=== PATIENT | male | born 1980 | race Caucasian/White ===

== ENCOUNTER 2016-11-04 17:21 | Inpatient (IN) | payer MEDICARE, MEDICAID ==
[~2016-11-04] VITALS: Ht 182.9 cm; Wt 129.4 kg
[~2016-11-04 17:21] MED LIST: /ACETCOD2T PO; /BACL20TA PO; /CLON1TA PO; /DIVA50TA PO; /MOM400 PO; /NITR4TASL SL; /ONDA4TA PO; /PANT40TA PO; ACET500T PO; ADV250INH INH; ALUMINUM HYDROXIDE PO; AMIT50TA PO; ANTI25TA PO; CYCL5TAB PO; FLUC100T PO; FURO40TA2 PO; KLON0.5T PO; KLOR1TAB69 PO; LAMICTAL PO; LEVO500T PO; LUNE1TAB9 PO; LYRI150C PO; LYRI75CA PO; MAGNESIUM HYDROXIDE PO; MORP30SU PO; MORP30TASA PO; MORPHINE SULFATE IR PO; MS CONTIN PO; NEUR300C PO; NICO21DI26 EXT; NICOTINE PATCH TD; NITR0.2D5 TD; NITR4TASL SL; OLAN5TAB PO; PAXI20TA3 PO; PRED-454 PO; PRED10TA PO; PROM25TA3 PO; PROM50TA2 PO; SIMETHICONE PO; SOMA350T PO; SONA10CA6 PO; TRAZ100T2 PO; ULTR50TA PO; VALI5TAB PO; VENTAER IN; ZALE10CA PO; ZOFR20TA PO; ZOFR4TAB3 PO
[2016-11-04 18:12] LABS: MEAN CORPUSCULAR HEMOGLOBIN 26.5 pg (27.0-33.0); RED CELL DISTRIBUTION WIDTH 15.7 % (11.5-14.5); WHITE BLOOD COUNT 15.3 K/mm3 (4.0-10.0)
[2016-11-04 18:28] LABS: AMPHETAMINES LEVEL URINE NEGATIVE (NEGATIVE); BENZODIAZEPINES URINE NEGATIVE (NEGATIVE); COCAINE METABOLITE URINE NEGATIVE (NEGATIVE); CONTROL LINE INT CTR LINE PRESENT; METHADONE URINE NEGATIVE (NEGATIVE); OPIATES URINE NEGATIVE (NEGATIVE); TRICYCLIC ANTIDEPRESS URINE NEGATIVE (NEGATIVE)
[2016-11-04 18:47] LABS: ALBUMIN 3.8 GM/DL (3.2-5.2); ALBUMIN/GLOBULIN RATIO 0.95 (1.00-1.93); ALKALINE PHOSPHATASE 117 U/L (45-117); ALT/SGPT 27 U/L (12-78); ANION GAP 11 MEQ/L (8-16); AST/SGOT 24 U/L (15-37); BILIRUBIN,DIRECT 0.2 MG/DL (0.0-0.2); BILIRUBIN,TOTAL 0.5 MG/DL (0.2-1.0); BLOOD UREA NITROGEN 11 MG/DL (7-18); CARBON DIOXIDE LEVEL 26 MEQ/L (21-32); CHLORIDE LEVEL 101 MEQ/L (98-107); CREATININE FOR GFR 1.06 MG/DL (0.70-1.30); GLOMERULAR FILTRATION RATE > 60.0 (>60); GLUCOSE, FASTING 81 MG/DL (70-105); POTASSIUM SERUM 3.8 MEQ/L (3.5-5.1); SODIUM LEVEL 138 MEQ/L (136-145); TOTAL PROTEIN 7.8 GM/DL (6.4-8.2)
[2016-11-04] MEDS ORDERED: ATRO0.063 INH (20:14)
[2016-11-04] MEDS ORDERED: ATOR40TA PO (20:14)
[2016-11-04] MEDS ORDERED: GABA300C3 PO (20:14)
[2016-11-04] MEDS ORDERED: WELL200T PO (20:14)
[2016-11-04] MEDS ORDERED: RISP1TAB3 PO (20:14)
[2016-11-04] MEDS ORDERED: NITR4TASL SL (20:14)
--- NOTE | 2016-11-04 22:49 | EDDOCDS ---
Physician Documentation [facility] Name: Layton Odonnell Iii Age: 36 yrs Sex: Male : 1980 Arrival Date: 11/04/2016 Time: 17:21 Bed U4 Private MD: Charu Alicia Disposition: 11/04/16 19:32 Hospitalization ordered by Wojciech Schulte for Inpatient Admission. Preliminary diagnosis are Adjustment disorder with mixed anxiety and depressed mood, Suicidal ideations. - Bed requested for Admit. - Status is Inpatient Admission. slm - Condition is Stable. - Problem is an ongoing problem. - Symptoms are unchanged. Historical: - Allergies: Erythromycin; IV Contrast; Red Dye; SULFA (SULFONAMIDES); Vicodin; IODINEIODINE CONTAINING (Anaphylaxis); - Home Meds: 1. atorvastatin 40 mg oral tab 1 tab once daily 2. Wellbutrin SR 200 mg oral TbER 2 times per day 3. gabapentin 900mg Oral tab 1 cap 3 times per day 4. atrovent inhaler 17 mcg/act 2 puffs four times a day prn 5. 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 No barriers to communication noted, The patient speaks fluent Tunisian, Speaks appropriately for age. - Family history: Not pertinent. - : The pt / caregiver states he / she is not on anticoagulants. Home medication list is obtained from the patient. - Exposure Risk Screening:: None identified. Vital Signs: 11/04 17:25 BP 137 / 83; Pulse 114; Resp 21; Temp 96.2(T); Pulse Ox 99% on R/A; lr2 18:47 Weight 126.55 kg / 278.99 lbs (R); Height 6 ft. (182.88 cm) (R); ml6 22:44 BP 154 / 80; Pulse 96; Resp 18; Temp 96.5(T); Pulse Ox 97% ; Pain 9/10; mas 18:47 Body Mass Index 37.84 (126.55 kg, 182.88 cm) ml6 MDM: 17:34 Consult PFS/PSA/Electric Locomotive Crane Operator ordered. ke 17:34 Consult PFS/PSA/Electric Locomotive Crane Operator: Patient's case requires discussion with on-call ke Psychiatrist ordered. 17:34 PSA/PFS to call Nursing Concrete Conveyor Operator, to enter patient data on [place] Safe [place] if patient ke involuntarily admitted or transferred for SI or HI ordered. 17:34 Confirm accurate psychiatric medication list and times of last dosage ordered. ke 17:34 Detain Pt Until Medically/PFS Cleared ordered. ke 17:35 Acetaminophen Level Ordered. EDMS 17:35 Basic Metabolic Profile Ordered. EDMS 17:35 Complete Blood Count Ordered. EDMS 17:35 Drug Eval Toxicology ED Only Ordered. EDMS 17:35 Ethyl Alcohol (ethanol) Ordered. EDMS 17:35 Liver Profile Ordered. EDMS 17:35 Salicylate Level Ordered. EDMS 17:35 Thyroid Stimulating Hormone Ordered. EDMS 17:48 Financial registration complete. gjb 17:50 [facility] Payment Agreement was scanned into [employer] and attached to record. gjb 18:38 REGULAR DIET PLASTIC SAUNDERS+DIET ordered. EDMS 18:52 Acetaminophen Level Reviewed. ke 18:52 Complete Blood Count Reviewed. ke 18:52 Liver Profile Reviewed. ke 18:52 Salicylate Level Reviewed. ke 18:52 Thyroid Stimulating Hormone Reviewed. ke 18:52 Basic Metabolic Profile Reviewed. ke 18:52 Drug Eval Toxicology ED Only Reviewed. ke 18:52 Ethyl Alcohol (ethanol) Reviewed. ke 19:34 Consult PFS/PSA/Electric Locomotive Crane Operator complete. cl 19:34 Consult PFS/PSA/Electric Locomotive Crane Operator: Patient's case requires discussion with on-call cl Psychiatrist complete. 19:34 PSA/PFS to call Nursing Concrete Conveyor Operator, to enter [place] data [place] if patient cl involuntarily admitted or transferred for SI or HI complete. 21:14 [facility] Legal paperwork was scanned into [employer] and attached to record. cs 21:55 M[facility] Legal paperwork was scanned into [employer] and attached to record. cs 21:58 Admit to [facility]: ordered. EDMS Signatures: Dispatcher [employer] EDMS Elise Cai, GLORIA RN audrey Galarza, Madhu, PSA PSA cl Mauro Castañeda PSA PSA cs Christiano Buckley, PULVERIZER PULVERIZER Kahlil Falcon, RN RN ml6 Kalee Key,LUZ MARIA CANNONN Pearl [place] The chart was reviewed and I authenticate all verbal orders and agree with the evaluation and treatment provided.Corrections: (The following items were deleted from the chart) 17:33 17:29 Allergies: IODINE; IODINE CONTAINING; ml6 ml6 17:33 17:29 Allergies: IV Contrast; ml6 ml6 17:33 17:29 Allergies: Red Dye; ml6 ml6 17:33 17:29 Allergies: SULFA (SULFONAMIDES); ml6 ml6 17:33 17:29 Allergies: Vicodin; ml6 ml6 17:33 17:30 Allergies: Erythromycin; srm ml6 17:33 17:30 Allergies: IODINE; IODINE CONTAINING; srm ml6 17:33 17:30 PMHx: Angina; srm ml6 17:33 17:30 PMHx: Diverticulitis; srm ml6 17:33 17:30 PMHx: Hernia; srm ml6 17:33 17:30 PMHx: High Cholesterol; srm ml6 17:33 17:30 PMHx: RI (2012); srm ml6 17:33 17:30 PMHx: Seizure Disorder; srm ml6 17:33 17:31 PMHx: "kidney problems"; ml6 ml6 17:33 17:31 PMHx: 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 ml6 ml6 17:36 17:34 Consult PFS/PSA/Electric Locomotive Crane Operator: Patient's case requires discussion with on-call ml6 Psychiatrist ordered. ml6 17:36 17:34 PSA/PFS to call Nursing Concrete Conveyor Operator, to [place] data [place] if ml6 patient involuntarily admitted or transferred for SI or HI ordered. ml6 17:36 17:34 Confirm accurate psychiatric medication list and times of last dosage ordered. ml6ml6 17:36 17:34 Detain Pt Until Medically/PFS Cleared ordered. ml6 ml6 Attachments: 17:[address] [facility] Payment Agreement [email or web address]
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
[2016-11-05] MEDS ORDERED: ACETAMINOPHEN TAB 650MG DOSE (2X325MG) PO PRN
[2016-11-05] MEDS ORDERED: IPRATROPIUM HFA INHALER 12.9 GRAMS (ATROVENT HFA) INH PRN
[2016-11-05] MEDS ORDERED: MOM 30ML SUSPENSION UDC PO PRN
[2016-11-05] MEDS ORDERED: MAALOX 30 ML SUSP *UDC PO PRN
[2016-11-05] MEDS ORDERED: NITROGLYCERIN 0.4 MG SUBL TABLET SL PRN
[2016-11-05 00:15] VITALS: BP 152/81
[2016-11-05] MEDS: OLANZapine ORAL DISINTEGRATING TAB 5MG PO PRN ×2 (05:09→17:22)
[2016-11-05 06:10] VITALS: BP 139/83
[2016-11-05] MEDS: NICOTINE 21MG/24HR 1 EA TRANSDERMAL TD SCH (09:00)
[2016-11-05] MEDS: risperiDONE 1 MG TAB PO SCH (09:15)
[2016-11-05] MEDS: buPROPion (WELLBUTRIN SR) 100 MG SR TAB PO SCH ×2 (09:15→22:16)
[2016-11-05] MEDS: GABAPENTIN 300 MG CAP PO SCH ×3 (09:15→22:16)
[2016-11-05 12:05] VITALS: BP 117/63
[2016-11-05 18:27] VITALS: BP 118/64
[2016-11-05] MEDS: ATORVASTATIN 20 MG TAB PO SCH (22:16)
[2016-11-05] MEDS: traZODone 50 MG TAB PO PRN (22:16)
[2016-11-06] MEDS: OLANZapine ORAL DISINTEGRATING TAB 5MG PO PRN ×2 (05:11→20:49)
[2016-11-06 06:26] VITALS: BP 140/71
[2016-11-06] MEDS: NICOTINE 21MG/24HR 1 EA TRANSDERMAL TD SCH (08:08)
[2016-11-06] MEDS: risperiDONE 1 MG TAB PO SCH (08:09)
[2016-11-06] MEDS: GABAPENTIN 300 MG CAP PO SCH ×3 (08:09→20:49)
[2016-11-06] MEDS: buPROPion (WELLBUTRIN SR) 100 MG SR TAB PO SCH ×2 (08:09→20:49)
[2016-11-06 18:00] VITALS: BP 118/62
[2016-11-06 18:49] VITALS: BP 140/71
[2016-11-06] MEDS ORDERED: risperiDONE 0.5 MG TAB PO ONE (19:45)
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
[2016-11-06] MEDS: ATORVASTATIN 20 MG TAB PO SCH (20:49)
[2016-11-06] MEDS: traZODone 50 MG TAB PO PRN (21:57)
--- NOTE | 2016-11-06 23:49 | EDDOCDS ---
Physician Documentation [facility] Name: Layton Odonnell Iii Age: 36 yrs Sex: Male : 1980 Arrival Date: 11/04/2016 Time: 17:21 Bed U4 Private MD: Charu Alicia Disposition: 11/04/16 19:32 Hospitalization ordered by Wojciech Schulte for Inpatient Admission. Preliminary diagnosis are Adjustment disorder with mixed anxiety and depressed mood, Suicidal ideations. - Bed requested for Admit. - Status is Inpatient Admission. slm - Condition is Stable. - Problem is an ongoing problem. - Symptoms are unchanged. Historical: - Allergies: Erythromycin; IV Contrast; Red Dye; SULFA (SULFONAMIDES); Vicodin; IODINEIODINE CONTAINING (Anaphylaxis); - Home Meds: 1. atorvastatin 40 mg oral tab 1 tab once daily 2. Wellbutrin SR 200 mg oral TbER 2 times per day 3. gabapentin 900mg Oral tab 1 cap 3 times per day 4. atrovent inhaler 17 mcg/act 2 puffs four times a day prn 5. 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 No barriers to communication noted, The patient speaks fluent Irish, Speaks appropriately for age. - Family history: Not pertinent. - : The pt / caregiver states he / she is not on anticoagulants. Home medication list is obtained from the patient. - Exposure Risk Screening:: None identified. Vital Signs: 11/04 17:25 BP 137 / 83; Pulse 114; Resp 21; Temp 96.2(T); Pulse Ox 99% on R/A; lr2 18:47 Weight 126.55 kg / 278.99 lbs (R); Height 6 ft. (182.88 cm) (R); ml6 22:44 BP 154 / 80; Pulse 96; Resp 18; Temp 96.5(T); Pulse Ox 97% ; Pain 9/10; mas 18:47 Body Mass Index 37.84 (126.55 kg, 182.88 cm) ml6 MDM: 17:34 Consult PFS/PSA/Research Development Director ordered. ke 17:34 Consult PFS/PSA/Research Development Director: Patient's case requires discussion with on-call ke Psychiatrist ordered. 17:34 PSA/PFS to call Nursing Travel Director, to enter patient data on [place] Safe [place] if patient ke involuntarily admitted or transferred for SI or HI ordered. 17:34 Confirm accurate psychiatric medication list and times of last dosage ordered. ke 17:34 Detain Pt Until Medically/PFS Cleared ordered. ke 17:35 Acetaminophen Level Ordered. EDMS 17:35 Basic Metabolic Profile Ordered. EDMS 17:35 Complete Blood Count Ordered. EDMS 17:35 Drug Eval Toxicology ED Only Ordered. EDMS 17:35 Ethyl Alcohol (ethanol) Ordered. EDMS 17:35 Liver Profile Ordered. EDMS 17:35 Salicylate Level Ordered. EDMS 17:35 Thyroid Stimulating Hormone Ordered. EDMS 17:48 Financial registration complete. gjb 17:50 [facility] Payment Agreement was scanned into [employer] and attached to record. gjb 18:38 REGULAR DIET PLASTIC SAUNDERS+DIET ordered. EDMS 18:52 Acetaminophen Level Reviewed. ke 18:52 Complete Blood Count Reviewed. ke 18:52 Liver Profile Reviewed. ke 18:52 Salicylate Level Reviewed. ke 18:52 Thyroid Stimulating Hormone Reviewed. ke 18:52 Basic Metabolic Profile Reviewed. ke 18:52 Drug Eval Toxicology ED Only Reviewed. ke 18:52 Ethyl Alcohol (ethanol) Reviewed. ke 19:34 Consult PFS/PSA/Research Development Director complete. cl 19:34 Consult PFS/PSA/Research Development Director: Patient's case requires discussion with on-call cl Psychiatrist complete. 19:34 PSA/PFS to call Nursing Travel Director, to enter patient data [place] Safe [place] if patient cl involuntarily admitted or transferred for SI or HI complete. 21:14 [facility] Legal paperwork was scanned into [employer] and attached to record. cs 21:55 [facility] Legal paperwork was scanned into [employer] and attached to record. cs 21:58 Admit to [facility]: ordered. EDMS 11/05 10:34 T-Sheet-- Draft Copy was scanned into [employer] and attached to record. gb Signatures: Dispatcher [employer] EDMS Elise Cai, RN RN audrey Galarza, Madhu, PSA PSA cl Wiltonariane, Mauro, PSA PSA cs New, Jaylyn, Reg Reg Christiano Rivero, LEAD DATABASE ADMINISTRATOR LEAD DATABASE ADMINISTRATOR Kahlil Falcon, GLORIA RN ml Kalee Key,AFTER SCHOOL DRIVER AFTER SCHOOL DRIVER slPearl Aguirre The chart was reviewed and I authenticate all verbal orders and agree with the evaluation and treatment provided.Corrections: (The following items were deleted from the chart) 11/04 17:33 17:29 Allergies: IODINE; IODINE CONTAINING; 6 6 17:33 17:29 Allergies: IV Contrast; 6 6 17:33 17:29 Allergies: Red Dye; 6 6 17:33 17:29 Allergies: SULFA (SULFONAMIDES); 6 6 17:33 17:29 Allergies: Vicodin; 6 6 17:33 17:30 Allergies: Erythromycin; [facility] 17:33 17:30 Allergies: IODINE; IODINE CONTAINING; [facility] 17:33 17:30 PMHx: Angina; [facility] 17:33 17:30 PMHx: Diverticulitis; [facility] 17:33 17:30 PMHx: Hernia; [facility] 17:33 17:30 PMHx: High Cholesterol; [facility] 17:33 17:30 PMHx: NC (2012); [facility] 17:33 17:30 PMHx: Seizure Disorder; 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 6 6 17:36 17:34 Consult PFS/PSA/Research Development Director: Patient's case requires discussion with on-call 6 Psychiatrist ordered. 6 17:36 17:34 PSA/PFS to call Nursing Travel Director, to [place] data [place] if ml6 patient involuntarily admitted or transferred for SI or HI ordered. 6 17:36 17:34 Confirm accurate psychiatric medication list and times of last dosage ordered. 66 17:36 17:34 Detain Pt Until Medically/PFS Cleared ordered. ml6 ml6 Attachments: 17:50 [facility] Payment Agreement gjb 11/05 10:34 T-Sheet-- Draft Copy gb Chart Complete MTDD
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
[2016-11-07 06:00] VITALS: BP 138/74
--- NOTE | 2016-11-07 07:33 | HPE ---
DATE OF ADMISSION: 11/04/2016 PRIMARY CARE PROVIDER: [facility]. HISTORY OF THE PRESENT ILLNESS: Please refer to psychiatric history and evaluation for further details on this admission. This examination and history is intended for medical issues which may need treatment, followup, or consult on this 36-year-old male. ALLERGIES: CONTRAST MEDIA, ERYTHROMYCIN, HYDROCODONE, SULFA, IODINE, LIDOCAINE, PRILOCAINE, RED DYE. SOCIAL HISTORY: He is . He drinks daily, 2-3 drinks a day, sometimes more. He smokes one pack of cigarettes per day. Recreational drug use: He used to use cocaine and marijuana. He states he has had none since July of 2016. PAST MEDICAL HISTORY: Hypercholesterolemia. Chronic obstructive pulmonary disease (COPD). Obstructive sleep apnea. He does not wear continuous positive airway pressure (CPAP). Migraines. History of angina. Cardiac catheterization times two. History of colonic polyps. He had colonoscopy times two. He has had cystoscopy. PAST SURGICAL HISTORY: Upper and lower scopes. Cystoscopy. Cardiac catheterization times two. FAMILY HISTORY: Noncontributory. LABORATORY STUDIES: WBC is 15.3, hemoglobin 15.2, hematocrit 42.7, platelets 188, TSH 4.19. ETOH is 0.008. HOME MEDICATIONS: - atorvastatin 40 mg by mouth nightly - Wellbutrin 200 mg by mouth twice a day - gabapentin 900 mg by mouth three times a day - Atrovent HFA one inhalation four times a day as needed shortness of breath - nitroglycerin 0.4 mg sublingual every 5 minutes times three as needed for chest pain - risperidone 1 mg by mouth daily REVIEW OF SYSTEMS: Ten-system review was done. The patient had no complaints. Chronic medical illness is stable. LABORATORY: Showed slight leukocytosis. Will recheck in the morning. PHYSICAL EXAMINATION: A 36-year-old obese male in no acute distress. Vital signs are stable. Height: 72 inches. Weight: 126.7 kg. Body mass index (BMI): 37.9. Blood pressure 118/64, pulse 84, respirations 18, temperature 98. The patient is alert and oriented times three. Pupils are equal and reactive to light. Extraocular movements intact. Cornea and sclerae clear. Conjunctivae is normal. No facial asymmetry. Pharynx: Tongue and gums pink and moist. Tongue is midline. Neck is supple without lymphadenopathy. No thyromegaly. No goiter. Carotids 2+ without bruit. Chest is clear to auscultation without wheeze or retractions. Heart is regular. Abdomen benign. Bowel sounds are positive. Genital/Rectal: Not done. Extremities show equal strength, full range of motion. No cyanosis, clubbing or edema. Peripheral pulses equal and palpable bilaterally. Skin is warm and dry. IMPRESSION AND PLAN: Psychiatric plan per psychiatry. History of hypercholesterolemia. Continue atorvastatin. History of coronary artery disease, stable. History of obstructive sleep apnea, noncompliant with CPAP. No acute medical issues.
--- NOTE | 2016-11-07 08:09 | IPN ---
DATE: 11/06/2016 CHIEF COMPLAINT: Says feels better. SUBJECTIVE: Seen for followup. Says had a good night, and that he feels better, feels the increase in the risperidone has helped, that his moods are better. Said he spoke with his fiance, and that went well. MENTAL STATUS EXAMINATION: He is neat, he is cooperative. Affect is restricted. No agitation. No psychomotor retardation. He is coherent. Denies any thoughts of harming himself or anyone else. Does not appear to be internally preoccupied. No delusions or ideations elicited. Cognition grossly intact. Judgment somewhat improved, as is insight. ASSESSMENT: Schizoaffective disorder. PLAN: Continue current care, including the bupropion, gabapentin, we will increase the risperidone by 0.5 mg, for a total of 1.5 mg at night. He is to be encouraged to participate in activities in the unit. Further recommendations will be made depending on the clinical picture. He will be seeing his treatment team tomorrow, and the assigned psychiatrist.
[2016-11-07] MEDS: NICOTINE 21MG/24HR 1 EA TRANSDERMAL TD SCH (08:23)
[2016-11-07] MEDS: GABAPENTIN 300 MG CAP PO SCH ×3 (08:25→20:18)
[2016-11-07] MEDS: buPROPion (WELLBUTRIN SR) 100 MG SR TAB PO SCH ×2 (08:25→20:18)
[2016-11-07] MEDS: risperiDONE 0.5 MG TAB PO SCH (08:26)
[2016-11-07] MEDS: OLANZapine ORAL DISINTEGRATING TAB 5MG PO PRN ×2 (09:34→20:19)
--- NOTE | 2016-11-07 15:06 | IPN ---
DATE: 11/07/2016 SUBJECTIVE: "I am feeling much better." OBJECTIVE: The patient reports that his mood is significantly improved, that he no longer has suicidal ideation and that he has not been hearing voices since Monday. The patient denies side effects from medications. The patient is requesting to be discharged since he feels much better and he has decided to comply with recommendations and followup with outpatient appointments. The patient was discussed in team meeting. We will set up a family meeting with his girlfriend to discuss discharge issues. MENTAL STATUS EXAMINATION: The patient is dressed in [facility]. The patient is cooperative during the examination. Mood is somewhat depressed and anxious, but significantly improved from admission. Affect is somewhat restricted, but also improved. The patient denies suicidal or homicidal ideation. The patient denies feelings of paranoia and there is no evidence of delusions. The patient denies suicidal or homicidal ideation. Insight and judgment is limited. ASSESSMENT: 1. Depression. 2. Schizoaffective disorder by history. PLAN: 1. Continue with Risperdal 1.5 mg by mouth daily. 2. Bupropion 200 mg by mouth twice a day. 3. Gabapentin 900 mg by mouth three times a day. 4. Trazodone 50 mg by mouth at night as needed for insomnia. 5. We will schedule a meeting with his fiance to discuss discharge issues.
[2016-11-07 18:00] VITALS: BP 132/68
[2016-11-07] MEDS: traZODone 50 MG TAB PO PRN (20:18)
[2016-11-07] MEDS: ATORVASTATIN 20 MG TAB PO SCH (20:18)
[2016-11-08] MEDS: OLANZapine ORAL DISINTEGRATING TAB 5MG PO PRN (06:31)
[2016-11-08 06:59] VITALS: BP 136/67
[2016-11-08 07:37] LABS: MEAN CORPUSCULAR HEMOGLOBIN 27.5 pg (27.0-33.0); MEAN CORPUSCULAR HGB CONC 32.6 g/dl (32.0-36.5); MEAN CORPUSCULAR VOLUME 84.3 fl (80.0-96.0); RED CELL DISTRIBUTION WIDTH 15.4 % (11.5-14.5); WHITE BLOOD COUNT 6.1 K/mm3 (4.0-10.0)
[2016-11-08 07:55] LABS: FREE T4 0.9 NG/DL (0.76-1.46)
[2016-11-08] MEDS: risperiDONE 0.5 MG TAB PO SCH (08:09)
[2016-11-08] MEDS: buPROPion (WELLBUTRIN SR) 100 MG SR TAB PO SCH (08:10)
[2016-11-08] MEDS: GABAPENTIN 300 MG CAP PO SCH (08:10)
[2016-11-08] MEDS: NICOTINE 21MG/24HR 1 EA TRANSDERMAL TD SCH (08:11)
[2016-11-08] MEDS ORDERED: NICO21PAT TD (09:07)
[2016-11-08] MEDS ORDERED: RISP0.5T16 PO (09:59)
[2016-11-08] MEDS ORDERED: TRAZO50TA PO (09:59)
[2016-11-08] MEDS ORDERED: BUPR10TASR PO (09:59)
[2016-11-08] MEDS ORDERED: ZYPR5TAB2 PO (14:09)
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
== END 2016-11-08 12:36 | disposition home or self-care (01) | DRG 885 ==
LOC: M ED 17:21 → M PSY 22:52
PROVIDERS: ADMIT Psychiatry & Neurology Psychiatry; ATTEND Psychiatry & Neurology Psychiatry
DX: F25.9 Schizoaffective disorder, unspecified (principal); F43.10 Post-traumatic stress disorder, unspecified; Z79.899 Other long term (current) drug therapy; Z88.1 Allergy status to other antibiotic agents; Z88.5 Allergy status to narcotic agent; Z91.041 Radiographic dye allergy status; E78.00 Pure hypercholesterolemia, unspecified; J44.9 Chronic obstructive pulmonary disease, unspecified; G47.33 Obstructive sleep apnea (adult) (pediatric)

== ENCOUNTER 2016-11-23 13:15 | Emergency (ER) | payer MEDICARE, MEDICAID ==
[~2016-11-23] VITALS: Ht 182.9 cm; Wt 126.6 kg
[~2016-11-23 13:15] MED LIST changes: +ATOR40TA PO; +ATRO0.063 INH; +BUPR10TASR PO; +GABA300C3 PO; +NICO21PAT TD; +RISP0.5T16 PO; +RISP1TAB3 PO; +TRAZO50TA PO; +WELL200T PO; +ZYPR5TAB2 PO
[2016-11-23] MEDS ORDERED: ATOR1TAB18 PO (13:35)
[2016-11-23] MEDS ORDERED: RISP1TAB3 PO (13:35)
--- NOTE | 2016-11-23 14:31 | REP ---
Chest one-view HISTORY: Chest pain Comparison: 09/24/2016 The lungs are clear. The heart is normal in size. The pulmonary vasculature is normal in appearance. Impression: No acute disease. Signed by Emre Eli MD 11/23/2016 02:22 P
[2016-11-23 14:38] LABS: BASO # 0.1 K/mm3 (0.0-0.2); BASO % 0.6 % (0.0-1.0); EOS # 0.2 K/mm3 (0.0-0.50); EOS % 1.9 % (0.0-3.0); LARGE UNSTAINED CELL # 0.2 K/mm3 (0.0-0.4); LARGE UNSTAINED CELL % 1.6 % (0.0-4.0); MEAN CORPUSCULAR HEMOGLOBIN 27.1 pg (27.0-33.0); MEAN CORPUSCULAR HGB CONC 33.3 g/dl (32.0-36.5); MEAN CORPUSCULAR VOLUME 81.5 fl (80.0-96.0); MONO # 0.5 K/mm3 (0.0-0.8); MONO % 5.7 % (0.0-5.0); NEUTROPHILS # 6.4 K/mm3 (1.8-7.7); NEUTROPHILS % 69.1 % (36.0-66.0); PLATELET COUNT, AUTOMATED 192 k/mm3 (150-450); RED CELL DISTRIBUTION WIDTH 15.2 % (11.5-14.5); WHITE BLOOD COUNT 9.3 K/mm3 (4.0-10.0)
[2016-11-23] MEDS ORDERED: NITROGLYCERIN 0.4 MG SUBL TABLET SL STA (14:40)
[2016-11-23 14:49] LABS: ANION GAP 6 MEQ/L (8-16); BLOOD UREA NITROGEN 18 MG/DL (7-18); CALCIUM LEVEL 9.2 MG/DL (8.5-10.1); CARBON DIOXIDE LEVEL 29 MEQ/L (21-32); CHLORIDE LEVEL 102 MEQ/L (98-107); CREATININE FOR GFR 1.25 MG/DL (0.70-1.30); GLOMERULAR FILTRATION RATE > 60.0 (>60); GLUCOSE, FASTING 132 MG/DL (70-105); POTASSIUM SERUM 3.8 MEQ/L (3.5-5.1); SODIUM LEVEL 137 MEQ/L (136-145)
[2016-11-23 15:28] VITALS: BP 108/52
[2016-11-23 17:16] VITALS: BP 132/56
--- NOTE | 2016-11-23 18:07 | ECGEPIP ---
Stationary ECG Study [facility] - ED Test Date: 2016-11-23 Pat Name: TERRY MACDONALD III Department: Room: - Gender: M Radiographer Cardiac Catheterization: CLIFTON : 1980 Requested By: Keli Carrillo Order Number: [id number] Reading MD: Tony Mead Measurements Intervals [place] Rate: 100 P: 42 HI: 172 QRS: 14 QRSD: 111 T: 9 QT: 322 QTc: 416 Interpretive Statements SINUS TACHYCARDIA LOW QRS VOLTAGE IN PRECORDIAL LEADS INCOMPLETE RIGHT BUNDLE BRANCH BLOCK INFERIOR MYOCARDIAL INFARCTION, PROBABLY OLD SIMILAR TO 09/24/16 Electronically Signed On 11-23-2016 17:47:36 EST by Tony Mead
--- NOTE | 2016-11-23 19:53 | ECGEPIP ---
Stationary ECG Study [facility] - ED Test Date: 2016-11-23 Pat Name: TERRY MACDONALD III Department: Room: - Gender: M Medical Record Librarian: demi : 1980 Requested By: ARTUR Jimenez Order Number: [id number] Reading MD: Tony Mead Measurements Intervals [place] Rate: 70 P: 32 OR: 168 QRS: 15 QRSD: 112 T: 6 QT: 373 QTc: 405 Interpretive Statements SINUS RHYTHM INC. RBBB POSSIBLE INFERIOR MYOCARDIAL INFARCTION, PROBABLY OLD WITH POSTERIOR EXTENSION SIMILAR TO PRIOR ON SAME DATE Electronically Signed On 11-23-2016 19:53:51 EST by Tony Mead
== END 2016-11-23 20:25 | disposition left against medical advice (07) ==
LOC: EDBD 13:15 → M ED 15:20
DX: R07.9 Chest pain, unspecified (principal); R06.02 Shortness of breath; R42 Dizziness and giddiness; I10 Essential (primary) hypertension; Q24.9 Congenital malformation of heart, unspecified; G43.909 Migraine, unspecified, not intractable, without status migrainosus; Z79.899 Other long term (current) drug therapy; Z88.1 Allergy status to other antibiotic agents; Z88.2 Allergy status to sulfonamides; Z88.5 Allergy status to narcotic agent; Z88.4 Allergy status to anesthetic agent; Z91.041 Radiographic dye allergy status; Z91.018 Allergy to other foods

== ENCOUNTER 2017-01-19 20:29 | Emergency (ER) | payer MEDICARE, OTHER ==
[~2017-01-19] VITALS: Ht 182.9 cm; Wt 126.6 kg
[~2017-01-19 20:29] MED LIST changes: +ATOR1TAB18 PO; +GABA-282 PO; -GABA300C3 PO
[2017-01-19] MEDS ORDERED: DILT60CASR PO (20:50)
[2017-01-19] MEDS ORDERED: OLAN20TA PO (20:50)
[2017-01-19] MEDS ORDERED: MIRT1TAB PO (20:50)
[2017-01-19] MEDS ORDERED: KETOROLAC 30 MG/ML VIAL (J1885) IV ONE (21:30)
[2017-01-19] MEDS ORDERED: METHOCARBAMOL 1,000 MG/10 ML VIAL (J2800) IV ONE (21:30)
[2017-01-19 21:44] LABS: BASO % 0.5 % (0.0-1.0); EOS # 0.1 K/mm3 (0.0-0.50); EOS % 1.2 % (0.0-3.0); LARGE UNSTAINED CELL # 0.2 K/mm3 (0.0-0.4); LARGE UNSTAINED CELL % 1.3 % (0.0-4.0); LYMPH # 2.5 K/mm3 (1.5-4.5); LYMPH % 21.5 % (24.0-44.0); MEAN CORPUSCULAR HEMOGLOBIN 27.8 pg (27.0-33.0); MEAN CORPUSCULAR HGB CONC 33.8 g/dl (32.0-36.5); MEAN CORPUSCULAR VOLUME 82.3 fl (80.0-96.0); MONO # 0.8 K/mm3 (0.0-0.8); MONO % 6.9 % (0.0-5.0); NEUTROPHILS # 7.9 K/mm3 (1.8-7.7); NEUTROPHILS % 68.7 % (36.0-66.0); PLATELET COUNT, AUTOMATED 184 k/mm3 (150-450); RED CELL DISTRIBUTION WIDTH 15.2 % (11.5-14.5); WHITE BLOOD COUNT 11.5 K/mm3 (4.0-10.0)
[2017-01-19 22:05] LABS: ANION GAP 9 MEQ/L (8-16); BLOOD UREA NITROGEN 11 MG/DL (7-18); CALCIUM LEVEL 8.7 MG/DL (8.5-10.1); CARBON DIOXIDE LEVEL 26 MEQ/L (21-32); CHLORIDE LEVEL 104 MEQ/L (98-107); GLOMERULAR FILTRATION RATE > 60.0 (>60); GLUCOSE, FASTING 110 MG/DL (70-105); POTASSIUM SERUM 3.6 MEQ/L (3.5-5.1); SODIUM LEVEL 139 MEQ/L (136-145)
[2017-01-19] MEDS ORDERED: IBUP600T26 PO (23:47)
[2017-01-19 23:57] VITALS: BP 136/74
--- NOTE | 2017-01-20 00:10 | REPUSA ---
Clinical history: Pain. Findings: Real-time ultrasound imaging of the testicles and scrotum was performed. The right testicle measures 4.0 x 2.1 x 3.0 cm. The left testicle measures 3.7 x 1.9 x 3.2 cm. The testicles demonstra te normal echo texture and echogenicity. Multiple cysts are seen within the epididymis bilaterally, t he largest measuring up to 4 mm. Normal color Doppler flow and arterial waveforms are seen bilaterall y. Bilateral fluid collections are noted. Prominent lymph nodes are seen in the left inguinal canal, the largest measuring 5.1 x 1.1 x 1.1 cm. Impression: 1. Unremarkable ultrasound examination of the testicles. 2. Bilateral small epididymal cysts. 3. Small bilateral hydroceles. 4. Left inguinal lymphadenopathy.
== END 2017-01-20 00:07 | disposition home or self-care (01) ==
LOC: EDBD 20:29 → M ED 22:16
DX: R59.0 Localized enlarged lymph nodes (principal); R11.2 Nausea with vomiting, unspecified; R19.7 Diarrhea, unspecified; I50.9 Heart failure, unspecified; R56.9 Unspecified convulsions; G43.909 Migraine, unspecified, not intractable, without status migrainosus; Z79.899 Other long term (current) drug therapy; Z88.1 Allergy status to other antibiotic agents; Z88.2 Allergy status to sulfonamides; Z88.5 Allergy status to narcotic agent; Z88.4 Allergy status to anesthetic agent; Z91.018 Allergy to other foods; Z91.041 Radiographic dye allergy status; F17.210 Nicotine dependence, cigarettes, uncomplicated
CPT/HCPCS: 76870; 80048; 81001; 85025; 96374; 96375; 99283; J1885; J2800

== ENCOUNTER 2017-04-02 13:11 | Emergency (ER) | payer MEDICARE, OTHER ==
[~2017-04-02] VITALS: Ht 182.9 cm; Wt 125.0 kg
[~2017-04-02 13:11] MED LIST changes: -ATOR1TAB18 PO; -ATOR40TA PO; +ATOR40TA75 PO; +ATOR80TA59 PO; +DILT60CASR PO; +IBUP-1022 PO; -LUNE1TAB9 PO; +LUNE2TAB23 PO; +MIRT1TAB PO; +OLAN20TA PO; -PROM50TA2 PO; +PROM50TA4 PO; -RISP0.5T16 PO; +RISP0.5T21 PO; +SONA10CA23 PO; -SONA10CA6 PO
[2017-04-02 13:12] VITALS: BP 129/71
[2017-04-02] MEDS ORDERED: diphenhydrAMINE INJ 50MG/ML VIAL (J1200) IM STA (14:42)
[2017-04-02] MEDS ORDERED: oxyCODONE 5MG TAB PO ONE (14:45)
[2017-04-02] MEDS ORDERED: methylPREDNISolone INJ 125 MG/2 ML VIAL (J2930) IM ONE (15:00)
--- NOTE | 2017-04-02 15:24 | REP ---
Clinical: Trauma with decreased range of motion . Technique: AP, lateral, bilateral oblique views of the right elbow. Findings: No acute fracture or dislocation is appreciated. Joint spaces and surrounding soft tissues appear normal. Lateral view demonstrates normal positioning to the anterior and posterior fat pads without evidence for effusion/hemarthrosis. No subcutaneous emphysema or foreign body identified. Impression: Normal right elbow radiographs. No acute fracture or dislocation appreciated. Signed by Gary Jara MD 04/02/2017 03:15 P
[2017-04-02] MEDS ORDERED: LIDOCAINE 1% MDV 20ML VIAL IM ONE (16:15)
[2017-04-02] MEDS ORDERED: NAPR500T PO (16:42)
[2017-04-02] MEDS ORDERED: OXYC-517 PO (16:42)
[2017-07-27] MEDS ORDERED: BUPR75TA5 (00:26)
[2017-07-27] MEDS ORDERED: DICL75TA (00:26)
[2017-07-27] MEDS ORDERED: TIZANIDINE (00:26)
== END 2017-04-02 17:00 | disposition home or self-care (01) ==
LOC: M ED 13:11
DX: S51.011A Laceration without foreign body of right elbow, initial encounter (principal); I25.10 Atherosclerotic heart disease of native coronary artery without angina pectoris; I10 Essential (primary) hypertension; I25.2 Old myocardial infarction; F17.210 Nicotine dependence, cigarettes, uncomplicated; W01.198A Fall on same level from slipping, tripping and stumbling with subsequent striking against other object, initial encounter; Y92.099 Unspecified place in other non-institutional residence as the place of occurrence of the external cause; Y93.01 Activity, walking, marching and hiking; Y99.9 Unspecified external cause status
CPT/HCPCS: 73080; 96372; 99282; J1200; J2930

== ENCOUNTER 2017-04-11 19:01 | Emergency (ER) | payer MEDICARE, OTHER ==
[~2017-04-11] VITALS: Ht 182.9 cm; Wt 125.0 kg
[~2017-04-11 19:01] MED LIST changes: +NAPR500T PO; +OXYC-517 PO
[2017-04-11 19:52] LABS: BASO # 0.1 K/mm3 (0.0-0.2); BASO % 0.9 % (0.0-1.0); EOS # 0.2 K/mm3 (0.0-0.50); EOS % 1.2 % (0.0-3.0); LARGE UNSTAINED CELL # 0.2 K/mm3 (0.0-0.4); LARGE UNSTAINED CELL % 1.5 % (0.0-4.0); LYMPH # 3.3 K/mm3 (1.5-4.5); LYMPH % 25.2 % (24.0-44.0); MEAN CORPUSCULAR HEMOGLOBIN 27.8 pg (27.0-33.0); MEAN CORPUSCULAR HGB CONC 33.5 g/dl (32.0-36.5); MONO # 0.9 K/mm3 (0.0-0.8); MONO % 7.1 % (0.0-5.0); NEUTROPHILS # 7.9 K/mm3 (1.8-7.7); NEUTROPHILS % 64.1 % (36.0-66.0); PLATELET COUNT, AUTOMATED 187 k/mm3 (150-450); RED CELL DISTRIBUTION WIDTH 15.5 % (11.5-14.5); WHITE BLOOD COUNT 12.3 K/mm3 (4.0-10.0)
[2017-04-11 20:01] LABS: ANION GAP 5 MEQ/L (8-16); BLOOD UREA NITROGEN 17 MG/DL (7-18); CALCIUM LEVEL 9.3 MG/DL (8.5-10.1); CARBON DIOXIDE LEVEL 27 MEQ/L (21-32); CHLORIDE LEVEL 107 MEQ/L (98-107); CREATININE FOR GFR 1.15 MG/DL (0.70-1.30); GLOMERULAR FILTRATION RATE > 60.0 (>60); GLUCOSE, FASTING 99 MG/DL (70-105); POTASSIUM SERUM 3.6 MEQ/L (3.5-5.1); SODIUM LEVEL 139 MEQ/L (136-145)
[2017-04-11] MEDS: NITROGLYCERIN 0.4 MG SUBL TABLET SL PRN ×2 (20:15→20:50)
[2017-04-11 20:50] VITALS: BP 137/64
[2017-04-11] MEDS ORDERED: MORPHINE 4 MG/ML 1ML SYRINGE IV PRN (21:00)
[2017-04-11 23:07] VITALS: BP 125/74
[2017-04-11] MEDS ORDERED: NAPR500T PO (23:10)
[2017-04-11] MEDS ORDERED: KETOROLAC 30 MG/ML VIAL (J1885) IV ONE (23:15)
--- NOTE | 2017-04-12 06:43 | REP ---
PA and lateral chest: Comparisons are 11/23/2016 and 09/24/2016. The lung park are clear. The cardiac size is normal The luz, mediastinum, and bony thorax are unremarkable. Impression: Negative PA and lateral chest. There is no interval change. Signed by Jose Antonio Perez MD 04/12/2017 06:34 A
--- NOTE | 2017-04-12 08:30 | ECGEPIP ---
Stationary ECG Study [facility] - ED Test Date: 2017-04-11 Pat Name: TERRY MACDONALD III Department: Room: - Gender: M Marketing Communications Specialist: roula : 1980 Requested By: FERNANDO Oneal Order Number: [id number] Reading MD: Tony Mead Measurements Intervals [place] Rate: 78 P: 28 UT: 171 QRS: 11 QRSD: 107 T: 15 QT: 367 QTc: 418 Interpretive Statements SINUS RHYTHM INCOMPLETE RIGHT BUNDLE BRANCH BLOCK NONSPECIFIC T-WAVE ABNORMALITY SIMILAR TO 11/23/16 Electronically Signed On 04-12-2017 8:30:25 EDT by Tony Mead
--- NOTE | 2017-04-12 08:33 | ECGEPIP ---
Stationary ECG Study [facility] - ED Test Date: 2017-04-11 Pat Name: TERRY MACDONALD [facility] Department: Room: - Gender: M Radiological Health Specialist: JacksonB: 1980 Requested By: FERNANDO Oneal Order Number: [id number] Reading MD: Tony Mead Measurements Intervals [place] Rate: 67 P: 43 [place]: 187 QRS: 15 QRSD: 118 T: 12 QT: 382 QTc: 405 Interpretive Statements SINUS RHYTHM INC. RBBB POSSIBLE INFERIOR MYOCARDIAL INFARCTION, PROBABLY OLD WITH POSTERIOR EXTENSION SIMILAR TO 11/23/16 Electronically Signed On 04-12-2017 8:33:05 EDT by Tony Mead
[2017-07-27] MEDS ORDERED: BUPR75TA5 (00:26)
[2017-07-27] MEDS ORDERED: TIZANIDINE (00:26)
[2017-07-27] MEDS ORDERED: DICL75TA (00:26)
== END 2017-04-11 23:43 | disposition home or self-care (01) ==
LOC: EDBD 19:01 → M ED 19:01
DX: R07.89 Other chest pain (principal); Z88.1 Allergy status to other antibiotic agents; Z88.2 Allergy status to sulfonamides; Z88.5 Allergy status to narcotic agent; Z88.6 Allergy status to analgesic agent; Z91.041 Radiographic dye allergy status; Z88.4 Allergy status to anesthetic agent; Z79.899 Other long term (current) drug therapy
CPT/HCPCS: 71020; 80048; 82550; 82553; 84484; 85025; 93005; 93041; 94760; 96374; 96375; 99285; J1885

== ENCOUNTER → 2017-05-02 | Outpatient (CLI) | payer MEDICARE, OTHER ==
[~2017-05-02] MED LIST changes: +ALBU17IN INH; +BUPR75TA5; +DICL75TA; +GABA600T PO; +MECL-68 PO; +PRED10TA2 PO; +TIZANIDINE
== END ==
LOC: M LAB 10:07
PROVIDERS: ATTEND Family Medicine
DX: Z13.1 Encounter for screening for diabetes mellitus (principal); Z13.220 Encounter for screening for lipoid disorders; Z79.899 Other long term (current) drug therapy

== ENCOUNTER 2017-05-03 20:16 | Emergency (ER) | payer MEDICARE, OTHER ==
[~2017-05-03] VITALS: Ht 182.9 cm; Wt 93.2 kg
[~2017-05-03 20:16] MED LIST changes: -ALBU17IN INH; -BUPR75TA5; -DICL75TA; -GABA600T PO; -MECL-68 PO; -PRED10TA2 PO; -TIZANIDINE
[2017-05-03 22:00] LABS: MEAN CORPUSCULAR HEMOGLOBIN 27.5 pg (27.0-33.0); MEAN CORPUSCULAR HGB CONC 32.7 g/dl (32.0-36.5); MEAN CORPUSCULAR VOLUME 84.1 fl (80.0-96.0); RED CELL DISTRIBUTION WIDTH 15.1 % (11.5-14.5); WHITE BLOOD COUNT 9.7 K/mm3 (4.0-10.0)
[2017-05-03 22:22] LABS: METHADONE URINE NEGATIVE (NEGATIVE)
[2017-05-03 23:07] LABS: ALBUMIN 3.8 GM/DL (3.2-5.2); ALBUMIN/GLOBULIN RATIO 1.09 (1.00-1.93); ALKALINE PHOSPHATASE 104 U/L (45-117); ALT/SGPT 25 U/L (12-78); ANION GAP 9 MEQ/L (8-16); AST/SGOT 15 U/L (15-37); BILIRUBIN,DIRECT 0.1 MG/DL (0.0-0.2); BILIRUBIN,TOTAL 0.4 MG/DL (0.2-1.0); BLOOD UREA NITROGEN 8 MG/DL (7-18); CALCIUM LEVEL 9.3 MG/DL (8.5-10.1); CARBON DIOXIDE LEVEL 26 MEQ/L (21-32); CHLORIDE LEVEL 107 MEQ/L (98-107); CREATININE FOR GFR 1.04 MG/DL (0.70-1.30); GLOMERULAR FILTRATION RATE > 60.0 (>60); GLUCOSE, FASTING 100 MG/DL (70-105); POTASSIUM SERUM 3.8 MEQ/L (3.5-5.1); SODIUM LEVEL 142 MEQ/L (136-145); TOTAL PROTEIN 7.3 GM/DL (6.4-8.2)
[2017-05-03 23:36] VITALS: BP 114/64
[2017-07-27] MEDS ORDERED: TIZANIDINE (00:26)
[2017-07-27] MEDS ORDERED: DICL75TA (00:26)
[2017-07-27] MEDS ORDERED: BUPR75TA5 (00:26)
== END 2017-05-03 23:39 | disposition home or self-care (01) ==
LOC: M ED 20:16
DX: F33.9 Major depressive disorder, recurrent, unspecified (principal); E11.9 Type 2 diabetes mellitus without complications; I11.0 Hypertensive heart disease with heart failure; I50.9 Heart failure, unspecified; I25.2 Old myocardial infarction; N52.9 Male erectile dysfunction, unspecified; R56.9 Unspecified convulsions; Z79.899 Other long term (current) drug therapy; Z88.1 Allergy status to other antibiotic agents; Z88.2 Allergy status to sulfonamides; Z88.5 Allergy status to narcotic agent; Z88.8 Allergy status to other drugs, medicaments and biological substances; Z91.041 Radiographic dye allergy status; Z91.018 Allergy to other foods
CPT/HCPCS: 36415; 80048; 80076; 80307; 84443; 85027; 99284; G0480

== ENCOUNTER 2017-05-06 14:40 | Inpatient (IN) | payer MEDICARE, OTHER, MEDICAID ==
[~2017-05-06] VITALS: Ht 182.9 cm; Wt 125.6 kg
[2017-05-06] MEDS ORDERED: methylPREDNISolone INJ 125 MG/2 ML VIAL (J2930) IV ONE (15:00)
[2017-05-06 15:17] LABS: BASO % 0.9 % (0.0-1.0); EOS # 0.1 K/mm3 (0.0-0.50); EOS % 2.6 % (0.0-3.0); LARGE UNSTAINED CELL # 0.1 K/mm3 (0.0-0.4); LARGE UNSTAINED CELL % 1.4 % (0.0-4.0); LYMPH # 0.9 K/mm3 (1.5-4.5); LYMPH % 14.6 % (24.0-44.0); MEAN CORPUSCULAR HEMOGLOBIN 27.7 pg (27.0-33.0); MEAN CORPUSCULAR HGB CONC 33.1 g/dl (32.0-36.5); MEAN CORPUSCULAR VOLUME 83.8 fl (80.0-96.0); MONO # 0.4 K/mm3 (0.0-0.8); MONO % 7.1 % (0.0-5.0); NEUTROPHILS # 3.9 K/mm3 (1.8-7.7); NEUTROPHILS % 73.5 % (36.0-66.0); PLATELET COUNT, AUTOMATED 138 k/mm3 (150-450); RED CELL DISTRIBUTION WIDTH 15.2 % (11.5-14.5); WHITE BLOOD COUNT 5.3 K/mm3 (4.0-10.0)
[2017-05-06 15:39] LABS: ALBUMIN 3.9 GM/DL (3.2-5.2); ALBUMIN/GLOBULIN RATIO 1.18 (1.00-1.93); ALKALINE PHOSPHATASE 97 U/L (45-117); ALT/SGPT 29 U/L (12-78); ANION GAP 8 MEQ/L (8-16); AST/SGOT 20 U/L (15-37); BILIRUBIN,DIRECT 0.3 MG/DL (0.0-0.2); BILIRUBIN,TOTAL 0.8 MG/DL (0.2-1.0); BLOOD UREA NITROGEN 14 MG/DL (7-18); CALCIUM LEVEL 8.5 MG/DL (8.5-10.1); CARBON DIOXIDE LEVEL 26 MEQ/L (21-32); CHLORIDE LEVEL 106 MEQ/L (98-107); CREATININE FOR GFR 1.02 MG/DL (0.70-1.30); GLOMERULAR FILTRATION RATE > 60.0 (>60); GLUCOSE, FASTING 107 MG/DL (70-105); POTASSIUM SERUM 3.4 MEQ/L (3.5-5.1); SODIUM LEVEL 140 MEQ/L (136-145); THYROXINE (T4) 10.4 UG/DL (4.5-12.0); TOTAL PROTEIN 7.2 GM/DL (6.4-8.2)
[2017-05-06] MEDS: IPRATROPIUM 0.5MG/ALBUTEROL 2.5MG INH SOL UD 3ML (DUONEB)(J7620) NEB PRN ×3 (15:40→16:26)
--- NOTE | 2017-05-06 15:43 | REP ---
PA and lateral chest: Comparison 04/11/2017. The lung park are clear. The cardiac size is normal The luz, mediastinum, and bony thorax are unremarkable. Impression: Negative PA and lateral chest. . There is no interval change. Signed by Jose Antonio Perez MD 05/06/2017 03:34 P
[2017-05-06] MEDS ORDERED: LevoFLOXacin IV 750 MG in APPROPRIATE DILUENT 1 EA IV ONE (16:15)
[2017-05-06] MEDS ORDERED: BISACODYL 5 MG TAB PO PRN (16:30)
[2017-05-06] MEDS ORDERED: GABA600T PO (16:35)
[2017-05-06] MEDS ORDERED: ALBU17IN INH (16:35)
[2017-05-06] MEDS ORDERED: KETOROLAC 30 MG/ML VIAL (J1885) IV ONE (16:45)
[2017-05-06] MEDS ORDERED: POTASSIUM CHLORIDE 10 MEQ SR TABLET PO ONE (16:45)
[2017-05-06 16:54] LABS: ABG BASE EXCESS 1.2 (-2.0-2.0); ABG HCO3 24.5 MEQ/L (22.0-26.0); ABG PARTIAL PRESSURE CO2 35.2 mmHg (35.0-45.0); ABG PARTIAL PRESSURE O2 72.2 mmHg (75.0-100.0); ABG STANDARD HCO3 25.5 MEQ/L (22.0-26.0); ABG TOTAL CO2 25.6 MEQ/L (22.0-29.0)
[2017-05-06] MEDS ORDERED: ALBUTEROL SULFATE 2.5 MG/0.5 ML INH NEB SOLN NEB PRN (17:15)
[2017-05-06 17:30] VITALS: BP 140/84
--- NOTE | 2017-05-06 18:28 | ECGEPIP ---
Stationary ECG Study [facility] - ED Test Date: 2017-05-06 Pat Name: TERRY MACDONALD Department: Room: [place] [address] Gender: M Ore Smelter: BEL : 1980 Requested By: MICHAEL GARCIA Order Number: [id number] Reading MD: Keli Carrillo Measurements Intervals [place] Rate: 89 P: 47 [place]: QRS: 15 QRSD: 112 T: -5 QT: 331 QTc: 404 Interpretive Statements SINUS RHYTHM INCOMPLETE RIGHT BUNDLE BRANCH BLOCK ST DEVIATION AND MODERATE T-WAVE ABNORMALITY, CONSIDER ISCHEMIA PROBABLE OLD INFERIOR INFARCT INCREASED RATE 04/11/17 Electronically Signed On 05-06-2017 18:27:49 EDT by Keli Carrillo
[2017-05-06] MEDS: IPRATROPIUM 0.5MG/ALBUTEROL 2.5MG INH SOL UD 3ML (DUONEB)(J7620) NEB SCH (19:29)
[2017-05-06] MEDS: BUDESONIDE 0.5 MG/2 ML INHALATION SUSPENSION INH SCH (19:29)
[2017-05-06] MEDS: SENOKOT S TAB PO SCH (20:33)
[2017-05-06] MEDS: GABAPENTIN 300 MG CAP PO SCH (20:33)
[2017-05-06 22:00] VITALS: BP_SYST 117; BP_SYST 122; BP_DIAS 57; BP_DIAS 60
[2017-05-06] MEDS: methylPREDNISolone INJ 40 MG/1 ML VIAL (J2920) IV SCH (22:11)
[2017-05-06] MEDS: guaiFENesin ER 600 MG TAB PO SCH (22:18)
[2017-05-06] MEDS: traMADol 50 MG TAB PO PRN (22:19)
[2017-05-06 22:30] VITALS: BP 111/59
[2017-05-07] MEDS: IPRATROPIUM 0.5MG/ALBUTEROL 2.5MG INH SOL UD 3ML (DUONEB)(J7620) NEB SCH ×4 (00:04→19:47)
[2017-05-07 05:58] LABS: BASO % 0.1 % (0.0-1.0); EOS # 0.1 K/mm3 (0.0-0.50); EOS % 0.9 % (0.0-3.0); LARGE UNSTAINED CELL % 0.3 % (0.0-4.0); LYMPH # 0.7 K/mm3 (1.5-4.5); LYMPH % 8.8 % (24.0-44.0); MEAN CORPUSCULAR HEMOGLOBIN 28.5 pg (27.0-33.0); MEAN CORPUSCULAR HGB CONC 33.3 g/dl (32.0-36.5); MEAN CORPUSCULAR VOLUME 85.5 fl (80.0-96.0); MONO # 0.2 K/mm3 (0.0-0.8); MONO % 2.1 % (0.0-5.0); NEUTROPHILS % 87.8 % (36.0-66.0); PLATELET COUNT, AUTOMATED 151 k/mm3 (150-450); RED CELL DISTRIBUTION WIDTH 15.4 % (11.5-14.5); WHITE BLOOD COUNT 7.9 K/mm3 (4.0-10.0)
[2017-05-07 06:00] VITALS: BP 137/89
[2017-05-07] MEDS ORDERED: LevoFLOXacin 500 MG TABLET PO SCH (06:00)
[2017-05-07 06:19] LABS: ANION GAP 11 MEQ/L (8-16); BLOOD UREA NITROGEN 16 MG/DL (7-18); CALCIUM LEVEL 9.3 MG/DL (8.5-10.1); CARBON DIOXIDE LEVEL 23 MEQ/L (21-32); CHLORIDE LEVEL 105 MEQ/L (98-107); CREATININE FOR GFR 1.19 MG/DL (0.70-1.30); GLOMERULAR FILTRATION RATE > 60.0 (>60); GLUCOSE, FASTING 161 MG/DL (70-105); POTASSIUM SERUM 3.9 MEQ/L (3.5-5.1); SODIUM LEVEL 139 MEQ/L (136-145)
[2017-05-07] MEDS: methylPREDNISolone INJ 40 MG/1 ML VIAL (J2920) IV SCH ×3 (06:21→23:37)
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
[2017-05-07] MEDS: BUDESONIDE 0.5 MG/2 ML INHALATION SUSPENSION INH SCH ×2 (07:45→19:47)
[2017-05-07] MEDS: ENOXAPARIN 40 MG/0.4 ML SYRINGE (J1650) SC SCH (09:10)
[2017-05-07] MEDS: ATORVASTATIN 20 MG TAB PO SCH (09:10)
[2017-05-07] MEDS: SENOKOT S TAB PO SCH ×2 (09:11→21:04)
[2017-05-07] MEDS: guaiFENesin ER 600 MG TAB PO SCH ×2 (09:11→21:03)
[2017-05-07] MEDS: GABAPENTIN 300 MG CAP PO SCH ×3 (09:11→21:04)
[2017-05-07] MEDS: traMADol 50 MG TAB PO PRN ×2 (10:25→23:38)
[2017-05-07] MEDS: IBUPROFEN 600 MG TAB PO PRN ×2 (10:25→18:21)
--- NOTE | 2017-05-07 11:54 | IPNPDOC ---
Text Note Date of Service The patient was seen on 05/07/17. NOTE Subjective: States shortness of breath this mildly improved. Positive cough nonproductive. No chest pain or palpitations. Objective: Vitals: (see below) General: No acute distress, laying comfortably in bed. HEENT: Moist mucous membranes. Neck: No JVD or lymphadenopathy Cardiac: RRR, No murmurs Pulm: B/l Exp wheezing/rhonchi b/l. No wheezing, rhonchi Abd: NT/ND + BS Ext: No edema or cyanosis Labs (see below) Images: CXR 05/06/17 Impression: Negative PA and lateral chest. . There is no interval change. Assessment/Plan 1. Asthma Exacerbation - secondary to rhinovirus. We'll continue nebulizers/ steroids. Discontinue Levaquin. Not requiring O2. 2. SINGH- noncompliant with CPAP secondary to PTSD flashbacks 3. History of migraines stable 4. History of angina status post 2 cardiac catheterizations - follow-up outpatient 5. History of colonic polyps status post colonoscopy - follow-up outpatient 6. Hyperlipidemia- continue statin 7. Costal chondritis- secondary to #1. Ibuprofen as needed. DVT prophy: Enoxaparin VS,Fishbone, I+O VS, Fishbone, I+O Laboratory Tests 05/06/17 15:07 Red Blood Count 6.00, Mean Corpuscular Volume 83.8, Mean Corpuscular Hemoglobin 27.7, Mean Corpuscular Hemoglobin Concent 33.1, Red Cell Distribution Width 15.2 H, Neutrophils (%) (Auto) 73.5 H, Lymphocytes (%) (Auto) 14.6 L, Monocytes (%) (Auto) 7.1 H, Eosinophils (%) (Auto) 2.6, Basophils (%) (Auto) 0.9, Neutrophils # (Auto) 3.9, Lymphocytes # (Auto) 0.9 L, Monocytes # (Auto) 0.4, Eosinophils # (Auto) 0.1, Basophils # (Auto) 0.0 05/07/17 05:43 Red Blood Count 5.35, Mean Corpuscular Volume 85.5, Mean Corpuscular Hemoglobin 28.5, Mean Corpuscular Hemoglobin Concent 33.3, Red Cell Distribution Width 15.4 H, Neutrophils (%) (Auto) 87.8 H, Lymphocytes (%) (Auto) 8.8 L, Monocytes ( %) (Auto) 2.1, Eosinophils (%) (Auto) 0.9, Basophils (%) (Auto) 0.1, Neutrophils # (Auto) 7.0, Lymphocytes # (Auto) 0.7 L, Monocytes # (Auto) 0.2, Eosinophils # (Auto) 0.1, Basophils # (Auto) 0.0, Calcium Level 9.3 Vital Signs Date Time Temp Pulse Resp B/P (MAP) Pulse Ox O2 Delivery O2 Flow Rate FiO2 05/07/17 10:55 18 05/07/17 09:15 86 144/76 05/07/17 08:00 Room Air 05/07/17 06:00 98.7 93 I&O- Last 24 Hours up to 6 AM 05/07/17 06:00 Intake Total 1800 ml Output Total 955 ml Balance 845 ml ABRAN RIZVI MD May 07, 2017 11:53
[2017-05-07 14:00] VITALS: BP 151/73
--- NOTE | 2017-05-07 15:41 | REP ---
CT of the cervical spine: Axial images are acquired with helical scanning and a reformatted sagittal and coronal projections. Vertebral body heights and alignment are normal. The facets are normally aligned. The prevertebral soft tissues are normal. There is no fracture or listhesis. Impression: Degenerative disc disease as described. There are no posterior osteophytes. No bony foraminal encroachment. Questionable small midline disc protrusion at C2-3. At the lower cervical levels the spinal cord and contents are obscured by significant beam-hardening artifact. If clinical clinically feasible recommend MRI. There is disc space narrowing and degenerative disc disease at C4-5. there is no posterior osteophyte at this level however, there is a right lateral osteophyte. There is no bony foraminal narrowing. There is a small central disc protrusion at C2-3 that slightly effaces the spinal canal. There is significant beam-hardening artifact at the lower cervical levels from the ribs and clavicles obscuring the spinal canal. I would recommend MRI for better evaluation of the spinal cord, exiting nerve roots and the intervertebral discs. Impression: Mild degenerative disc disease at C4-5. There are no posterior protruding osteophytes at this level or any other level. No bony foraminal encroachment is identified. I suspect there is a small central disc protrusion at C2-3 that mildly effaces the spinal canal. . Significant beam-hardening artifact obscures the spinal canal at the lower cervical levels. No fracture or listhesis. Recommend MRI follow-up if clinically feasible. Signed by Jose Antonio Perez MD 05/07/2017 03:32 P
[2017-05-07 22:00] VITALS: BP 145/69
--- NOTE | 2017-05-07 23:54 | ECGEPIP ---
Stationary ECG Study 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
--- NOTE | 2017-05-08 00:06 | ECGEPIP ---
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
[2017-05-08] MEDS: IPRATROPIUM 0.5MG/ALBUTEROL 2.5MG INH SOL UD 3ML (DUONEB)(J7620) NEB SCH ×6 (01:16→23:47)
[2017-05-08 06:00] VITALS: BP 118/79
[2017-05-08] MEDS: methylPREDNISolone INJ 40 MG/1 ML VIAL (J2920) IV SCH ×3 (06:27→18:46)
[2017-05-08 07:04] LABS: BASO % 0.2 % (0.0-1.0); EOS % 0.1 % (0.0-3.0); LARGE UNSTAINED CELL # 0.1 K/mm3 (0.0-0.4); LARGE UNSTAINED CELL % 0.6 % (0.0-4.0); LYMPH # 1.4 K/mm3 (1.5-4.5); LYMPH % 7.5 % (24.0-44.0); MEAN CORPUSCULAR HEMOGLOBIN 28.3 pg (27.0-33.0); MEAN CORPUSCULAR HGB CONC 32.8 g/dl (32.0-36.5); MEAN CORPUSCULAR VOLUME 86.3 fl (80.0-96.0); MONO # 0.6 K/mm3 (0.0-0.8); MONO % 3.5 % (0.0-5.0); NEUTROPHILS # 15.3 K/mm3 (1.8-7.7); NEUTROPHILS % 88.1 % (36.0-66.0); PLATELET COUNT, AUTOMATED 183 k/mm3 (150-450); RED CELL DISTRIBUTION WIDTH 15.6 % (11.5-14.5); WHITE BLOOD COUNT 17.3 K/mm3 (4.0-10.0)
[2017-05-08 07:20] LABS: ANION GAP 10 MEQ/L (8-16); BLOOD UREA NITROGEN 25 MG/DL (7-18); CALCIUM LEVEL 8.9 MG/DL (8.5-10.1); CARBON DIOXIDE LEVEL 24 MEQ/L (21-32); CHLORIDE LEVEL 106 MEQ/L (98-107); CREATININE FOR GFR 1.12 MG/DL (0.70-1.30); GLOMERULAR FILTRATION RATE > 60.0 (>60); GLUCOSE, FASTING 211 MG/DL (70-105); POTASSIUM SERUM 3.8 MEQ/L (3.5-5.1); SODIUM LEVEL 140 MEQ/L (136-145)
[2017-05-08] MEDS: BUDESONIDE 0.5 MG/2 ML INHALATION SUSPENSION INH SCH ×2 (07:37→20:04)
[2017-05-08] MEDS: SENOKOT S TAB PO SCH ×3 (09:00→20:55)
--- NOTE | 2017-05-08 09:38 | REP ---
MRI CERVICAL SPINE WITHOUT CONTRAST: HISTORY: Midline disc protrusions. Radiculopathy. Comparison MRI study April 08, 2014. Comparison CT study of the cervical spine is from May 07, 2017. TECHNIQUE: Sagittal and axial T1 and T2-weighted scans are acquired in the usual fashion with and without fat saturation. Sequences include spin echo, turbo spin-echo, and STIR imaging sequences. MRI FINDINGS: Image quality is somewhat inhibited compared to the prior study, possibly related to minimal motion and/or patient body habitus factors. There is 4.4 mm of tonsillar ectopia again noted. This is unchanged. There is reversal of the normal cervical lordosis. This is slightly more prominent than on 2014 prior study. Cervical vertebral body heights are preserved. Cortical and medullary bone signal intensity remain normal. No extra spinal abnormality is observed. Cervical cord is normal in coarse caliber and signal intensity on T1 and T2-weighted scans. Axial and sagittal images demonstrate a small central disc bulge at C3-4, which is felt to be unchanged. No abnormality is visible on MR images at C2-3. At C4-C5, no new disc protrusion is seen. At C5-6 there is no new finding. At C6-C7, the posterior disc margin is not well seen on axial images. No disc protrusion is visible. C7-T1 level remains unremarkable. IMPRESSION: No new disc herniation seen. Signed by Yovanny Dickinson MD 05/08/2017 10:15 A
[2017-05-08 10:14] LABS: ABG BASE EXCESS -1.6 (-2.0-2.0); ABG HCO3 22.1 MEQ/L (22.0-26.0); ABG PARTIAL PRESSURE CO2 34.9 mmHg (35.0-45.0); ABG STANDARD HCO3 23.1 MEQ/L (22.0-26.0); ABG TOTAL CO2 23.2 MEQ/L (22.0-29.0)
[2017-05-08] MEDS: ATORVASTATIN 20 MG TAB PO SCH (10:41)
[2017-05-08] MEDS: GABAPENTIN 300 MG CAP PO SCH ×3 (10:41→20:54)
[2017-05-08] MEDS: guaiFENesin ER 600 MG TAB PO SCH ×2 (10:41→20:54)
[2017-05-08] MEDS: ENOXAPARIN 40 MG/0.4 ML SYRINGE (J1650) SC SCH (10:42)
[2017-05-08] MEDS: LevoFLOXacin IV 500 MG in APPROPRIATE DILUENT 1 EA IV SCH (10:42)
[2017-05-08] MEDS: traMADol 50 MG TAB PO PRN (10:48)
--- NOTE | 2017-05-08 11:41 | IPNPDOC ---
Text Note Date of Service The patient was seen on 05/08/17. NOTE Subjective: Huyen dyspnea is worse today. Positive cough nonproductive. No chest pain or palpitations. No chest pain or palpitations. Radiculopathy has resolved. Objective: Vitals: (see below) General: No acute distress, laying comfortably in bed. HEENT: Moist mucous membranes. Neck: No JVD or lymphadenopathy Cardiac: RRR, No murmurs Pulm: B/l Exp wheezing/rhonchi b/l, worse than yesterday. Abd: NT/ND + BS Ext: No edema or cyanosis. strength 5 out of 5 bilateral upper and lower extremities. Distal pulses intact. Labs (see below) Images: CXR 05/06/17 Impression: Negative PA and lateral chest. . There is no interval change. MRI cervical spine 05/08/17 MRI FINDINGS: Image quality is somewhat inhibited compared to the prior study, possibly related to minimal motion and/or patient body habitus factors. There is 4.4 mm of tonsillar ectopia again noted. This is unchanged. There is reversal of the normal cervical lordosis. This is slightly more prominent than on 2014 prior study. Cervical vertebral body heights are preserved. Cortical and medullary bone signal intensity remain normal. No extra spinal abnormality is observed. Cervical cord is normal in coarse caliber and signal intensity on T1 and T2-weighted scans. Axial and sagittal images demonstrate a small central disc bulge at C3-4, which is felt to be unchanged. No abnormality is visible on MR images at C2-3. At C4-C5, no new disc protrusion is seen. At C5-6 there is no new finding. At C6-C7, the posterior disc margin is not well seen on axial images. No disc protrusion is visible. C7-T1 level remains unremarkable. IMPRESSION: No new disc herniation seen. Assessment/Plan 1. Asthma Exacerbation - secondary to rhinovirus. We'll continue all increase the frequency of the nebulizers. Increase the dosage and frequency of steroids. Start on Levaquin. ABG. Chest x-ray. 2. SINGH- noncompliant with CPAP secondary to PTSD flashbacks 3. History of migraines stable 4. History of angina status post 2 cardiac catheterizations - follow-up outpatient 5. History of colonic polyps status post colonoscopy - follow-up outpatient 6. Hyperlipidemia- continue statin 7. Costal chondritis- secondary to #1. Ibuprofen as needed. 8. Cervical disc bulge- likely the cause of the patient's occasional radiculopathy. MRI cervical spine (see above) DVT prophy: Enoxaparin VS,Fishbone, I+O VS, Fishbone, I+O Laboratory Tests 05/08/17 06:31 Red Blood Count 5.32, Mean Corpuscular Volume 86.3, Mean Corpuscular Hemoglobin 28.3, Mean Corpuscular Hemoglobin Concent 32.8, Red Cell Distribution Width 15.6 H, Neutrophils (%) (Auto) 88.1 H, Lymphocytes (%) (Auto) 7.5 L, Monocytes ( %) (Auto) 3.5, Eosinophils (%) (Auto) 0.1, Basophils (%) (Auto) 0.2, Neutrophils # (Auto) 15.3 H, Lymphocytes # (Auto) 1.4 L, Monocytes # (Auto) 0.6 , Eosinophils # (Auto) 0.0, Basophils # (Auto) 0.0, Calcium Level 8.9 Vital Signs Date Time Temp Pulse Resp B/P (MAP) Pulse Ox O2 Delivery O2 Flow Rate FiO2 05/08/17 10:41 76 118/79 05/08/17 06:00 98.0 20 96 05/08/17 00:08 Room Air I&O- Last 24 Hours up to 6 AM 05/08/17 05:59 Intake Total 4080 ml Output Total 2000 ml Balance 2080 ml ABRAN RIZVI MD May 08, 2017 11:41
--- NOTE | 2017-05-08 12:21 | REP ---
Portable chest, 12:17 p.m., the patient semi upright, single AP view: Comparison is 05/06/2017. There is diffuse bilateral interstitial coarsening compatible with new interstitial infiltrates as a change from the prior study. There are no pleural effusions. No focal infiltrates. Cardiac size is upper normal. Impression: New bilateral interstitial infiltrates. Signed by Jose Antonio Perez MD 05/08/2017 12:12 P
[2017-05-08 14:00] VITALS: BP 145/76
[2017-05-08] MEDS: IBUPROFEN 600 MG TAB PO PRN (15:33)
[2017-05-08] MEDS ORDERED: ONDANSETRON 4MG/2ML VIAL (J2405) As Ordered ONE (18:43)
[2017-05-08] MEDS: ONDANSETRON 4MG/2ML VIAL (J2405) IV PRN (18:46)
[2017-05-08 22:00] VITALS: BP 141/65
[2017-05-09] MEDS: methylPREDNISolone INJ 40 MG/1 ML VIAL (J2920) IV SCH ×4 (00:43→18:18)
[2017-05-09] MEDS: IPRATROPIUM 0.5MG/ALBUTEROL 2.5MG INH SOL UD 3ML (DUONEB)(J7620) NEB SCH ×5 (03:16→20:02)
[2017-05-09 06:00] VITALS: BP 115/62
[2017-05-09 06:56] LABS: EOS % 0.3 % (0.0-3.0); LARGE UNSTAINED CELL # 0.1 K/mm3 (0.0-0.4); LARGE UNSTAINED CELL % 0.5 % (0.0-4.0); LYMPH # 1.4 K/mm3 (1.5-4.5); LYMPH % 9.5 % (24.0-44.0); MEAN CORPUSCULAR HEMOGLOBIN 28.1 pg (27.0-33.0); MEAN CORPUSCULAR HGB CONC 32.5 g/dl (32.0-36.5); MEAN CORPUSCULAR VOLUME 86.6 fl (80.0-96.0); MONO # 0.4 K/mm3 (0.0-0.8); MONO % 2.9 % (0.0-5.0); NEUTROPHILS % 86.8 % (36.0-66.0); PLATELET COUNT, AUTOMATED 183 k/mm3 (150-450); RED CELL DISTRIBUTION WIDTH 15.6 % (11.5-14.5); WHITE BLOOD COUNT 13.8 K/mm3 (4.0-10.0)
[2017-05-09 07:08] LABS: ANION GAP 8 MEQ/L (8-16); BLOOD UREA NITROGEN 27 MG/DL (7-18); CALCIUM LEVEL 8.5 MG/DL (8.5-10.1); CARBON DIOXIDE LEVEL 26 MEQ/L (21-32); CHLORIDE LEVEL 105 MEQ/L (98-107); CREATININE FOR GFR 1.02 MG/DL (0.70-1.30); GLOMERULAR FILTRATION RATE > 60.0 (>60); GLUCOSE, FASTING 194 MG/DL (70-105); POTASSIUM SERUM 4.1 MEQ/L (3.5-5.1); SODIUM LEVEL 139 MEQ/L (136-145)
[2017-05-09] MEDS: BUDESONIDE 0.5 MG/2 ML INHALATION SUSPENSION INH SCH ×2 (07:18→20:03)
[2017-05-09] MEDS: guaiFENesin ER 600 MG TAB PO SCH ×2 (09:32→20:25)
[2017-05-09] MEDS: ATORVASTATIN 20 MG TAB PO SCH (09:32)
[2017-05-09] MEDS: SENOKOT S TAB PO SCH ×2 (09:32→20:25)
[2017-05-09] MEDS: traMADol 50 MG TAB PO PRN (09:32)
[2017-05-09] MEDS: LevoFLOXacin IV 500 MG in APPROPRIATE DILUENT 1 EA IV SCH (09:33)
[2017-05-09] MEDS: GABAPENTIN 300 MG CAP PO SCH ×3 (09:33→20:25)
[2017-05-09] MEDS: ENOXAPARIN 40 MG/0.4 ML SYRINGE (J1650) SC SCH (09:33)
[2017-05-09 14:00] VITALS: BP 136/77
[2017-05-09] MEDS ORDERED: guaiFENesin DM LIQ 10ML UD PO PRN (14:15)
[2017-05-09] MEDS: TIOTROPIUM INHALER/CAPSULE (SPIRIVA) INH SCH (15:10)
[2017-05-09] MEDS: ONDANSETRON 4MG/2ML VIAL (J2405) IV PRN (18:18)
[2017-05-09] MEDS: IBUPROFEN 600 MG TAB PO PRN (18:19)
--- NOTE | 2017-05-09 18:50 | IPN ---
DATE: 05/09/2017 Patient seen and examined. Continues to have shortness of breath with significant cough, nonproductive. Denies any fevers, chills, chest pain, pressure or discomfort. VITAL SIGNS: Temperature 96.9, pulse 69, respirations 20, blood pressure 115/62, pulse oximetry 93% on room air. LABORATORY DATA: WBC 13.8, hemoglobin and hematocrit 14.4 over 44.4, platelets 183. Chemistry: Sodium 139, potassium 4.1, chloride 105, bicarbonate 26, BUN 27, creatinine 1.02, C-reactive protein 0.34. PHYSICAL EXAMINATION: GENERAL: Patient alert and oriented times three, in no acute distress, obese. HEENT: Normocephalic, atraumatic. NECK: Supple. CARDIAC: Regular rate and rhythm. Normal S1, S2. PULMONARY: Bilateral wheeze and rhonchi. ABDOMEN: Soft, nontender, positive bowel sounds. EXTREMITIES: No clubbing, cyanosis or edema. ASSESSMENT AND PLAN: This is a 37-year-old male patient with underlying medical history of obstructive sleep apnea, noncompliant with continuous positive airway pressure (CPAP), chronic obstructive pulmonary disease (COPD), history of migraines, dyslipidemia, coronary artery disease, post-traumatic stress disorder, personality disorder, chronic lower back pain, smoking, alcohol abuse, admitted for: Acute asthma exacerbation secondary to rhinovirus as well as superimposed community-acquired bacterial pneumonia. Patient on Levaquin. Continue Solu-Medrol, nebulizer treatment, Spiriva. Chest x-ray appreciated. Continue Pulmicort. Will continue to monitor. Obstructive sleep apnea. Patient noncompliant, obstructive sleep apnea (SINGH) protocol. History of migraines. Currently stable. History of angina, status post cardiac catheterization. Followup outpatient. History of colonic polyp. Followup as an outpatient. Dyslipidemia. Continue statin. Costochondritis. Continue current medication. Cervical disc bulging. MRI appreciated. No nerve root compression. Possibly the cause of patient's occasional radiculopathy. Need outpatient followup. Hypertension. Continue current medication. Deep vein thrombosis (DVT) prophylaxis. Lovenox subcutaneously. DISPOSITION: Pending clinical improvement.
[2017-05-09 21:09] LABS: ABG BASE EXCESS -1.6 (-2.0-2.0); ABG PARTIAL PRESSURE CO2 38.5 mmHg (35.0-45.0); ABG STANDARD HCO3 22.8 MEQ/L (22.0-26.0); ABG TOTAL CO2 24.2 MEQ/L (22.0-29.0); ABG pH (ARTERIAL) 7.394 UNITS (7.350-7.450)
[2017-05-09 22:00] VITALS: BP 166/74
[2017-05-09] MEDS ORDERED: FUROSEMIDE 20 MG/2 ML VIAL (J1940) IV ONE (22:00)
[2017-05-09 23:00] VITALS: BP 127/67
--- NOTE | 2017-05-09 23:20 | REPUSA ---
CLINICAL HISTORY: N/A. COMMENTS: The cardiac silhouette is enlarged. There is evidence for pulmonary venous congestion compatible with CHF. There is no definite radiographic evidence for a lung mass or consolidation. Bony structures appear normal. IMPRESSION: 1. Enlarged cardiac silhouette. 2. Pulmonary venous congestion compatible with CHF. Thank you for your kind referral of this patient.
[2017-05-10] MEDS: IPRATROPIUM 0.5MG/ALBUTEROL 2.5MG INH SOL UD 3ML (DUONEB)(J7620) NEB SCH ×7 (00:17→22:20)
[2017-05-10] MEDS: methylPREDNISolone INJ 40 MG/1 ML VIAL (J2920) IV SCH ×4 (01:10→19:06)
--- NOTE | 2017-05-10 01:56 | IPNPDOC ---
Text Note Date of Service The patient was seen on 05/10/17. NOTE Evening resident and hospitalist were called regarding patient was having saturation in the low 80s. ABG was done found that patient was having PO2 in the 40s. Stat CXR was ordered and it showed patient had some pulmonary congestion and he also had a little swelling in lower extremities therefore a very low dose of lasix was given to patient and he was placed on Arasol mask 40% , he then was satting above 90%. Patient also stated he is feeling a little better. Will repeat ABG in am. Patient has been discussed with Dr. Rendon. VS,Nicole, I+O VS, Nicole, I+O Laboratory Tests 05/09/17 06:34 Red Blood Count 5.13, Mean Corpuscular Volume 86.6, Mean Corpuscular Hemoglobin 28.1, Mean Corpuscular Hemoglobin Concent 32.5, Red Cell Distribution Width 15.6 H, Neutrophils (%) (Auto) 86.8 H, Lymphocytes (%) (Auto) 9.5 L, Monocytes ( %) (Auto) 2.9, Eosinophils (%) (Auto) 0.3, Basophils (%) (Auto) 0.0, Neutrophils # (Auto) 12.0 H, Lymphocytes # (Auto) 1.4 L, Monocytes # (Auto) 0.4 , Eosinophils # (Auto) 0.0, Basophils # (Auto) 0.0, Calcium Level 8.5 Vital Signs Date Time Temp Pulse Resp B/P (MAP) Pulse Ox O2 Delivery O2 Flow Rate FiO2 05/09/17 23:00 127/67 (87) 97 Venturi Mask 15.0 40 05/09/17 22:00 97.6 90 18 I&O- Last 24 Hours up to 6 AM 05/10/17 06:00 Intake Total 4110 ml Output Total 4750 ml Balance -640 ml GME ATTESTATION GME ATTESTATION My preceptor for this patient encounter was physically present in the building during the encounter and was fully available. As needed, all aspects of the patient interview, examination, medical decision making process, and medical care plan development were reviewed and approved by the preceptor. Preceptor is aware and concurs with the plan as stated in the body of this note and will attest to such by his/her cosignature. BERNARDO WOOD DO May 10, 2017 01:56
[2017-05-10 02:00] VITALS: BP 126/61
[2017-05-10 06:00] VITALS: BP 126/64
[2017-05-10 06:06] LABS: ABG BASE EXCESS 3.5 (-2.0-2.0); ABG HCO3 28.9 MEQ/L (22.0-26.0); ABG PARTIAL PRESSURE CO2 46.4 mmHg (35.0-45.0); ABG PARTIAL PRESSURE O2 62.8 mmHg (75.0-100.0); ABG STANDARD HCO3 27.5 MEQ/L (22.0-26.0); ABG TOTAL CO2 30.3 MEQ/L (22.0-29.0); ABG pH (ARTERIAL) 7.412 UNITS (7.350-7.450)
[2017-05-10 06:41] LABS: BASO % 0.1 % (0.0-1.0); EOS % 0.1 % (0.0-3.0); LARGE UNSTAINED CELL # 0.1 K/mm3 (0.0-0.4); LARGE UNSTAINED CELL % 0.6 % (0.0-4.0); LYMPH # 1.6 K/mm3 (1.5-4.5); LYMPH % 12.3 % (24.0-44.0); MEAN CORPUSCULAR HEMOGLOBIN 28.4 pg (27.0-33.0); MEAN CORPUSCULAR HGB CONC 33.7 g/dl (32.0-36.5); MEAN CORPUSCULAR VOLUME 84.3 fl (80.0-96.0); MONO # 0.5 K/mm3 (0.0-0.8); NEUTROPHILS # 10.5 K/mm3 (1.8-7.7); NEUTROPHILS % 82.9 % (36.0-66.0); PLATELET COUNT, AUTOMATED 191 k/mm3 (150-450); RED CELL DISTRIBUTION WIDTH 15.5 % (11.5-14.5); WHITE BLOOD COUNT 12.7 K/mm3 (4.0-10.0)
[2017-05-10 07:01] LABS: ANION GAP 6 MEQ/L (8-16); BLOOD UREA NITROGEN 24 MG/DL (7-18); CALCIUM LEVEL 8.9 MG/DL (8.5-10.1); CARBON DIOXIDE LEVEL 31 MEQ/L (21-32); CHLORIDE LEVEL 102 MEQ/L (98-107); CREATININE FOR GFR 1.11 MG/DL (0.70-1.30); GLOMERULAR FILTRATION RATE > 60.0 (>60); GLUCOSE, FASTING 215 MG/DL (70-105); POTASSIUM SERUM 3.7 MEQ/L (3.5-5.1); SODIUM LEVEL 139 MEQ/L (136-145)
[2017-05-10] MEDS: BUDESONIDE 0.5 MG/2 ML INHALATION SUSPENSION INH SCH ×2 (07:10→18:58)
[2017-05-10] MEDS: TIOTROPIUM INHALER/CAPSULE (SPIRIVA) INH SCH (07:10)
[2017-05-10] MEDS: guaiFENesin ER 600 MG TAB PO SCH ×2 (08:15→21:05)
[2017-05-10] MEDS: GABAPENTIN 300 MG CAP PO SCH ×3 (08:16→21:05)
[2017-05-10] MEDS: SENOKOT S TAB PO SCH ×2 (08:16→21:05)
[2017-05-10] MEDS: ATORVASTATIN 20 MG TAB PO SCH (08:17)
[2017-05-10] MEDS: ENOXAPARIN 40 MG/0.4 ML SYRINGE (J1650) SC SCH (08:18)
[2017-05-10 09:20] VITALS: BP 136/67
[2017-05-10] MEDS: LevoFLOXacin IV 500 MG in APPROPRIATE DILUENT 1 EA IV SCH (11:21)
[2017-05-10 14:00] VITALS: BP 138/62
--- NOTE | 2017-05-10 16:40 | IPN ---
DATE: 05/10/2017 Patient seen and examined. Continues to have dyspnea. Not much improved. Is currently on Venturi mask 40% with saturation 98%. Denies any chest pain, pressure or discomfort. Still not coughing up much sputum. Patient also had an episode of shortness of breath overnight. Arterial blood gas (ABG) was done, and repeat chest x-ray was also done.. VITAL SIGNS: Temperature 97.1, pulse 67, respirations 18, blood pressure 126/64, pulse oximetry 95% on 40% Venturi mask. LABORATORY DATA: WBC 12.7, hemoglobin and hematocrit 14.4/42.7, platelets 191. Chemistry: Sodium 139, potassium 3.7, chloride 102, bicarbonate 31, BUN 24, creatinine 1.11. C-reactive protein negative. PHYSICAL EXAMINATION: GENERAL: Patient alert and oriented times three in no acute distress, obese. HEENT: Normocephalic, atraumatic. NECK: Supple. CARDIAC: Regular rate and rhythm. Normal S1, S2. PULMONARY: Bilateral wheeze with rhonchi. ABDOMEN: Soft and nontender. Positive bowel sounds. EXTREMITIES: No clubbing, cyanosis, or edema. ASSESSMENT AND PLAN: This is a 37-year-old male patient with underlying medical history of obstructive sleep apnea, noncompliant with continuous positive airway pressure (CPAP), chronic obstructive pulmonary disease (COPD), history of migraine, dyslipidemia, coronary artery disease, posttraumatic stress disorder, personality disorder, chronic lower back pain, smoking, alcohol abuse, admitted for acute asthma exacerbation secondary to rhinovirus as well as superimposed community-acquired bacterial pneumonia. 1. Acute COPD exacerbation secondary to human rhinovirus with superimposed community-acquired bacterial pneumonia. Patient on Levaquin Solu-Medrol, nebulizer treatments, Spiriva. Chest x-ray appreciated. Will get CT of the chest. Continue Pulmicort. Will continue to monitor. 2. Obstructive sleep apnea. Patient noncompliant with CPAP due to post traumatic stress disorder. Obstructive sleep apnea (SINGH) protocol. 3. History of migraine, currently stable. 4. History of angina status post cardiac catheterization. Followup as outpatient. 5. History of colonic polyp. Outpatient followup. 6. Dyslipidemia. Continue statin. 7. Costochondritis. Continue current medication. 8. Cervical disc bulge. MRI appreciated. No nerve root compression. Possibly the cause of patient's occasional radiculopathy. Need outpatient followup. No radiological evidence of nerve root compression. 9. Hypertension. Continue current medication. 10. Deep vein thrombosis (DVT) prophylaxis. Lovenox subcutaneous. DISPOSITION: Pending clinical improvement. Will followup CT scan.
--- NOTE | 2017-05-10 19:07 | REP ---
CT CHEST WITHOUT CONTRAST: 05/10/2017. Clinical history: Dyspnea, wheezing. Comparison: Portable chest 05/09/2017, 05/08/2017, 05/06/2017, CT chest 12/31/2014. Findings: Scanning through the chest with coronal and sagittal reconstructions provided. Lungs are adequately inflated. There are scattered hazy ground-glass opacities in the mid and upper lung zones but not in the lower lung zones. There is no pleural effusion, pleural-based mass, pleural plaque or calcification. No dense consolidation with air bronchograms. No significant pulmonary nodule or lung mass. No calcified granulomas. Heart is not enlarged. There is no pericardial thickening or effusion. The aorta is without aneurysm. No pathologic sized mediastinal or hilar adenopathy and no axillary, supraclavicular mass. Thyroid lobes symmetric. The bone windows show the sternum, manubrium, medial clavicles, humeral head on the left, the scapulae and ribs without fracture or focal lesion. No compression deformity in the spine or other acute finding in the bony thorax. In the upper abdomen the liver is not enlarged although seen only in part. Spleen is probably upper limits normal. Also seen only in part. No hepatic mass or biliary dilatation, no focal splenic lesion. Gallbladder shows no calcified stone or mass and no hiatal hernia is evident. Adrenal glands and upper poles kidneys visible were intact. That portion of pancreas unremarkable. Stomach partially filled with food only a small amount of the hepatic flexure is visible and unremarkable. Impression: 1. Hazy ground-glass opacities scattered in the mid and upper lung zones bilaterally suggesting some subsegmental atelectasis, interstitial infiltrates or edema. No dense consolidation, mass, effusion, nodules or other acute lung findings. No pathologic sized mediastinal or hilar adenopathy. Upper abdomen unremarkable. Signed by Bhavin Willson MD 05/11/2017 08:46 A
[2017-05-10] MEDS: traMADol 50 MG TAB PO PRN (21:05)
[2017-05-10 22:00] VITALS: BP 152/80
[2017-05-11] MEDS: methylPREDNISolone INJ 40 MG/1 ML VIAL (J2920) IV SCH ×2 (00:53→06:00)
[2017-05-11] MEDS: IPRATROPIUM 0.5MG/ALBUTEROL 2.5MG INH SOL UD 3ML (DUONEB)(J7620) NEB SCH ×6 (03:45→23:37)
[2017-05-11 06:00] VITALS: BP 125/74
[2017-05-11 07:07] LABS: BASO % 0.2 % (0.0-1.0); EOS % 0.4 % (0.0-3.0); LARGE UNSTAINED CELL # 0.1 K/mm3 (0.0-0.4); LARGE UNSTAINED CELL % 0.7 % (0.0-4.0); LYMPH # 1.6 K/mm3 (1.5-4.5); LYMPH % 14.1 % (24.0-44.0); MEAN CORPUSCULAR HEMOGLOBIN 28.1 pg (27.0-33.0); MEAN CORPUSCULAR HGB CONC 33.8 g/dl (32.0-36.5); MEAN CORPUSCULAR VOLUME 83.4 fl (80.0-96.0); MONO # 0.4 K/mm3 (0.0-0.8); MONO % 3.4 % (0.0-5.0); NEUTROPHILS # 8.6 K/mm3 (1.8-7.7); NEUTROPHILS % 81.2 % (36.0-66.0); PLATELET COUNT, AUTOMATED 174 k/mm3 (150-450); RED CELL DISTRIBUTION WIDTH 15.2 % (11.5-14.5); WHITE BLOOD COUNT 10.6 K/mm3 (4.0-10.0)
[2017-05-11 07:24] LABS: ANION GAP 11 MEQ/L (8-16); BLOOD UREA NITROGEN 25 MG/DL (7-18); CALCIUM LEVEL 8.5 MG/DL (8.5-10.1); CARBON DIOXIDE LEVEL 28 MEQ/L (21-32); CHLORIDE LEVEL 102 MEQ/L (98-107); CREATININE FOR GFR 1.02 MG/DL (0.70-1.30); GLOMERULAR FILTRATION RATE > 60.0 (>60); GLUCOSE, FASTING 178 MG/DL (70-105); POTASSIUM SERUM 3.9 MEQ/L (3.5-5.1); SODIUM LEVEL 141 MEQ/L (136-145)
[2017-05-11] MEDS: TIOTROPIUM INHALER/CAPSULE (SPIRIVA) INH SCH (07:27)
[2017-05-11] MEDS: BUDESONIDE 0.5 MG/2 ML INHALATION SUSPENSION INH SCH ×2 (07:27→19:52)
[2017-05-11] MEDS: SENOKOT S TAB PO SCH ×2 (09:22→22:56)
[2017-05-11] MEDS: guaiFENesin ER 600 MG TAB PO SCH ×2 (09:22→22:56)
[2017-05-11] MEDS: GABAPENTIN 300 MG CAP PO SCH ×3 (09:22→22:56)
[2017-05-11] MEDS: ATORVASTATIN 20 MG TAB PO SCH (09:22)
[2017-05-11] MEDS: ENOXAPARIN 40 MG/0.4 ML SYRINGE (J1650) SC SCH (09:23)
[2017-05-11] MEDS: LevoFLOXacin 500 MG TABLET PO SCH (09:27)
[2017-05-11 11:43] VITALS: BP_SYST 135; BP_SYST 136; BP_SYST 150; BP_DIAS 65; BP_DIAS 67; BP_DIAS 75
[2017-05-11] MEDS: MECLIZINE 25 MG TABLET PO PRN (11:49)
[2017-05-11 14:00] VITALS: BP 126/61
[2017-05-11] MEDS: methylPREDNISolone INJ 125 MG/2 ML VIAL (J2930) IV SCH (17:17)
--- NOTE | 2017-05-11 19:40 | IPN ---
DATE: 05/11/2017 Patient seen and examined. Seems to be a bit improved. Denies any chest pain, pressure, discomfort. CT scan is appreciated. VITAL SIGNS: Temperature 98.7, pulse 85, respirations 20, blood pressure 126/61, pulse oximetry 93% on room air. LABORATORY DATA: WBC 10.6, hemoglobin and hematocrit 14.3/42.2. Platelets 174. Chemistry: Sodium 141, potassium 3.9, chloride 102, bicarbonate 28, BUN 25, creatinine 1.02. PHYSICAL EXAMINATION: GENERAL: Patient alert and oriented times three in no acute distress. HEENT: Normocephalic, atraumatic. PULMONARY: Bilateral expiratory wheeze. Seems to be much improved. ABDOMEN: Soft and nontender. Positive bowel sounds. EXTREMITIES: No clubbing, cyanosis, or edema. ASSESSMENT AND PLAN: This is a 37-year-old male patient with underlying medical history of obstructive sleep apnea, not compliant with continuous positive airway pressure (CPAP), chronic obstructive pulmonary disease (COPD), history of migraine, dyslipidemia, coronary artery disease, post traumatic stress disorder, personality disorder, chronic lower back pain, smoking, alcohol abuse, admitted with acute asthma exacerbation secondary to rhinovirus as well as superimposed community-acquired bacterial pneumonia. 1. Acute COPD exacerbation secondary to human rhinovirus with superimposed community-acquired bacterial pneumonia. Patient on Levaquin, Solu-Medrol, tapered steroids, Spiriva. Chest x-ray appreciated. CT scan appreciated. Continue Pulmicort. Will continue to monitor. 2. Obstructive sleep apnea, noncompliant due to posttraumatic stress disorder. 3. History of migraine, currently stable. 4. History of angina. Had cardiac catheterization in the past. Need outpatient followup. 5. History of colonic polyp. Outpatient followup. 6. Dyslipidemia. Continue statin. 7. Costochondritis. Continue current medication. 8. Cervical disc bulging. MRI appreciated. No nerve root compression. Possibly the cause of the patient's occasional radiculopathy. Need outpatient followup. No radiological evidence of nerve root compression. 9. Hypertension. Continue current medication. 10. Deep vein thrombosis (DVT) prophylaxis. Lovenox subcutaneous. DISPOSITION PLANNING: Pending clinical improvement.
[2017-05-11 22:00] VITALS: BP 126/65
[2017-05-11] MEDS: traMADol 50 MG TAB PO PRN (23:04)
[2017-05-12 04:42] VITALS: O2SAT 93
[2017-05-12] MEDS: IPRATROPIUM 0.5MG/ALBUTEROL 2.5MG INH SOL UD 3ML (DUONEB)(J7620) NEB SCH ×6 (04:53→23:55)
[2017-05-12 06:00] VITALS: BP_SYST 124; BP_SYST 128; BP_SYST 139; BP_DIAS 73; BP_DIAS 76; BP_DIAS 90
[2017-05-12] MEDS: methylPREDNISolone INJ 125 MG/2 ML VIAL (J2930) IV SCH ×2 (06:13→17:42)
[2017-05-12] MEDS: LevoFLOXacin 500 MG TABLET PO SCH (06:14)
[2017-05-12 06:59] LABS: MEAN CORPUSCULAR HEMOGLOBIN 28.3 pg (27.0-33.0); MEAN CORPUSCULAR HGB CONC 33.7 g/dl (32.0-36.5); MEAN CORPUSCULAR VOLUME 83.9 fl (80.0-96.0); RED CELL DISTRIBUTION WIDTH 15.3 % (11.5-14.5); WHITE BLOOD COUNT 11.1 K/mm3 (4.0-10.0)
[2017-05-12 07:13] LABS: ANION GAP 9 MEQ/L (8-16); BLOOD UREA NITROGEN 31 MG/DL (7-18); CALCIUM LEVEL 8.3 MG/DL (8.5-10.1); CARBON DIOXIDE LEVEL 29 MEQ/L (21-32); CHLORIDE LEVEL 103 MEQ/L (98-107); CREATININE FOR GFR 1.08 MG/DL (0.70-1.30); GLOMERULAR FILTRATION RATE > 60.0 (>60); GLUCOSE, FASTING 175 MG/DL (70-105); MAGNESIUM LEVEL 2.9 MG/DL (1.8-2.4); POTASSIUM SERUM 3.8 MEQ/L (3.5-5.1); SODIUM LEVEL 141 MEQ/L (136-145)
[2017-05-12] MEDS: BUDESONIDE 0.5 MG/2 ML INHALATION SUSPENSION INH SCH ×2 (07:13→19:38)
[2017-05-12] MEDS: TIOTROPIUM INHALER/CAPSULE (SPIRIVA) INH SCH (07:13)
[2017-05-12] MEDS: guaiFENesin ER 600 MG TAB PO SCH ×2 (10:12→21:24)
[2017-05-12] MEDS: IBUPROFEN 600 MG TAB PO PRN (10:12)
[2017-05-12] MEDS: ATORVASTATIN 20 MG TAB PO SCH (10:12)
[2017-05-12] MEDS: MECLIZINE 25 MG TABLET PO PRN (10:12)
[2017-05-12] MEDS: SENOKOT S TAB PO SCH ×2 (10:12→21:24)
[2017-05-12] MEDS: ENOXAPARIN 40 MG/0.4 ML SYRINGE (J1650) SC SCH (10:13)
[2017-05-12] MEDS: GABAPENTIN 300 MG CAP PO SCH ×3 (10:13→21:24)
--- NOTE | 2017-05-12 14:22 | REP ---
MRI BRAIN WITHOUT CONTRAST: HISTORY: Vertigo. Comparison MRI study is from February 08, 2014. TECHNIQUE: Axial and sagittal imaging planes are utilized for T1 and T2-weighted scans. Sequences include spin echo, fast spin echo, FLAIR, and diffusion weighted sequences. MRI FINDINGS: Cerebellar tonsillar ectopia is again seen as before, 6 mm. There is no evidence of hydrocephalous. A small subcortical T2 hyperintensity persists in the right parietal lobe unchanged. Merrill-white differentiation pattern is otherwise normal. There is no evidence of infarct or hemorrhage. Diffusion weighted scans remain unremarkable. There is no MR evidence of significant paranasal sinus disease. No bony calvarial lesion is seen. IMPRESSION: Stable MR findings including cerebellar ectopia and a small stable right parietal T2 hyperintense focus. No acute abnormality. Signed by Yovanny Dickinson MD 05/12/2017 04:42 P
[2017-05-12] MEDS: ONDANSETRON 4MG/2ML VIAL (J2405) IV PRN ×2 (14:37→21:24)
--- NOTE | 2017-05-12 20:48 | IPN ---
DATE: 05/12/2017 Patient seen and examined. No acute events overnight. Denies any chest pain, pressure, or discomfort, fevers, or chills. She continues to report vertigo. VITAL SIGNS: Temperature 98.4, pulse 89, respirations 18, blood pressure 128/76, pulse oximetry 97% on room air. LABORATORY DATA: WBC 11.1, hemoglobin and hematocrit 14/41.7, platelets 191. Chemistry: Sodium 141, potassium 3.8, chloride 103, bicarbonate 29, BUN 31, creatinine 1.08. PHYSICAL EXAMINATION: GENERAL: Patient obese, alert, oriented times three in no acute distress. HEENT: Normocephalic, atraumatic. PULMONARY: Bilateral expiratory wheeze, much improved. CARDIAC: Regular rate and rhythm. Normal S1, S2. ABDOMEN: Soft and nontender. Positive bowel sounds. EXTREMITIES: No clubbing, cyanosis, or edema. ASSESSMENT AND PLAN: This is a 37-year-old male patient with underlying medical history of obstructive sleep apnea, noncompliant with continuous positive airway pressure (CPAP), chronic obstructive pulmonary disease (COPD), history of migraine, dyslipidemia, coronary artery disease, posttraumatic stress disorder, personality disorder, chronic lower back pain, smoking, alcohol abuse, admitted with acute asthma exacerbation secondary to rhinovirus as well as superimposed community-acquired bacterial pneumonia. 1. Acute COPD exacerbation secondary to human rhinovirus with superimposed community-acquired bacterial pneumonia. Patient on Levaquin, Solu-Medrol taper, Spiriva. Chest x-ray, CT scan appreciated. Continue Pulmicort. Will continue to monitor. 2. Obstructive sleep apnea. Noncompliant secondary to posttraumatic stress disorder. Compliance encouraged. Will need to followup with psychiatry as outpatient as well as pulmonary. 3. History of migraine, currently stable. 4. Benign position vertigo. Vestibular exercises, physical therapy, meclizine as needed. 5. History of angina. Patient had cardiac catheterization in the past. Needs outpatient followup. 6. History of colonic polyp. Outpatient followup. 7. Dyslipidemia. Continue statin. 8. Costochondritis. Continue current medication. 9. Cervical disc bulging. MRI appreciated. No nerve root compression. Need outpatient followup. 10. Hypertension. Continue current medication. 11. Deep vein thrombosis (DVT) prophylaxis. Lovenox subcutaneous. DISPOSITION PLANNING: Pending clinical improving, physical therapy.
[2017-05-12] MEDS: traMADol 50 MG TAB PO PRN (21:26)
[2017-05-12 22:00] VITALS: BP 160/64
[2017-05-12 23:56] VITALS: O2SAT 94
[2017-05-13] MEDS: IPRATROPIUM 0.5MG/ALBUTEROL 2.5MG INH SOL UD 3ML (DUONEB)(J7620) NEB SCH ×6 (05:09→23:45)
[2017-05-13] MEDS: LevoFLOXacin 500 MG TABLET PO SCH (05:16)
[2017-05-13] MEDS: methylPREDNISolone INJ 125 MG/2 ML VIAL (J2930) IV SCH (05:16)
[2017-05-13 06:00] VITALS: BP 154/67
[2017-05-13 07:13] LABS: MEAN CORPUSCULAR HGB CONC 33.5 g/dl (32.0-36.5); MEAN CORPUSCULAR VOLUME 83.7 fl (80.0-96.0); WHITE BLOOD COUNT 12.2 K/mm3 (4.0-10.0)
[2017-05-13 07:18] LABS: ANION GAP 9 MEQ/L (8-16); BLOOD UREA NITROGEN 28 MG/DL (7-18); CARBON DIOXIDE LEVEL 29 MEQ/L (21-32); CHLORIDE LEVEL 103 MEQ/L (98-107); CREATININE FOR GFR 0.88 MG/DL (0.70-1.30); GLOMERULAR FILTRATION RATE > 60.0 (>60); GLUCOSE, FASTING 162 MG/DL (70-105); MAGNESIUM LEVEL 2.9 MG/DL (1.8-2.4); SODIUM LEVEL 141 MEQ/L (136-145)
[2017-05-13] MEDS: BUDESONIDE 0.5 MG/2 ML INHALATION SUSPENSION INH SCH ×2 (07:50→19:30)
[2017-05-13] MEDS: TIOTROPIUM INHALER/CAPSULE (SPIRIVA) INH SCH (07:50)
[2017-05-13] MEDS: SENOKOT S TAB PO SCH ×2 (08:30→21:04)
[2017-05-13] MEDS: GABAPENTIN 300 MG CAP PO SCH ×3 (08:31→21:03)
[2017-05-13] MEDS: ATORVASTATIN 20 MG TAB PO SCH (08:31)
[2017-05-13] MEDS: guaiFENesin ER 600 MG TAB PO SCH ×2 (08:32→21:03)
[2017-05-13] MEDS: ENOXAPARIN 40 MG/0.4 ML SYRINGE (J1650) SC SCH (08:32)
[2017-05-13] MEDS: IBUPROFEN 600 MG TAB PO PRN (08:42)
[2017-05-13] MEDS: traMADol 50 MG TAB PO PRN (08:43)
[2017-05-13] MEDS: MECLIZINE 25 MG TABLET PO PRN ×2 (08:43→14:46)
[2017-05-13] MEDS ORDERED: FUROSEMIDE 20 MG/2 ML VIAL (J1940) IV ONE (09:00)
[2017-05-13] MEDS: methylPREDNISolone INJ 40 MG/1 ML VIAL (J2920) IV SCH (18:33)
--- NOTE | 2017-05-13 21:02 | IPN ---
DATE OF SERVICE: 05/13/2017 Patient seen and examined. No acute events overnight. con't to have wheeze, vertigo. Denies any chest pain, pressure or discomfort, fevers or chills. Tolerating oral. VITAL SIGNS: Temperature 96.6, pulse 66, respirations 18, blood pressure 154/67 , pulse oximetry 97% on room air. LABORATORY DATA: WBC 12.2, hemoglobin and hematocrit 14.1/42, platelets 191. Chemistry: Sodium 141, potassium 4, chloride 103, bicarbonate 29, BUN 28, creatinine 0.88. PHYSICAL EXAMINATION: GENERAL: Patient morbidly obese, alert, oriented times three in no acute distress. HEENT: Normocephalic, atraumatic. PULMONARY: Bilateral expiratory wheeze, much improved. CARDIAC: Regular rate and rhythm. Normal S1, S2. ABDOMEN: Soft and nontender. Positive bowel sounds. EXTREMITIES: No clubbing, cyanosis, or edema. ASSESSMENT AND PLAN: This is a 37-year-old male patient with underlying medical history of obstructive sleep apnea, noncompliant with continuous positive airway pressure (CPAP), chronic obstructive pulmonary disease (COPD), history of migraine, dyslipidemia, coronary artery disease, posttraumatic stress disorder, personality disorder, chronic lower back pain, smoking, alcohol abuse, admitted with acute asthma exacerbation secondary to rhinovirus, as well as superimposed community-acquired bacterial pneumonia. 1. Acute COPD exacerbation secondary to human rhinovirus with superimposed community-acquired bacterial pneumonia. Patient on Levaquin, Solu-Medrol steroid taper, Spiriva. Chest x-ray, CT scan appreciated. Continue Pulmicort. Will continue to monitor. 2. Obstructive sleep apnea. Noncompliant with CPAP due to posttraumatic stress disorder. Patient will need to followup with psychiatry and pulmonary as outpatient. 3. History of migraine, currently stable. Will continue current medication. 4. Benign positional vertigo. Vestibular exercises, physical therapy, meclizine. 5. History of angina. Patient has had a cardiac catheterization in the past. Outpatient followup. 6. History of colonic polyp. Outpatient followup. 7. Dyslipidemia. Continue statin. 8. Costochondritis. Continue current medication. 9. History of cervical disc bulging. MRI appreciated. No nerve root compression. Will need outpatient followup. 10. Hypertension. Continue current medication. 11. Deep venous thrombosis (DVT) prophylaxis. Lovenox subcutaneous. DISPOSITION: Pending clinical improvement, physical therapy. MTDD
[2017-05-13] MEDS ORDERED: traMADol 50 MG TAB PO PRN (21:45)
[2017-05-13 22:00] VITALS: BP 180/72
[2017-05-14] MEDS: IPRATROPIUM 0.5MG/ALBUTEROL 2.5MG INH SOL UD 3ML (DUONEB)(J7620) NEB SCH ×6 (03:04→19:24)
[2017-05-14] MEDS: methylPREDNISolone INJ 40 MG/1 ML VIAL (J2920) IV SCH ×2 (05:57→17:48)
[2017-05-14] MEDS: LevoFLOXacin 500 MG TABLET PO SCH (05:57)
[2017-05-14 06:00] VITALS: BP 120/54
[2017-05-14 06:59] LABS: MEAN CORPUSCULAR HEMOGLOBIN 28.4 pg (27.0-33.0); MEAN CORPUSCULAR HGB CONC 33.5 g/dl (32.0-36.5); MEAN CORPUSCULAR VOLUME 84.8 fl (80.0-96.0); RED CELL DISTRIBUTION WIDTH 15.3 % (11.5-14.5); WHITE BLOOD COUNT 14.1 K/mm3 (4.0-10.0)
[2017-05-14 07:04] LABS: ANION GAP 10 MEQ/L (8-16); BLOOD UREA NITROGEN 30 MG/DL (7-18); CARBON DIOXIDE LEVEL 28 MEQ/L (21-32); CHLORIDE LEVEL 102 MEQ/L (98-107); CREATININE FOR GFR 1.13 MG/DL (0.70-1.30); GLOMERULAR FILTRATION RATE > 60.0 (>60); GLUCOSE, FASTING 257 MG/DL (70-105); MAGNESIUM LEVEL 2.7 MG/DL (1.8-2.4); POTASSIUM SERUM 3.9 MEQ/L (3.5-5.1); SODIUM LEVEL 140 MEQ/L (136-145)
[2017-05-14] MEDS: BUDESONIDE 0.5 MG/2 ML INHALATION SUSPENSION INH SCH ×2 (08:14→19:24)
[2017-05-14] MEDS: TIOTROPIUM INHALER/CAPSULE (SPIRIVA) INH SCH (08:15)
[2017-05-14] MEDS: GABAPENTIN 300 MG CAP PO SCH ×3 (08:32→21:57)
[2017-05-14] MEDS: guaiFENesin ER 600 MG TAB PO SCH ×2 (08:32→21:58)
[2017-05-14] MEDS: ENOXAPARIN 40 MG/0.4 ML SYRINGE (J1650) SC SCH (08:32)
[2017-05-14] MEDS: ATORVASTATIN 20 MG TAB PO SCH (08:32)
[2017-05-14] MEDS: MECLIZINE 25 MG TABLET PO PRN ×2 (08:33→16:21)
[2017-05-14] MEDS: SENOKOT S TAB PO SCH ×2 (08:33→21:57)
--- NOTE | 2017-05-14 13:24 | IPN ---
DATE: 05/14/2017 Patient seen and examined. No acute events overnight. Denies any chest pain, pressure or discomfort. Denies any fevers or chills. VITAL SIGNS: Temperature 98.6, pulse 85, respirations 18, blood pressure 120/54, pulse oximetry 93% on room air. LABORATORY: WBC 14.1, hemoglobin and hematocrit 14.5/43.2, platelets 186. Chemistry: Sodium 140, potassium 3.9, chloride 102, bicarbonate 28, BUN 30, creatinine 1.13. PHYSICAL EXAMINATION: GENERAL: Patient morbidly obese, alert, oriented times three in no acute distress. HEENT: Normocephalic, atraumatic. PULMONARY: Bilateral expiratory wheeze, minimal. CARDIAC: Regular rate and rhythm. Normal S1, S2. ABDOMEN: Soft and nontender. Positive bowel sounds. EXTREMITIES: No clubbing, cyanosis, or edema. ASSESSMENT AND PLAN: This is a 37-year-old male patient with underlying medical history of obstructive sleep apnea, noncompliant with continuous positive airway pressure (CPAP), chronic obstructive pulmonary disease (COPD), history of migraine, dyslipidemia, coronary artery disease, posttraumatic stress disorder, personality disorder, chronic lower back pain, smoking, alcohol abuse, admitted with acute asthma exacerbation secondary to rhinovirus, as well as superimposed community-acquired bacterial pneumonia. 1. Acute COPD exacerbation secondary to human rhinovirus with superimposed community-acquired bacterial pneumonia. Patient completed Levaquin, taper steroids, Spiriva, Pulmicort. X-ray and CT scan appreciated. Continue to monitor. 2. Obstructive sleep apnea. Noncompliant with CPAP due to posttraumatic stress disorder. Will need followup with psychiatry and pulmonary as outpatient. 3. History of migraine, currently stable. Will continue current medication. 4. Benign positional vertigo. Vestibular exercises, physical therapy, meclizine. 5. History of angina. Patient had a history of cardiac catheterization. Outpatient followup. 6. History of colonic polyp. Outpatient followup. 7. Dyslipidemia. Continue statin. 8. Costochondritis. Continue current medication. 9. History of cervical disc bulging. MRI appreciated. No nerve root compression. Will need outpatient followup. 10. Hypertension. Continue current medication. 11. Deep venous thrombosis (DVT) prophylaxis. Lovenox subcutaneous. DISPOSITION: Pending physical therapy.
[2017-05-14 22:00] VITALS: BP 171/83
[2017-05-14] MEDS ORDERED: diphenhydrAMINE 25 MG CAP PO ONE (23:00)
[2017-05-15] MEDS: IPRATROPIUM 0.5MG/ALBUTEROL 2.5MG INH SOL UD 3ML (DUONEB)(J7620) NEB SCH ×4 (00:15→11:14)
[2017-05-15] MEDS: MECLIZINE 25 MG TABLET PO PRN (02:58)
[2017-05-15] MEDS: methylPREDNISolone INJ 40 MG/1 ML VIAL (J2920) IV SCH (05:48)
[2017-05-15 06:00] VITALS: BP 160/80
[2017-05-15 06:48] LABS: MEAN CORPUSCULAR HEMOGLOBIN 28.3 pg (27.0-33.0); MEAN CORPUSCULAR HGB CONC 33.4 g/dl (32.0-36.5); MEAN CORPUSCULAR VOLUME 84.6 fl (80.0-96.0); RED CELL DISTRIBUTION WIDTH 15.1 % (11.5-14.5); WHITE BLOOD COUNT 15.3 K/mm3 (4.0-10.0)
[2017-05-15 06:58] LABS: ANION GAP 10 MEQ/L (8-16); BLOOD UREA NITROGEN 32 MG/DL (7-18); CALCIUM LEVEL 8.1 MG/DL (8.5-10.1); CARBON DIOXIDE LEVEL 28 MEQ/L (21-32); CHLORIDE LEVEL 103 MEQ/L (98-107); CREATININE FOR GFR 0.96 MG/DL (0.70-1.30); GLOMERULAR FILTRATION RATE > 60.0 (>60); GLUCOSE, FASTING 159 MG/DL (70-105); MAGNESIUM LEVEL 2.6 MG/DL (1.8-2.4); POTASSIUM SERUM 4.3 MEQ/L (3.5-5.1); SODIUM LEVEL 141 MEQ/L (136-145)
[2017-05-15] MEDS: BUDESONIDE 0.5 MG/2 ML INHALATION SUSPENSION INH SCH (07:36)
[2017-05-15] MEDS: TIOTROPIUM INHALER/CAPSULE (SPIRIVA) INH SCH (07:36)
[2017-05-15] MEDS ORDERED: predniSONE 20 MG TAB PO SCH (09:00)
[2017-05-15] MEDS: ENOXAPARIN 40 MG/0.4 ML SYRINGE (J1650) SC SCH (09:33)
[2017-05-15] MEDS: ATORVASTATIN 20 MG TAB PO SCH (09:33)
[2017-05-15] MEDS: GABAPENTIN 300 MG CAP PO SCH (09:33)
[2017-05-15] MEDS: SENOKOT S TAB PO SCH (09:33)
[2017-05-15 09:34] VITALS: BP 160/80
[2017-05-15] MEDS: guaiFENesin ER 600 MG TAB PO SCH (09:34)
[2017-05-15] MEDS ORDERED: PRED10TA2 PO (14:48)
--- NOTE | 2017-05-15 21:46 | DSES ---
DATE OF ADMISSION: 05/08/2017 DATE OF DISCHARGE: 05/15/2017 (AGAINST MEDICAL ADVICE) PRIMARY CARE PROVIDER: Kylee Rollins MD FINAL DIAGNOSES: 1. Acute chronic obstructive pulmonary disease (COPD) exacerbation secondary to human rhinovirus with superimposed community-acquired bacterial pneumonia. 2. Obstructive sleep apnea, noncompliance. 3. History of migraine. 4. Benign positional vertigo. 5. History of angina. 6. History of colonic polyps. 7. Dyslipidemia. 8. Costochondritis. 9. History of cervical disc bulging. 10. Hypertension. HISTORY OF PRESENT ILLNESS: This is a 37-year-old male patient with underlying medical history of obstructive sleep apnea, COPD, noncompliant with continuous positive airway pressure (CPAP), history of migraine, dyslipidemia, history of angina with cardiac catheterization, no stent, history of colonic polyps, hematuria, hypokalemia, vertigo, costochondritis, posttraumatic stress disorder, schizoaffective disorder, personality disorder, chronic back pain, smoking, alcohol abuse, drug-seeking behavior, seizure disorder, presented with shortness of breath beginning the night before with subjective fever, reported trouble breathing, stated that he was not able to sleep due to shortness of breath, with inhaler that is not helping to relieve his symptoms, with dry cough that is nonproductive, and generalized weakness secondary to shortness of breath, subsequently called 9-1-1 to be admitted to the hospital, also reported subjective feeling of tongue swelling. HOSPITAL COURSE: Patient is admitted to the hospital. Respiratory panel is done. Started on steroids. Nebulizer treatment. Respiratory panel shows human rhinovirus. X-ray shows infiltrate. Subsequently, patient is started on antibiotics. Cultures were sent. Patient's steroid was tapered. Physical therapy was done. CT scan was done for back pain which shows no nerve root compression, but disc bulging. MRI is done for vertigo, which was negative. Patient was tolerating oral. Continued vertigo, not steady on feet. Today, patient stated that he would like to leave the hospital AGAINST MEDICAL ADVICE, is adamant about leaving. Subsequently, signed himself out of the hospital AGAINST MEDICAL ADVICE. Patient is aware of the risks including falling injuries and and worsening shortness of breath, but patient is adamant about leaving. VITAL SIGNS: Temperature 98.1, pulse 84, respiratory rate 18, blood pressure 160/80, pulse oximetry 97% on room air. PHYSICAL EXAMINATION: GENERAL: Patient morbidly obese, in no acute distress. HEENT: Normocephalic, atraumatic. PULMONARY: Bilateral expiratory wheeze that is minimal. CARDIAC: Regular rate and rhythm. Normal S1, S2. ABDOMEN: Soft, nontender. Positive bowel sounds. EXTREMITIES: No clubbing, cyanosis, or edema. LABORATORY DATA: WBC 15.3, hemoglobin and hematocrit 13.7/41.1, platelets 199. Chemistry: Sodium 141, potassium 4.2, chloride 103, bicarbonate 28, BUN 32, creatinine 0.96. DISCHARGE MEDICATIONS: - prednisone 10 mg tablets three tablets by mouth daily for 2 days, two tablets by mouth daily for 2 days, then one tablet by mouth daily for 2 days - Ventolin inhaler as needed - Lipitor 80 mg by mouth daily - midazolam 1 mg by mouth twice a day - gabapentin 900 mg by mouth three times a day DISCHARGE INSTRUCTIONS: Patient is instructed to followup with primary care provider as soon as possible and return to the hospital if symptoms worsen. Patient left the hospital AGAINST MEDICAL ADVICE.
[2017-05-16] MEDS ORDERED: PRED10TA2 PO (14:10)
[2017-07-27] MEDS ORDERED: DICL75TA (00:26)
[2017-07-27] MEDS ORDERED: TIZANIDINE (00:26)
[2017-07-27] MEDS ORDERED: BUPR75TA5 (00:26)
== END 2017-05-15 14:30 | disposition left against medical advice (07) | DRG 190 ==
LOC: M ED 14:40 → M ED INP 16:18 → M MSPAV 17:22 → OBSVTOIN 05-08 15:21 → M MS5PR 05-10 09:20
PROVIDERS: ADMIT Internal Medicine Nephrology; ATTEND Internal Medicine
DX: J44.1 Chronic obstructive pulmonary disease with (acute) exacerbation (principal); J15.9 Unspecified bacterial pneumonia; J45.909 Unspecified asthma, uncomplicated; J44.0 Chronic obstructive pulmonary disease with (acute) lower respiratory infection; B34.8 Other viral infections of unspecified site; M94.0 Chondrocostal junction syndrome [Tietze]; F25.9 Schizoaffective disorder, unspecified; I10 Essential (primary) hypertension; F17.210 Nicotine dependence, cigarettes, uncomplicated; E78.5 Hyperlipidemia, unspecified; H81.10 Benign paroxysmal vertigo, unspecified ear; G47.33 Obstructive sleep apnea (adult) (pediatric); F43.10 Post-traumatic stress disorder, unspecified; F10.10 Alcohol abuse, uncomplicated; Z91.041 Radiographic dye allergy status; Z88.1 Allergy status to other antibiotic agents; Z88.8 Allergy status to other drugs, medicaments and biological substances; Z88.2 Allergy status to sulfonamides; Z88.5 Allergy status to narcotic agent; Z91.19 Patient's noncompliance with other medical treatment and regimen

== ENCOUNTER 2017-05-16 09:20 | Inpatient (IN) | payer MEDICARE, OTHER ==
[~2017-05-16] VITALS: Ht 182.9 cm; Wt 126.4 kg
[~2017-05-16 09:20] MED LIST changes: +ALBU17IN INH; +GABA600T PO; +PRED10TA2 PO
[2017-05-16] MEDS ORDERED: IPRATROPIUM 0.5MG/ALBUTEROL 2.5MG INH SOL UD 3ML (DUONEB)(J7620) NEB ONE (10:00)
[2017-05-16] MEDS ORDERED: ASPIRIN 81 MG CHEW TABLET PO ONE (10:00)
--- NOTE | 2017-05-16 10:15 | REP ---
CT Head without contrast HISTORY: Syncope COMPARISON: 02/07/2013 There is no intraparenchymal hemorrhage, acute infarct, mass or midline shift. The ventricular system is normal in appearance. There is no extra cerebral collection. There is no fracture. The visualized sinuses are clear. Soft tissue swelling is present over the left parietal bone. IMPRESSION: There is no intracranial lesion. Signed by Emre Eli MD 05/16/2017 10:07 A
--- NOTE | 2017-05-16 10:28 | REP ---
CHEST X-RAY: Single view. HISTORY: Syncope. Comparison chest x-ray May 09, 2017. FINDINGS: EKG monitoring electrodes overlie the chest. Heart is not enlarged. Lungs are symmetrically aerated and no infiltrate is seen. Pleural angles are sharp. Pulmonary vasculature is not increased. IMPRESSION: No acute disease. Signed by Yovanny Dickinson MD 05/16/2017 11:08 A
[2017-05-16 10:39] LABS: BASO # 0.6 K/mm3 (0.0-0.2); BASO % 3.2 % (0.0-1.0); EOS # 0.1 K/mm3 (0.0-0.50); EOS % 0.4 % (0.0-3.0); LARGE UNSTAINED CELL # 0.2 K/mm3 (0.0-0.4); LYMPH # 2.8 K/mm3 (1.5-4.5); LYMPH % 15.9 % (24.0-44.0); MEAN CORPUSCULAR HEMOGLOBIN 29.1 pg (27.0-33.0); MEAN CORPUSCULAR HGB CONC 34.7 g/dl (32.0-36.5); MONO # 1.1 K/mm3 (0.0-0.8); MONO % 5.9 % (0.0-5.0); NEUTROPHILS # 13.2 K/mm3 (1.8-7.7); NEUTROPHILS % 73.7 % (36.0-66.0); PLATELET COUNT, AUTOMATED 188 k/mm3 (150-450); RED CELL DISTRIBUTION WIDTH 15.3 % (11.5-14.5); WHITE BLOOD COUNT 17.9 K/mm3 (4.0-10.0)
[2017-05-16 10:59] LABS: ANION GAP 7 MEQ/L (8-16); BLOOD UREA NITROGEN 34 MG/DL (7-18); CALCIUM LEVEL 8.4 MG/DL (8.5-10.1); CARBON DIOXIDE LEVEL 30 MEQ/L (21-32); CHLORIDE LEVEL 105 MEQ/L (98-107); CREATININE FOR GFR 0.92 MG/DL (0.70-1.30); GLOMERULAR FILTRATION RATE > 60.0 (>60); GLUCOSE, FASTING 91 MG/DL (70-105); MAGNESIUM LEVEL 2.4 MG/DL (1.8-2.4); POTASSIUM SERUM 3.7 MEQ/L (3.5-5.1); SODIUM LEVEL 142 MEQ/L (136-145)
[2017-05-16] MEDS ORDERED: MECLIZINE 25 MG TABLET PO ONE (11:15)
[2017-05-16] MEDS ORDERED: PRED10TA2 PO (14:10)
[2017-05-16 16:35] VITALS: BP 144/82
[2017-05-16] MEDS: NS 1,000 ML IV SCH (17:14)
[2017-05-16 19:55] LABS: FREE T4 0.92 NG/DL (0.76-1.46)
[2017-05-16 19:56] VITALS: BP 125/68
[2017-05-16 19:59] VITALS: BP 139/68
[2017-05-16 20:00] VITALS: BP 129/60
[2017-05-16] MEDS: ATORVASTATIN 20 MG TAB PO SCH (21:23)
[2017-05-16] MEDS: GABAPENTIN 300 MG CAP PO SCH (21:23)
[2017-05-16] MEDS: predniSONE 10 MG TAB PO SCH (21:32)
[2017-05-16 23:34] LABS: METHADONE URINE NEGATIVE (NEGATIVE)
[2017-05-16 23:46] VITALS: BP 137/64
[2017-05-17] MEDS: NS 1,000 ML IV SCH ×3 (00:50→17:36)
[2017-05-17 03:59] VITALS: BP 118/55
[2017-05-17 05:42] LABS: MEAN CORPUSCULAR HEMOGLOBIN 28.7 pg (27.0-33.0); MEAN CORPUSCULAR HGB CONC 34.2 g/dl (32.0-36.5); MEAN CORPUSCULAR VOLUME 84.1 fl (80.0-96.0); RED CELL DISTRIBUTION WIDTH 15.3 % (11.5-14.5); WHITE BLOOD COUNT 13.8 K/mm3 (4.0-10.0)
[2017-05-17 06:03] LABS: ANION GAP 3 MEQ/L (8-16); BLOOD UREA NITROGEN 35 MG/DL (7-18); CALCIUM LEVEL 7.9 MG/DL (8.5-10.1); CARBON DIOXIDE LEVEL 31 MEQ/L (21-32); CHLORIDE LEVEL 105 MEQ/L (98-107); GLOMERULAR FILTRATION RATE > 60.0 (>60); GLUCOSE, FASTING 99 MG/DL (70-105); MAGNESIUM LEVEL 2.5 MG/DL (1.8-2.4); PHOSPHORUS LEVEL 3.2 MG/DL (2.5-4.9); POTASSIUM SERUM 3.6 MEQ/L (3.5-5.1); SODIUM LEVEL 139 MEQ/L (136-145)
[2017-05-17 08:00] VITALS: BP_SYST 138; BP_SYST 140; BP_SYST 155; BP_DIAS 78; BP_DIAS 88
--- NOTE | 2017-05-17 08:33 | ECGEPIP ---
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 RBBB POSSIBLE INFERIOR MYOCARDIAL INFARCTION, PROBABLY OLD WITH POSTERIOR EXTENSION NSTTW ABNORMALITIES Electronically Signed On 05-17-2017 8:33:30 EDT by Tony Mead
[2017-05-17] MEDS: predniSONE 10 MG TAB PO SCH (09:22)
[2017-05-17] MEDS: ENOXAPARIN 40 MG/0.4 ML SYRINGE (J1650) SC SCH (09:22)
[2017-05-17] MEDS: GABAPENTIN 300 MG CAP PO SCH ×3 (09:23→20:55)
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
[2017-05-17] MEDS: MECLIZINE 25 MG TABLET PO SCH ×2 (11:19→20:54)
[2017-05-17 12:00] VITALS: BP 160/85
[2017-05-17 15:20] VITALS: BP 135/61
--- NOTE | 2017-05-17 17:17 | IPNPDOC ---
Subjective Date Seen The patient was seen on 05/17/17. Subjective Chief Complaint/HPI The patient is a 37-year-old male admitted with a reason for visit of Dizziness. States he feels about the same as yesterday. Still feeling as if room is spinning, and dizziness ceases once he closes his eyes. No light- headedness or loss of consciousness since admission. States his chest pain is still present and worsens with cough and inspiration. Pt attributes his chest pain to coughing hard, but cardiac workup was done and negative. No acute complaints or events overnight. Resting comfortably in bed. General: Reports: Normal Appetite, Denies: Chills, Night Sweats, Fatigue Constitutional: Denies: Chills, Fever Eyes: Denies: Pain, Vision change ENT: Denies: Head Aches, Dysphagia Pulmonary: Denies: Dyspnea, Cough Gastrointestinal: Denies: Nausea, Vomiting, Abdominal Pain, Diarrhea, Constipation Neurological: Denies: Weakness, Numbness Psych: Reports: Mood Normal Objective Physical Examination General Exam: Positive: Alert, Cooperative, No Acute Distress Eye Exam: Positive: Conjunctiva & lids normal, Negative: Sclera icteric ENT Exam: Positive: Atraumatic, Mucous membr. moist/pink, Pharynx Normal Neck Exam: Positive: Supple, Negative: JVD, Lymphadenopathy Chest Exam: Positive: Clear to auscultation, Negative: Wheezing (mild wheezing on rt lung that cleared with cough) Heart Exam: Positive: Rate Normal, Negative: Murmurs Abdomen Exam: Positive: Normal bowel sounds Extremity Exam: Positive: Normal pulses, Negative: Cyanosis, Edema Skin Exam: Positive: Nl turgor and temperature Neuro Exam: Positive: Normal Speech, Strength at 5/5 X4 ext, Sensation Intact Psych Exam: Positive: Oriented x 3 Assessment /Plan Assessment 1. Dizziness and syncope, unlikely to be a neurologic cause. In progressive care unit (PCU) without any concerning telemetry reads. Continuing cardiac workup for any arrhythmias and underlying cardiac causes. Cardiac markers were negative, as were his orthostatic vitals. Echocardiogram pending. We will seek physical therapy (PT) assistance in evaluating the patient's dizziness. Appreciate their input. 2. Benign paroxysmal positional vertigo (BPPV) versus complicated migraine. The patient was previously diagnosed with BPPV. We will monitor for now and if patient's BUN improves and he has no acute events overnight but still feels symptomatic, we will consider a neurology consultation. 3. Elevated BUN. Upon admission was 34. Increased to 35 today. The patient may be dehydrated. Continue IV fluids at 120 mL per hour. Unlikely to be attributed to blood loss since admission hemoglobin and hematocrit were 14.5 and 41.8, respectively, and 14.7 and 43.0 today. We will recheck CBC, BMP, magnesium and phosphorous daily. 4. Leukocytosis. Was 17.9 on admission, likely due to steroid use from previous admission, which he had left against medical advice on 05/15/17 while on prednisone taper for COPD exacerbation. Chest x-ray was negative for any abnormalities. Pt continues to be afebrile. Restarted steroids, and started DuoNeb inhaler treatments every 6 hours scheduled and every 2 hours as needed. Although the patient is noncompliant with CPAP at home, we will restart CPAP in the hospital. 5. Increased lactate. On admission was 2.2, but resolved a few hours later with a follow up level of 1.8. 6. Deep vein thrombosis (DVT) prophylaxis. Lovenox 40 mg daily. Plan/VTE VTE Prophylaxis Ordered?: Yes VS, I&O, [facility], [facility] Vital Signs/I&O Vital Signs Date Time Temp Pulse Resp B/P (MAP) Pulse Ox O2 Delivery O2 Flow Rate FiO2 05/17/17 03:59 96.8 74 20 118/55 (76) 93 Room Air I&O- Last 24 Hours up to 6 AM 05/17/17 05:59 Intake Total 1800 ml Output Total 1175 ml Balance 625 ml Laboratory Data 24H LABS Laboratory Tests 2 05/16/17 10:22: White Blood Count 17.9H, Red Blood Count 4.98, Hemoglobin 14.5, Hematocrit 41.8L , Mean Corpuscular Volume 84.0, Mean Corpuscular Hemoglobin 29.1, Mean Corpuscular Hemoglobin Concent 34.7, Red Cell Distribution Width 15.3H, Platelet Count 188, Neutrophils (%) (Auto) 73.7H, Lymphocytes (%) (Auto) 15.9L, Monocytes (%) (Auto) 5.9H, Eosinophils (%) (Auto) 0.4, Basophils (%) (Auto) 3.2H , Neutrophils # (Auto) 13.2H, Lymphocytes # (Auto) 2.8, Monocytes # (Auto) 1.1H , Eosinophils # (Auto) 0.1, Basophils # (Auto) 0.6H, Large Unclassified Cells % 1.0, Large Unclassified Cells # 0.2, D-Dimer, Quantitative 307.8, Anion Gap 7L, Glomerular Filtration Rate > 60.0, Lactic Acid Level 2.2*H, Blood Urea Nitrogen 34H, Creatinine 0.92, Sodium Level 142, Potassium Level 3.7, Chloride Level 105 , Carbon Dioxide Level 30, Calcium Level 8.4L, Total Creatine Kinase 160, Magnesium Level 2.4, Creatine Kinase MB 1.5, Creatine Kinase MB Relative Index 0.93, Troponin I < 0.02, Thyroid Stimulating Hormone (TSH) 4.290H 05/16/17 15:08: Total Creatine Kinase 140, Creatine Kinase MB 1.9, Creatine Kinase MB Relative Index 1.35, Troponin I < 0.02, Lactic Acid Followup at 4 Hours 1.8, Free Thyroxine 0.92 05/16/17 22:32: Total Creatine Kinase 112, Creatine Kinase MB 1.2, Creatine Kinase MB Relative Index 1.07, Troponin I < 0.02 05/16/17 22:51: Urine Amphetamines Screen NEGATIVE, Urine Benzodiazepines Screen NEGATIVE, Urine Opiates Screen NEGATIVE, Urine Methadone Screen NEGATIVE, Urine Barbiturates Screen NEGATIVE, Urine Phencyclidine Screen NEGATIVE, Urine Cocaine Metabolite Screen NEGATIVE, Urine Cannabinoids Screen NEGATIVE 05/17/17 05:25: Anion Gap 3L, Glomerular Filtration Rate > 60.0, Blood Urea Nitrogen 35H, Creatinine 0.90, Sodium Level 139, Potassium Level 3.6, Chloride Level 105, Carbon Dioxide Level 31, Calcium Level 7.9L, Phosphorus Level 3.2, Magnesium Level 2.5H CBC/BMP Laboratory Tests 05/16/17 10:22 Red Blood Count 4.98, Mean Corpuscular Volume 84.0, Mean Corpuscular Hemoglobin 29.1, Mean Corpuscular Hemoglobin Concent 34.7, Red Cell Distribution Width 15.3 H, Neutrophils (%) (Auto) 73.7 H, Lymphocytes (%) (Auto) 15.9 L, Monocytes (%) (Auto) 5.9 H, Eosinophils (%) (Auto) 0.4, Basophils (%) (Auto) 3.2 H, Neutrophils # (Auto) 13.2 H, Lymphocytes # (Auto) 2.8, Monocytes # (Auto) 1.1 H , Eosinophils # (Auto) 0.1, Basophils # (Auto) 0.6 H, Calcium Level 8.4 L, Total Creatine Kinase 160 05/17/17 05:25 Red Blood Count 5.12, Mean Corpuscular Volume 84.1, Mean Corpuscular Hemoglobin 28.7, Mean Corpuscular Hemoglobin Concent 34.2, Red Cell Distribution Width 15.3 H, Calcium Level 7.9 L GME ATTESTATION GME ATTESTATION My preceptor for this patient encounter was physically present in the building during the encounter and was fully available. As needed, all aspects of the patient interview, examination, medical decision making process, and medical care plan development were reviewed and approved by the preceptor. Preceptor is aware and concurs with the plan as stated in the body of this note and will attest to such by his/her cosignature. HUNTER ESCALANTE DO May 17, 2017 08:38
[2017-05-17 20:00] VITALS: BP_SYST 112; BP_SYST 116; BP_SYST 120; BP_DIAS 60; BP_DIAS 80
[2017-05-17] MEDS: ATORVASTATIN 20 MG TAB PO SCH (20:54)
[2017-05-17 22:00] VITALS: BP 121/66
[2017-05-18] MEDS: NS 1,000 ML IV SCH ×4 (00:56→20:45)
[2017-05-18 06:00] VITALS: BP 117/60
[2017-05-18 06:57] LABS: MEAN CORPUSCULAR HEMOGLOBIN 28.3 pg (27.0-33.0); MEAN CORPUSCULAR HGB CONC 34.1 g/dl (32.0-36.5); MEAN CORPUSCULAR VOLUME 83.2 fl (80.0-96.0); RED CELL DISTRIBUTION WIDTH 15.6 % (11.5-14.5); WHITE BLOOD COUNT 17.4 K/mm3 (4.0-10.0)
[2017-05-18 07:16] LABS: ANION GAP 8 MEQ/L (8-16); BLOOD UREA NITROGEN 22 MG/DL (7-18); CALCIUM LEVEL 7.3 MG/DL (8.5-10.1); CARBON DIOXIDE LEVEL 26 MEQ/L (21-32); CHLORIDE LEVEL 108 MEQ/L (98-107); CREATININE FOR GFR 0.82 MG/DL (0.70-1.30); GLOMERULAR FILTRATION RATE > 60.0 (>60); GLUCOSE, FASTING 125 MG/DL (70-105); MAGNESIUM LEVEL 2.4 MG/DL (1.8-2.4); POTASSIUM SERUM 3.7 MEQ/L (3.5-5.1); SODIUM LEVEL 142 MEQ/L (136-145)
[2017-05-18 08:30] VITALS: BP_SYST 116; BP_SYST 120; BP_DIAS 70; BP_DIAS 72; BP_DIAS 76
[2017-05-18] MEDS: ENOXAPARIN 40 MG/0.4 ML SYRINGE (J1650) SC SCH (08:33)
[2017-05-18] MEDS: GABAPENTIN 300 MG CAP PO SCH ×3 (08:33→21:00)
[2017-05-18] MEDS: predniSONE 20 MG TAB PO SCH (08:33)
[2017-05-18] MEDS: MECLIZINE 25 MG TABLET PO SCH ×2 (08:33→21:00)
[2017-05-18] MEDS ORDERED: CALCIUM GLUCONATE 1,000 MG in D5W MINI-BAG PLUS 100 ML IV ONE (09:00)
--- NOTE | 2017-05-18 09:53 | IPNPDOC ---
Subjective Date Seen The patient was seen on 05/18/17. Subjective Chief Complaint/HPI The patient is a 37-year-old male admitted with a reason for visit of Dizziness. States he feels slightly worse than yesterday. Before, dizziness ceased once he closed his eyes, but now it persists with eyes closed, and he also feels a "foggy brain." Still feeling as if room is spinning. No light- headedness or loss of consciousness since admission. No acute complaints or events overnight. Resting comfortably in bed. General: Denies: Chills, Night Sweats, Fatigue Constitutional: Denies: Chills, Fever, Malaise Eyes: Denies: Pain, Vision change ENT: Denies: Dysphagia Pulmonary: Reports: Cough, Denies: Dyspnea Cardiovascular: Denies: Chest Pain, Palpitations, Orthopnea, Paroxysmal Noc. Dyspnea, Edema, Lt Headedness Gastrointestinal: Denies: Nausea, Vomiting, Abdominal Pain, Diarrhea, Constipation Neurological: Denies: Weakness, Incoordination, Change in speech, Confusion Psych: Reports: Mood Normal Objective Physical Examination General Exam: Positive: Alert, Cooperative, No Acute Distress Eye Exam: Positive: Conjunctiva & lids normal, Negative: Sclera icteric ENT Exam: Positive: Atraumatic, Mucous membr. moist/pink, Pharynx Normal Neck Exam: Positive: Supple, Negative: JVD, Lymphadenopathy Chest Exam: Positive: Clear to auscultation, Wheezing (mild wheezing on rt lung --cleared with cough) Heart Exam: Positive: Rate Normal, Normal S1, Normal S2, Negative: Murmurs Abdomen Exam: Positive: Normal bowel sounds, Soft, Negative: Tenderness Extremity Exam: Positive: Normal pulses, Negative: Cyanosis, Edema Skin Exam: Positive: Nl turgor and temperature Neuro Exam: Positive: Normal Speech, Strength at 5/5 X4 ext, Sensation Intact Psych Exam: Positive: Oriented x 3 Assessment /Plan Assessment 1. Dizziness and syncope, unlikely to be a neurologic cause. Started Meclizine 25mg bid. No concerning telemetry reads while in progressive care unit (PCU). Pt transferred to general medical floor. Continuing cardiac workup for any arrhythmias and underlying cardiac causes. Cardiac markers were negative , as were his orthostatic vitals again when rechecked this morning. Echocardiogram pending. We will seek physical therapy (PT) assistance in evaluating the patient's dizziness. Appreciate their input. 2. Benign paroxysmal positional vertigo (BPPV) versus complicated migraine. The patient was previously diagnosed with BPPV. We will monitor for now and if patient's BUN improves and he has no acute events overnight but still feels symptomatic, we will consider a neurology consultation. 3. Elevated BUN. Upon admission was 34. Progressively decreasing, at 22 today. The patient may be dehydrated. Continue IV fluids at 120 mL per hour. Unlikely to be attributed to blood loss since admission hemoglobin and hematocrit were 14.5 and 41.8, respectively, and 14.5 and 42.6 today. We will recheck CBC, BMP , magnesium and phosphorous daily. 4. Leukocytosis. Up from 13.8 yesterday to 17.4 today. Pt continues to be afebrile and asymptomatic. Attributable to restarting steroid taper, currently at 20mg. Was 17.9 on admission, likely due to steroid use from previous admission, which he had left against medical advice on 05/15/17 while on prednisone taper for COPD exacerbation. Chest x-ray upon admission was negative for any abnormalities. Continue steroid taper. 5. Hypocalcemia. Calcium at 7.3 today. Replete with Calcium Gluconate 110ml/hr. 6. Hypophosphatemia. Phosphorus at 2.0 today. Replete with K-Phos 250mg tid. 7. Increased lactate. On admission was 2.2, but resolved a few hours later with a follow up level of 1.8. 8. Peripheral neuropathy. Gabapentin 900mg tid. 9. Hyperlipidemia. Lipitor 80mg qhs. 10. Deep vein thrombosis (DVT) prophylaxis. Lovenox 40 mg daily. Plan/VTE VTE Prophylaxis Ordered?: Yes VS, I&O, 24H, [facility] Vital Signs/I&O Vital Signs Date Time Temp Pulse Resp B/P (MAP) Pulse Ox O2 Delivery O2 Flow Rate FiO2 05/18/17 06:53 80 132/74 05/18/17 06:00 97.6 18 95 Room Air I&O- Last 24 Hours up to 6 AM 05/18/17 06:00 Intake Total 1410 ml Output Total 1425 ml Balance -15 ml Laboratory Data 24H LABS Laboratory Tests 2 05/18/17 06:44: Anion Gap 8, Glomerular Filtration Rate > 60.0, Blood Urea Nitrogen 22H, Creatinine 0.82, Sodium Level 142, Potassium Level 3.7, Chloride Level 108H, Carbon Dioxide Level 26, Calcium Level 7.3L, Phosphorus Level 2.0#L, Magnesium Level 2.4 CBC/BMP Laboratory Tests 05/18/17 06:44 Red Blood Count 5.13, Mean Corpuscular Volume 83.2, Mean Corpuscular Hemoglobin 28.3, Mean Corpuscular Hemoglobin Concent 34.1, Red Cell Distribution Width 15.6 H, Calcium Level 7.3 L GME ATTESTATION GME ATTESTATION My preceptor for this patient encounter was physically present in the building during the encounter and was fully available. As needed, all aspects of the patient interview, examination, medical decision making process, and medical care plan development were reviewed and approved by the preceptor. Preceptor is aware and concurs with the plan as stated in the body of this note and will attest to such by his/her cosignature. HUNTER ESCALANTE DO May 18, 2017 07:46
[2017-05-18] MEDS: K-PHOS NEUTRAL 250MG TABLET (SOD.PHOSPHATE/POT.PHOSPHATE) PO SCH ×3 (09:59→21:00)
[2017-05-18 14:00] VITALS: BP 129/70
[2017-05-18] MEDS: ATORVASTATIN 20 MG TAB PO SCH (21:00)
[2017-05-18 22:00] VITALS: BP 129/60
[2017-05-18 22:14] VITALS: BP_SYST 133; BP_SYST 137; BP_SYST 147; BP_DIAS 64; BP_DIAS 68; BP_DIAS 69
[2017-05-19] MEDS: NS 1,000 ML IV SCH ×3 (04:46→21:22)
[2017-05-19 05:58] LABS: MEAN CORPUSCULAR HEMOGLOBIN 28.1 pg (27.0-33.0); MEAN CORPUSCULAR HGB CONC 33.2 g/dl (32.0-36.5); MEAN CORPUSCULAR VOLUME 84.7 fl (80.0-96.0); RED CELL DISTRIBUTION WIDTH 15.7 % (11.5-14.5); WHITE BLOOD COUNT 13.4 K/mm3 (4.0-10.0)
[2017-05-19 06:00] VITALS: BP 123/64
[2017-05-19 06:23] LABS: ANION GAP 9 MEQ/L (8-16); BLOOD UREA NITROGEN 14 MG/DL (7-18); CALCIUM LEVEL 7.7 MG/DL (8.5-10.1); CARBON DIOXIDE LEVEL 27 MEQ/L (21-32); CHLORIDE LEVEL 108 MEQ/L (98-107); CREATININE FOR GFR 0.79 MG/DL (0.70-1.30); GLOMERULAR FILTRATION RATE > 60.0 (>60); GLUCOSE, FASTING 144 MG/DL (70-105); MAGNESIUM LEVEL 2.1 MG/DL (1.8-2.4); PHOSPHORUS LEVEL 2.4 MG/DL (2.5-4.9); POTASSIUM SERUM 3.5 MEQ/L (3.5-5.1); SODIUM LEVEL 144 MEQ/L (136-145)
[2017-05-19] MEDS: MECLIZINE 25 MG TABLET PO SCH ×2 (08:45→20:25)
[2017-05-19] MEDS: K-PHOS NEUTRAL 250MG TABLET (SOD.PHOSPHATE/POT.PHOSPHATE) PO SCH ×3 (08:45→20:25)
[2017-05-19] MEDS: predniSONE 20 MG TAB PO SCH (08:45)
[2017-05-19] MEDS: ENOXAPARIN 40 MG/0.4 ML SYRINGE (J1650) SC SCH (08:45)
[2017-05-19] MEDS: GABAPENTIN 300 MG CAP PO SCH ×3 (08:45→20:25)
--- NOTE | 2017-05-19 10:51 | ECHO ---
DATE OF PROCEDURE: 05/18/2017 REFERRING PHYSICIAN: Dr. Jamie Metzger INDICATION: Syncope. HEIGHT: 183 cm. WEIGHT: 125 kg. 2D MEASUREMENTS: Left atrium - 4.1 cm Aortic root - 4.1 cm Ventricular septum - 1.03 cm Posterior wall - 1.04 cm Left ventricle diastole - 5.1 cm LVOT - 2.4 cm Inferior vena cava - 2.5 cm with normal respiratory variation. DOPPLER MEASUREMENTS: Aortic valve velocity - 140 cm/s LVOT velocity - 101 cm/s LVOT VTI - 19.1 cm Mitral E velocity - 80.5 cm/s Mitral A velocity - 64.7 cm/s Mitral deceleration time - 209 ms Estimated right ventricle systolic pressure 26 mmHg Estimated right atrial pressure 5 mmHg. Mitral annular tissue Doppler: E prime septal - 9.9 cm/s E prime lateral - 11.0 cm/s DESCRIPTION: Rhythm was sinus. The was a moderate to difficulty echocardiogram. No pericardial effusion. This is a 2D, M-mode, color flow Doppler and pulse wave Doppler examination including mitral annular tissue Doppler. CONCLUSIONS: 1. Mild dilatation of the aortic root at the level of the level of the sinuses of Valsalva. No coaptation of the aorta. 2. Normal left ventricle internal dimensions and wall thickness. Normal regional LV wall motion and wall thickening. Normal LV systolic and diastolic function. LVEF 65% by visual estimate. 3. Normal three-cuspid aortic valve. 4. Otherwise normal appearing echocardiogram Doppler.
[2017-05-19 13:05] VITALS: BP_SYST 150; BP_SYST 161; BP_SYST 163; BP_DIAS 71; BP_DIAS 74; BP_DIAS 75
[2017-05-19 14:00] VITALS: BP 145/77
--- NOTE | 2017-05-19 18:55 | IPNPDOC ---
Subjective Date Seen The patient was seen on 05/19/17. Subjective Chief Complaint/HPI The patient is a 37-year-old male admitted with a reason for visit of Dizziness. States he feels improved from yesterday. Dizziness is improving, and patient no longer needs to close eyes for dizziness to cease. No longer has a "foggy brain." Dizzy feeling is still described as if room is spinning. No light -headedness or loss of consciousness since admission. Per PT note, pt did not report dizziness or lightheadedness throughout entire PT session. No acute complaints or reported events overnight. Resting comfortably in bed. General: Denies: Chills, Night Sweats Constitutional: Denies: Chills, Fever Eyes: Denies: Pain, Vision change ENT: Denies: Head Aches, Dysphagia Pulmonary: Denies: Dyspnea, Cough Cardiovascular: Denies: Chest Pain, Palpitations, Edema, Lt Headedness Gastrointestinal: Denies: Nausea, Vomiting, Abdominal Pain, Diarrhea, Constipation Neurological: Denies: Weakness, Numbness, Incoordination, Confusion Psych: Reports: Mood Normal Objective Physical Examination General Exam: Positive: Alert, Cooperative, No Acute Distress Eye Exam: Positive: Conjunctiva & lids normal, Negative: Sclera icteric ENT Exam: Positive: Atraumatic, Mucous membr. moist/pink, Pharynx Normal Neck Exam: Positive: Supple, Negative: JVD, Lymphadenopathy Chest Exam: Positive: Clear to auscultation, Negative: Wheezing Heart Exam: Positive: Rate Normal, Normal S1, Normal S2, Negative: Murmurs Abdomen Exam: Positive: Normal bowel sounds, Soft, Negative: Tenderness Extremity Exam: Positive: Normal pulses, Negative: Cyanosis, Edema Skin Exam: Positive: Nl turgor and temperature Neuro Exam: Positive: Normal Speech, Strength at 5/5 X4 ext, Sensation Intact Psych Exam: Positive: Oriented x 3 Assessment /Plan Assessment 1. Vertigo. Continue Meclizine 25mg bid. Cardiac workup for any arrhythmias and underlying cardiac causes was negative. Cardiac markers were negative, as were his orthostatic vitals again when rechecked this morning. Echocardiogram done yesterday was negative. Working with physical therapy (PT) for dizziness. Appreciate their input. 2. Elevated BUN. Upon admission was 34. Normalized today at level of 14. The patient may be dehydrated. Continue IV fluids at 120 mL per hour. Unlikely to be attributed to blood loss since admission hemoglobin and hematocrit were 14.5 and 41.8 and stable throughout admission. We will recheck CBC, BMP, magnesium and phosphorous daily. 4. Leukocytosis. Decreased from 17.4 yesterday to 13.4 today. Pt continues to be afebrile and asymptomatic. Attributable to restarting steroid taper, currently at 20mg. Was 17.9 on admission, likely due to steroid use from previous admission, which he had left against medical advice on 05/15/17 while on prednisone taper for COPD exacerbation. Chest x-ray upon admission was negative for any abnormalities. Continue steroid taper. 5. Hypophosphatemia. Phosphorus increased from 2.0 yesterday to 2.4 today. Replete again with K-Phos 250mg tid. 6. Increased lactate. On admission was 2.2, but resolved a few hours later with a follow up level of 1.8. 7. Peripheral neuropathy. Gabapentin 900mg tid. 8. Hyperlipidemia. Lipitor 80mg qhs. 9. Deep vein thrombosis (DVT) prophylaxis. Lovenox 40 mg daily. Plan/VTE VTE Prophylaxis Ordered?: Yes VS, I&O, 24H, Fishbone Vital Signs/I&O Vital Signs Date Time Temp Pulse Resp B/P (MAP) Pulse Ox O2 Delivery O2 Flow Rate FiO2 05/19/17 17:49 80 131/64 05/19/17 14:00 96.5 18 95 Room Air I&O- Last 24 Hours up to 6 AM 05/19/17 05:59 Intake Total 3020 ml Output Total 2850 ml Balance 170 ml Laboratory Data 24H LABS Laboratory Tests 2 05/19/17 05:26: Anion Gap 9, Glomerular Filtration Rate > 60.0, Blood Urea Nitrogen 14, Creatinine 0.79, Sodium Level 144, Potassium Level 3.5, Chloride Level 108H, Carbon Dioxide Level 27, Calcium Level 7.7L, Phosphorus Level 2.4L, Magnesium Level 2.1 CBC/BMP Laboratory Tests 05/19/17 05:26 Calcium Level 7.7 L 05/19/17 05:27 Red Blood Count 4.98, Mean Corpuscular Volume 84.7, Mean Corpuscular Hemoglobin 28.1, Mean Corpuscular Hemoglobin Concent 33.2, Red Cell Distribution Width 15.7 H HUNTER ESCALANTE DO May 19, 2017 18:55
[2017-05-19] MEDS: ATORVASTATIN 20 MG TAB PO SCH (20:25)
[2017-05-19 21:37] VITALS: BP_SYST 145; BP_SYST 148; BP_DIAS 46; BP_DIAS 69; BP_DIAS 73
[2017-05-19 22:00] VITALS: BP 141/65
[2017-05-20 05:38] LABS: MEAN CORPUSCULAR HEMOGLOBIN 28.2 pg (27.0-33.0); MEAN CORPUSCULAR HGB CONC 33.2 g/dl (32.0-36.5); RED CELL DISTRIBUTION WIDTH 15.9 % (11.5-14.5); WHITE BLOOD COUNT 11.3 K/mm3 (4.0-10.0)
[2017-05-20 05:58] LABS: ANION GAP 8 MEQ/L (8-16); BLOOD UREA NITROGEN 15 MG/DL (7-18); CALCIUM LEVEL 8.6 MG/DL (8.5-10.1); CARBON DIOXIDE LEVEL 28 MEQ/L (21-32); CHLORIDE LEVEL 108 MEQ/L (98-107); CREATININE FOR GFR 0.95 MG/DL (0.70-1.30); GLOMERULAR FILTRATION RATE > 60.0 (>60); GLUCOSE, FASTING 185 MG/DL (70-105); MAGNESIUM LEVEL 2.1 MG/DL (1.8-2.4); POTASSIUM SERUM 3.5 MEQ/L (3.5-5.1); SODIUM LEVEL 144 MEQ/L (136-145)
[2017-05-20 06:00] VITALS: BP 114/62
[2017-05-20] MEDS: NS 1,000 ML IV SCH ×3 (06:02→22:24)
[2017-05-20 06:31] LABS: PHOSPHORUS LEVEL 3.3 MG/DL (2.5-4.9)
[2017-05-20] MEDS: GABAPENTIN 300 MG CAP PO SCH ×3 (08:22→20:36)
[2017-05-20] MEDS: predniSONE 20 MG TAB PO SCH (08:22)
[2017-05-20] MEDS: MECLIZINE 25 MG TABLET PO SCH ×2 (08:23→20:36)
[2017-05-20] MEDS: ENOXAPARIN 40 MG/0.4 ML SYRINGE (J1650) SC SCH (08:23)
[2017-05-20 08:24] VITALS: BP_SYST 119; BP_SYST 129; BP_SYST 133; BP_DIAS 63; BP_DIAS 67; BP_DIAS 75
[2017-05-20 11:20] VITALS: BP 131/58
[2017-05-20] MEDS: ATORVASTATIN 20 MG TAB PO SCH (20:37)
[2017-05-20 22:00] VITALS: BP 131/74
[2017-05-20 22:30] VITALS: BP_SYST 136; BP_SYST 142; BP_SYST 167; BP_DIAS 67; BP_DIAS 84; BP_DIAS 85
[2017-05-21 06:14] LABS: MEAN CORPUSCULAR HEMOGLOBIN 28.6 pg (27.0-33.0); MEAN CORPUSCULAR HGB CONC 33.6 g/dl (32.0-36.5); MEAN CORPUSCULAR VOLUME 85.1 fl (80.0-96.0); WHITE BLOOD COUNT 10.3 K/mm3 (4.0-10.0)
[2017-05-21] MEDS: NS 1,000 ML IV SCH (06:24)
[2017-05-21 06:47] LABS: ANION GAP 9 MEQ/L (8-16); BLOOD UREA NITROGEN 12 MG/DL (7-18); CALCIUM LEVEL 8.1 MG/DL (8.5-10.1); CARBON DIOXIDE LEVEL 29 MEQ/L (21-32); CHLORIDE LEVEL 105 MEQ/L (98-107); CREATININE FOR GFR 0.95 MG/DL (0.70-1.30); GLOMERULAR FILTRATION RATE > 60.0 (>60); GLUCOSE, FASTING 225 MG/DL (70-105); MAGNESIUM LEVEL 1.9 MG/DL (1.8-2.4); PHOSPHORUS LEVEL 2.9 MG/DL (2.5-4.9); POTASSIUM SERUM 3.8 MEQ/L (3.5-5.1); SODIUM LEVEL 143 MEQ/L (136-145)
[2017-05-21 07:54] VITALS: BP_SYST 131; BP_SYST 144; BP_SYST 150; BP_DIAS 56; BP_DIAS 72; BP_DIAS 79
[2017-05-21] MEDS: predniSONE 20 MG TAB PO SCH (08:39)
[2017-05-21] MEDS: ENOXAPARIN 40 MG/0.4 ML SYRINGE (J1650) SC SCH (08:39)
[2017-05-21] MEDS: GABAPENTIN 300 MG CAP PO SCH ×3 (08:39→19:58)
[2017-05-21] MEDS: MECLIZINE 25 MG TABLET PO SCH ×2 (08:39→19:58)
--- NOTE | 2017-05-21 14:24 | IPNPDOC ---
Subjective Date Seen The patient was seen on 05/21/17. Subjective Chief Complaint/HPI Patient seen and examined at the bedside. Patient states that his dizziness is improving slowly. He reports that he is eager to work with physical therapy to see how he would do. Objective Physical Examination General Exam: Positive: Alert, Cooperative, No Acute Distress ENT Exam: Positive: Atraumatic, Mucous membr. moist/pink Neck Exam: Negative: JVD Chest Exam: Positive: Clear to auscultation, Normal air movement, Negative: Wheezing Heart Exam: Positive: Rate Normal, Normal S1, Normal S2 Abdomen Exam: Positive: Soft, Negative: Tenderness Extremity Exam: Negative: Tenderness, Swelling Psych Exam: Positive: Oriented x 3 Assessment /Plan Plan/VTE VTE Prophylaxis Ordered?: Yes Plan Vertigo of Unclear Etiology Orthostatic Vitals negative Physical exam inconsistent with BPPV, vestibular rehab training with PT MRI Brain with no acute findings Meclizine 50mg bid. We will cont to have the patient work with PT for functional optimization Leukocytosis 2/2 Steroid Use Patient on prednisone taper for COPD exacerbation No signs or symptoms of infection at this time COPD, stable No active wheezing Cont Albuterol prn Hypophosphatemia, resolev s/p repletion Lactic Acidosis, resolved s/p IVF Hydration Peripheral neuropathy Cont Gabapentin 900mg tid Hypertension, stable Cardizem Hyperlipidemia Cont Lipitor 80mg Deep vein thrombosis (DVT) prophylaxis Lovenox SC VS, I&O, 24H, Fishbone Vital Signs/I&O Vital Signs Date Time Temp Pulse Resp B/P (MAP) Pulse Ox O2 Delivery O2 Flow Rate FiO2 05/21/17 11:33 75 138/66 05/21/17 08:40 Room Air 05/20/17 22:00 97.3 19 95 I&O- Last 24 Hours up to 6 AM 05/21/17 06:00 Intake Total 3000 ml Output Total 4000 ml Balance -1000 ml Laboratory Data 24H LABS Laboratory Tests 2 05/21/17 06:00: Anion Gap 9, Glomerular Filtration Rate > 60.0, Blood Urea Nitrogen 12, Creatinine 0.95, Sodium Level 143, Potassium Level 3.8, Chloride Level 105, Carbon Dioxide Level 29, Calcium Level 8.1L, Phosphorus Level 2.9, Magnesium Level 1.9 CBC/BMP Laboratory Tests 05/21/17 06:00 Red Blood Count 4.86, Mean Corpuscular Volume 85.1, Mean Corpuscular Hemoglobin 28.6, Mean Corpuscular Hemoglobin Concent 33.6, Red Cell Distribution Width 16.0 H, Calcium Level 8.1 L JOHN GUERRERO MD May 21, 2017 14:24
[2017-05-21] MEDS ORDERED: ALBUTEROL 90 MCG/ACT 8GM HFA INHALER INH PRN (14:30)
[2017-05-21] MEDS: ATORVASTATIN 20 MG TAB PO SCH (19:59)
[2017-05-21 22:00] VITALS: BP 126/61
[2017-05-22 05:58] LABS: MEAN CORPUSCULAR HEMOGLOBIN 28.7 pg (27.0-33.0); RED CELL DISTRIBUTION WIDTH 16.4 % (11.5-14.5); WHITE BLOOD COUNT 13.2 K/mm3 (4.0-10.0)
[2017-05-22 06:00] VITALS: BP 130/64
[2017-05-22 06:27] LABS: ANION GAP 13 MEQ/L (8-16); BLOOD UREA NITROGEN 11 MG/DL (7-18); CARBON DIOXIDE LEVEL 25 MEQ/L (21-32); CHLORIDE LEVEL 104 MEQ/L (98-107); GLOMERULAR FILTRATION RATE > 60.0 (>60); GLUCOSE, FASTING 235 MG/DL (70-105); MAGNESIUM LEVEL 1.9 MG/DL (1.8-2.4); PHOSPHORUS LEVEL 2.7 MG/DL (2.5-4.9); POTASSIUM SERUM 3.3 MEQ/L (3.5-5.1); SODIUM LEVEL 142 MEQ/L (136-145)
[2017-05-22] MEDS ORDERED: POTASSIUM CHLORIDE 10 MEQ SR TABLET PO ONE (08:00)
[2017-05-22 08:08] LABS: BENZODIAZEPINES, URINE SCREEN Negative ng/mL (Cutoff=200); METHADONE, URINE SCREEN Negative ng/mL (Cutoff=300); pH, URINE 6.7 (4.5-8.9)
[2017-05-22] MEDS: ENOXAPARIN 40 MG/0.4 ML SYRINGE (J1650) SC SCH (09:00)
[2017-05-22] MEDS ORDERED: predniSONE 10 MG TAB PO SCH (09:00)
[2017-05-22] MEDS: GABAPENTIN 300 MG CAP PO SCH (09:27)
[2017-05-22] MEDS: MECLIZINE 25 MG TABLET PO SCH (09:27)
[2017-05-22] MEDS ORDERED: PRED10TA2 PO (11:03)
[2017-05-22] MEDS ORDERED: MECL-68 PO (11:03)
[2017-05-22 12:25] VITALS: BP 135/74
--- NOTE | 2017-05-31 12:32 | DS.PDOC ---
Discharge Summary General Date of Admission May 18, 2017 at 09:34 Date of Discharge 05/22/17 Discharge Summary PROCEDURES PERFORMED DURING STAY: None. ADMITTING/DISCHARGE DIAGNOSES: 1. . Vertigo of unclear etiology 2. . COPD 3. . Hypertension COMPLICATIONS/CHIEF COMPLAINT: Dizziness. HISTORY OF PRESENT ILLNESS: . 37-year-old male with past medical history of COPD, peripheral neuropathy, hypertension, dyslipidemia, schizoaffective disorder, and PTSD presented to the ER with a chief complaint of feeling weak and dizzy. The patient states that he has been having episodes of dizziness intermittently with no specific aggravating or alleviating factors. The patient also expressed feelings of generalized weakness. The patient denied any complaints of fevers, chills, chest pain, shortness of breath, abdominal pain, or any nausea/vomiting/ diarrhea. The patient also denied any symptoms of visual blurring, facial numbness or tingling, or any acute neurological deficits. In the ER, a CT scan of the head revealed no acute findings. The patient was admitted to the hospitalist service for further evaluation and management. During hospitalization, the patient's orthostatic vitals were noted to be within normal limits. In addition, the patient's physical exam was inconsistent with BPPV. The patient did undergo vestibular rehabilitation training with physical therapy, and once again was noted to have inconsistent symptoms. An MRI of the brain was obtained, and this revealed no acute findings. The patient was started on meclizine 25 mg twice a day, and this was subsequently uptitrated. The patient states that his symptoms significantly improved after starting the meclizine. At this time, the patient states that he is feeling much better and is eager to return home. The patient was evaluated by physical therapy and cleared for discharge home. I've advised patient follow-up with his primary care physician within one week. In addition, the patient is to return to the ER for any acute emergency. DISCHARGE MEDICATIONS: Please see below. ALLERGIES: Please see below. PHYSICAL EXAMINATION ON DISCHARGE: VITAL SIGNS: Please see below. General Exam: Positive: Alert, Cooperative, No Acute Distress ENT Exam: Positive: Atraumatic, Mucous membr. moist/pink Neck Exam: Negative: JVD Chest Exam: Positive: Clear to auscultation, Normal air movement, Negative: Wheezing Heart Exam: Positive: Rate Normal, Normal S1, Normal S2 Abdomen Exam: Positive: Soft, Negative: Tenderness Extremity Exam: Negative: Tenderness, Swelling Psych Exam: Positive: Oriented x 3 LABORATORY DATA: Please see below. IMAGING: CT Head without contrast HISTORY: Syncope COMPARISON: 02/07/2013 There is no intraparenchymal hemorrhage, acute infarct, mass or midline shift. The ventricular system is normal in appearance. There is no extra cerebral collection. There is no fracture. The visualized sinuses are clear. Soft tissue swelling is present over the left parietal bone. IMPRESSION: There is no intracranial lesion. MRI BRAIN WITHOUT CONTRAST: HISTORY: Vertigo. Comparison MRI study is from February 08, 2014. TECHNIQUE: Axial and sagittal imaging planes are utilized for T1 and T2- weighted scans. Sequences include spin echo, fast spin echo, FLAIR, and diffusion weighted sequences. MRI FINDINGS: Cerebellar tonsillar ectopia is again seen as before, 6 mm. There is no evidence of hydrocephalous. A small subcortical T2 hyperintensity persists in the right parietal lobe unchanged. Merrill-white differentiation pattern is otherwise normal. There is no evidence of infarct or hemorrhage. Diffusion weighted scans remain unremarkable. There is no MR evidence of significant paranasal sinus disease. No bony calvarial lesion is seen. IMPRESSION: Stable MR findings including cerebellar ectopia and a small stable right parietal T2 hyperintense focus. No acute abnormality. PROGNOSIS: Fair ACTIVITY: As tolerated. DIET: . 2 g low sodium diet DISCHARGE PLAN: DISPOSITION: 01 Home, Self-Care. DISCHARGE INSTRUCTIONS: 1. . Follow-up with primary care physician within one week 2. . Adhere to medication regimen as prescribed 3. . Return to the ER for any acute emergencies DISCHARGE CONDITION: Stable. TIME SPENT ON DISCHARGE: Greater than 30 minutes. Discharge Medications Scheduled Atorvastatin Calcium (Atorvastatin Calcium) 80 Mg Tab, 80 MG PO QHS, (Reported) Diltiazem HCl (Diltiazem HCl ER) 60 Mg Capcr, 60 MG PO BID, (Reported) Gabapentin (Gabapentin) 600 Mg Tab, 900 MG PO TID, (Reported) Prednisone (Prednisone) 10 Mg Tab, 10 MG PO ASDIRECTED 1 tab daily for 3 days then stop Scheduled PRN Albuterol Sulfate (Ventolin Hfa) 200 Puff/8 Gm Aers, 2 PUFF INH QID PRN for SHORTNESS OF BREATH, (Reported) Meclizine HCl (Meclizine HCl) 25 Mg Tab, 50 MG PO BID PRN for VERTIGO/DIZZINESS Allergies Coded Allergies: Erythromycin (Verified Allergy, Mild, RASH, 12/31/12) Lidocaine (Verified Allergy, Mild, RASH, 01/08/14) Prilocaine (Verified Allergy, Mild, RASH, 01/08/14) Acetaminophen (Verified Allergy, Unknown, heart racing, 04/02/17) Iodine (Verified Allergy, Unknown, 01/16/16) Red Dye (Verified Allergy, Unknown, 01/16/16) Sulfa Drugs (Verified Allergy, Unknown, 12/31/12) Contrast Media (Verified Adverse Reaction, Severe, SEIZURES, 11/29/12) Hydrocodone (Verified Adverse Reaction, Mild, HEART RACES, 12/31/12) JOHN GUERRERO MD May 31, 2017 12:32
[2017-07-27] MEDS ORDERED: DICL75TA (00:26)
[2017-07-27] MEDS ORDERED: TIZANIDINE (00:26)
[2017-07-27] MEDS ORDERED: BUPR75TA5 (00:26)
== END 2017-05-22 12:40 | disposition home or self-care (01) | DRG 149 ==
LOC: M ED 09:20 → M ED INP 13:48 → M PCU 16:28 → M MSPAV 05-17 15:49 → OBSVTOIN 05-18 09:34 → M MSPAV 05-19 15:39
PROVIDERS: ADMIT Hospitalist; ATTEND Internal Medicine
DX: R42 Dizziness and giddiness (principal); E87.2 Acidosis; R55 Syncope and collapse; G43.109 Migraine with aura, not intractable, without status migrainosus; J44.9 Chronic obstructive pulmonary disease, unspecified; I10 Essential (primary) hypertension; E78.5 Hyperlipidemia, unspecified; F25.9 Schizoaffective disorder, unspecified; F43.10 Post-traumatic stress disorder, unspecified; Z79.899 Other long term (current) drug therapy; Z88.1 Allergy status to other antibiotic agents; Z88.2 Allergy status to sulfonamides; Z88.8 Allergy status to other drugs, medicaments and biological substances; Z88.5 Allergy status to narcotic agent; Z91.041 Radiographic dye allergy status; Z91.19 Patient's noncompliance with other medical treatment and regimen; G47.33 Obstructive sleep apnea (adult) (pediatric); F17.200 Nicotine dependence, unspecified, uncomplicated; G40.909 Epilepsy, unspecified, not intractable, without status epilepticus; M54.5 Low back pain; Z80.1 Family history of malignant neoplasm of trachea, bronchus and lung; Z83.49 Family history of other endocrine, nutritional and metabolic diseases; D72.829 Elevated white blood cell count, unspecified; E83.51 Hypocalcemia; E83.39 Other disorders of phosphorus metabolism; G62.9 Polyneuropathy, unspecified; Z79.52 Long term (current) use of systemic steroids

== ENCOUNTER 2017-07-14 01:19 | Emergency (ER) | payer MEDICARE, OTHER ==
[~2017-07-14] VITALS: Ht 185.4 cm; Wt 125.0 kg
[~2017-07-14 01:19] MED LIST changes: +MECL-68 PO
[2017-07-14 01:48] VITALS: BP 125/71
--- NOTE | 2017-07-14 08:55 | REP ---
LUMBOSACRAL SPINE: AP and lateral views of the lumbosacral spine performed. There is no compression fracture or malalignment. There is normal lumbar lordosis. There is mild diffuse spurring. There is sclerosis at the posterior facet joints. The posterior elements are intact. IMPRESSION: No fracture or dislocation. Signed by Jose Antonio Merrill MD 07/17/2017 09:43 A
--- NOTE | 2017-07-14 08:55 | REP ---
RIGHT ELBOW, TWO VIEWS: Two views of the right elbow are performed. There is no acute fracture or dislocation. There is mild spurring of the coronoid process of the proximal ulna. I see no joint effusion. IMPRESSION: No fracture or dislocation. Signed by Jose Antonio Merrill MD 07/17/2017 09:43 A
[2017-07-27] MEDS ORDERED: TIZANIDINE (00:26)
[2017-07-27] MEDS ORDERED: DICL75TA (00:26)
[2017-07-27] MEDS ORDERED: BUPR75TA5 (00:26)
== END 2017-07-14 02:58 | disposition home or self-care (01) ==
LOC: M ED 01:19 → EDBD 01:19 → M ED 02:58
DX: S39.012A Strain of muscle, fascia and tendon of lower back, initial encounter (principal); S50.01XA Contusion of right elbow, initial encounter; W01.0XXA Fall on same level from slipping, tripping and stumbling without subsequent striking against object, initial encounter; Y92.89 Other specified places as the place of occurrence of the external cause; Y93.89 Activity, other specified; Y99.8 Other external cause status; I11.9 Hypertensive heart disease without heart failure; G89.29 Other chronic pain; Z79.899 Other long term (current) drug therapy; Z88.1 Allergy status to other antibiotic agents; Z88.2 Allergy status to sulfonamides; Z88.5 Allergy status to narcotic agent; Z88.6 Allergy status to analgesic agent; Z88.8 Allergy status to other drugs, medicaments and biological substances; Z91.041 Radiographic dye allergy status; Z91.018 Allergy to other foods; F17.210 Nicotine dependence, cigarettes, uncomplicated

== ENCOUNTER → 2017-07-20 | Outpatient (CLI) | payer MEDICARE, OTHER, MEDICAID ==
[~2017-07-20] MED LIST changes: +BUPR75TA5; +DICL75TA; +TIZANIDINE
--- NOTE | 2017-07-20 15:30 | REP ---
CERVICAL SPINE SERIES: Full cervical spine series is performed with eight views obtained. There is no compression fracture or malalignment. There is no prevertebral soft tissue swelling. There is slight disc space narrowing at C4-5. Anterior ligamentous calcification is seen at C5-6. There is diffuse narrowing and sclerosis at the posterior facet joints. I do not see radiographic evidence of significant neural foraminal narrowing. There is slight curvature toward the left. IMPRESSION: Mild degenerative changes. Signed by Jose Antonio Merrill MD 07/21/2017 05:42 P
== END ==
LOC: M LRY 14:04
PROVIDERS: ATTEND Family Medicine
DX: M50.30 Other cervical disc degeneration, unspecified cervical region (principal)
CPT/HCPCS: 72052; G0463

== ENCOUNTER → 2017-08-30 | Outpatient (CLI) | payer OTHER, MEDICARE ==
--- NOTE | 2017-08-31 08:45 | REP ---
MRI LUMBAR SPINE WITHOUT CONTRAST: HISTORY: Radiculopathy. COMPARISON: 10/05/2013. There is no disc bulge or herniation at the L1-2 and L2-3 levels. The nerves exit the neural foramina without compression. A diffuse disc bulge is present at the L3-4 level. There is minimal compression of the thecal sac. The L3 nerves exit the neural foramina without compression. A diffuse disc bulge is present at the L4-5 level. There is minimal compression of the thecal sac. A small left intraforaminal disc protrusion is present. This abuts the left L4 nerve in the neural foramen. The right L4 nerve exits the neural foramen without compression. A small central disc protrusion is present at the L5-S1 level. There is no thecal sac or no nerve compression. The L5 nerves exit the neural foramina without compression. The conus medullaris is normal in appearance terminating at the level of the T12-L1 intervertebral disc. There is fatty infiltration of the filum terminale. Normal signal intensity is present in the lumbar intervertebral discs and vertebral bodies. IMPRESSION: 1. Diffuse disc bulges at the L3-4 and L4-5 levels with minimal thecal sac compression. 2. Small central disc protrusion at the L5-S1 level without thecal sac or nerve compression. Signed by Emre Eli MD 08/31/2017 08:51 A
== END ==
LOC: M RAD 14:31
PROVIDERS: ATTEND Family Medicine
DX: M54.17 Radiculopathy, lumbosacral region (principal)

== ENCOUNTER → 2017-09-22 | Outpatient (CLI) | payer MEDICARE, MEDICAID | LOC: M LRY 14:04 | DX: M79.601 Pain in right arm (principal) | CPT/HCPCS: 73080; G0463 ==

== ENCOUNTER → 2017-11-02 | Outpatient (CLI) | payer MEDICARE, MEDICAID | LOC: M LRY 13:26 | DX: R50.9 Fever, unspecified (principal); R91.8 Other nonspecific abnormal finding of lung field | CPT/HCPCS: 71046; 87804 ==

== ENCOUNTER 2017-11-17 13:31 | Inpatient (IN) | payer MEDICARE, MEDICAID ==
[2017-11-17 14:43] LABS: HEMATOCRIT 42.2 % (42.0-52.0); HEMOGLOBIN 14.3 g/dl (14.0-18.0); MEAN CORPUSCULAR HEMOGLOBIN 27.4 pg (27.0-33.0); MEAN CORPUSCULAR HGB CONC 33.9 g/dl (32.0-36.5); PLATELET COUNT, AUTOMATED 201 10^3/uL (150-450); RED BLOOD COUNT 5.21 10^6/uL (4.30-6.10); RED CELL DISTRIBUTION WIDTH 14.6 % (11.5-14.5)
[2017-11-17 15:05] LABS: ALBUMIN 3.8 GM/DL (3.2-5.2); ALBUMIN/GLOBULIN RATIO 1.27 (1.00-1.93); ALKALINE PHOSPHATASE 79 U/L (45-117); ALT/SGPT 34 U/L (12-78); ANION GAP 10 MEQ/L (8-16); AST/SGOT 27 U/L (7-37); BILIRUBIN,DIRECT 0.2 MG/DL (0.0-0.2); BILIRUBIN,TOTAL 0.7 MG/DL (0.2-1.0); BLOOD UREA NITROGEN 12 MG/DL (7-18); CALCIUM LEVEL 8.9 MG/DL (8.5-10.1); CARBON DIOXIDE LEVEL 27 MEQ/L (21-32); CHLORIDE LEVEL 98 MEQ/L (98-107); CREATININE FOR GFR 1.14 MG/DL (0.70-1.30); GLOMERULAR FILTRATION RATE > 60.0 (>60); GLUCOSE, FASTING 266 MG/DL (70-100); SALICYLATE LEVEL < 1.7 MG/DL (5.0-30.0); SODIUM LEVEL 135 MEQ/L (136-145); TOTAL PROTEIN 6.8 GM/DL (6.4-8.2)
[2017-11-17 15:12] LABS: ACETAMINOPHEN LEVEL < 2.0 UG/ML (10.0-30.0); ETHYL ALCOHOL (ETHANOL) < 0.003 % (0.000-0.010)
[2017-11-17 15:52] LABS: AMPHETAMINES LEVEL URINE NEGATIVE (NEGATIVE); BARBITURATES URINE NEGATIVE (NEGATIVE); BENZODIAZEPINES URINE NEGATIVE (NEGATIVE); CANNABINOIDS URINE NEGATIVE (NEGATIVE); COCAINE METABOLITE URINE NEGATIVE (NEGATIVE); METHADONE URINE NEGATIVE (NEGATIVE); OPIATES URINE NEGATIVE (NEGATIVE); PHENCYCLIDINE URINE NEGATIVE (NEGATIVE)
[2017-11-17] MEDS ORDERED: MAALOX 30 ML SUSP *UDC PO (18:45)
[2017-11-17] MEDS: LORazepam 2 MG/ML VIAL (J2060) IM ×2 (18:45→19:31)
[2017-11-17] MEDS: HALOPERIDOL 5 MG/ML VIAL (J1630) IM ×2 (18:45→19:32)
[2017-11-17] MEDS ORDERED: MOM 30ML SUSPENSION UDC PO (18:45)
[2017-11-17] MEDS ORDERED: ACETAMINOPHEN TAB 650MG DOSE (2X325MG) PO (18:45)
[2017-11-17] MEDS ORDERED: HALOPERIDOL 5 MG/ML VIAL (J1630) As Ordered (18:49)
[2017-11-17] MEDS ORDERED: LORazepam 2 MG/ML VIAL (J2060) As Ordered (18:49)
[2017-11-17] MEDS ORDERED: ALBUTEROL 90 MCG/ACT 8GM HFA INHALER INH (20:15)
[2017-11-17] MEDS: ATORVASTATIN 20 MG TAB PO (21:00)
[2017-11-18] MEDS: buPROPion 75 MG TAB PO (09:28)
[2017-11-18] MEDS: GABAPENTIN 300 MG CAP PO ×3 (10:13→21:29)
[2017-11-18] MEDS: QUEtiapine FUMARATE 100 MG TAB PO (21:29)
[2017-11-18] MEDS: ATORVASTATIN 20 MG TAB PO (21:29)
[2017-11-18 21:33] LABS: BEDSIDE GLUCOSE 163 MG/DL (70-105)
[2017-11-18] MEDS: IBUPROFEN 600 MG TAB PO (21:35)
[2017-11-18] MEDS: tiZANidine 4 MG TAB PO (21:35)
[2017-11-18] MEDS: traMADol 50 MG TAB PO (21:35)
[2017-11-19] MEDS: buPROPion 75 MG TAB PO (08:41)
[2017-11-19] MEDS: GABAPENTIN 300 MG CAP PO ×3 (08:42→21:11)
[2017-11-19] MEDS ORDERED: NITROGLYCERIN 0.4 MG SUBL TABLET SL (10:45)
[2017-11-19] MEDS: IBUPROFEN 600 MG TAB PO ×2 (16:30→17:00)
[2017-11-19] MEDS: traMADol 50 MG TAB PO (21:10)
[2017-11-19] MEDS: ATORVASTATIN 20 MG TAB PO (21:10)
[2017-11-20 06:49] LABS: BEDSIDE GLUCOSE 141 MG/DL (70-105)
[2017-11-20] MEDS: buPROPion 75 MG TAB PO (08:21)
[2017-11-20] MEDS: GABAPENTIN 300 MG CAP PO ×3 (08:21→21:11)
[2017-11-20] MEDS: traMADol 50 MG TAB PO ×2 (08:21→16:26)
[2017-11-20] MEDS: IBUPROFEN 600 MG TAB PO (13:08)
[2017-11-20 17:34] LABS: BEDSIDE GLUCOSE 137 MG/DL (70-105)
[2017-11-20] MEDS: ATORVASTATIN 20 MG TAB PO (21:17)
[2017-11-21 06:44] LABS: BEDSIDE GLUCOSE 140 MG/DL (70-105)
[2017-11-21] MEDS: traMADol 50 MG TAB PO (06:48)
[2017-11-21] MEDS: GABAPENTIN 300 MG CAP PO (07:32)
[2017-11-21] MEDS: buPROPion 75 MG TAB PO (07:32)
== END 2017-11-21 11:08 | disposition home or self-care (01) | DRG 881 ==
LOC: M ED 13:31 → M ED INP 18:39 → M PSY 20:35
DX: F32.9 Major depressive disorder, single episode, unspecified (principal); R45.851 Suicidal ideations; F43.10 Post-traumatic stress disorder, unspecified; I10 Essential (primary) hypertension; I20.9 Angina pectoris, unspecified; E78.00 Pure hypercholesterolemia, unspecified; J44.9 Chronic obstructive pulmonary disease, unspecified; Z88.1 Allergy status to other antibiotic agents; Z88.2 Allergy status to sulfonamides; Z88.5 Allergy status to narcotic agent; Z91.041 Radiographic dye allergy status; Z87.891 Personal history of nicotine dependence; Z99.89 Dependence on other enabling machines and devices; Z91.19 Patient's noncompliance with other medical treatment and regimen; Z79.899 Other long term (current) drug therapy

== ENCOUNTER → 2017-11-27 | Outpatient (CLI) | payer MEDICARE, MEDICAID ==
[2017-11-27 08:57] LABS: LACTIC ACID SEPSIS PROTOCOL 1.9 MMOL/L (0.4-2.0)
[2017-11-27 09:03] LABS: CPK CREATINE PHOSPHOKINASE 261 U/L (39-308)
[2017-11-27 09:03] LABS: RHEUMATOID FACTOR QUANT < 10.0 IU/ML (0-15.0); TOTAL PROTEIN 6.7 GM/DL (6.4-8.2)
[2017-11-27 09:16] LABS: ESTIMATED AVERAGE GLUCOSE 189 MG/DL (60-110); HEMOGLOBIN A1c 8.2 %
[2017-11-27 11:43] LABS: VITAMIN B12 LEVEL 336 PG/ML (247-911)
[2017-11-27 11:50] LABS: FOLATE 8.3 NG/ML (>5.4)
[2017-11-28 13:44] LABS: ALBUMIN 3.89 GM/DL (3.29-5.55); ALPHA-1-GLOBULIN % 4.9 % (2.9-4.9); ALPHA-1-GLOBULINS 0.33 GM/DL (0.17-0.41)
[2017-11-28 13:45] LABS: ALPHA-2-GLOBULINS 0.96 GM/DL (0.42-0.99); ALPHA-2-GLOBULINS % 14.4 % (7.1-11.8); BETA-1-GLOBULINS 0.45 GM/DL (0.28-0.60); BETA-1-GLOBULINS % 6.7 % (4.7-7.2); BETA-2-GLOBULINS 0.31 GM/DL (0.19-0.55); BETA-2-GLOBULINS % 4.7 % (3.2-6.5); GAMMA GLOBULIN % 11.3 % (11.1-18.8); GAMMA GLOBULINS 0.76 GM/DL (0.65-1.58)
[2017-11-30 08:11] LABS: ANGIOTENSIN 1 CONVERTING ENZYM 51 U/L (14-82); ARSENIC BLOOD 8 ug/L (2-23); LEAD BLOOD 1 ug/dL (0-19); Lyme Disease IgG/IgM Antibodie <0.91 ISR (0.00-0.90); Lyme Disease IgM Ab Quantitati <0.80 index (0.00-0.79); MERCURY BLOOD None Detected ug/L (0.0-14.9); VITAMIN B6,PYRIDOXAL PHOSPHATE 3.7 ug/L (5.3-46.7)
[2017-11-30 08:11] LABS: ALDOLASE 4.9 U/L (3.3-10.3)
== END ==
LOC: M LAB 08:10
DX: R20.2 Paresthesia of skin (principal); R26.2 Difficulty in walking, not elsewhere classified; R26.89 Other abnormalities of gait and mobility; R53.1 Weakness; E11.9 Type 2 diabetes mellitus without complications; J44.9 Chronic obstructive pulmonary disease, unspecified; E66.01 Morbid (severe) obesity due to excess calories; F33.1 Major depressive disorder, recurrent, moderate; M47.816 Spondylosis without myelopathy or radiculopathy, lumbar region; G62.9 Polyneuropathy, unspecified; Z68.43 Body mass index [BMI] 50.0-59.9, adult; Z79.899 Other long term (current) drug therapy
CPT/HCPCS: 82550

== ENCOUNTER → 2017-12-06 | Outpatient (CLI) | payer MEDICARE, MEDICAID | LOC: M RAD 12:12 | DX: M54.2 Cervicalgia (principal); R20.2 Paresthesia of skin; R26.2 Difficulty in walking, not elsewhere classified; R53.1 Weakness; R26.89 Other abnormalities of gait and mobility; Q07.00 Arnold-Chiari syndrome without spina bifida or hydrocephalus | CPT/HCPCS: 72141 ==

== ENCOUNTER → 2018-03-01 | Outpatient (REF) | payer MEDICARE, MEDICAID ==
[2018-03-01 12:01] LABS: CREATININE, URINE 68.9 MG/DL; MALB URINE SIEMENS 8.6 MG/L; MAU/CREAT RATIO 12.4 MCG/MG (0.0-30.0)
[2018-03-01 12:11] LABS: ANION GAP 6 MEQ/L (8-16); BLOOD UREA NITROGEN 16 MG/DL (7-18); CALCIUM LEVEL 9.1 MG/DL (8.5-10.1); CARBON DIOXIDE LEVEL 31 MEQ/L (21-32); CHLORIDE LEVEL 101 MEQ/L (98-107); GLOMERULAR FILTRATION RATE > 60.0 (>60); GLUCOSE, FASTING 189 MG/DL (70-100); POTASSIUM SERUM 4.2 MEQ/L (3.5-5.1); SODIUM LEVEL 138 MEQ/L (136-145)
== END ==
LOC: M SFHCLERA 09:46
DX: E11.65 Type 2 diabetes mellitus with hyperglycemia (principal); R94.6 Abnormal results of thyroid function studies
CPT/HCPCS: 84443

== ENCOUNTER 2018-06-12 14:57 | Emergency (ER) | payer MEDICARE, MEDICAID, OTHER ==
[2018-06-12 17:44] LABS: BASO # 0.1 10^3/uL (0.0-0.2); BASO % 0.6 % (0.0-1.0); EOS # 0.2 10^3/uL (0.0-0.50); EOS % 1.7 % (0.0-3.0); HEMATOCRIT 46.5 % (42.0-52.0); HEMOGLOBIN 14.7 g/dl (13.5-17.5); IMMATURE GRANULOCYTE % 0.4 % (0-3.0); LYMPH % 28.7 % (24.0-44.0); MEAN CORPUSCULAR HEMOGLOBIN 26.3 pg (27.0-33.0); MEAN CORPUSCULAR HGB CONC 31.6 g/dl (32.0-36.5); MEAN CORPUSCULAR VOLUME 83.2 fl (80.0-96.0); MONO # 0.9 10^3/uL (0.0-0.8); MONO % 8.7 % (0.0-5.0); NEUTROPHILS # 6.3 10^3/uL (1.8-7.7); NEUTROPHILS % 59.9 % (36.0-66.0); PLATELET COUNT, AUTOMATED 214 10^3/uL (150-450); RED BLOOD COUNT 5.59 10^6/uL (4.30-6.10); RED CELL DISTRIBUTION WIDTH 16.6 % (11.5-14.5); WHITE BLOOD COUNT 10.5 10^3/uL (4.0-10.0)
[2018-06-12] MEDS: METOCLOPRAMIDE INJ 10MG/2ML VIAL (J2765) IV (17:51)
[2018-06-12] MEDS: NS 1,000 ML IV (17:51)
[2018-06-12] MEDS: HYDROMORPHONE HCL 0.5 MG/ 0.5 ML SYRINGE (J1170 PER 1) IV (17:52)
[2018-06-12 18:10] LABS: ANION GAP 7 MEQ/L (8-16); BLOOD UREA NITROGEN 17 MG/DL (7-18); CALCIUM LEVEL 9.2 MG/DL (8.5-10.1); CARBON DIOXIDE LEVEL 29 MEQ/L (21-32); CHLORIDE LEVEL 101 MEQ/L (98-107); CREATININE FOR GFR 1.15 MG/DL (0.70-1.30); GLOMERULAR FILTRATION RATE > 60.0 (>60); GLUCOSE, FASTING 116 MG/DL (70-100); POTASSIUM SERUM 4.3 MEQ/L (3.5-5.1); SODIUM LEVEL 137 MEQ/L (136-145)
[2018-06-12] MEDS: KETOROLAC 30 MG/ML VIAL (J1885) IV (19:01)
== END 2018-06-12 19:58 | disposition home or self-care (01) ==
LOC: M ED 14:57
DX: G43.909 Migraine, unspecified, not intractable, without status migrainosus (principal); E11.9 Type 2 diabetes mellitus without complications; I10 Essential (primary) hypertension; F17.200 Nicotine dependence, unspecified, uncomplicated
CPT/HCPCS: J1885

== ENCOUNTER → 2018-06-14 | Outpatient (CLI) | payer MEDICARE, MEDICAID ==
[2018-06-14 10:30] LABS: HEMATOCRIT 47.9 % (42.0-52.0); MEAN CORPUSCULAR HEMOGLOBIN 26.1 pg (27.0-33.0); MEAN CORPUSCULAR HGB CONC 31.3 g/dl (32.0-36.5); MEAN CORPUSCULAR VOLUME 83.3 fl (80.0-96.0); PLATELET COUNT, AUTOMATED 176 10^3/uL (150-450); RED BLOOD COUNT 5.75 10^6/uL (4.30-6.10); RED CELL DISTRIBUTION WIDTH 16.8 % (11.5-14.5); WHITE BLOOD COUNT 7.8 10^3/uL (4.0-10.0)
[2018-06-14 14:42] LABS: ALBUMIN 4.3 GM/DL (3.2-5.2); ALKALINE PHOSPHATASE 111 U/L (45-117); ALT/SGPT 36 U/L (12-78); ANION GAP 10 MEQ/L (8-16); AST/SGOT 24 U/L (7-37); BILIRUBIN,TOTAL 0.4 MG/DL (0.2-1.0); BLOOD UREA NITROGEN 17 MG/DL (7-18); CALCIUM LEVEL 9.4 MG/DL (8.5-10.1); CARBON DIOXIDE LEVEL 28 MEQ/L (21-32); CHLORIDE LEVEL 101 MEQ/L (98-107); CHOLESTEROL LEVEL 127 MG/DL (<200); CHOLESTEROL RISK RATIO 4.884 (<5); CREATININE FOR GFR 1.12 MG/DL (0.70-1.30); GLOMERULAR FILTRATION RATE > 60.0 (>60); GLUCOSE, FASTING 113 MG/DL (70-100); HDL CHOLESTEROL 26 MG/DL (>40); LDL CHOLESTEROL 51 MG/DL (<100); NON-HDL-C 101 MG/DL; POTASSIUM SERUM 4.2 MEQ/L (3.5-5.1); SODIUM LEVEL 139 MEQ/L (136-145); TOTAL PROTEIN 7.6 GM/DL (6.4-8.2); TRIGLYCERIDES LEVEL 251 MG/DL (<150)
[2018-06-14 15:32] LABS: ESTIMATED AVERAGE GLUCOSE 143 MG/DL (60-110); HEMOGLOBIN A1c 6.6 %
== END ==
LOC: M LAB 09:42
DX: E78.2 Mixed hyperlipidemia (principal); E11.65 Type 2 diabetes mellitus with hyperglycemia
CPT/HCPCS: 84443

== ENCOUNTER → 2018-08-01 | Outpatient (CLI) | payer MEDICARE, MEDICAID | LOC: M PAIN 11:00 | DX: Z53.8 Procedure and treatment not carried out for other reasons (principal) ==

== ENCOUNTER → 2018-10-01 | Outpatient (CLI) | payer MEDICARE, MEDICAID ==
[~2018-10-01] MED LIST changes: +ATOR1TAB21 PO; +BUPR75TA5 PO; +CARD120C3 PO; +CYCL10TA PO; +DILT120C82 PO; -GABA-282 PO; +GABA-843 PO; -GABA600T PO; +GABA600T4 PO; +METF750T; +NAPR-50 PO; +NAPR1TAB86 PO; -NAPR500T PO; +OLAN15TA PO; -OLAN20TA PO; +OLAN20TA14 PO; +ONDA4TAB5 PO; +OXYC1TAB23 PO; +PROAAER10 INH; +QUET1TAB8 PO; +TIZA-208 PO; +TRAM50TA2 PO; +VENTAER INH; -ZOFR20TA PO; +ZOFR4TAB14 PO; +ZOFR4TAB16 PO; -ZOFR4TAB3 PO
[2018-10-01 10:47] LABS: BASO # 0.1 10^3/uL (0.0-0.2); BASO % 0.6 % (0.0-1.0); EOS # 0.1 10^3/uL (0.0-0.50); EOS % 1.4 % (0.0-3.0); HEMATOCRIT 46.4 % (42.0-52.0); HEMOGLOBIN 15.1 g/dl (13.5-17.5); LYMPH # 2.5 10^3/uL (1.5-4.5); MEAN CORPUSCULAR HGB CONC 32.5 g/dl (32.0-36.5); MONO # 0.6 10^3/uL (0.0-0.8); MONO % 6.4 % (0.0-5.0); NEUTROPHILS # 6.3 10^3/uL (1.8-7.7); NEUTROPHILS % 65.3 % (36.0-66.0); PLATELET COUNT, AUTOMATED 231 10^3/uL (150-450); WHITE BLOOD COUNT 9.7 10^3/uL (4.0-10.0)
[2018-10-01 11:16] LABS: FREE T4 1.01 NG/DL (0.76-1.46); THYROID STIMULATING HORMONE 2.77 uIU/ML (0.358-3.740)
[2018-10-01 11:40] LABS: HEMOGLOBIN A1c 6.6 %
== END ==
LOC: M LAB 10:01
PROVIDERS: ATTEND Physician Assistant
DX: R19.7 Diarrhea, unspecified (principal); Z79.899 Other long term (current) drug therapy

== ENCOUNTER → 2018-11-09 | Outpatient (CLI) | payer MEDICARE, MEDICAID ==
[2018-11-09 09:51] LABS: HEMATOCRIT 46.9 % (42.0-52.0); HEMOGLOBIN 15.1 g/dl (13.5-17.5); MEAN CORPUSCULAR HEMOGLOBIN 26.6 pg (27.0-33.0); MEAN CORPUSCULAR HGB CONC 32.2 g/dl (32.0-36.5); MEAN CORPUSCULAR VOLUME 82.7 fl (80.0-96.0); PLATELET COUNT, AUTOMATED 225 10^3/uL (150-450); RED BLOOD COUNT 5.67 10^6/uL (4.30-6.10); WHITE BLOOD COUNT 8.8 10^3/uL (4.0-10.0)
[2018-11-09 10:20] LABS: ALBUMIN 3.8 GM/DL (3.2-5.2); BLOOD UREA NITROGEN 12 MG/DL (7-18); CALCIUM LEVEL 9.2 MG/DL (8.5-10.1); CARBON DIOXIDE LEVEL 30 MEQ/L (21-32); CHLORIDE LEVEL 98 MEQ/L (98-107); CHOLESTEROL LEVEL 115 MG/DL (<200); CHOLESTEROL RISK RATIO 4.423 (<5); GLOMERULAR FILTRATION RATE > 60.0 (>60); GLUCOSE, FASTING 110 MG/DL (70-100); HDL CHOLESTEROL 26 MG/DL (>40); LDL CHOLESTEROL 58 MG/DL (<100); NON-HDL-C 89 MG/DL; PHOSPHORUS LEVEL 2.7 MG/DL (2.5-4.9); SODIUM LEVEL 138 MEQ/L (136-145); TRIGLYCERIDES LEVEL 156 MG/DL (<150)
== END ==
LOC: M LAB 09:18
PROVIDERS: ATTEND Family Medicine
DX: R07.2 Precordial pain (principal)

== ENCOUNTER 2018-12-11 21:36 | Emergency (ER) | payer MEDICARE, MEDICAID ==
[~2018-12-11] VITALS: Ht 185.4 cm; Wt 126.2 kg
--- NOTE | 2018-12-11 23:19 | REPVR ---
EXAM: US Scrotum EXAM DATE/TIME: 12/11/2018 11:06 PM CLINICAL HISTORY: 38 years old, male; Pain; Scrotum pain; Additional info: Pain/swelling on left side TECHNIQUE: Imaging protocol: Real-time ultrasound of the scrotum and contents with color Doppler and image documentation. COMPARISON: Scrotal, US 01/19/2017 11:21 PM FINDINGS: Right Testicle: The right testis is homogeneous and measures 3.7 x 2.7 x 3.1 cm and demonstrates normal blood flow. Left Testicle: The left testis is homogeneous and measures 4.0 x 2.3 x 3.2 cm and demonstrates normal blood flow. Epididymides: The right epididymal head measures 9 mm with 2 small cysts measuring 2 and 3 mm. The left epididymal head measures 8 mm with a cyst measuring 4 mm. Scrotum: Trace right hydrocele. IMPRESSION: 1. Small bilateral epididymal cysts measuring 3 mm on the right and 4 mm on the left. 2. Otherwise negative testicular sonogram with normal bilateral blood flow. Electronically signed by: Anirudh Champagne On 12/11/2018 23:19:40 PM
[2018-12-11] MEDS ORDERED: IBUPROFEN 600 MG TAB PO ONE (23:45)
[2018-12-11] MEDS ORDERED: IBUP-1022 PO (23:54)
[2018-12-11 23:56] LABS: APPEARANCE, URINE CLEAR (CLEAR); BACTERIA, URINE AUTO NEGATIVE (NEGATIVE); BILIRUBIN, URINE AUTO NEGATIVE (NEGATIVE); BLOOD, URINE BLOOD NEGATIVE (NEGATIVE); COLOR, URINE YELLOW (YELLOW); GLUCOSE, URINE (UA) AUTO NEGATIVE (NEGATIVE); KETONE, URINE AUTO NEGATIVE (NEGATIVE); LEUKOCYTE ESTERASE, URINE AUTO NEGATIVE (NEGATIVE); NITRITE, URINE AUTO NEGATIVE (NEGATIVE); PROTEIN, URINE AUTO NEGATIVE (NEGATIVE); RBC, URINE AUTO 1 /HPF (0-3); SPECIFIC GRAVITY URINE AUTO 1.009 (1.002-1.035); SQUAMOUS EPITHELIAL CELL UR AU 0 /HPF (0-6); UROBILINOGEN, URINE AUTO 0.2 mg/dL (0.0-2.0); WBC, URINE AUTO 1 /HPF (0-3)
[2018-12-12 00:24] VITALS: BP 128/71
[2018-12-12 01:58] LABS: CHLAMYDIA DNA AMPLIFICATION NEGATIVE (NEGATIVE); GC DNA AMPLIFICATION NEGATIVE (NEGATIVE)
== END 2018-12-12 00:25 | disposition home or self-care (01) ==
LOC: M ED 21:36
DX: N50.812 Left testicular pain (principal); N50.3 Cyst of epididymis; E11.9 Type 2 diabetes mellitus without complications; I25.2 Old myocardial infarction; Z87.442 Personal history of urinary calculi; F17.210 Nicotine dependence, cigarettes, uncomplicated; Z91.041 Radiographic dye allergy status; Z88.6 Allergy status to analgesic agent; Z88.1 Allergy status to other antibiotic agents; Z88.5 Allergy status to narcotic agent; Z88.4 Allergy status to anesthetic agent; Z88.2 Allergy status to sulfonamides; Z91.048 Other nonmedicinal substance allergy status; Z79.899 Other long term (current) drug therapy; Z79.84 Long term (current) use of oral hypoglycemic drugs; Z79.1 Long term (current) use of non-steroidal anti-inflammatories (NSAID)

== ENCOUNTER 2019-02-05 22:11 | Emergency (ER) | payer MEDICARE, MEDICAID ==
[~2019-02-05] VITALS: Ht 185.4 cm; Wt 135.0 kg
[~2019-02-05 22:11] MED LIST changes: -/ACETCOD2T PO; -/BACL20TA PO; -/CLON1TA PO; -/DIVA50TA PO; -/MOM400 PO; -/NITR4TASL SL; -/ONDA4TA PO; -/PANT40TA PO; +ACET1TAB15 PO; +BACL1TAB9 PO; +CLON-412 PO; +DEPA1TAB3 PO; -DILT120C82 PO; +DILT1CAP PO; +DILT1CAP2 PO; +MILK10SU PO; -NAPR-50 PO; +NAPR-837 PO; +NITR0.4S SL; +ONDA-1 PO; +PRED-351 PO; -PRED10TA PO; +PROT1TAB2 PO; -TIZA-208 PO; +TIZA4TAB4 PO
[2019-02-05 22:54] LABS: BASO # 0.1 10^3/uL (0.0-0.2); BASO % 0.7 % (0.0-1.0); EOS # 0.2 10^3/uL (0.0-0.50); EOS % 1.6 % (0.0-3.0); HEMATOCRIT 48.1 % (42.0-52.0); HEMOGLOBIN 15.2 g/dl (13.5-17.5); LYMPH # 3.2 10^3/uL (1.5-4.5); LYMPH % 30.7 % (24.0-44.0); MEAN CORPUSCULAR HEMOGLOBIN 26.7 pg (27.0-33.0); MEAN CORPUSCULAR HGB CONC 31.6 g/dl (32.0-36.5); MEAN CORPUSCULAR VOLUME 84.4 fl (80.0-96.0); MONO # 0.7 10^3/uL (0.0-0.8); MONO % 6.7 % (0.0-5.0); NEUTROPHILS # 6.3 10^3/uL (1.8-7.7); PLATELET COUNT, AUTOMATED 218 10^3/uL (150-450); WHITE BLOOD COUNT 10.5 10^3/uL (4.0-10.0)
--- NOTE | 2019-02-05 23:44 | REPVR ---
EXAM: CT Head Without Contrast EXAM DATE/TIME: 02/05/2019 10:33 PM CLINICAL HISTORY: 38 years old, male; Signs and symptoms; Altered mental status/memory loss; Other: Weakness TECHNIQUE: Imaging protocol: Axial computed tomography images of the head without contrast. Radiation optimization: All CT scans at this facility use at least one of these dose optimization techniques: automated exposure control; mA and/or kV adjustment per patient size (includes targeted exams where dose is matched to clinical indication); or iterative reconstruction. COMPARISON: CT Head without contrast 06/12/2018 5:03 PM FINDINGS: There are no intra-or extra-axial hemorrhages or fluid collections. There is no mass effect or midline shift. Ventricles are symmetrical and nondilated for age. There are no focal parenchymal abnormalities. No calvarial fractures. IMPRESSION: No acute intracranial process. No intracranial hemorrhage. Overall appearance is similar to previous examination. Electronically signed by: Angel Cullen On 02/05/2019 23:44:02 PM
[2019-02-06 00:06] LABS: ALBUMIN 3.9 GM/DL (3.2-5.2); ALT/SGPT 29 U/L (12-78); BILIRUBIN,DIRECT 0.2 MG/DL (0.0-0.2); BILIRUBIN,TOTAL 0.5 MG/DL (0.2-1.0); BLOOD UREA NITROGEN 13 MG/DL (7-18); CALCIUM LEVEL 9.4 MG/DL (8.5-10.1); CARBON DIOXIDE LEVEL 27 MEQ/L (21-32); CHLORIDE LEVEL 102 MEQ/L (98-107); CPK CREATINE PHOSPHOKINASE 346 U/L (39-308); CREATININE FOR GFR 1.08 MG/DL (0.70-1.30); ETHYL ALCOHOL (ETHANOL) < 0.003 % (0.000-0.010); GLOMERULAR FILTRATION RATE > 60.0 (>60); GLUCOSE, FASTING 107 MG/DL (70-100); MB/CK RELATIVE INDEX 0.46 (< OR =4); POTASSIUM SERUM 3.7 MEQ/L (3.5-5.1); SODIUM LEVEL 138 MEQ/L (136-145); TOTAL PROTEIN 7.1 GM/DL (6.4-8.2); TROPONIN I < 0.02 NG/ML (< 0.10)
[2019-02-06 00:32] LABS: FREE T4 1.21 NG/DL (0.76-1.46)
[2019-02-06 00:57] VITALS: BP 127/65
--- NOTE | 2019-02-06 13:31 | ECGEPIP ---
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
== END 2019-02-06 01:12 | disposition home or self-care (01) ==
LOC: M ED 22:11
DX: R53.1 Weakness (principal); R41.0 Disorientation, unspecified; E11.9 Type 2 diabetes mellitus without complications; J44.9 Chronic obstructive pulmonary disease, unspecified; F31.9 Bipolar disorder, unspecified; F43.10 Post-traumatic stress disorder, unspecified; Z79.899 Other long term (current) drug therapy; Z79.84 Long term (current) use of oral hypoglycemic drugs; Z88.1 Allergy status to other antibiotic agents; Z88.2 Allergy status to sulfonamides; Z88.5 Allergy status to narcotic agent; Z88.6 Allergy status to analgesic agent; Z88.8 Allergy status to other drugs, medicaments and biological substances; Z91.041 Radiographic dye allergy status; Z91.048 Other nonmedicinal substance allergy status
CPT/HCPCS: 36415; 70450; 80048; 80076; 82550; 82553; 84439; 84443; 84484; 85025; 93005; 93041; 94760; 99284; G0480

== ENCOUNTER → 2019-03-07 | Outpatient (REF) | payer MEDICARE, MEDICAID ==
[~2019-03-07] MED LIST changes: +TRAZ1TAB10 PO; -TRAZO50TA PO
[2019-03-07 17:35] LABS: HEMOGLOBIN A1c 6.4 %
[2019-03-07 21:51] LABS: CHLAMYDIA DNA AMPLIFICATION NEGATIVE (NEGATIVE); GC DNA AMPLIFICATION NEGATIVE (NEGATIVE)
== END ==
LOC: M SFHCLERA 12:21
PROVIDERS: ATTEND Nurse Practitioner Family
DX: E11.65 Type 2 diabetes mellitus with hyperglycemia (principal); Z11.3 Encounter for screening for infections with a predominantly sexual mode of transmission
CPT/HCPCS: 83036; 87389; 87491; 87591; G0463

== ENCOUNTER → 2019-05-06 | Outpatient (CLI) | payer MEDICARE, MEDICAID ==
--- NOTE | 2019-05-06 10:53 | REP ---
REASON: Drake paresthesias. COMPARISON: 07/20/2017 Vertebral body height and alignment is unchanged. The disc spaces are unchanged. The facet joints are again seen to be well aligned bilaterally. The intervertebral foramina are again seen to be ample bilaterally. IMPRESSION: No acute abnormality or significant change from the prior exam. Electronically Signed by Faheem Guevara DO 05/06/2019 12:27 P
== END ==
LOC: M LRY 09:17
PROVIDERS: ATTEND Nurse Practitioner Family
DX: R20.2 Paresthesia of skin (principal)
CPT/HCPCS: 72052; G0463

== ENCOUNTER → 2019-05-24 | Outpatient (CLI) | payer MEDICARE, MEDICAID ==
[~2019-05-24] MED LIST changes: -METF750T; +METF750T36
--- NOTE | 2019-06-04 00:37 | ECWPNPC ---
PATIENT NAME: TERRY MACDONALD III : 1980 GENDER: MALE VISIT DATE: 05/24/2019 DISCHARGE DATE: 05/24/19 1355 VISIT LOCKED DATE TIME: PHYSICIAN: ABDULLAHI ARZATE MD RESOURCE: ABDULLAHI ARZATE MD REASON FOR APPOINTMENT 1. GROIN PAIN- DISCUSS DCS TRIAL ONLY- [address] ARZATE, PT R/S 3X IN LINE HISTORY OF PRESENT ILLNESS PAIN SCREENING: PATIENT HAS A COMPLAINT OF ACUTE OR CHRONIC PAIN :YES 39 YEAR OLD MALE PATIENT WITH A HISTORY OF CHRONIC LEFT TESTICULAR PAIN. THE PATIENT DESCRIBES THE PAIN TENDER, ACHING, SHARP, STABBING, SHOOTING, DAILY, AND CONTINUOUS WITH A PAIN SCORE OF 5-10/10 DEPENDING ON PHYSICAL ACTIVITY. THE PATIENT STATES HE HAS BEEN SUFFERING FROM THIS PAIN FOR OVER 6 YEARS AFTER HE HAD A CYSTOSCOPY PROCEDURE PERFORMED. THE PATIENT SAYS THE PAIN IS AFFECTING HIS ABILITY TO PERFORM HIS DAILY ACTIVITIES SUCH CLEANING, MOVING AROUND, AND GROCERY SHOPPING. THE PATIENT MENTIONS HE HAS A HISTORY OF LOW BACK PAIN WELL. PATIENT DENIES UNEXPLAINABLE WEIGHT LOSS, FEVER, CHILLS, NEW CHANGES ON HIS URINARY OR BOWEL CONTROL. FALL RISK SCREENING: SCREENING :NO FALLS REPORTED IN THE LAST YEAR CURRENT MEDICATIONS NOT-TAKING ONETOUCH ULTRA 2 W/DEVICE KIT DIRECTED _ DAILY PRN ICD10 E11.65 NOT-TAKING ONETOUCH VERIO - STRIP DIRECTED _ BID NOT-TAKING ONETOUCH LANCETS - MISCELLANEOUS DIRECTED _ BID PRN E11.65 NOT-TAKING AMITRIPTYLINE HCL 25 MG TABLET 1 TABLET AT BEDTIME ORALLY ONCE A NIGHT NOT-TAKING METFORMIN HCL ER 750 MG TABLET EXTENDED RELEASE 24 HOUR 1 TAB ORALLY BID NOT-TAKING PROAIR HFA 108 (90 BASE) MCG/ACT AEROSOL SOLUTION 2 PUFFS NEEDED INHALATION EVERY 6 HRS NOT-TAKING LYRICA 75 MG CAPSULE 1 CAPSULE ORALLY 2 CAPS BID NOT-TAKING SPIRIVA HANDIHALER 18 MCG CAPSULE INHALE THE CONTENTS OF ONE CAPSULE VIA HANDIHALER BY MOUTH EVERY DAY INHALATION NOT-TAKING KETOCONAZOLE 2 % CREAM 1 APPLICATION TO AFFECTED AREA EXTERNALLY TO RIK FEET AND GLUTEAL FOLD TWICE A DAY NOT-TAKING BUPROPION HCL ER (SMOKING DET) 150 MG TABLET EXTENDED RELEASE 12 HOUR 1 TABLET IN THE MORNING FOR 3 DAYS, THEN INCREASE TO BID ORALLY ONCE A DAY FOR 3 DAYS THEN BID NOT-TAKING AUGMENTIN 875-125 MG TABLET 1 TABLET ORALLY EVERY 12 HRS NOT-TAKING ATORVASTATIN CALCIUM 80 MG TABLET 1 BY MOUTH EVERY NIGHT AT BEDTIME ORALLY BEFORE BEDTIME NOT-TAKING CARDIZEM CD 120 MG CAPSULE EXTENDED RELEASE 24 HOUR 1 CAP ORALLY DAILY NOT-TAKING POCKET SPACER - DEVICE DIRECTED _ DAILY NOT-TAKING NAPROXEN 500 MG TABLET 1 TABLET NEEDED ORALLY EVERY 12 HRS NOT-TAKING VOLTAREN 1 % GEL 2 GRAMS TRANSDERMAL FOUR TIMES DAILY NOT-TAKING ONETOUCH ULTRA II TEST STRIPS - STRIP DIRECTED IN VITRO BID PRN ICD10 E11.65 NOT-TAKING TIOTROPIUM BROMIDE MONOHYDRATE 18 MCG CAPSULE 1 CAPSULE INHALATION ONCE A DAY NOT-TAKING PROAIR HFA 108 (90 BASE) MCG/ACT AEROSOL SOLUTION 2 PUFFS NEEDED INHALATION EVERY 6 HRS NOT-TAKING IMITREX 50 MG TABLET 1 TABLET NEEDED, MAY REPEAT IN 1 HR IF MIGRAINE PAIN PERSISTS ORALLY TWICE A DAY NEEDED (MDD=2), NOTES: 2-3 MIGRAINES/WEEK MEDICATION LIST REVIEWED AND RECONCILED WITH THE PATIENT PAST MEDICAL HISTORY DEPRESSION/ANXIETY PTDS/BIPOLAR DISORDER ED CARDIAC ARREST SECONDARY TO DYE ALLERGY (2012) SEIZURES SECONDARY TO DYE ALLERGY (2012) SINGH - NON-CPAP COMPLIANT ESOPHAGEAL SPASMS HTN DM2 COLON POLYPS HX OF MORPHINE ADDICTION COPD HEMATURIA HEMORRHOIDS DIVERTICULITIS 07/19/[address] [place] S[address] EKG [address]/T-WAVE CHANGES OR ARRHYTHMIA. NORMAL LV SIZE AND WALL MOTION, LVEF 68%. NO REVERSIBLE STRESS SPECT MYOCARDIAL PERFUSION DEFECT ECHO: EF 65%, NORMAL SYSTOLIC AND DIASTOLIC FUNCTION 04/2017 [facility] CHIARI SYNDROME - [facility] NEUROSURGERY DECLINES PNEUMONIA VACCINE 05/2018 HYPERLIPIDEMIA ASCVD RISK 8.2% ON 06/12 PAIN LEFT TESTICLE ALLERGIES SULFA (FOR ALLERGY USE ONLY): RASH - ALLERGY VICODIN: RASH - ALLERGY CT SCAN DYE: ANAPHYLAXIS - ALLERGY RED DYE: ANAPHYLAXIS - SIDE EFFECTS ERYTHROMYCIN: RASH - ALLERGY SURGICAL HISTORY HEART CATHETERIZATION ENDOSCOPY COLONOSCOPY - INTERNAL HEMORRHOIDS; DIVERTICULOSIS (ALESSANDRO) 2007 NERVE BLOCK LEFT LOWER ABDOMEN 07/31/13 NEDRVE BLOCK LOWER BACK 08/02/16 FULL MOUTH TEETH EXTRACTION 2016 FAMILY HISTORY FATHER: , HEART FAILURE, DIAGNOSED WITH HEART DISEASE MOTHER: ALIVE, UNKNOWN SIBLINGS: UNKNOWN PATERNAL GRAND MOTHER: 1922 YRS, NATURAL CAUSES 2 BROTHER(S) . NO KNOWN FAMILY HISTORY OF KIDNEY, BLADDER, TESTICULAR, OR PROSTATE CANCER. SOCIAL HISTORY GENERAL: TOBACCO USE ARE YOU A:CURRENT SMOKER ARE YOU INTERESTED IN QUITTING?NOT READY TO QUIT COUNSELED THE PATIENT ON SMOKING EFFECTS, EDUCATION [id number]/30/2019 HOW MANY CIGARETTES A DAY DO YOU SMOKE?31 OR MORE HOW SOON AFTER YOU WAKE UP DO YOU SMOKE YOUR FIRST CIGARETTE?WITHIN 5 MIN HOW OFTEN DO YOU SMOKE CIGARETTES?EVERY DAY PATIENT COUNSELED ON THE DANGERS OF TOBACCO USE AND URGED TO QUIT:05/24/2019 SMOKING CESSATION INFORMATION GIVEN01/10/2019 HIV / HEP-C SCREENING HIV TEST OFFERED TO PATIENT:YES DATE OFFERED:03/07/2019 TEST ACCEPTED:YES HEP-C TEST OFFERED TO PATIENT:NO BROCHURE PROVIDED TO PATIENTYES OTHERS AT HOME: NONE. HOUSING: LIVES ALONE. EDUCATION LEVEL OF EDUCATION:FINISHED HIGH SCHOOL DIET: REGULAR. LANGUAGE LANGUAGES SPOKEN:UZBEK DOMESTIC VIOLENCE DO YOU FEEL SAFE IN YOUR ENVIRONMENT?YES BMI CARE GOAL FOLLOW-UP ABOVE NORMAL BMI FOLLOW-UPDIETARY MANAGEMENT EDUCATION, GUIDANCE, AND COUNSELING RECREATIONAL DRUG USE DRUG USE? MARIJUANA ONCE IN A GREAT WHILE FOR PAIN EXERCISE: NONE. LEARNING BARRIERS / SPECIAL NEEDS CHANGE FROM LAST VISIT?NO BARRIERS TO LEARNING?YES COMMENTS HAS TROUBLE UNDERSTANDING WHEN HE READS HEARING IMPAIRED?YES : HAS TROUBLE HEARING. HAS A REFERRAL TO A HEAR SPEC. 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 LUNG CANCER SCREENING SMOKING STATUS:CURRENT SMOKER PAIN CLINIC PFS, CLERGY, PUBLIC HEALTH REFERRALS HAS THE PATIENT BEEN EDUCATED REGARDING HIS/HER PLAN OF CARE?YES HAS THE PATIENT BEEN EDUCATED REGARDING PAIN, THE RISK FOR PAIN, THE IMPORTANCE OF EFFECTIVE PAIN MANAGEMENT, AND THE PAIN ASSESSMENT PROCESS?YES LATEX QUESTIONNAIRE LATEX ALLERGY : HAVE YOU EVER DEVELOPED ANY TYPE OF REACTION AFTER HANDLING LATEX PRODUCTS SUCH RUBBER GLOVES, CONDOMS, DIAPHRAGMS, BALLOONS, SOCKS, OR UNDERWEAR?NO LATEX ALLERGY : HAVE YOU EVER DEVELOPED ANY TYPE OF REACTION DURING OR AFTER DENTAL APPOINTMENT, VAGINAL/RECTAL EXAMINATION, SURGICAL PROCEDURE, OR ANY OTHER EXPOSURE?NO LATEX RISK : HAVE YOU EVER HAD ANY DIFFICULTY BREATHING OR HIVES AFTER EATING OR HANDLING ANY FRUITS, OR VEGETABLES; SUCH KIWI, BANANAS, STONE FRUITS, OR CHESTNUTSNO LATEX RISK : DO YOU HAVE A PREVIOUS PERSONAL HISTORY OF MORE THAN NINE SURGERIES, SPINA BIFIDA, OR REPEATED CATHERIZATIONS? NO LATEX RISK : ARE YOU FREQUENTLY EXPOSED TO LATEX PRODUCTS IN YOUR OCCUPATION?NO DATE ASKED : 05/24/2019 CAFFEINE CAFFEINE USE?YES OCC. ADVANCE DIRECTIVE ADVANCE DIRECTIVE DISCUSSED WITH PATIENT:YES 05/24/19 PT DOES NOT HAVE ANY ADVANCED DIRECTIVES AND HE DECLINES INFORMATION ON HCP AT THIS TIME TENRIISM [id number] NONE MARITAL STATUS: .. ALCOHOL SCREENING DID YOU HAVE A DRINK CONTAINING ALCOHOL IN THE PAST YEAR?YES HOW OFTEN DID YOU HAVE A DRINK CONTAINING ALCOHOL IN THE PAST YEAR?MONTHLY OR LESS (1 POINT) HOW MANY DRINKS DID YOU HAVE ON A TYPICAL DAY WHEN YOU WERE DRINKING IN THE PAST YEAR?1 OR 2 (0 POINTS) HOW OFTEN DID YOU HAVE SIX OR MORE DRINKS ON ONE OCCASION IN THE PAST YEAR?LESS THAN MONTHLY (1 POINT) POINTS2 INTERPRETATIONNEGATIVE OCCUPATION: DISABILLITY DUE TO BACK PAIN AND CARDIAC ISSUES. 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 SEXUAL HX HAD SEX IN THE LAST 12 MONTHS (VAGINAL, ORAL, OR ANAL)?: NO, HAVE YOU EVER HAD AN STD?: NO. HOSPITALIZATION/MAJOR DIAGNOSTIC PROCEDURE [facility]-CHEST PAIN POSSIBLE PNEUMONIA 10/2012 DIVERTICULITIS 2009 CHEST PAIN-[facility] 2011 MENTAL HEALTH CONCERNS AFTER CYSTOSCOPY AT [facility] 02/2013 VERTIGO 04/2017 MENTAL HEALTH CONCERNS 11/2017 REVIEW OF SYSTEMS REVIEWED BY: PROVIDER: ABDULLAHI ARZATE MD . CONSTITUTIONAL: ANY CHANGE IN YOUR MEDICAL CONDITION? NO . CHILLS NO . FEVER NO . INFECTION: DO YOU HAVE NEW INFECTIONS? NO . DO YOU HAVE HISTORY OF MRSA? NO . MUSCULOSKELETAL: ANY NEW PATTERNS OF PAIN OR NUMBNESS? YES, NUMBNESS AND WEAKNESS BOTH HAND, RIGHT WORSE THAN LEFT . SYTEMIC LUPUS NO . GASTROENTEROLOGY: ANY NEW CHANGE IN BOWEL CONTROL? NO . BARRETTS ESOPHAGUS NO . CIRRHOSIS NO . HEPATITIS NO . LIVER FAILURE NO . ACID REFLUX YES . UNEXPLAINED WEIGHT LOSS YES . GENITOURINARY: ANY NEW CHANGE IN BLADDER CONTROL? NO . IS THERE A CHANCE YOU COULD BE ? NO . HEMATOLOGY/LYMPH: DO YOU TAKE ANY BLOOD THINNERS? (FOR EXAMPLE- COUMADIN, PLAVIX, AGGRENOX, PLATEL, PRADAXA, OR XARELTO) NO . WHEN WAS YOUR LAST DOSE? DATE: TIME: . LOW PLATELET COUNT NO . SICKLE CELL DISEASE NO . VON WILLIEBRANDS NO . FACTOR V LEIDEN NO . THALLASEMIA NO . ANEMIA NO . EASY BRUISING NO . NEUROLOGY: HAVE YOU FALLEN IN THE PAST 12 MONTHS? YES, A COUPLE OF TIMES, HE STATES HE "BLACKED OUT" . ANY NEW EXTREMITY NUMBNESS OR WEAKNESS? NO . HEAD INJURY YES, SLIPPED ON WET FLOOR AND HIT HIS HEAD . DEMENTIA NO . CEREBRAL PALSY NO . MULTIPLE SCLEROSIS NO . DIZZINESS INTERMITTENT . HEADACHE 2017 SLIPPED ON WET FLOOR AND HIT HIS HEAD RESULTING IN A CONCUSSION . STROKES NO . VERTIGO NO . CARDIOLOGY: DO YOU HAVE A PACEMAKER OR DEFIBRILLATOR? NO . ANGINA NO . HEART ATTACK YES NOT SURE WHEN . HEART SURGERY NO . CONGESTIVE HEART FAILURE/FLUID OVERLOAD NO . CHEST PAIN NO . HIGH BLOOD PRESSURE NO . IRREGULAR HEART BEAT NO . RESPIRATORY: HAVE YOU BEEN SICK IN THE PAST WEEK? NO . FEVER NO . FLU LIKE SYMPTOMS? NO . CPAP YES . BYPAP NO . ASTHMA NO . EMPHYSEMA NO . CHRONIC LUNG DISEASES YES . SHORTNESS OF BREATH ON EXERTION NO . COUGH YES OCC. DRY COUGH . SNORING NO . INTEGUMENTARY: DO YOU HAVE ANY RASHES OR OPEN SORES? NO . ALLERGIC/IMMUNO: ARE YOU ALLERGIC TO IV DYE? YES, ANAPHYLAXIS . ANY NEW ALLERGIES? NO . PSYCHIATRIC: DO YOU HAVE THOUGHTS OF HURTING YOURSELF OR SOMEONE ELSE? NO . ARE YOU ABUSED, NEGLECTED, OR IN AN UNSAFE ENVIRONMENT? NO . ENDOCRINOLOGY: ARE YOU DIABETIC? YES . THYROID DISORDER NO . OTHER: DO YOU NEED ANY PRESCRIPTIONS? NO . IF YES, PLEASE LIST: ____ . ANY NEW PROBLEMS WITH YOUR MEDICATIONS? NO . WHEN DID YOU LAST EAT? ____ . WHEN DID YOU LAST DRINK? ____ . WHAT DID YOU LAST DRINK? ____ . NAME OF PERSON DRIVING YOU HOME? ____ . DO YOU HAVE ANY OTHER QUESTIONS OR CONCERNS NO LEAD ATG DEVELOPER LUDWIG OLIVERA WITH PATIENT . VITAL SIGNS WT 201.2 LBS, HT 69 IN, BMI 29.71 INDEX, BP 133/72 MM HG, HR 88 /MIN, RR 18 /MIN, TEMP 98.3 F, OXYGEN SAT % 91%, SAFE IN ENV? (Y/N) Y, NA INITIALS FL 12:04, REVIEWED BY: GARRET. EXAMINATION GENERAL EXAMINATION: PATIENT IS ALERT O X 3 AND COOPERATIVE. LUNGS CLEAR, TO AUSCULTATION. HEART: NO MURMURS OR GALLOPS; FACIAL CRANIAL NERVES ARE GROSSLY NORMAL. GOOD SYMMETRY OF FACIAL MUSCLE MOVEMENT. NORMAL VISUAL PICKENS. ANTALGIC WALK. PATIENT USES A CANE IN HIS LEFT HAND TO AMBULATE. RIGHT LEG IS WEAKER AT EXTENSION AND FLEXION. TENDERNESS IN THE LOW BACK AREA. ULTRASOUND OF THE SCROTUM DONE ON 12/11/2018 SHOWS SOME CYSTS OVER THE TESTICLE. 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 LUMBAR SPINE DONE ON 08/30/2017 SHOWS BULGING DISCS AT MULTIPLE LEVELS. ASSESSMENTS LEFT TESTICULAR PAIN - N50.812 (PRIMARY) CYST OF EPIDIDYMIS DETERMINED BY ULTRASOUND - N50.3 NEURALGIA - M79.2 TREATMENT LEFT TESTICULAR PAIN CLINICAL NOTES: WE DISCUSSED SEVERAL ISSUES WITH MR. MACDONALD'S PAIN MANAGEMENT CASE. I DISCUSSED WITH THE PATIENT ABOUT THE OPTION OF A DCS TRIAL TO SEE IF HE WOULD BE A GOOD CANDIDATE FOR THE PERMANENT IMPLANT. I WOULD NEED TO SPEAK WITH THE RADIOLOGIST REGARDING THE CEREBELLAR TONSILLAR ECTOPIA THAT IS STATED IN THE PATIENT'S CERVICAL MRI RESULTS. BEFORE THE TRIAL, THE PATIENT WOULD NEED A PSYCHOLOGICAL EVALUATION TO SEE IF HE IS A GOOD CANDIDATE FOR THE TRIAL AND PERMANENT AND ALSO THORACIC AND UPDATED LUMBAR SPINE MRI DONE TO ENSURE THERE IS ADEQUATE SPACE FOR THE LEADS. THE PATIENT WAS REFERRED FROM HIS UROLOGIST, DR. ROY, TO CONSIDER INJECTION THERAPY TO HELP WITH HIS PAIN. HOWEVER, THE PATIENT HAS HAD INJECTIONS DONE IN THE PAST, INCLUDING A GENITOFEMORAL INJECTION, THAT DID NOT HELP HIM SO HE IS NOT INTERESTED IN INJECTION THERAPY AT THE MOMENT. THEREFORE, I AM REFERRING THE PATIENT TO [facility]'S PALLIATIVE CARE PROGRAM TO CONSIDER MEDICATION MANAGEMENT. THE PATIENT WAS ADVISED TO CALL NEEDED IF HE WOULD LIKE TO PURSUE THE DCS TRIAL OR INJECTION THERAPY. INSTRUCTIONS WERE GIVEN, QUESTIONS WERE ANSWERED, PATIENT REPORTS UNDERSTANDING AND AGREES WITH THE PLAN. I, ENEDINA EVANS, DOCUMENTED THE ABOVE INFORMATION ACTING A SCRIBE FOR DR. ARZATE. I HAVE REVIEWED THE ABOVE DOCUMENT, WRITTEN BY ENEDINA BAPTISTE AND I VERIFY THAT IT IS ACCURATE. DEAR DR. LA ROY MD: THANK YOU FOR YOUR KIND REFERRAL OF TERRY MACDONALD. IF YOU WANT TO DISCUSS HIS CASE WITH ME PLEASE CALL ME AT THE PAIN CENTER AT [phone]. SINCERELY, ABDULLAHI ARZATE MD PAIN MEDICINE . PROCEDURE CODES FA211 ESTABILISHED PATIENT [facility] FACILITY CHARGE G8427 CURRENT MEDS W/DOSAGES DOCUMENTED G8730 PAIN ASSESS POS TOOL F/U PLAN DOC DISPOSITION & COMMUNICATION FOLLOW UP REASON: BEING REFERRED TO PALLIATIVE CARE FOR MED MANAGE ELECTRONICALLY SIGNED BY ABDULLAHI ARZATE MD, MD ON 05/31/2019 AT 05:34 PM EDT DISCLAIMER : THIS IS A VISIT SUMMARY EXTRACTED FROM THE [employer] CHART. IT IS NOT A COPY OF THE [employer] PROGRESS NOTE. CARLOSD
== END ==
LOC: M PAIN 12:00
PROVIDERS: ATTEND Anesthesiology
DX: N50.812 Left testicular pain (principal); G89.29 Other chronic pain; N50.3 Cyst of epididymis; M79.2 Neuralgia and neuritis, unspecified; Z86.59 Personal history of other mental and behavioral disorders; G47.33 Obstructive sleep apnea (adult) (pediatric); I10 Essential (primary) hypertension; E11.9 Type 2 diabetes mellitus without complications; J44.9 Chronic obstructive pulmonary disease, unspecified; E78.5 Hyperlipidemia, unspecified; F17.210 Nicotine dependence, cigarettes, uncomplicated; Z88.1 Allergy status to other antibiotic agents; Z88.2 Allergy status to sulfonamides; Z88.5 Allergy status to narcotic agent; Z91.02 Food additives allergy status; Z91.041 Radiographic dye allergy status; I25.2 Old myocardial infarction; Z79.84 Long term (current) use of oral hypoglycemic drugs; Z79.899 Other long term (current) drug therapy

== ENCOUNTER → 2019-06-11 | Outpatient (REF) | payer MEDICARE, MEDICAID ==
[~2019-06-11] MED LIST changes: -MECL-68 PO; +MECL1TAB31 PO; +ONDA-83 PO; -ONDA4TAB5 PO; +ST JOHNS WORT PO; +[UNRECOGNIZED DRUG - OTHER]
== END ==
LOC: M SFHCLERA 12:40
PROVIDERS: ATTEND Nurse Practitioner Family
DX: J02.9 Acute pharyngitis, unspecified (principal)
CPT/HCPCS: 87880; G0463

== ENCOUNTER 2019-08-02 09:42 | Emergency (ER) | payer MEDICARE, MEDICAID ==
[~2019-08-02] VITALS: Ht 185.4 cm; Wt 127.7 kg
[~2019-08-02 09:42] MED LIST changes: +MECL-68 PO; -MECL1TAB31 PO; -ONDA-83 PO; +ONDA4TAB5 PO; -ST JOHNS WORT PO; -[UNRECOGNIZED DRUG - OTHER]
[2019-08-02 10:45] LABS: BASO # 0.1 10^3/uL (0.0-0.2); BASO % 0.6 % (0.0-1.0); EOS # 0.1 10^3/uL (0.0-0.5); EOS % 1.5 % (0.0-3.0); HEMATOCRIT 47.6 % (42.0-52.0); HEMOGLOBIN 14.7 g/dl (13.5-17.5); LYMPH # 2.4 10^3/uL (1.5-5.0); LYMPH % 30.5 % (24.0-44.0); MEAN CORPUSCULAR HEMOGLOBIN 26.4 pg (27.0-33.0); MEAN CORPUSCULAR HGB CONC 30.9 g/dl (32.0-36.5); MEAN CORPUSCULAR VOLUME 85.6 fl (80.0-96.0); MONO # 0.5 10^3/uL (0.0-0.8); MONO % 6.1 % (0.0-5.0); NEUTROPHILS # 4.7 10^3/uL (1.5-8.5); PLATELET COUNT, AUTOMATED 214 10^3/uL (150-450); RED BLOOD COUNT 5.56 10^6/uL (4.30-6.10); WHITE BLOOD COUNT 7.8 10^3/uL (4.0-10.0)
--- NOTE | 2019-08-02 11:13 | REP ---
Portable chest x-ray: Single view. History: Chest pain. Comparison chest x-ray: October 2017. Findings: EKG monitoring electrodes overlie the chest. The heart is not enlarged. Lungs are symmetrically aerated. No focal infiltrate is seen. Pleural angles are sharp. Impression: No active disease. Electronically Signed by Yovanny Dickinson MD 08/02/2019 11:05 A
[2019-08-02 11:15] LABS: ALBUMIN 3.5 GM/DL (3.2-5.2); BILIRUBIN,DIRECT 0.1 MG/DL (0.0-0.2); BILIRUBIN,TOTAL 0.3 MG/DL (0.2-1.0); BLOOD UREA NITROGEN 15 MG/DL (7-18); CALCIUM LEVEL 9.2 MG/DL (8.5-10.1); CARBON DIOXIDE LEVEL 32 MEQ/L (21-32); CHLORIDE LEVEL 104 MEQ/L (98-107); CK-MB VALUE MASS 1.9 NG/ML (<3.6); CPK CREATINE PHOSPHOKINASE 296 U/L (39-308); CREATININE FOR GFR 1.11 MG/DL (0.70-1.30); GLOMERULAR FILTRATION RATE > 60.0 (>60); GLUCOSE, FASTING 133 MG/DL (70-100); MB/CK RELATIVE INDEX 0.64 (< OR =4); POTASSIUM SERUM 3.5 MEQ/L (3.5-5.1); SODIUM LEVEL 139 MEQ/L (136-145); TOTAL PROTEIN 6.8 GM/DL (6.4-8.2); TROPONIN I < 0.02 NG/ML (< 0.10)
[2019-08-02 13:41] LABS: CK-MB VALUE MASS 1.9 NG/ML (<3.6); CPK CREATINE PHOSPHOKINASE 267 U/L (39-308); MB/CK RELATIVE INDEX 0.71 (< OR =4); TROPONIN I < 0.02 NG/ML (< 0.10)
--- NOTE | 2019-08-02 13:43 | ECGEPIP ---
[facility] - ED Test Date: 2019-08-02 Pat Name: TERRY MACDONALD Department: Room: - Gender: Male Front Office Spec: JULY : 1980 Requested By: Tony Whitaker Order Number: [id number] Reading MD: Keli Carrillo Measurements Intervals [place] Rate: 87 P: 49 MD: 162 QRS: 8 QRSD: 109 T: 15 QT: 349 QTc: 421 Interpretive Statements SINUS RHYTHM LOW QRS VOLTAGE IN PRECORDIAL LEADS POSSIBLE RIGHT VENTRICULAR CONDUCTION DELAY INFERIOR MYOCARDIAL INFARCTION, PROBABLY OLD WITH POSTERIOR EXTENSION DECREASED RATE 02/05/19 Electronically Signed on 08-02-2019 13:43:15 EST by Keli Carrillo
--- NOTE | 2019-08-02 13:45 | ECGEPIP ---
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
[2019-08-02 13:50] VITALS: BP 119/65
== END 2019-08-02 13:56 | disposition home or self-care (01) ==
LOC: M ED 09:42 → EDBD 09:42 → M ED 13:56
DX: R07.89 Other chest pain (principal); I25.2 Old myocardial infarction; E11.9 Type 2 diabetes mellitus without complications; I10 Essential (primary) hypertension; J44.9 Chronic obstructive pulmonary disease, unspecified; F31.9 Bipolar disorder, unspecified; G47.30 Sleep apnea, unspecified; Z95.0 Presence of cardiac pacemaker; F17.200 Nicotine dependence, unspecified, uncomplicated; Z82.49 Family history of ischemic heart disease and other diseases of the circulatory system; Z91.041 Radiographic dye allergy status; Z88.2 Allergy status to sulfonamides; Z88.6 Allergy status to analgesic agent; Z88.1 Allergy status to other antibiotic agents; Z88.5 Allergy status to narcotic agent; Z91.89 Other specified personal risk factors, not elsewhere classified; Z91.018 Allergy to other foods

== ENCOUNTER 2019-08-27 20:35 | Emergency (ER) | payer MEDICARE, MEDICAID ==
[~2019-08-27] VITALS: Ht 185.4 cm; Wt 128.6 kg
[2019-08-27 21:01] LABS: BASO # 0.1 10^3/uL (0.0-0.2); BASO % 0.7 % (0.0-1.0); EOS # 0.1 10^3/uL (0.0-0.5); EOS % 1.2 % (0.0-3.0); HEMATOCRIT 52.5 % (42.0-52.0); HEMOGLOBIN 16.4 g/dl (13.5-17.5); LYMPH # 2.9 10^3/uL (1.5-5.0); LYMPH % 26.1 % (24.0-44.0); MEAN CORPUSCULAR HGB CONC 31.2 g/dl (32.0-36.5); MEAN CORPUSCULAR VOLUME 83.2 fl (80.0-96.0); MONO # 1.1 10^3/uL (0.0-0.8); MONO % 9.8 % (0.0-5.0); NEUTROPHILS % 61.9 % (36.0-66.0); PLATELET COUNT, AUTOMATED 225 10^3/uL (150-450); RED BLOOD COUNT 6.31 10^6/uL (4.30-6.10); WHITE BLOOD COUNT 11.3 10^3/uL (4.0-10.0)
[2019-08-27 21:21] LABS: ALBUMIN 3.9 GM/DL (3.2-5.2); ALT/SGPT 19 U/L (12-78); BILIRUBIN,DIRECT 0.1 MG/DL (0.0-0.2); BILIRUBIN,TOTAL 0.3 MG/DL (0.2-1.0); BLOOD UREA NITROGEN 21 MG/DL (7-18); CALCIUM LEVEL 9.5 MG/DL (8.5-10.1); CARBON DIOXIDE LEVEL 30 MEQ/L (21-32); CHLORIDE LEVEL 102 MEQ/L (98-107); CREATININE FOR GFR 1.34 MG/DL (0.70-1.30); GLOMERULAR FILTRATION RATE > 60.0 (>60); GLUCOSE, FASTING 100 MG/DL (70-100); LIPASE 135 U/L (73-393); POTASSIUM SERUM 4.4 MEQ/L (3.5-5.1); SODIUM LEVEL 139 MEQ/L (136-145); TOTAL PROTEIN 7.3 GM/DL (6.4-8.2)
[2019-08-27] MEDS ORDERED: NS 1,000 ML IV ONE (22:45)
[2019-08-27 22:55] LABS: INR 1.06; PROTHROMBIN TIME 13.5 SECONDS (11.8-14.0)
[2019-08-27 22:56] LABS: PARTIAL THROMBOPLASTIN TIME 30.4 SECONDS (25.0-38.4)
--- NOTE | 2019-08-28 00:01 | REPVR ---
PROCEDURE INFORMATION: Exam: CT Chest Without Contrast Exam date and time: 08/27/2019 11:04 PM Age: 39 years old Clinical history: Chest pain; Additional info: Hemoptysis TECHNIQUE: Imaging protocol: Computed tomography of the chest without contrast. Radiation optimization: All CT scans at this facility use at least one of these dose optimization techniques: automated exposure control; mA and/or kV adjustment per patient size (includes targeted exams where dose is matched to clinical indication); or iterative reconstruction. COMPARISON: CT Chest without contrast 05/10/2017 4:59 PM FINDINGS: Lungs: Mild central bronchial wall thickening with some nonspecific peribronchial groundglass densities. No other air space consolidation. Airways are clear. Pleural space: Unremarkable. No pneumothorax. No pleural effusion. Heart: Unremarkable. No cardiomegaly. No pericardial effusion. Aorta: Unremarkable. No aortic aneurysm. Lymph nodes: Unremarkable. No enlarged lymph nodes. Bones/joints: Unremarkable. No acute fracture. Soft tissues: Unremarkable. IMPRESSION: 1. Mild bronchial wall thickening suggesting a viral or atypical airway disease. 2. No airspace consolidation or masses. Electronically signed by: Casey Maldonado On 08/28/2019 00:00:57 AM
--- NOTE | 2019-08-28 00:05 | REPVR ---
PROCEDURE INFORMATION: Exam: CT Abdomen And Pelvis Without Contrast Exam date and time: 08/27/2019 11:04 PM Age: 39 years old Clinical history: Abdominal pain; Generalized; Additional info: Hematemesis TECHNIQUE: Imaging protocol: Computed tomography of the abdomen and pelvis without contrast. Radiation optimization: All CT scans at this facility use at least one of these dose optimization techniques: automated exposure control; mA and/or kV adjustment per patient size (includes targeted exams where dose is matched to clinical indication); or iterative reconstruction. COMPARISON: CT Pelvis without contrast 02/23/2015 4:30 PM FINDINGS: Liver: Normal. No mass. Gallbladder and bile ducts: Normal. No calcified stones. No ductal dilation. Pancreas: Normal. No ductal dilation. Spleen: Normal. No splenomegaly. Adrenals: Normal. No mass. Kidneys and ureters: Normal. No hydronephrosis. Stomach and bowel: There is mild colonic diverticulosis without evidence of diverticulitis. Appendix: No evidence of appendicitis. Intraperitoneal space: Unremarkable. No free air. No significant fluid collection. Vasculature: Unremarkable. No abdominal aortic aneurysm. Lymph nodes: Unremarkable. No enlarged lymph nodes. Bladder: Unremarkable as visualized. Reproductive: Unremarkable as visualized. Bones/joints: Unremarkable. No acute fracture. Soft tissues: Unremarkable. IMPRESSION: 1. Colonic diverticulosis without evidence of diverticulitis. 2. No acute findings. Electronically signed by: Casey Maldonado On 08/28/2019 00:05:04 AM
[2019-08-28 00:22] VITALS: BP 124/78
[2019-09-03] MEDS ORDERED: [UNRECOGNIZED DRUG - OTHER] (08:39)
[2019-09-03] MEDS ORDERED: ST JOHNS WORT PO (08:40)
== END 2019-08-28 00:23 | disposition home or self-care (01) ==
LOC: M ED 20:35
DX: K92.2 Gastrointestinal hemorrhage, unspecified (principal); E11.9 Type 2 diabetes mellitus without complications; I10 Essential (primary) hypertension; J44.9 Chronic obstructive pulmonary disease, unspecified; K64.9 Unspecified hemorrhoids; Z86.010 Personal history of colon polyps; F31.89 Other bipolar disorder; F41.9 Anxiety disorder, unspecified; F43.10 Post-traumatic stress disorder, unspecified; R56.9 Unspecified convulsions; K22.4 Dyskinesia of esophagus; Z98.61 Coronary angioplasty status; F17.200 Nicotine dependence, unspecified, uncomplicated; K57.30 Diverticulosis of large intestine without perforation or abscess without bleeding; Z91.041 Radiographic dye allergy status; Z88.2 Allergy status to sulfonamides; Z88.6 Allergy status to analgesic agent; Z88.1 Allergy status to other antibiotic agents; Z88.5 Allergy status to narcotic agent; Z91.89 Other specified personal risk factors, not elsewhere classified; Z91.018 Allergy to other foods; R53.1 Weakness

== ENCOUNTER 2019-09-10 11:26 | Day surgery (SDC) | payer MEDICARE, MEDICAID ==
[~2019-09-10] VITALS: Ht 185.4 cm; Wt 126.6 kg
[~2019-09-10 11:26] MED LIST changes: +NS 1,000 ML IV ONE; +ST JOHNS WORT PO; +[UNRECOGNIZED DRUG - OTHER]
[2019-09-10] MEDS ORDERED: PROPOFOL 200 MG/20 ML VIAL As Ordered ONE ×5 (14:01→15:28)
[2019-09-10 15:55] VITALS: BP 148/74
--- NOTE | 2019-09-10 15:57 | ROOR ---
Patient Name: Layton Odonnell Procedure Date: 09/10/2019 2:17 PM Date of : 1980 Age: 39 Room: [facility] Gender: Male Note Status: Finalized Procedure: Colonoscopy Indications: Rectal bleeding Providers: Merlin Santana MD Referring MD: 1. No Referring Physician 1. No Referring Physician, Admin. Requesting Provider: Medicines: Monitored Anesthesia Care Complications: No immediate complications. Procedure: Pre-Anesthesia Assessment: - Prior to the procedure, a History and Physical was performed, and patient medications and allergies were reviewed. The patient is competent. The risks and benefits of the procedure and the sedation options and risks were discussed with the patient. All questions were answered and informed consent was obtained. Patient identification and proposed procedure were verified by the physician, the nurse and the anesthesiologist in the procedure room. Mental Status Examination: alert and oriented. Airway Examination: normal oropharyngeal airway and neck mobility. Prophylactic Antibiotics: The patient does not require prophylactic antibiotics. Prior Anticoagulants: The patient has taken no previous anticoagulant or antiplatelet agents. ASA Grade Assessment: II - A patient with mild systemic disease. After reviewing the risks and benefits, the patient was deemed in satisfactory condition to undergo the procedure. The anesthesia plan was to use monitored anesthesia care (MAC). Immediately prior to administration of medications, the patient was re-assessed for adequacy to receive sedatives. The heart rate, respiratory rate, oxygen saturations, blood pressure, adequacy of pulmonary ventilation, and response to care were monitored throughout the procedure. The physical status of the patient was re-assessed after the procedure. The Colonoscope was introduced through the anus and advanced to the cecum, identified by appendiceal orifice and ileocecal valve. The colonoscopy was somewhat difficult due to a tortuous colon. The patient tolerated the procedure well. The quality of the bowel preparation was good. Findings: Hemorrhoids were found on perianal exam. Many medium-mouthed diverticula were found in the sigmoid colon and descending colon. A 18 mm polyp was found in the sigmoid colon. The polyp was semi-pedunculated. This appeared as a broad fold with a prominent tip with a hemorrhagic appearance. The polyp was removed with a hot snare. Resection and retrieval were complete. To prevent bleeding after the polypectomy, three hemostatic clips were successfully placed. There was no bleeding at the end of the procedure. Impression: - Hemorrhoids found on perianal exam. - Diverticulosis in the sigmoid colon and in the descending colon. - One 18 mm polyp in the sigmoid colon, removed with a hot snare. Resected and retrieved. Clips were placed. Recommendation: - Discharge patient to home. - Resume previous diet. - Continue present medications. - Await pathology results. - Return to my office in 2 weeks. Merlin Santana MD Merlin Santana MD 09/10/2019 3:57:39 PM Electronically signed by Merlin Santana MD Number of Addenda: 0 Note Initiated On: 09/10/2019 2:17 PM Estimated Blood Loss: Estimated blood loss: none.
== END 2019-09-10 16:35 | disposition home or self-care (01) ==
LOC: M OPP 11:26
PROVIDERS: ATTEND Surgery
DX: K64.9 Unspecified hemorrhoids (principal); K63.5 Polyp of colon; K62.5 Hemorrhage of anus and rectum; K57.30 Diverticulosis of large intestine without perforation or abscess without bleeding; F17.210 Nicotine dependence, cigarettes, uncomplicated; Z79.899 Other long term (current) drug therapy; Z88.1 Allergy status to other antibiotic agents; Z88.2 Allergy status to sulfonamides; Z88.5 Allergy status to narcotic agent; Z88.4 Allergy status to anesthetic agent; Z91.041 Radiographic dye allergy status; Z91.048 Other nonmedicinal substance allergy status

== ENCOUNTER → 2019-11-07 | Outpatient (REF) | payer MEDICARE, MEDICAID ==
[~2019-11-07] MED LIST changes: -MECL-68 PO; +MECL1TAB31 PO; -NS 1,000 ML IV ONE; +ONDA-83 PO; -ONDA4TAB5 PO; +QUET100T2 PO; -QUET1TAB8 PO
== END ==
LOC: M SFHCLERA 16:56
PROVIDERS: ATTEND Nurse Practitioner Family
DX: R30.0 Dysuria (principal)
CPT/HCPCS: 81002; 87088; 87186; G0463

== ENCOUNTER → 2019-11-13 | Outpatient (CLI) | payer MEDICARE, MEDICAID ==
--- NOTE | 2019-11-13 11:46 | REP ---
Clinical: thoracic pain. Technique: AP, lateral, and swimmers views. Findings: Alignment and kyphosis is maintained. Vertebral bodies intact. No acute fracture / compression injury or subluxation. No degenerative changes. Paravertebral soft tissues are normal. Impression: Normal thoracic spine series. Electronically Signed by Gary Jara MD 11/13/2019 11:36 A
--- NOTE | 2019-11-13 11:46 | REP ---
Clinical: Pain. Technique: AP, lateral, flexion/extension, bilateral oblique and open mouth views of the cervical spine. Findings: Alignment is maintained. No acute fracture / compression injury or subluxation. Minimal disc space narrowing at C4-5 is suggested along with small anterior osteophytes at C3-4 through C5-6. Oblique views demonstrate patent neural foramen. Open mouth view demonstrates normal C1-C2 articulation and odontoid process. Impression: Minimal degenerative changes centered at C4-5 . Electronically Signed by Gary Jara MD 11/13/2019 11:38 A
--- NOTE | 2019-11-13 11:48 | REP ---
Clinical: Sciatica. Technique: AP, lateral, bilateral oblique and coned-down views of the lumbosacral spine. Findings: Alignment and lordosis maintained. Vertebral bodies are intact. No acute fracture / compression injury or subluxation. No spondylolysis. Minimal endplate sclerosis and very subtle early anterior spurring primarily noted at T11-12, L2-3 and L3-4. Disc spaces are maintained. Impression: Minimal degenerative changes of the lower thoracic and lumbar spine. Electronically Signed by Gary Jara MD 11/13/2019 11:39 A
== END ==
LOC: M LRY 10:34
PROVIDERS: ATTEND Nurse Practitioner Family
DX: M54.42 Lumbago with sciatica, left side (principal); M51.35 Other intervertebral disc degeneration, thoracolumbar region; M50.321 Other cervical disc degeneration at C4-C5 level

== ENCOUNTER → 2019-11-21 | Outpatient (CLI) | payer MEDICARE, MEDICAID ==
--- NOTE | 2019-11-21 09:18 | REPVR ---
PROCEDURE INFORMATION: Exam: CT Head Without Contrast Exam date and time: 11/21/2019 8:59 AM Age: 39 years old Clinical indication: Injury or trauma; Fall; Initial encounter; Blunt trauma (contusions or hematomas); Consciousness not specified; Injury date: Unsure; Additional info: Intractable chronic post traumatic headache TECHNIQUE: Imaging protocol: Computed tomography of the head without contrast. Radiation optimization: All CT scans at this facility use at least one of these dose optimization techniques: automated exposure control; mA and/or kV adjustment per patient size (includes targeted exams where dose is matched to clinical indication); or iterative reconstruction. COMPARISON: CT Head without contrast 02/05/2019 11:25 PM FINDINGS: Brain: Normal. No hemorrhage. Unremarkable white matter. No mass effect. Ventricles: The ventricles and sulci are stable in configuration. Bones/joints: Unremarkable. No acute fracture. Sinuses: Minor chronic mucosal disease involves the right maxillary sinus. The visualized paranasal sinuses and air cells are otherwise clear. Mastoid air cells: Visualized mastoid air cells are well aerated. Soft tissues: Unremarkable. IMPRESSION: No CT evidence for acute intracranial abnormality or significant change since 02/05/19. Electronically signed by: Nicholas Hartley On 11/21/2019 09:17:49 AM
== END ==
LOC: M RAD 08:38
PROVIDERS: ATTEND Nurse Practitioner Family
DX: G44.321 Chronic post-traumatic headache, intractable (principal)

== ENCOUNTER → 2020-02-13 | Outpatient (CLI) | payer MEDICARE, MEDICAID ==
[~2020-02-13] MED LIST changes: +CYCL-707 PO; -CYCL10TA PO; +FIBE62TA; +GABA-282 PO; -GABA-843 PO; +GLIP2.5T6; +MORP15TA2; +PREG75CA2; +RISP-8 PO; -RISP1TAB3 PO
[2020-02-13 16:38] LABS: BLOOD UREA NITROGEN 22 MG/DL (7-18); CALCIUM LEVEL 9.2 MG/DL (8.5-10.1); CARBON DIOXIDE LEVEL 29 MEQ/L (21-32); CHLORIDE LEVEL 102 MEQ/L (98-107); CREATININE FOR GFR 1.12 MG/DL (0.70-1.30); GLOMERULAR FILTRATION RATE > 60.0 (>60); GLUCOSE, FASTING 137 MG/DL (70-100); SODIUM LEVEL 138 MEQ/L (136-145)
[2020-02-13 17:02] LABS: VITAMIN B12 LEVEL 504 PG/ML
[2020-02-13 18:56] LABS: FOLATE 5.7 NG/ML
== END ==
LOC: M WUC 12:07
PROVIDERS: ATTEND Physician Assistant
DX: M79.601 Pain in right arm (principal)

== ENCOUNTER → 2020-03-16 | Outpatient (CLI) | payer MEDICARE, MEDICAID ==
[~2020-03-16] MED LIST changes: -FIBE62TA; -GABA-282 PO; +GABA-843 PO; -GLIP2.5T6; -MORP15TA2; -PREG75CA2; -RISP-8 PO; +RISP1TAB3 PO
--- NOTE | 2020-03-17 04:50 | REP ---
MRI CERVICAL SPINE WITHOUT CONTRAST: HISTORY: Neck pain with pain radiating down the right arm. Comparison cervical spine radiographs 11/13/2019. Comparison cervical spine MRI study is from 12/06/2017. TECHNIQUE: Sagittal and axial T1- and T2-weighted scans are acquired in the usual fashion with and without fat saturation. Sequences include spin-echo, turbo spin-echo, and STIR imaging sequences. MRI FINDINGS: There is mild motion artifact and unsharpness on today's images. We were not able to utilize a dedicated neck coil due to patient body habitus. There is some straightening of the normal cervical lordosis. Cervical vertebral body heights are preserved. No bony destructive lesion is seen. At C3-4, there is a central focal disc protrusion with an annulus tear. This appears slightly more prominent than on the prior study and it indents the ventral margin of the cord slightly. No overall central canal stenosis is seen. No foraminal narrowing. At C4-5, there is no evidence of disc protrusion or foraminal narrowing. No central canal stenosis is seen. The C5-6 level shows central disc bulging. This disc bulge appears to be a new finding. No cord compression, however, is seen. No neural foraminal narrowing is noted. At C6-7, there is no significant finding. The C7-T1 level is unremarkable. IMPRESSION: New disc bulging at C5-6. Central focal disc protrusion at C3-4 increased in size from the prior study. No neural foraminal narrowing is appreciated. Electronically Signed by Yovanny Dickinson MD 03/17/2020 11:14 A
== END ==
LOC: M RAD 12:19
PROVIDERS: ATTEND Physician Assistant
DX: M54.2 Cervicalgia (principal)

== ENCOUNTER 2020-08-27 14:12 | Emergency (ER) | payer MEDICARE, MEDICAID ==
[~2020-08-27] VITALS: Ht 185.4 cm; Wt 105.5 kg
[~2020-08-27 14:12] MED LIST changes: +RISP-8 PO; -RISP1TAB3 PO
[2020-08-27] MEDS ORDERED: FIBE62TA (14:34)
[2020-08-27] MEDS ORDERED: MORP15TA2 (14:34)
[2020-08-27] MEDS ORDERED: PREG75CA2 (14:34)
[2020-08-27] MEDS ORDERED: GLIP2.5T6 (14:34)
[2020-08-27] MEDS ORDERED: KETOROLAC 30 MG/ML 1ML VIAL IM ONE (15:15)
[2020-08-27 16:00] VITALS: BP 134/75
== END 2020-08-27 16:15 | disposition home or self-care (01) ==
LOC: EDBD 14:12 → M ED 14:12
DX: G89.4 Chronic pain syndrome (principal); Q07.00 Arnold-Chiari syndrome without spina bifida or hydrocephalus; I25.10 Atherosclerotic heart disease of native coronary artery without angina pectoris; I25.2 Old myocardial infarction; I10 Essential (primary) hypertension; E11.9 Type 2 diabetes mellitus without complications; J44.9 Chronic obstructive pulmonary disease, unspecified; F17.200 Nicotine dependence, unspecified, uncomplicated; Z79.84 Long term (current) use of oral hypoglycemic drugs; Z79.899 Other long term (current) drug therapy; Z91.041 Radiographic dye allergy status; Z88.2 Allergy status to sulfonamides; Z88.6 Allergy status to analgesic agent; Z88.1 Allergy status to other antibiotic agents; Z88.5 Allergy status to narcotic agent; Z91.89 Other specified personal risk factors, not elsewhere classified; Z88.8 Allergy status to other drugs, medicaments and biological substances
CPT/HCPCS: 96372; 99284; J1885

== ENCOUNTER → 2020-09-22 | Outpatient (CLI) | payer MEDICARE, MEDICAID ==
[~2020-09-22] MED LIST changes: +FIBE62TA; +GLIP2.5T6; +MORP15TA2; +PREG75CA2
--- NOTE | 2020-09-22 11:41 | REPVR ---
PROCEDURE INFORMATION: Exam: MR Head Without Contrast Exam date and time: 09/22/2020 11:34 AM Age: 40 years old Clinical indication: Other: Sp fall, headache, dizziness; Additional info: Compression of brain TECHNIQUE: Imaging protocol: MR of the head without contrast. COMPARISON: MRI-Brain without Contrast 05/12/2017 12:48 PM FINDINGS: Brain: There is no extra-axial collection or intra-axial mass. There are minimal scattered T2/FLAIR white matter hyperintensities, nonspecific in this age group. There is no diffusion restriction. There is inferior cerebellar tonsillar ectopia, compatible with a Chiari 1 malformation. Cerebral ventricles: Normal. No ventriculomegaly. Bones/joints: Unremarkable. Paranasal sinuses: Normal as visualized. No acute sinusitis. Mastoid air cells: Normal as visualized. No mastoid effusion. Orbits: Unremarkable. Soft tissues: Unremarkable. IMPRESSION: Stable appearance of the brain. No acute abnormality. Electronically signed by: Domenica Damon On 09/22/2020 11:41:26 AM
== END ==
LOC: M RAD 10:11
PROVIDERS: ATTEND Neurological Surgery
DX: G93.5 Compression of brain (principal)

== ENCOUNTER 2021-01-05 06:12 | Emergency (ER) | payer OTHER, MEDICARE ==
[~2021-01-05] VITALS: Ht 188 cm; Wt 160.4 kg
[~2021-01-05 06:12] MED LIST changes: +GABA-282 PO; -GABA-843 PO
[2021-01-05] MEDS ORDERED: ONDANSETRON 4MG/2ML VIAL IV ONE (06:40)
[2021-01-05] MEDS ORDERED: NS 500 ML IV ONE (06:40)
[2021-01-05] MEDS ORDERED: ALBUTEROL 90 MCG/ACT 8GM HFA INHALER INH ONE (06:40)
[2021-01-05] MEDS ORDERED: IPRATROPIUM HFA INHALER 12.9 GRAMS (ATROVENT HFA) INH ONE (06:40)
[2021-01-05 07:11] LABS: BASO % 0.4 % (0.0-1.0); EOS # 0.1 10^3/uL (0.0-0.5); EOS % 1.6 % (0.0-3.0); HEMATOCRIT 33.3 % (42.0-52.0); HEMOGLOBIN 10.2 g/dl (13.5-17.5); LYMPH # 1.6 10^3/uL (1.5-5.0); LYMPH % 21.2 % (24.0-44.0); MEAN CORPUSCULAR HEMOGLOBIN 27.1 pg (27.0-33.0); MEAN CORPUSCULAR HGB CONC 30.6 g/dl (32.0-36.5); MEAN CORPUSCULAR VOLUME 88.3 fl (80.0-96.0); MONO # 0.7 10^3/uL (0.0-0.8); MONO % 9.1 % (2.0-8.0); NEUTROPHILS % 67.4 % (36.0-66.0); PLATELET COUNT, AUTOMATED 224 10^3/uL (150-450); RED BLOOD COUNT 3.77 10^6/uL (4.30-6.10); WHITE BLOOD COUNT 7.4 10^3/uL (4.0-10.0)
[2021-01-05 07:23] LABS: INR 1.05; PROTHROMBIN TIME 13.9 SECONDS (12.5-14.3)
[2021-01-05 07:38] LABS: ALBUMIN 3.6 GM/DL (3.2-5.2); BILIRUBIN,DIRECT 0.2 MG/DL (0.0-0.2); BILIRUBIN,TOTAL 0.4 MG/DL (0.2-1.0); TOTAL PROTEIN 7.1 GM/DL (6.4-8.2)
--- NOTE | 2021-01-05 08:04 | REPVR ---
PROCEDURE INFORMATION: Exam: XR Chest Exam date and time: 01/05/2021 6:55 AM Age: 40 years old Clinical indication: Wheezing TECHNIQUE: Imaging protocol: XR of the chest. Views: 1 view. COMPARISON: 1. CT Chest without contrast 08/27/2019 11:03 PM 2. TX PORTABLE CHEST X-RAY 08/02/2019 10:26:12 AM 3. CR CHEST 2 VIEW 11/02/2017 1:31:54 PM FINDINGS: Tubes, catheters and devices: ECG contacts overlie and partially obscure the anatomy. Lungs: No pulmonary consolidation or edema. Pleural spaces: No evident pleural effusion. No evident pneumothorax. Heart/Mediastinum: The cardiomediastinal silhouette is within normal limits for size and contour. Bones/joints: Unremarkable. IMPRESSION: No radiographic evidence of acute cardiopulmonary disease. Electronically signed by: Tobi Ignacio On 01/05/2021 08:04:47 AM
[2021-01-05] MEDS ORDERED: methylPREDNISolone 125MG 2ML VIAL IV ONE (08:40)
[2021-01-05] MEDS ORDERED: HYDROMORPHONE HCL 0.5 MG/ 0.5 ML SYRINGE (J1170 PER 1) IV ONE (08:45)
[2021-01-05] MEDS ORDERED: ENOXAPARIN 40MG/0.4ML SYRINGE (J1650 PER 10MG) SC ONE (08:45)
--- NOTE | 2021-01-05 09:53 | REP ---
INDICATION: post op pain, r/o dvt. COMPARISON: None. TECHNIQUE: Multiple ultrasonographic images of the deep venous structures of the right thigh were obtained from the common femoral vein to the popliteal vein along with Doppler interrogation and color flow Doppler images. FINDINGS: There is no abnormal echogenic material seen within any of the visualized deep venous structures that would suggest acute thrombosis. Coaptation is unremarkable throughout. Doppler interrogation shows an expected response to respiratory variability and augmentation. The color flow images show what appears to be a normal vascular pattern throughout. IMPRESSION: There is no ultrasonographic evidence of deep venous thrombosis involving any of the visualized deep venous structures of the right thigh, as described above. <Electronically signed by Faheem Guevara > 01/05/21 [id number]
[2021-01-05 10:05] VITALS: BP 134/72
[2021-01-05] MEDS ORDERED: PRED20TA PO (10:10)
[2021-01-05] MEDS ORDERED: ONDA4TAB6 PO (10:11)
[2021-01-05] MEDS ORDERED: VENTAER INH (10:13)
--- NOTE | 2021-01-06 07:51 | ECGEPIP ---
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 Order Number: [id number] Reading MD: Tony Mead Measurements Intervals [place] Rate: 98 P: 46 IN: 164 QRS: 9 QRSD: 102 T: -5 QT: 342 QTc: 436 Interpretive Statements Normal sinus rhythm Incomplete right bundle branch block Cannot rule out Inferior infarct , age undetermined SIMILAR TO 08/02/19 Electronically Signed on 01-06-2021 7:51:32 EDT by Tony Mead
== END 2021-01-05 10:29 | disposition home or self-care (01) ==
LOC: M ED 06:12
DX: I45.19 Other right bundle-branch block (principal); R11.2 Nausea with vomiting, unspecified; J44.9 Chronic obstructive pulmonary disease, unspecified; G89.29 Other chronic pain; Z95.5 Presence of coronary angioplasty implant and graft; G43.909 Migraine, unspecified, not intractable, without status migrainosus; Z91.041 Radiographic dye allergy status; I25.2 Old myocardial infarction; E78.00 Pure hypercholesterolemia, unspecified; Z86.718 Personal history of other venous thrombosis and embolism; I10 Essential (primary) hypertension; J45.909 Unspecified asthma, uncomplicated; Z87.01 Personal history of pneumonia (recurrent); G47.30 Sleep apnea, unspecified; K57.92 Diverticulitis of intestine, part unspecified, without perforation or abscess without bleeding; Z87.19 Personal history of other diseases of the digestive system; M54.9 Dorsalgia, unspecified; Z87.442 Personal history of urinary calculi; E11.40 Type 2 diabetes mellitus with diabetic neuropathy, unspecified; Z91.5 Personal history of self-harm; F43.21 Adjustment disorder with depressed mood; F31.89 Other bipolar disorder; Z79.84 Long term (current) use of oral hypoglycemic drugs; Z79.899 Other long term (current) drug therapy; Z88.2 Allergy status to sulfonamides; Z88.6 Allergy status to analgesic agent; Z88.1 Allergy status to other antibiotic agents; Z88.5 Allergy status to narcotic agent; Z91.89 Other specified personal risk factors, not elsewhere classified; Z91.02 Food additives allergy status
CPT/HCPCS: 71045; 80047; 80076; 85025; 85610; 85730; 93005; 93971; 94640; 96361; 96374; 96375; 99284; J1170; J1650; J2405; J2930

== ENCOUNTER → 2021-03-22 | Outpatient (CLI) | payer MEDICARE, MEDICAID ==
[~2021-03-22] MED LIST changes: +ONDA4TAB6 PO; +PRED20TA PO
[2021-03-22 08:13] LABS: BASO % 0.4 % (0.0-1.0); EOS # 0.2 10^3/uL (0.0-0.5); HEMATOCRIT 40.9 % (42.0-52.0); HEMOGLOBIN 12.8 g/dl (13.5-17.5); LYMPH # 1.7 10^3/uL (1.5-5.0); MEAN CORPUSCULAR HEMOGLOBIN 25.8 pg (27.0-33.0); MEAN CORPUSCULAR HGB CONC 31.3 g/dl (32.0-36.5); MEAN CORPUSCULAR VOLUME 82.3 fl (80.0-96.0); MONO # 0.5 10^3/uL (0.0-0.8); MONO % 6.8 % (2.0-8.0); NEUTROPHILS # 5.3 10^3/uL (1.5-8.5); NEUTROPHILS % 68.2 % (36.0-66.0); PLATELET COUNT, AUTOMATED 182 10^3/uL (150-450); RED BLOOD COUNT 4.97 10^6/uL (4.30-6.10); WHITE BLOOD COUNT 7.8 10^3/uL (4.0-10.0)
[2021-03-22 08:42] LABS: ALBUMIN 3.6 GM/DL (3.2-5.2); ALT/SGPT 14 U/L (12-78); BILIRUBIN,TOTAL 0.7 MG/DL (0.2-1.0); BLOOD UREA NITROGEN 14 MG/DL (7-18); CALCIUM LEVEL 9.6 MG/DL (8.5-10.1); CARBON DIOXIDE LEVEL 29 MEQ/L (21-32); CHLORIDE LEVEL 105 MEQ/L (98-107); CHOLESTEROL LEVEL 175 MG/DL (<200); CHOLESTEROL RISK RATIO 6.034 (<5); CREATININE FOR GFR 0.94 MG/DL (0.70-1.30); GLOMERULAR FILTRATION RATE > 60.0 (>60); GLUCOSE, FASTING 99 MG/DL (70-100); HDL CHOLESTEROL 29 MG/DL (>40); LDL CHOLESTEROL 111 MG/DL (<100); NON-HDL-C 146 MG/DL; SODIUM LEVEL 142 MEQ/L (136-145); TRIGLYCERIDES LEVEL 174 MG/DL (<150)
[2021-03-22 10:19] LABS: HEMOGLOBIN A1c 6.3 %
== END ==
LOC: M LAB 07:37
PROVIDERS: ATTEND Nurse Practitioner Family
DX: I10 Essential (primary) hypertension (principal); E78.2 Mixed hyperlipidemia; E11.65 Type 2 diabetes mellitus with hyperglycemia

== ENCOUNTER → 2021-03-22 | Outpatient (CLI) | payer OTHER, MEDICARE, MEDICAID | LOC: M LAB 07:34 | PROVIDERS: ATTEND Student in an Organized Health Care Education/Training Program | DX: Z01.812 Encounter for preprocedural laboratory examination (principal) ==

== ENCOUNTER 2021-04-15 17:05 | Inpatient (IN) | payer MEDICARE, MEDICAID ==
[~2021-04-15] VITALS: Ht 188 cm; Wt 160.0 kg
[~2021-04-15 17:05] MED LIST changes: -OLAN15TA PO; +OLAN15TA13 PO
[2021-04-15] MEDS ORDERED: MSIR30TA (17:42)
--- NOTE | 2021-04-15 18:55 | REP ---
INDICATION: dizziness, fatigue. COMPARISON: AP portable 01/05/2021, 08/02/2019; CT 08/27/2019 TECHNIQUE: AP semi-erect portable FINDINGS: Lung park are well inflated. Some mild coarsening of interstitial markings noted but no dense consolidation, pleural effusion, atelectasis or mass. Heart size not enlarged. There is no phil edema, lateral pleural thickening or focal bone lesion. See no free air under the diaphragm. IMPRESSION: 1. Some mild coarsening of interstitial markings without cardiomegaly, pulmonary venous hypertension, phil edema, effusion or dense consolidation. Stable appearance of the chest <Electronically signed by Bhavin Willson > 04/15/21 [id number]
[2021-04-15 19:19] LABS: BASO % 0.3 % (0.0-1.0); EOS # 0.2 10^3/uL (0.0-0.5); EOS % 2.2 % (0.0-3.0); HEMATOCRIT 23.3 % (42.0-52.0); HEMOGLOBIN 7.1 g/dl (13.5-17.5); LYMPH # 2.1 10^3/uL (1.5-5.0); LYMPH % 28.3 % (24.0-44.0); MEAN CORPUSCULAR HEMOGLOBIN 26.8 pg (27.0-33.0); MEAN CORPUSCULAR HGB CONC 30.5 g/dl (32.0-36.5); MEAN CORPUSCULAR VOLUME 87.9 fl (80.0-96.0); MONO # 0.7 10^3/uL (0.0-0.8); MONO % 9.5 % (2.0-8.0); NEUTROPHILS # 4.3 10^3/uL (1.5-8.5); NEUTROPHILS % 58.7 % (36.0-66.0); PLATELET COUNT, AUTOMATED 239 10^3/uL (150-450); RED BLOOD COUNT 2.65 10^6/uL (4.30-6.10); WHITE BLOOD COUNT 7.3 10^3/uL (4.0-10.0)
[2021-04-15 19:29] LABS: INR 1.04; PROTHROMBIN TIME 13.8 SECONDS (12.5-14.3)
[2021-04-15 19:30] LABS: PARTIAL THROMBOPLASTIN TIME 31.7 SECONDS (24.2-38.5)
[2021-04-15 19:34] LABS: BLOOD UREA NITROGEN 17 MG/DL (7-18); CARBON DIOXIDE LEVEL 32 MEQ/L (21-32); CHLORIDE LEVEL 103 MEQ/L (98-107); CREATININE FOR GFR 0.94 MG/DL (0.70-1.30); GLOMERULAR FILTRATION RATE > 60.0 (>60); GLUCOSE, FASTING 131 MG/DL (70-100); POTASSIUM SERUM 3.2 MEQ/L (3.5-5.1); SODIUM LEVEL 143 MEQ/L (136-145)
[2021-04-15 19:35] LABS: MAGNESIUM LEVEL 2.6 MG/DL (1.8-2.4)
[2021-04-15] MEDS ORDERED: POTASSIUM CHLORIDE 10 MEQ SR TABLET PO ONE (19:40)
[2021-04-15 19:42] LABS: CK-MB VALUE MASS < 1.0 NG/ML (<3.6); CPK CREATINE PHOSPHOKINASE 131 U/L (39-308); MB/CK RELATIVE INDEX 0.76 (< OR =4); TROPONIN I < 0.02 NG/ML (< 0.10)
[2021-04-15] MEDS ORDERED: FERR325T3 PO (20:25)
[2021-04-15] MEDS ORDERED: MM S100C PO (20:25)
[2021-04-15] MEDS: VENLAFAXINE 25 MG TAB PO SCH (21:00)
[2021-04-15] MEDS: PRAVASTATIN 10 MG TAB PO SCH (21:00)
[2021-04-15] MEDS ORDERED: diphenhydrAMINE 25MG CAP PO ONE (22:15)
[2021-04-15] MEDS ORDERED: ACETAMINOPHEN 500 MG TAB PO ONE (22:15)
[2021-04-15] MEDS ORDERED: DEXTROSE 50% 50 ML SYRINGE IV PRN (22:15)
[2021-04-15] MEDS ORDERED: MORPHINE 30 MG TAB **MSIR PO PRN (22:15)
[2021-04-15] MEDS ORDERED: GLUCOSE 4GM CHEW TABLET PO PRN (22:15)
[2021-04-15] MEDS ORDERED: KETOROLAC 30 MG/ML 1ML VIAL IV ONE (22:15)
[2021-04-15] MEDS ORDERED: GLUCAGON INJ 1MG VIAL SC PRN (22:15)
[2021-04-15] MEDS ORDERED: NS 1,000 ML IV ONE (22:15)
[2021-04-15 22:26] LABS: FERRITIN 136 NG/ML (26-388); IRON (FE) 53 UG/DL (65-175); PERCENT SATURATION 16.7 % (19.7-50.0); TOTAL IRON BINDING CAPACITY 318 UG/DL (250-450); TOTAL PROTEIN 6.1 GM/DL (6.4-8.2)
[2021-04-15 22:38] LABS: SICKLE CELL SCREEN NEGATIVE (NEGATIVE)
[2021-04-15 22:41] LABS: RSV AMPLIFICATION NEGATIVE (NEGATIVE)
[2021-04-15] MEDS ORDERED: MSIR30TA PO (23:20)
[2021-04-15] MEDS ORDERED: VITA500C24 PO (23:20)
[2021-04-15] MEDS ORDERED: CYCL-707 PO (23:20)
[2021-04-15] MEDS ORDERED: ACET-897 PO (23:20)
[2021-04-15] MEDS ORDERED: BUPR150T12 PO (23:20)
[2021-04-15] MEDS ORDERED: BUSP15TA47 PO (23:20)
[2021-04-15] MEDS ORDERED: DOCU100C16 PO (23:20)
[2021-04-15] MEDS ORDERED: GLIP2.5T6 PO (23:20)
[2021-04-15] MEDS ORDERED: LYRI75CA PO (23:20)
[2021-04-15] MEDS ORDERED: ERGO500029 PO (23:20)
[2021-04-15] MEDS ORDERED: D200CAP3 PO (23:20)
[2021-04-15] MEDS ORDERED: VENL1TAB35 PO (23:20)
[2021-04-15] MEDS ORDERED: PRAV10TA3 PO (23:20)
[2021-04-15 23:22] VITALS: BP 140/67
[2021-04-15 23:37] VITALS: BP 136/63
[2021-04-16] VITALS (7 sets, daily range): BP systolic 116–172; BP diastolic 62–91
[2021-04-16] MEDS ORDERED: MORPHINE 30 MG TAB **MSIR PO PRN (00:30)
[2021-04-16] MEDS ORDERED: ACETAMINOPHEN 500 MG TAB PO PRN (00:30)
[2021-04-16] MEDS ORDERED: ALBUTEROL 90 MCG/ACT 8GM HFA INHALER INH PRN (00:30)
--- NOTE | 2021-04-16 00:46 | HPEPDOC ---
[facility] Medical History & Physical Date of Admission Apr 15, 2021 Date of Service: Apr 15, 2021 History and Physical CHIEF COMPLAINT: Dizziness fatigue lightheadedness and shortness of breath with increasing pain in his right lower extremity since last week on Monday when he was discharged from [facility] HISTORY OF PRESENT ILLNESS: 41-year-old obese male with BMI 45.3 was recently discharged from [facility] last week on Monday when he was admitted for right knee removal of hardware due to the bottom screw and plate migrating into his kneecap complicated by anemia secondary to blood loss and received 1 unit of RBC transfusion. Since being home alone patient has had increasing shortness of breath lightheadedness and dizziness increased weakness and fatigue he denied any bright red blood per rectum melena black tarry stools he says he has had increasing swelling in his back and right thigh and presented to the ER for evaluation today he was found to have a hemoglobin of 7 hospitalist was called to admit the patient for symptomatic anemia secondary to blood loss from recent surgery last week. Patient denies any chest pain palpitations falls at home. Patient is admitted as an inpatient for 2 midnights for symptomatic anemia. PAST MEDICAL HISTORY: CAD CA diabetes obstructive sleep apnea noncompliant with CPAP colonic polyps obesity BMI 45.3 depression PAST SURGICAL HISTORY: Left knee surgery 3 colonoscopies 2 EGDs 2 left heart catheterization which were negative no stents were placed Removal of hardware of right knee due to plate and screw migrating to his patella 03/2021 at [facility] in [place] SOCIAL HISTORY: Lives alone social alcohol use quit smoking November 2018 heavy smoker in the past 4 to 5 packs/day no diagnosis of emphysema or COPD denies recreational drug use full code no healthcare proxy FAMILY HISTORY: Father in his 60s in 2016 of congestive heart failure mother alive in her 60s unknown medical problems ALLERGIES: Please see below. REVIEW OF SYSTEMS: 10 point review of systems negative aside from positive findings in HPI HOME MEDICATIONS: Please see below. PHYSICAL EXAMINATION: VITAL SIGNS: See below GENERAL APPEARANCE: Pale no cyanosis no respiratory distress HEENT: No JVD thyromegaly dry mucous membranes pupils equally round reactive no cervical lymphadenopathy CARDIOVASCULAR: S1-S2 sinus rhythm nondisplaced point of maximal impulse no murmurs noted no carotid bruit LUNGS: Air entry is equal bilaterally clear to auscultation no wheezing or rales ABDOMEN: Obese abdomen positive bowel sounds soft nontender nondistended no rebound or guarding EXTREMITIES: Ecchymotic areas noted along the right buttock lateral thigh . right knee with dressing edematous LABORATORY DATA: See below. IMAGING: See below MICROBIOLOGY: Please see below. ASSESSMENT: 41-year-old male who lives alone full code no healthcare proxy with history of CAD CA diabetes SINGH colonic polyps recently discharged from [facility] due to removal of hardware with bottom screw and plate migrating into his right patella complicated by blood loss requiring 1 unit RBC transfusion released from the hospital last week on Monday with complaints of shortness of breath lightheadedness fatigue and was found to have symptomatic anemia with hemoglobin of 7. Symptomatic anemia secondary to acute blood loss -Transfuse RBC -Check CT right femur and tib-fib without contrast -Fall precautions and assisted ambulation -ARU screen -Recheck CBC after blood transfusion Acute blood loss secondary to recent surgery of right lower extremity -Transfuse RBC consent signed recheck CBC after transfusion -Await results of CTA right femur and tib-fib -If displaced hardware patient may need to be transferred to [facility] for corrective surgery Postop right knee with removal of hardware secondary to migration of screw and plate into the patella -Resume postop instructions obtain records from [facility] -If ongoing bleeding or displaced hardware patient may need to be transferred to [facility] -Resume home pain medications monitor for respiratory acidosis obtundation due to increased risk of CO2 retention History of CAD CA -Asymptomatic resume home meds Type 2 diabetes -Check A1c consistent carbohydrate diet fingersticks QA CHS and insulin coverage per [facility] sliding scale protocol -Hypoglycemic protocol SINGH noncompliant with CPAP -SINGH protocol -Increased risk of hypercarbic respiratory failure due to morbid obesity and opioid use for pain control Depression -Resume home meds Obesity BMI 45.3 -Complicating care DVT prophylaxis: Compression stockings due to acute blood loss anemia CODE STATUS: Full code Vital Signs Vital Signs Date Time Temp Pulse Resp B/P (MAP) Pulse Ox O2 Delivery O2 Flow Rate FiO2 04/15/21 23:37 97.9 97 18 136/63 98 Room Air Laboratory Data Labs 24H Laboratory Tests 2 04/15/21 18:13: Immature Granulocyte % (Auto) 1.0, Neutrophils (%) (Auto) 58.7, Lymphocytes (%) (Auto) 28.3, Monocytes (%) (Auto) 9.5H, Eosinophils (%) (Auto) 2.2, Basophils (%) (Auto) 0.3, Neutrophils # (Auto) 4.3, Lymphocytes # (Auto) 2.1, Monocytes # (Auto) 0.7, Eosinophils # (Auto) 0.2, Basophils # (Auto) 0.0, Nucleated Red Blood Cells % (auto) 0.4H, Anion Gap 8, Glomerular Filtration Rate > 60.0, Calcium Level 9.0, Magnesium Level 2.6H 04/15/21 18:19: Total Creatine Kinase 131, Creatine Kinase MB < 1.0, Creatine Kinase MB Relative Index 0.76, Troponin I < 0.02 04/15/21 18:20: Prothrombin Time 13.8, Prothromb Time International Ratio 1.04, Activated Partial Thromboplast Time 31.7 04/15/21 21:39: Reticulocyte # (auto) 235.6H, Differential Slide Review Report, Peripheral Blood Smear Path Consult PERIPHERAL SMEAR, Percent Reticulocyte Count 9.0H, Reticulocyte Hemoglobin Equivalent 24.7, Sickle Cell Screen NEGATIVE, Iron Level 53L, Total Iron Binding Capacity 318, Transferrin % Saturation 16.7L, Ferritin 136, Total Protein (PEP) 6.1L, Coronavirus (COVID-19)(PCR) NEGATIVE, Influenza Type A (RT-PCR) NEGATIVE, Influenza Type B (RT-PCR) NEGATIVE, Respiratory Syncytial Virus (PCR) NEGATIVE CBC/BMP Laboratory Tests 04/15/21 18:13 Home Medications Scheduled Ascorbic Acid (Vitamin C) 500 Mg Capsule, 500 MG PO DAILY Bupropion Hcl (Bupropion Xl) 150 Mg Tab.er.24h, 150 MG PO BID Buspirone HCl (Buspirone HCl) 15 Mg Tablet, 15 MG PO BID Cholecalciferol (Vitamin D3) (Vitamin D3) 50 Mcg Capsule, 50 MCG PO DAILY Docusate Sodium (Docusate Sodium) 100 Mg Capsule, 100 MG PO BID Ergocalciferol (Vitamin D2) (Vitamin D2) 50,000 Units Cap, 50,000 UNITS PO QWEEK Glipizide (Glipizide ER) 2.5 Mg Tab.er.24, 2.5 MG PO DAILY Pravastatin Sodium (Pravastatin Sodium) 10 Mg Tablet, 10 MG PO DAILY Pregabalin (Lyrica) 75 Mg Capsule, 75 MG PO BID Venlafaxine HCl (Venlafaxine HCl) 25 Mg Tablet, 25 MG PO BID Scheduled PRN Acetaminophen (Tylenol Extra Strength) 500 Mg Tablet, 500 MG PO Q4H PRN for MILD PAIN (PS 1-4) Albuterol Sulfate (Proair Hfa) 108 Mcg/Act Aer, 2 PUFF INH Q4H PRN for SHORTNESS OF BREATH Cyclobenzaprine HCl (Cyclobenzaprine HCl) 10 Mg Tablet, 10 MG PO TID PRN for MUSCLE SPASMS Morphine Sulfate (Morphine Sulfate) 30 Mg Tablet, 30 MG PO Q4H PRN for MODERATE PAIN (PS 5-7) Morphine Sulfate (Morphine Sulfate) 30 Mg Tablet, 60 MG PO Q4H PRN for SEVERE PAIN (PS 8-10) Allergies Coded Allergies: Sulfa (Sulfonamide Antibiotics) (Verified Allergy, Mild, rash, 04/15/21) erythromycin base (Verified Allergy, Mild, RASH, 04/15/21) iodine (Verified Allergy, Mild, rash, 04/15/21) lidocaine (Verified Allergy, Mild, RASH, 04/15/21) prilocaine (Verified Allergy, Mild, RASH, 04/15/21) red dye (Verified Allergy, Mild, rash, 04/15/21) Contrast Media (Verified Adverse Reaction, Severe, SEIZURES, 09/03/19) hydrocodone (Verified Adverse Reaction, Intermediate, TACHYCARDIA, 09/09/19) A-FIB/CHADSVASC A-FIB History Current/History of A-Fib/PAF?: No Current PO Anticoag Therapy: No Age/Risk Factor Scoring CHADSVASC: CHADSVASC Response (Comments) Value Age Risk Factor Age < 65 years old 0 Gender Risk Factor Male 0 Hx of CHF No 0 Hx of HTN No 0 Hx of Stroke/TIA/or VTE No 0 Hx of Diabetes Yes 1 Hx of Vascular Disease No 0 Total 1 Treatment Treatment ordered: NONE HARLEY QUILES MD Apr 16, 2021 00:40
[2021-04-16] MEDS: CYCLOBENZAPRINE 10MG TABLET PO PRN ×2 (01:55→20:59)
[2021-04-16] MEDS: busPIRone 5 MG TAB PO SCH ×3 (01:56→20:59)
[2021-04-16] MEDS: DOCUSATE SODIUM 100MG CAPSULE PO SCH ×3 (01:56→20:59)
[2021-04-16] MEDS: PREGABALIN 75 MG CAP(LYRICA) PO SCH ×3 (01:56→20:59)
[2021-04-16] MEDS: buPROPion **XL** TABLET 150MG (WELLBUTRIN XL) PO SCH ×3 (01:56→21:00)
[2021-04-16] MEDS: MORPHINE 30 MG TAB **MSIR PO ONE ×2 (02:01→12:42)
[2021-04-16] MEDS: MORPHINE 30 MG TAB **MSIR PO PRN ×4 (02:04→22:15)
--- NOTE | 2021-04-16 02:25 | REPVR ---
PROCEDURE INFORMATION: Exam: CT Right Lower Extremity Without Contrast; Thigh Exam date and time: 04/16/2021 12:25 AM Age: 41 years old Clinical indication: Pain; Thigh; Right; Prior surgery; Surgery date: <1 month; Surgery type: Ortho; Additional info: Hematoma S/P removal of hardware right knee TECHNIQUE: Imaging protocol: CT of the Right lower extremity without contrast was performed. Exam focused on the thigh. Radiation optimization: All CT scans at this facility use at least one of these dose optimization techniques: automated exposure control; mA and/or kV adjustment per patient size (includes targeted exams where dose is matched to clinical indication); or iterative reconstruction. COMPARISON: US Duplex, Ext,LOWER veins,unilat 01/05/2021 9:36 AM FINDINGS: Bones/joints: There is a medullary gissel traversing the femur which is traversed by several screws distally and several screws proximally with 2 of the proximal screws extending into the right femoral head. There is a minimal incomplete sagittally oriented fracture extending cephalad from the intercondylar notch along the distal aspect of the medullary gissel tract. There is minimal joint effusion of the knee. Soft tissues: There are some skin aaron about the lateral aspect of the distal femur. There is subcutaneous infiltration along the lateral aspect of the thigh with a small incision tract over the proximal femur posterolaterally with slight confluence along the incision sites measuring up to 14 mm thickness. No significant hematoma is noted. The medullary gissel traverses a fracture of the mid femur with new bone formation and calcification in the surrounding soft tissues about the site of fracture. IMPRESSION: 1. Right femoral medullary gissel traversing a site of mid femoral fracture which demonstrates new bone formation and calcifications in the surrounding soft tissues. 2. Several incision sites are noted along the lateral aspect of the thigh with skin aaron. Although there is subcutaneous infiltration in the lateral thigh with minimal tracts of confluence along incision sites proximally, no significant hematoma is seen. 3. Minimal joint effusion of the right knee. Electronically signed by: Anirudh Champagne On 04/16/2021 02:24:26 AM
--- NOTE | 2021-04-16 02:27 | REPVR ---
PROCEDURE INFORMATION: Exam: CT Right Lower Extremity Without Contrast; Lower Leg Exam date and time: 04/16/2021 12:25 AM Age: 41 years old Clinical indication: Pain; Lower leg; Right; Prior surgery; Surgery date: <1 month; Surgery type: Ortho; Additional info: Hematoma S/P removal of hardware right knee TECHNIQUE: Imaging protocol: CT of the Right lower extremity without contrast was performed. Exam focused on the lower leg. Radiation optimization: All CT scans at this facility use at least one of these dose optimization techniques: automated exposure control; mA and/or kV adjustment per patient size (includes targeted exams where dose is matched to clinical indication); or iterative reconstruction. COMPARISON: US Duplex, Ext,LOWER veins,unilat 01/05/2021 9:36 AM FINDINGS: Bones/joints: Minimal joint effusion of the right knee. No fractures of the tibia and fibula are seen. Medullary tract in the femur extending cephalad from the intercondylar notch. Soft tissues: Normal. IMPRESSION: 1. Minimal joint effusion of the right knee. 2. Negative CT right tibia and fibula. Electronically signed by: Anirudh Champagne On 04/16/2021 02:26:49 AM
[2021-04-16 08:05] LABS: HEMATOCRIT 28.5 % (42.0-52.0); HEMOGLOBIN 8.9 g/dl (13.5-17.5); MEAN CORPUSCULAR HEMOGLOBIN 27.5 pg (27.0-33.0); MEAN CORPUSCULAR HGB CONC 31.2 g/dl (32.0-36.5); PLATELET COUNT, AUTOMATED 230 10^3/uL (150-450); RED BLOOD COUNT 3.24 10^6/uL (4.30-6.10); WHITE BLOOD COUNT 6.5 10^3/uL (4.0-10.0)
[2021-04-16] MEDS: HumaLOG INSULIN (NovoLOG) PER UNIT SC SCH ×3 (08:30→17:22)
[2021-04-16] MEDS: ASCORBIC ACID 500 MG TAB PO SCH (08:30)
[2021-04-16] MEDS: VENLAFAXINE 25 MG TAB PO SCH ×2 (08:31→20:59)
[2021-04-16 08:45] LABS: BLOOD UREA NITROGEN 18 MG/DL (7-18); CALCIUM LEVEL 8.7 MG/DL (8.5-10.1); CARBON DIOXIDE LEVEL 28 MEQ/L (21-32); CHLORIDE LEVEL 105 MEQ/L (98-107); CREATININE FOR GFR 0.89 MG/DL (0.70-1.30); GLOMERULAR FILTRATION RATE > 60.0 (>60); GLUCOSE, FASTING 114 MG/DL (70-100); POTASSIUM SERUM 3.6 MEQ/L (3.5-5.1); SODIUM LEVEL 142 MEQ/L (136-145)
[2021-04-16 08:53] LABS: HEMOGLOBIN A1c 5.8 %
[2021-04-16 10:08] LABS: VITAMIN B12 LEVEL 311 PG/ML (247-911)
[2021-04-16 10:35] LABS: ALBUMIN 3.49 GM/DL (3.29-5.55); ALBUMIN % 57.2 % (55.8-66.1); ALPHA-1-GLOBULIN % 8.6 % (2.9-4.9); ALPHA-1-GLOBULINS 0.52 GM/DL (0.17-0.41); ALPHA-2-GLOBULINS % 13.1 % (7.1-11.8); BETA-1-GLOBULINS 0.41 GM/DL (0.28-0.60); BETA-1-GLOBULINS % 6.8 % (4.7-7.2); BETA-2-GLOBULINS 0.31 GM/DL (0.19-0.55); BETA-2-GLOBULINS % 5.1 % (3.2-6.5); GAMMA GLOBULIN % 9.2 % (11.1-18.8); GAMMA GLOBULINS 0.56 GM/DL (0.65-1.58)
--- NOTE | 2021-04-16 13:25 | IPNPDOC ---
Text Note Date of Service The patient was seen on 04/16/21. NOTE Subjective: -No acute complaints, was sleeping in chair in no acute distress. Objective: VITAL SIGNS: See below GENERAL APPEARANCE: No acute distress HEENT: NCAT, EOMI, mild conjunctival pallor, CARDIOVASCULAR: S1-S2 sinus rhythm nondisplaced point of maximal impulse no murm urs noted no carotid bruit LUNGS: Air entry is equal bilaterally clear to auscultation no wheezing or rales ABDOMEN: Obese abdomen positive bowel sounds soft nontender nondistended no rebound or guarding EXTREMITIES: Ecchymotic areas noted along the right buttock lateral thigh . right knee with dressing edematous LABORATORY DATA: Reviewed Hgb now 8.9 IMAGING: See below MICROBIOLOGY: Please see below. ASSESSMENT: 41-year-old M with CAD, diabetes, SINGH colonic polyps recently discharged from [facility] due to removal of hardware with bottom screw and plate migrating into his right patella complicated by blood loss requiring 1 unit RBC transfusion and released from the hospital last week on Monday with complaints of shortness of breath lightheadedness fatigue and was found to have symptomatic anemia with hemoglobin of 7. Symptomatic anemia secondary to recent acute blood loss -s/p 2u pRBC with hgn now 8.9, goal >8 -CT right femur and tib-fib without evidence of bleeding/hematoma and no noted displacement -Fall precautions and assisted ambulation -ARU screen placed -Recheck CBC at 2PM Postop right knee with removal of hardware secondary to migration of screw and plate into the patella -Resume postop instructions -obtain records from [facility] -If he develops evidence of bleeding or displaced hardware will need to be transferred to [facility] -Resume home pain medications monitor for respiratory acidosis obtundation due to increased risk of CO2 retention History of CAD [place] -Asymptomatic continue home meds Type 2 diabetes -Check A1c consistent carbohydrate diet fingersticks QA CHS and insulin coverage per [facility] sliding scale protocol -Hypoglycemic protocol SINGH noncompliant with CPAP -SINGH protocol -Increased risk of hypercarbic respiratory failure due to morbid obesity and opioid use for pain control Depression -continue home meds Obesity BMI 45.3 -Complicating care DVT prophylaxis: Compression stockings due to acute blood loss anemia CODE STATUS: Full code VS,Fishbone, I+O VS, Fishbone, I+O Laboratory Tests 04/15/21 18:13 04/16/21 07:50 Vital Signs Date Time Temp Pulse Resp B/P (MAP) Pulse Ox O2 Delivery O2 Flow Rate FiO2 04/16/21 12:42 18 04/16/21 08:31 Room Air 04/16/21 06:38 97.5 83 121/65 98 04/16/21 05:23 98 I&O- Last 24 Hours up to 6 AM 04/16/21 06:00 Intake Total 1400 ml Output Total 400 ml Balance 1000 ml PAKO BANSAL MD Apr 16, 2021 13:25
[2021-04-16 14:28] LABS: HEMATOCRIT 27.7 % (42.0-52.0); HEMOGLOBIN 8.6 g/dl (13.5-17.5)
[2021-04-16] MEDS: PRAVASTATIN 10 MG TAB PO SCH (20:59)
[2021-04-16] MEDS ORDERED: HumaLOG INSULIN (NovoLOG) PER UNIT SC SCH (21:00)
[2021-04-17] MEDS: MORPHINE 30 MG TAB **MSIR PO PRN (04:21)
[2021-04-17 06:48] LABS: HEMATOCRIT 28.7 % (42.0-52.0); HEMOGLOBIN 8.8 g/dl (13.5-17.5); MEAN CORPUSCULAR HEMOGLOBIN 27.2 pg (27.0-33.0); MEAN CORPUSCULAR HGB CONC 30.7 g/dl (32.0-36.5); MEAN CORPUSCULAR VOLUME 88.6 fl (80.0-96.0); PLATELET COUNT, AUTOMATED 241 10^3/uL (150-450); RED BLOOD COUNT 3.24 10^6/uL (4.30-6.10); WHITE BLOOD COUNT 6.7 10^3/uL (4.0-10.0)
[2021-04-17 07:12] LABS: BLOOD UREA NITROGEN 17 MG/DL (7-18); CARBON DIOXIDE LEVEL 29 MEQ/L (21-32); CHLORIDE LEVEL 105 MEQ/L (98-107); CREATININE FOR GFR 0.91 MG/DL (0.70-1.30); GLOMERULAR FILTRATION RATE > 60.0 (>60); GLUCOSE, FASTING 114 MG/DL (70-100); POTASSIUM SERUM 3.8 MEQ/L (3.5-5.1); SODIUM LEVEL 140 MEQ/L (136-145)
[2021-04-17] MEDS: HumaLOG INSULIN (NovoLOG) PER UNIT SC SCH (07:30)
[2021-04-17] MEDS ORDERED: FERR325T3 PO (08:02)
--- NOTE | 2021-04-17 08:14 | DS.PDOC ---
Discharge Summary General Date of Admission Apr 15, 2021 at 17:06 Date of Discharge 04/17/2021 Attending Physician: PAKO BANSAL MD Discharge Summary PROCEDURES PERFORMED DURING STAY: None ADMITTING DIAGNOSES: Dizziness Symptomatic anemia DISCHARGE DIAGNOSES: Symptomatic anemia i/s/o recent postop anemia CAD diabetes obstructive sleep apnea noncompliant with CPAP History of colonic polyps obesity depression COMPLICATIONS/CHIEF COMPLAINT: Dizziness. HISTORY OF PRESENT ILLNESS: 41-year-old M who was recently discharged from [facility] 1 week prior to this presentation, where he was admitted for right knee removal of hardware due to the bottom screw and plate migrating into his kneecap complicated by acute blood loss anemia and received 1 unit of RBC transfusion prior to [facility] discharge. He presented to the [facility] ED reporting increasing shortness of breath lightheadedness and dizziness, increased weakness and fatigue, without noted bright red blood per rectum, melena. HOSPITAL COURSE: In the ED, he was hemodynamically stable and on studies was found to have a hemoglobin of 7 and thereafter admitted for symptomatic anemia secondary to blood loss from recent surgery last week. He was transfused 2u of pRBCs with good sustained effect and dedicated imaging showed no imaging at the recent surgical site. He was borderline iron deficient however and so will be started on ferrous sulfate as he is discharged home with close PCP and orthopedics follow up. Given his history of colonic polyps, he should also follow up with GI within the next two weeks to discuss potential scoping if H/H continues to be low or downtrend. DISCHARGE MEDICATIONS: Please see below. ALLERGIES: Please see below. PHYSICAL EXAMINATION ON DISCHARGE: VITAL SIGNS: Please see below. GENERAL APPEARANCE: No acute distress HEENT: NCAT, EOMI, mild conjunctival pallor, CARDIOVASCULAR: S1-S2 sinus rhythm nondisplaced point of maximal impulse no murmurs noted no carotid bruit LUNGS: Air entry is equal bilaterally clear to auscultation no wheezing or rales ABDOMEN: Obese abdomen positive bowel sounds soft nontender nondistended no rebound or guarding EXTREMITIES: Resolving ecchymotic areas noted along the right buttock lateral thigh . Right knee with dressing. LABORATORY DATA: Please see below. IMAGING: CT of femur without contrast, Right side: FINDINGS: Bones/joints: There is a medullary gissel traversing the femur which is traversed by several screws distally and several screws proximally with 2 of the proximal screws extending into the right femoral head. There is a minimal incomplete sagittally oriented fracture extending cephalad from the intercondylar notch along the distal aspect of the medullary gissel tract. There is minimal joint effusion of the knee. Soft tissues: There are some skin aaron about the lateral aspect of the distal femur. There is subcutaneous infiltration along the lateral aspect of the thigh with a small incision tract over the proximal femur posterolaterally with slight confluence along the incision sites measuring up to 14 mm thickness. No significant hematoma is noted. The medullary gissel traverses a fracture of the mid femur with new bone formation and calcification in the surrounding soft tissues about the site of fracture. IMPRESSION: 1. Right femoral medullary gissel traversing a site of mid femoral fracture which demonstrates new bone formation and calcifications in the surrounding soft tissues. 2. Several incision sites are noted along the lateral aspect of the thigh with skin aaron. Although there is subcutaneous infiltration in the lateral thigh with minimal tracts of confluence along incision sites proximally, no significant hematoma is seen. 3. Minimal joint effusion of the right knee. CT R tib/fib without contrast: Bones/joints: Minimal joint effusion of the right knee. No fractures of the tibia and fibula are seen. Medullary tract in the femur extending cephalad from the intercondylar notch. Soft tissues: Normal. IMPRESSION: 1. Minimal joint effusion of the right knee. 2. Negative CT right tibia and fibula. CXR: 1. Some mild coarsening of interstitial markings without cardiomegaly, pulmonary venous hypertension, phil edema, effusion or dense consolidation. Stable appearance of the chest PROGNOSIS: Good ACTIVITY: As tolerated DIET: Consistent carb DISCHARGE PLAN: Home with close PCP, ortho follow up. To also see GI within 2-4w. DISPOSITION: Home DISCHARGE INSTRUCTIONS: Home with close PCP, ortho follow up. To also see GI within 2-4w. To start daily ferrous sulfate. ITEMS TO FOLLOWUP ON ON OUTPATIENT: Anemia Orthopedics DISCHARGE CONDITION: Stable TIME SPENT ON DISCHARGE: 38 minutes. Vital Signs/I&Os Vital Signs Date Time Temp Pulse Resp B/P (MAP) Pulse Ox O2 Delivery O2 Flow Rate FiO2 04/17/21 04:51 16 04/16/21 22:00 97.6 110 128/64 (85) 95 Room Air 04/16/21 06:38 98 I&O- Last 24 Hours up to 6 AM 04/17/21 06:00 Intake Total 2720 ml Output Total 1200 ml Balance 1520 ml Laboratory Data Labs 24H Laboratory Tests 2 04/16/21 11:14: Lab Scanned Report Transfusion Record 04/16/21 11:58: Bedside Glucose (Misc Panel) 141H 04/16/21 16:35: Bedside Glucose (Misc Panel) 127H 04/16/21 20:38: Bedside Glucose (Misc Panel) 131H 04/17/21 06:28: Nucleated Red Blood Cells % (auto) 0.0, Anion Gap 6L, Glomerular Filtration Rate > 60.0, Calcium Level 9.0 CBC/BMP Laboratory Tests 04/16/21 14:08 04/17/21 06:28 FSBS Laboratory Tests Test 04/16/21 11:58 04/16/21 16:35 04/16/21 20:38 Range/Units Bedside Glucose (Misc Panel) 141 127 131 70-105 MG/DL Microbiology Microbiology 04/16/21 Stool Occult Blood (MIGUEL ANGEL) - Final, Complete Discharge Medications Scheduled Ascorbic Acid (Vitamin C) 500 Mg Capsule, 500 MG PO DAILY, (Reported) Bupropion Hcl (Bupropion Xl) 150 Mg Tab.er.24h, 150 MG PO BID, (Reported) Buspirone HCl (Buspirone HCl) 15 Mg Tablet, 15 MG PO BID, (Reported) Cholecalciferol (Vitamin D3) (Vitamin D3) 50 Mcg Capsule, 50 MCG PO DAILY, (Reported) Docusate Sodium (Docusate Sodium) 100 Mg Capsule, 100 MG PO BID, (Reported) Ergocalciferol (Vitamin D2) (Vitamin D2) 50,000 Units Cap, 50,000 UNITS PO QWEEK, (Reported) Ferrous Sulfate (Ferrous Sulfate) 325 Mg Tablet.dr, 1 TAB PO DAILY Glipizide (Glipizide ER) 2.5 Mg Tab.er.24, 2.5 MG PO DAILY, (Reported) Pravastatin Sodium (Pravastatin Sodium) 10 Mg Tablet, 10 MG PO DAILY, (Reported) Pregabalin (Lyrica) 75 Mg Capsule, 75 MG PO BID, (Reported) Venlafaxine HCl (Venlafaxine HCl) 25 Mg Tablet, 25 MG PO BID, (Reported) Scheduled PRN Acetaminophen (Tylenol Extra Strength) 500 Mg Tablet, 500 MG PO Q4H PRN for MILD PAIN (PS 1-4), (Reported) Albuterol Sulfate (Proair Hfa) 108 Mcg/Act Aer, 2 PUFF INH Q4H PRN for SHORTNESS OF BREATH, (Reported) Cyclobenzaprine HCl (Cyclobenzaprine HCl) 10 Mg Tablet, 10 MG PO TID PRN for MUSCLE SPASMS, (Reported) Morphine Sulfate (Morphine Sulfate) 30 Mg Tablet, 30 MG PO Q4H PRN for MODERATE PAIN (PS 5-7), (Reported) Morphine Sulfate (Morphine Sulfate) 30 Mg Tablet, 60 MG PO Q4H PRN for SEVERE PAIN (PS 8-10), (Reported) Allergies Coded Allergies: Sulfa (Sulfonamide Antibiotics) (Verified Allergy, Mild, rash, 04/15/21) erythromycin base (Verified Allergy, Mild, RASH, 04/15/21) iodine (Verified Allergy, Mild, rash, 04/15/21) lidocaine (Verified Allergy, Mild, RASH, 04/15/21) prilocaine (Verified Allergy, Mild, RASH, 04/15/21) red dye (Verified Allergy, Mild, rash, 04/15/21) Contrast Media (Verified Adverse Reaction, Severe, SEIZURES, 09/03/19) hydrocodone (Verified Adverse Reaction, Intermediate, TACHYCARDIA, 09/09/19) PAKO BANSAL MD Apr 17, 2021 08:13
[2021-04-17] MEDS: VENLAFAXINE 25 MG TAB PO SCH (08:41)
[2021-04-17] MEDS: DOCUSATE SODIUM 100MG CAPSULE PO SCH ×2 (08:41→09:00)
[2021-04-17] MEDS: busPIRone 5 MG TAB PO SCH (08:41)
[2021-04-17] MEDS: buPROPion **XL** TABLET 150MG (WELLBUTRIN XL) PO SCH (08:42)
[2021-04-17] MEDS: PREGABALIN 75 MG CAP(LYRICA) PO SCH (08:42)
[2021-04-17] MEDS: ASCORBIC ACID 500 MG TAB PO SCH (08:42)
[2021-04-17 08:44] VITALS: BP 128/69
[2021-04-17] MEDS: CYCLOBENZAPRINE 10MG TABLET PO PRN (10:55)
--- NOTE | 2021-04-17 21:10 | ECGEPIP ---
[facility] - ED Test Date: 2021-04-15 Pat Name: TERRY MACDONALD Department: Room: [place] [address] Gender: Male Laster Hand: Marie ROSALES : 1980 Requested By: FREDA Mercado Order Number: [id number] Reading MD: Keli Carrillo Measurements Intervals [place] Rate: 96 P: 50 MO: 170 QRS: 7 QRSD: 102 T: -4 QT: 376 QTc: 475 Interpretive Statements Normal sinus rhythm Incomplete right bundle branch block Possible Inferior infarct , age undetermined ST & T wave abnormality, consider anterior ischemia, compared 01/05/21 Electronically Signed on 04-17-2021 21:09:56 EDT by Keli Carrillo
== END 2021-04-17 12:57 | disposition home health service (06) | DRG 812 ==
LOC: EDBD 17:05 → M ED 17:05 → M ED INP 17:06 → ENRESERV 23:13 → M MSPAV 04-16 01:34
PROVIDERS: ADMIT General Practice; ATTEND Internal Medicine
PROC: 30233N1 Transfusion of Nonautologous Red Blood Cells into Peripheral Vein, Percutaneous Approach (ICD-10-PCS; principal; 2021-04-15)
DX: D62 Acute posthemorrhagic anemia (principal); Z68.42 Body mass index [BMI] 45.0-49.9, adult; I25.10 Atherosclerotic heart disease of native coronary artery without angina pectoris; E11.9 Type 2 diabetes mellitus without complications; E66.9 Obesity, unspecified; F32.9 Major depressive disorder, single episode, unspecified; Z91.19 Patient's noncompliance with other medical treatment and regimen; Z79.899 Other long term (current) drug therapy; Z88.2 Allergy status to sulfonamides; Z88.8 Allergy status to other drugs, medicaments and biological substances; Z88.5 Allergy status to narcotic agent; Z91.041 Radiographic dye allergy status; I25.2 Old myocardial infarction; G47.33 Obstructive sleep apnea (adult) (pediatric); Z87.891 Personal history of nicotine dependence

== ENCOUNTER 2021-04-25 19:37 | Emergency (ER) | payer MEDICARE, MEDICAID ==
[~2021-04-25] VITALS: Ht 185.4 cm; Wt 104.5 kg
[~2021-04-25 19:37] MED LIST changes: +ACET-897 PO; +BUPR150T12 PO; +BUSP15TA47 PO; +D200CAP3 PO; +DOCU100C16 PO; +ERGO500029 PO; +FERR325T3 PO; +GLIP2.5T6 PO; +MM S100C PO; +MSIR30TA; +MSIR30TA PO; +PRAV10TA3 PO; +VENL1TAB35 PO; +VITA500C24 PO
[2021-04-25] MEDS ORDERED: NEOSPORIN TOP OINT 15GM TOP ONE (20:15)
[2021-04-25 22:00] VITALS: BP 125/87
[2021-05-31] MEDS ORDERED: NITR0.4S14 SL (10:51)
== END 2021-04-25 22:17 | disposition home or self-care (01) ==
LOC: M ED 19:37
DX: Z48.00 Encounter for change or removal of nonsurgical wound dressing (principal); G89.29 Other chronic pain; G43.909 Migraine, unspecified, not intractable, without status migrainosus; Z79.899 Other long term (current) drug therapy; Z91.040 Latex allergy status; Z88.2 Allergy status to sulfonamides; Z88.1 Allergy status to other antibiotic agents; Z88.5 Allergy status to narcotic agent; Z91.89 Other specified personal risk factors, not elsewhere classified

== ENCOUNTER 2021-05-14 17:34 | Emergency (ER) | payer MEDICARE, OTHER ==
[~2021-05-14] VITALS: Ht 182.9 cm; Wt 147.7 kg
[2021-05-14] MEDS ORDERED: ONDANSETRON 4MG/2ML VIAL IV ONE (19:40)
[2021-05-14] MEDS ORDERED: NS 1,000 ML IV ONE (19:40)
[2021-05-14 19:56] LABS: BASO % 0.1 % (0.0-1.0); EOS % 0.2 % (0.0-3.0); HEMATOCRIT 42.4 % (42.0-52.0); HEMOGLOBIN 13.4 g/dl (13.5-17.5); LYMPH # 1.2 10^3/uL (1.5-5.0); LYMPH % 9.3 % (24.0-44.0); MEAN CORPUSCULAR HEMOGLOBIN 26.5 pg (27.0-33.0); MEAN CORPUSCULAR HGB CONC 31.6 g/dl (32.0-36.5); MEAN CORPUSCULAR VOLUME 83.8 fl (80.0-96.0); MONO # 0.8 10^3/uL (0.0-0.8); MONO % 6.6 % (2.0-8.0); NEUTROPHILS # 10.3 10^3/uL (1.5-8.5); NEUTROPHILS % 83.4 % (36.0-66.0); PLATELET COUNT, AUTOMATED 212 10^3/uL (150-450); RED BLOOD COUNT 5.06 10^6/uL (4.30-6.10); WHITE BLOOD COUNT 12.4 10^3/uL (4.0-10.0)
[2021-05-14 20:28] LABS: ALBUMIN 3.5 GM/DL (3.2-5.2); ALT/SGPT 16 U/L (12-78); BILIRUBIN,DIRECT 0.2 MG/DL (0.0-0.2); BILIRUBIN,TOTAL 0.5 MG/DL (0.2-1.0); BLOOD UREA NITROGEN 12 MG/DL (7-18); CALCIUM LEVEL 9.1 MG/DL (8.5-10.1); CARBON DIOXIDE LEVEL 23 MEQ/L (21-32); CHLORIDE LEVEL 109 MEQ/L (98-107); CREATININE FOR GFR 1.13 MG/DL (0.70-1.30); GLOMERULAR FILTRATION RATE > 60.0 (>60); GLUCOSE, FASTING 212 MG/DL (70-100); LIPASE 32 U/L (73-393); POTASSIUM SERUM 3.6 MEQ/L (3.5-5.1); SODIUM LEVEL 142 MEQ/L (136-145); TOTAL PROTEIN 6.6 GM/DL (6.4-8.2)
[2021-05-14 22:25] VITALS: BP 125/71
== END 2021-05-14 22:27 | disposition home or self-care (01) ==
LOC: M ED 17:34 → EDBD 17:34 → M ED 22:27
DX: R11.2 Nausea with vomiting, unspecified (principal); E11.9 Type 2 diabetes mellitus without complications; F43.10 Post-traumatic stress disorder, unspecified; Z79.84 Long term (current) use of oral hypoglycemic drugs; Z79.891 Long term (current) use of opiate analgesic; Z79.899 Other long term (current) drug therapy; Z88.1 Allergy status to other antibiotic agents; Z88.2 Allergy status to sulfonamides; Z88.6 Allergy status to analgesic agent; Z91.02 Food additives allergy status
CPT/HCPCS: 80048; 80076; 83690; 85025; 93041; 96360; 96361; 99285; J2405

== ENCOUNTER → 2021-05-20 | Outpatient (CLI) | payer MEDICARE, OTHER ==
--- NOTE | 2021-05-20 10:53 | REP ---
INDICATION: SKIN WOUND FROM SURGICAL INCISION COMPARISON: None TECHNIQUE: Real time mcnally scale and color B-mode ultrasound examination using linear and curved array transducers. FINDINGS: Directed ultrasound examination along the right lower back at the area demonstrates a of previous incision 4.5 x 2.2 x 4.8 cm anechoic fluid collection suggesting seroma versus hematoma. Surrounding subcutaneous edema is also identified. IMPRESSION: Avascular simple fluid collection suggesting seroma versus hematoma. <Electronically signed by Gary Jara > 05/20/21 [id number]
== END ==
LOC: M RAD 10:16
PROVIDERS: ATTEND Nurse Practitioner Family
DX: T81.31XA Disruption of external operation (surgical) wound, not elsewhere classified, initial encounter (principal); L76.82 Other postprocedural complications of skin and subcutaneous tissue; Y83.8 Other surgical procedures as the cause of abnormal reaction of the patient, or of later complication, without mention of misadventure at the time of the procedure

== ENCOUNTER 2021-05-24 12:31 | Emergency (ER) | payer MEDICARE, MEDICAID, OTHER ==
[~2021-05-24] VITALS: Ht 188 cm; Wt 145.0 kg
[~2021-05-24 12:31] MED LIST changes: +TIZA10TA PO; -TIZA4TAB4 PO
[2021-05-24] MEDS ORDERED: NITROGLYCERIN 0.4 MG SUBL TABLET SL PRN (13:30)
[2021-05-24] MEDS ORDERED: ASPIRIN 81 MG CHEW TABLET PO ONE (13:30)
[2021-05-24 14:50] LABS: BASO % 0.4 % (0.0-1.0); EOS # 0.2 10^3/uL (0.0-0.5); HEMATOCRIT 38.5 % (42.0-52.0); HEMOGLOBIN 12.2 g/dl (13.5-17.5); LYMPH # 2.1 10^3/uL (1.5-5.0); LYMPH % 31.2 % (24.0-44.0); MEAN CORPUSCULAR HEMOGLOBIN 26.9 pg (27.0-33.0); MEAN CORPUSCULAR HGB CONC 31.7 g/dl (32.0-36.5); MEAN CORPUSCULAR VOLUME 84.8 fl (80.0-96.0); MONO # 0.6 10^3/uL (0.0-0.8); NEUTROPHILS # 3.8 10^3/uL (1.5-8.5); NEUTROPHILS % 56.1 % (36.0-66.0); PLATELET COUNT, AUTOMATED 201 10^3/uL (150-450); RED BLOOD COUNT 4.54 10^6/uL (4.30-6.10); WHITE BLOOD COUNT 6.8 10^3/uL (4.0-10.0)
[2021-05-24 15:22] LABS: ALBUMIN 3.5 GM/DL (3.2-5.2); ALT/SGPT 16 U/L (12-78); BILIRUBIN,DIRECT < 0.1 MG/DL (0.0-0.2); BILIRUBIN,TOTAL 0.3 MG/DL (0.2-1.0); CK-MB VALUE MASS 1.5 NG/ML (<3.6); CPK CREATINE PHOSPHOKINASE 89 U/L (39-308); LIPASE 43 U/L (73-393); MB/CK RELATIVE INDEX 1.69 (< OR =4); NT-PRO BNP 54 PG/ML (<125); TOTAL PROTEIN 6.8 GM/DL (6.4-8.2); TROPONIN I < 0.02 NG/ML (< 0.10)
[2021-05-24] MEDS: ALBUTEROL 90 MCG/ACT 8GM HFA INHALER INH SCH ×3 (16:18→16:56)
[2021-05-24 20:12] LABS: CK-MB VALUE MASS 1.1 NG/ML (<3.6); CPK CREATINE PHOSPHOKINASE 80 U/L (39-308); MB/CK RELATIVE INDEX 1.38 (< OR =4); TROPONIN I < 0.02 NG/ML (< 0.10)
[2021-05-24 20:30] VITALS: BP 147/77
[2021-05-24] MEDS ORDERED: NITR0.4S14 SL (20:48)
[2021-05-31] MEDS ORDERED: NITR0.4S14 SL (10:51)
[2021-07-22] MEDS ORDERED: OLAN15TA13 PO (13:26)
[2021-07-22] MEDS ORDERED: FIBE62TA PO (13:26)
[2021-07-22] MEDS ORDERED: ETOD-173 PO (13:26)
[2021-07-22] MEDS ORDERED: ASPI81TA26 PO (13:26)
== END 2021-05-24 21:37 | disposition home or self-care (01) ==
LOC: M ED 12:31 → EDBD 12:31 → M ED 21:37
DX: R07.89 Other chest pain (principal); I45.19 Other right bundle-branch block; I25.10 Atherosclerotic heart disease of native coronary artery without angina pectoris; E11.9 Type 2 diabetes mellitus without complications; I10 Essential (primary) hypertension; E78.5 Hyperlipidemia, unspecified; J45.909 Unspecified asthma, uncomplicated; Z98.61 Coronary angioplasty status; Z87.891 Personal history of nicotine dependence; Z82.49 Family history of ischemic heart disease and other diseases of the circulatory system; Z79.84 Long term (current) use of oral hypoglycemic drugs; Z79.899 Other long term (current) drug therapy; Z91.041 Radiographic dye allergy status; Z88.2 Allergy status to sulfonamides; Z88.1 Allergy status to other antibiotic agents; Z88.5 Allergy status to narcotic agent; Z91.89 Other specified personal risk factors, not elsewhere classified; Z88.8 Allergy status to other drugs, medicaments and biological substances; Z91.02 Food additives allergy status

== ENCOUNTER → 2021-07-20 | Outpatient (POV) | payer MEDICARE, OTHER ==
[~2021-07-20] VITALS: Ht 188 cm; Wt 147.7 kg
[~2021-07-20] MED LIST changes: +ASPI81TA26 PO; +ETOD-173 PO; +FIBE62TA PO; +NITR0.4S14 SL; -TIZA10TA PO; +TIZA4TAB4 PO
[2021-07-20 10:10] VITALS: BP 145/88
--- NOTE | 2021-07-22 12:30 | IRCOV ---
[facility] IR Consult Office Visit IR Consult Office Visit DATE: Jul 20, 2021 REASON FOR CONSULTATION/CHIEF COMPLAINT: Seroma. HISTORY OF PRESENT ILLNESS: 41-year-old male with diabetes, former myocardial infarction, cardiac disease, smoker, underwent recent right hip surgery in March 2021. He complains of pain at the right lower posterior back ever since that time. He had to have revision surgery. He endorses intermittent fevers or chills. He describes nausea. He describes a sinus tract to the skin on the right posterior back, which up till recent times was draining serosanguineous fluid. ALLERGIES: Please see below. HOME MEDICATIONS: Please see below. PAST MEDICAL HISTORY: Depression Bipolar ED Cardiac arrest Seizure disorder SINGH Esophageal spasm Diabetes COPD Hematuria Hemorrhoids Diverticulitis PAST SURGICAL HISTORY: Heart catheterization Nerve block left lower abdomen FAMILY HISTORY: Noncontributory. SOCIAL HISTORY: Smoker. Denies alcohol or drugs. REVIEW OF SYSTEMS: Otherwise negative. PHYSICAL EXAMINATION: VITAL SIGNS: Please see below. GENERAL APPEARANCE: Central obesity. Walks with a walker. Uncomfortable at rest. HEENT: No scleral icterus. RESPIRATORY: Normal breathing at rest. CARDIOVASCULAR: Normal rate. ABDOMEN: Tenderness and fluctuance right posterior lower back. Sinus tract appears to have closed. No overlying cellulitis. EXTREMITIES: Moving all 4 extremities. NEUROLOGICAL: Alert and oriented. PSYCHIATRIC: Appropriate to circumstance. LABORATORY DATA: 05/24/2021 hemoglobin 12.2 hematocrit 38.5 WBC 6.8 platelets 201 sodium 142 potassium 3.6 BUN 12 creatinine 1.13 Imaging: I personally reviewed the right lower back soft tissue ultrasound performed 05/20/2021. Below the surgical incision, there is a hypoechoic collection measuring 4.5 x 2.2 cm with through-transmission. No significant layering debris. ASSESSMENT/PLAN: 41-year-old diabetic male with postoperative collection, deep to the incision site, associated with pain, prior sinus drainage, intermittent fevers and chills. I am referring him to [facility] radiology for aspiration of the fluid for culture and/or drain placement if deemed appropriate at that time. I spent 30 minutes reviewing patient's records, imaging and in consultation with the patient. Thank you for this referral. 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 Allergies Coded Allergies: Sulfa (Sulfonamide Antibiotics) (Verified Allergy, Mild, rash, 04/15/21) erythromycin base (Verified Allergy, Mild, RASH, 04/15/21) iodine (Verified Allergy, Mild, rash, 04/15/21) lidocaine (Verified Allergy, Mild, RASH, 04/15/21) prilocaine (Verified Allergy, Mild, RASH, 04/15/21) red dye (Verified Allergy, Mild, rash, 04/15/21) Contrast Media (Verified Adverse Reaction, Severe, SEIZURES, 09/03/19) hydrocodone (Verified Adverse Reaction, Intermediate, TACHYCARDIA, 09/09/19) Home Medications Scheduled Ascorbic Acid (Vitamin C), 500 MG PO DAILY, (Reported) Bupropion Hcl (Bupropion Xl), 150 MG PO BID, (Reported) Buspirone HCl (Buspirone HCl), 15 MG PO BID, (Reported) Cholecalciferol (Vitamin D3) (Vitamin D3), 50 MCG PO DAILY, (Reported) Docusate Sodium (Docusate Sodium), 100 MG PO BID, (Reported) Ergocalciferol (Vitamin D2) (Vitamin D2), 50,000 UNITS PO QWEEK, (Reported) Ferrous Sulfate (Ferrous Sulfate), 1 TAB PO DAILY Glipizide (Glipizide ER), 2.5 MG PO DAILY, (Reported) Nitroglycerin (Nitroglycerin), 0.4 MG SL ASDIRECTED Nitroglycerin (Nitroglycerin), 1 TAB SL ASDIRECTED Pravastatin Sodium (Pravastatin Sodium), 10 MG PO DAILY, (Reported) Pregabalin (Lyrica), 75 MG PO BID, (Reported) Venlafaxine HCl (Venlafaxine HCl), 25 MG PO BID, (Reported) Scheduled PRN Acetaminophen (Tylenol Extra Strength), 500 MG PO Q4H PRN for MILD PAIN (PS 1- 4), (Reported) Cyclobenzaprine HCl (Cyclobenzaprine HCl), 10 MG PO TID PRN for MUSCLE SPASMS, (Reported) Morphine Sulfate (Morphine Sulfate), 30 MG PO Q4H PRN for MODERATE PAIN (PS 5- 7), (Reported) Morphine Sulfate (Morphine Sulfate), 60 MG PO Q4H PRN for SEVERE PAIN (PS 8-10), (Reported) VS, I&O, 24H, Fishbone Vital Signs/I&O Vital Signs Date Time Temp Pulse Resp B/P (MAP) Pulse Ox O2 Delivery O2 Flow Rate FiO2 07/20/21 10:10 97.8 51 20 145/88 (107) 94 Room Air BANDAR MOONEY MD Jul 22, 2021 12:30
== END ==
LOC: M IRPOV 09:58
PROVIDERS: ATTEND Radiology Diagnostic Radiology
DX: E11.9 Type 2 diabetes mellitus without complications (principal); L76.34 Postprocedural seroma of skin and subcutaneous tissue following other procedure; M54.50 Low back pain, unspecified; R50.9 Fever, unspecified; Z79.899 Other long term (current) drug therapy; Z88.2 Allergy status to sulfonamides; Z88.4 Allergy status to anesthetic agent; Z88.5 Allergy status to narcotic agent; Z91.041 Radiographic dye allergy status; Z91.048 Other nonmedicinal substance allergy status

== ENCOUNTER → 2021-07-26 | Outpatient (CLI) | payer OTHER, MEDICARE ==
[~2021-07-26] MED LIST changes: +CHLOROPROCAINE PRES. FREE 2% 20ML VIAL XX ONE
[2021-07-26 08:09] VITALS: BP 141/94
--- NOTE | 2021-07-26 11:17 | REP ---
INDICATION: FLUID COLLECTION POST OP CATH INSERTION. COMPARISON: 05/20/2021. TECHNIQUE: Real-time sonographic evaluation of right lower back/hip region performed. FINDINGS: The previously noted fluid collection at the incision site of the right lower back has almost completely resolved. There is now only a sliver of fluid at that location IMPRESSION: The previously noted fluid collection at the incision site of the right lower back has almost completely resolved with only a tiny amount of non drainable fluid present in this region. Drainage procedure is therefore not performed. <Electronically signed by Jose Antonio Merrill > 07/26/21 1113
== END ==
LOC: M IRPRO 07:57
PROVIDERS: ATTEND Radiology Diagnostic Radiology
DX: L76.34 Postprocedural seroma of skin and subcutaneous tissue following other procedure (principal)

== ENCOUNTER → 2021-08-12 | Outpatient (CLI) | payer MEDICARE, OTHER ==
[~2021-08-12] MED LIST changes: -CHLOROPROCAINE PRES. FREE 2% 20ML VIAL XX ONE
== END ==
LOC: M LABSMTC 09:22
PROVIDERS: ATTEND Family Medicine
DX: U07.1 COVID-19 (principal)

== ENCOUNTER → 2021-08-12 | Outpatient (CLI) | payer MEDICARE, OTHER ==
[2021-08-12 11:26] LABS: BLOOD UREA NITROGEN 19 MG/DL (7-18); CALCIUM LEVEL 9.1 MG/DL (8.5-10.1); CARBON DIOXIDE LEVEL 28 MEQ/L (21-32); CHLORIDE LEVEL 104 MEQ/L (98-107); CREATININE FOR GFR 1.07 MG/DL (0.70-1.30); GLOMERULAR FILTRATION RATE > 60.0 (>60); GLUCOSE, FASTING 260 MG/DL (70-100); POTASSIUM SERUM 4.2 MEQ/L (3.5-5.1); SODIUM LEVEL 139 MEQ/L (136-145)
== END ==
LOC: M LAB 10:08
DX: I25.10 Atherosclerotic heart disease of native coronary artery without angina pectoris (principal); R94.31 Abnormal electrocardiogram [ECG] [EKG]

== ENCOUNTER → 2021-10-29 | Outpatient (CLI) | payer OTHER ==
[~2021-10-29] MED LIST changes: +TIZA10TA PO; -TIZA4TAB4 PO
[2021-10-29 14:33] LABS: BASO % 0.2 % (0.0-1.0); HEMATOCRIT 46.5 % (42.0-52.0); HEMOGLOBIN 14.8 g/dl (13.5-17.5); LYMPH # 1.6 10^3/uL (1.5-5.0); LYMPH % 10.1 % (24.0-44.0); MEAN CORPUSCULAR HEMOGLOBIN 28.3 pg (27.0-33.0); MEAN CORPUSCULAR HGB CONC 31.8 g/dl (32.0-36.5); MEAN CORPUSCULAR VOLUME 88.9 fl (80.0-96.0); MONO # 0.8 10^3/uL (0.0-0.8); MONO % 5.2 % (2.0-8.0); NEUTROPHILS # 13.1 10^3/uL (1.5-8.5); NEUTROPHILS % 83.2 % (36.0-66.0); PLATELET COUNT, AUTOMATED 239 10^3/uL (150-450); RED BLOOD COUNT 5.23 10^6/uL (4.30-6.10); WHITE BLOOD COUNT 15.8 10^3/uL (4.0-10.0)
[2021-10-29 14:50] LABS: ERYTHROCYTE SEDIMENTATION RATE 11 mm/hr (0-15)
[2021-10-29 15:03] LABS: HEMOGLOBIN A1c 6.8 %
[2021-10-29 15:14] LABS: BLOOD UREA NITROGEN 23 MG/DL (7-18); C REACTIVE PROTEIN QUANTITATIV 0.82 MG/DL (0.00-0.30); CALCIUM LEVEL 9.6 MG/DL (8.5-10.1); CARBON DIOXIDE LEVEL 28 MEQ/L (21-32); CHLORIDE LEVEL 102 MEQ/L (98-107); CREATININE FOR GFR 1.21 MG/DL (0.70-1.30); FREE T4 0.91 NG/DL (0.76-1.46); GLOMERULAR FILTRATION RATE > 60.0 (>60); GLUCOSE, FASTING 338 MG/DL (70-100); POTASSIUM SERUM 4.2 MEQ/L (3.5-5.1); SODIUM LEVEL 137 MEQ/L (136-145); THYROID STIMULATING HORMONE 0.914 uIU/ML (0.358-3.740)
[2021-10-29 15:15] LABS: TOTAL 25(OH) VITAMIN D 34.3 NG/ML (30.0-100.0)
[2021-10-29 15:16] LABS: PTH INTACT 57.2 PG/ML (18.5-88.0)
== END ==
LOC: M RAD 13:52
PROVIDERS: ATTEND Nurse Practitioner Family
DX: S72.351K Displaced comminuted fracture of shaft of right femur, subsequent encounter for closed fracture with nonunion (principal); X58.XXXD Exposure to other specified factors, subsequent encounter; Y92.9 Unspecified place or not applicable; Y93.9 Activity, unspecified; Y99.9 Unspecified external cause status; E11.9 Type 2 diabetes mellitus without complications

== ENCOUNTER → 2021-12-24 | Outpatient (CLI) | payer MEDICARE, OTHER ==
[2021-12-24 09:50] LABS: GC DNA AMPLIFICATION NEGATIVE (NEGATIVE)
[2021-12-24 11:07] LABS: HIV 1&2 SCREEN CENTAUR NEGATIVE (NEGATIVE)
== END ==
LOC: M LAB 07:14
PROVIDERS: ATTEND Student in an Organized Health Care Education/Training Program
DX: Z11.3 Encounter for screening for infections with a predominantly sexual mode of transmission (principal)

== ENCOUNTER 2022-01-12 14:34 | Inpatient (IN) | payer MEDICARE, MEDICAID ==
[~2022-01-12] VITALS: Ht 185.4 cm; Wt 150.2 kg
[2022-01-12] MEDS ORDERED: FERR325T19 PO (15:01)
[2022-01-12 15:33] LABS: BASO % 0.4 % (0.0-1.0); EOS # 0.2 10^3/uL (0.0-0.5); EOS % 2.1 % (0.0-3.0); HEMOGLOBIN 13.9 g/dl (13.5-17.5); LYMPH # 1.7 10^3/uL (1.5-5.0); MEAN CORPUSCULAR HEMOGLOBIN 28.9 pg (27.0-33.0); MEAN CORPUSCULAR HGB CONC 32.3 g/dl (32.0-36.5); MEAN CORPUSCULAR VOLUME 89.4 fl (80.0-96.0); MONO # 0.7 10^3/uL (0.0-0.8); MONO % 8.4 % (2.0-8.0); NEUTROPHILS # 5.6 10^3/uL (1.5-8.5); NEUTROPHILS % 67.6 % (36.0-66.0); PLATELET COUNT, AUTOMATED 170 10^3/uL (150-450); RED BLOOD COUNT 4.81 10^6/uL (4.30-6.10); WHITE BLOOD COUNT 8.2 10^3/uL (4.0-10.0)
[2022-01-12 16:05] LABS: BLOOD UREA NITROGEN 13 MG/DL (7-18); CALCIUM LEVEL 9.1 MG/DL (8.5-10.1); CARBON DIOXIDE LEVEL 33 MEQ/L (21-32); CHLORIDE LEVEL 103 MEQ/L (98-107); GLOMERULAR FILTRATION RATE > 60.0 (>60); GLUCOSE, FASTING 224 MG/DL (70-100); MAGNESIUM LEVEL 2.3 MG/DL (1.8-2.4); SODIUM LEVEL 139 MEQ/L (136-145)
[2022-01-12 16:10] LABS: RSV AMPLIFICATION NEGATIVE (NEGATIVE)
[2022-01-12] MEDS ORDERED: VITA100093 PO (17:42)
[2022-01-12] MEDS ORDERED: NITR4TASL SL (17:42)
[2022-01-12] MEDS ORDERED: ASCO500T PO (17:42)
[2022-01-12] MEDS ORDERED: CVS1CRE56 TOP (17:42)
[2022-01-12] MEDS ORDERED: HOME MED LIST COMPLETE! XX SCH (17:45)
[2022-01-12] MEDS ORDERED: MORPHINE 30 MG TAB **MSIR PO PRN (18:55)
[2022-01-12] MEDS ORDERED: ACETAMINOPHEN 500 MG TAB PO PRN (18:55)
[2022-01-12] MEDS ORDERED: NITROGLYCERIN 0.4 MG SUBL TABLET SL PRN (18:55)
[2022-01-12] MEDS: PREGABALIN 75 MG CAP(LYRICA) PO SCH (20:56)
[2022-01-12] MEDS: ENOXAPARIN 40MG/0.4ML SYRINGE (J1650 PER 10MG) SC SCH (20:59)
[2022-01-12] MEDS: busPIRone 5 MG TAB PO SCH (20:59)
[2022-01-12] MEDS ORDERED: NS 1,000 ML IV ONE (21:20)
[2022-01-12 22:08] VITALS: BP 130/78
[2022-01-12] MEDS ORDERED: DEXTROSE 50% 50 ML SYRINGE IV PRN (22:45)
[2022-01-12] MEDS ORDERED: GLUCAGON INJ 1MG VIAL SC PRN (22:45)
[2022-01-12] MEDS ORDERED: GLUCOSE 4GM CHEW TABLET PO PRN (22:45)
[2022-01-12 23:46] VITALS: BP 123/63
[2022-01-13] VITALS (9 sets, daily range): BP systolic 102–129; BP diastolic 64–81
[2022-01-13] MEDS: MORPHINE 30 MG TAB **MSIR PO PRN ×4 (00:07→20:22)
[2022-01-13] MEDS: VENLAFAXINE 25 MG TAB PO SCH ×3 (00:07→20:21)
[2022-01-13] MEDS: IPRATROPIUM 0.5MG/ALBUTEROL 2.5MG INH SOL UD 3ML (DUONEB) NEB PRN (00:27)
[2022-01-13 02:15] LABS: AMPHETAMINES LEVEL URINE NEGATIVE (NEGATIVE); BARBITURATES URINE NEGATIVE (NEGATIVE); BENZODIAZEPINES URINE NEGATIVE (NEGATIVE); CANNABINOIDS URINE NEGATIVE (NEGATIVE); COCAINE METABOLITE URINE NEGATIVE (NEGATIVE); METHADONE URINE NEGATIVE (NEGATIVE); OPIATES URINE POSITIVE (NEGATIVE); PHENCYCLIDINE URINE NEGATIVE (NEGATIVE)
[2022-01-13 06:46] LABS: HEMATOCRIT 41.8 % (42.0-52.0); HEMOGLOBIN 13.5 g/dl (13.5-17.5); MEAN CORPUSCULAR HEMOGLOBIN 28.4 pg (27.0-33.0); MEAN CORPUSCULAR HGB CONC 32.3 g/dl (32.0-36.5); PLATELET COUNT, AUTOMATED 164 10^3/uL (150-450); RED BLOOD COUNT 4.75 10^6/uL (4.30-6.10); WHITE BLOOD COUNT 9.4 10^3/uL (4.0-10.0)
[2022-01-13 07:14] LABS: ALBUMIN 3.3 GM/DL (3.2-5.2); ALT/SGPT 23 U/L (12-78); BILIRUBIN,TOTAL 0.4 MG/DL (0.2-1.0); BLOOD UREA NITROGEN 15 MG/DL (7-18); CALCIUM LEVEL 9.2 MG/DL (8.5-10.1); CARBON DIOXIDE LEVEL 30 MEQ/L (21-32); CHLORIDE LEVEL 103 MEQ/L (98-107); CREATININE FOR GFR 0.82 MG/DL (0.70-1.30); GLOMERULAR FILTRATION RATE > 60.0 (>60); GLUCOSE, FASTING 118 MG/DL (70-100); MAGNESIUM LEVEL 2.2 MG/DL (1.8-2.4); PHOSPHORUS LEVEL 3.2 MG/DL (2.5-4.9); POTASSIUM SERUM 3.9 MEQ/L (3.5-5.1); SODIUM LEVEL 140 MEQ/L (136-145); TOTAL PROTEIN 6.2 GM/DL (6.4-8.2)
[2022-01-13] MEDS: VITAMIN D 1,000 INTERNATIONAL UNITS TABLET PO SCH (08:43)
[2022-01-13] MEDS: busPIRone 5 MG TAB PO SCH ×2 (08:43→20:21)
[2022-01-13] MEDS: ASPIRIN 81MG ENTERIC TABLET PO SCH (08:43)
[2022-01-13] MEDS: buPROPion **XL** TABLET 150MG (WELLBUTRIN XL) PO SCH (08:43)
[2022-01-13] MEDS: FERROUS SULFATE 325MG TAB PO SCH (08:43)
[2022-01-13] MEDS: PREGABALIN 75 MG CAP(LYRICA) PO SCH ×2 (08:43→20:21)
[2022-01-13] MEDS: ASCORBIC ACID 500 MG TAB PO SCH (08:43)
[2022-01-13] MEDS: ENOXAPARIN 40MG/0.4ML SYRINGE (J1650 PER 10MG) SC SCH ×3 (08:50→21:00)
[2022-01-13] MEDS: HumaLOG INSULIN (NovoLOG) PER UNIT SC SCH ×4 (08:50→20:13)
[2022-01-13] MEDS: PRAVASTATIN 10 MG TAB PO SCH (10:59)
[2022-01-13] MEDS ORDERED: ONDANSETRON 4MG TAB PO ONE (14:55)
[2022-01-14 01:55] VITALS: BP 130/78
[2022-01-14] MEDS: MORPHINE 30 MG TAB **MSIR PO PRN ×5 (02:25→21:47)
[2022-01-14 06:23] VITALS: BP 127/77
[2022-01-14 07:08] LABS: BASO % 0.3 % (0.0-1.0); EOS # 0.2 10^3/uL (0.0-0.5); EOS % 1.9 % (0.0-3.0); HEMATOCRIT 44.2 % (42.0-52.0); LYMPH % 21.2 % (24.0-44.0); MEAN CORPUSCULAR HEMOGLOBIN 28.8 pg (27.0-33.0); MEAN CORPUSCULAR HGB CONC 31.7 g/dl (32.0-36.5); MEAN CORPUSCULAR VOLUME 90.9 fl (80.0-96.0); MONO # 0.8 10^3/uL (0.0-0.8); MONO % 8.6 % (2.0-8.0); NEUTROPHILS # 6.4 10^3/uL (1.5-8.5); NEUTROPHILS % 67.5 % (36.0-66.0); PLATELET COUNT, AUTOMATED 177 10^3/uL (150-450); RED BLOOD COUNT 4.86 10^6/uL (4.30-6.10); WHITE BLOOD COUNT 9.4 10^3/uL (4.0-10.0)
[2022-01-14 07:29] LABS: BLOOD UREA NITROGEN 20 MG/DL (7-18); CALCIUM LEVEL 9.1 MG/DL (8.5-10.1); CARBON DIOXIDE LEVEL 34 MEQ/L (21-32); CHLORIDE LEVEL 99 MEQ/L (98-107); CREATININE FOR GFR 1.04 MG/DL (0.70-1.30); GLOMERULAR FILTRATION RATE > 60.0 (>60); GLUCOSE, FASTING 142 MG/DL (70-100); MAGNESIUM LEVEL 2.3 MG/DL (1.8-2.4); PHOSPHORUS LEVEL 3.3 MG/DL (2.5-4.9); SODIUM LEVEL 137 MEQ/L (136-145)
[2022-01-14] MEDS: HumaLOG INSULIN (NovoLOG) PER UNIT SC SCH ×4 (08:00→21:00)
[2022-01-14] MEDS: ASPIRIN 81MG ENTERIC TABLET PO SCH (08:01)
[2022-01-14] MEDS: FERROUS SULFATE 325MG TAB PO SCH (08:02)
[2022-01-14] MEDS: VITAMIN D 1,000 INTERNATIONAL UNITS TABLET PO SCH (08:02)
[2022-01-14] MEDS: PREGABALIN 75 MG CAP(LYRICA) PO SCH ×2 (08:02→21:45)
[2022-01-14] MEDS: ASCORBIC ACID 500 MG TAB PO SCH (08:02)
[2022-01-14] MEDS: ENOXAPARIN 40MG/0.4ML SYRINGE (J1650 PER 10MG) SC SCH ×2 (08:03→21:00)
[2022-01-14] MEDS: buPROPion **XL** TABLET 150MG (WELLBUTRIN XL) PO SCH (08:03)
[2022-01-14] MEDS ORDERED: ACETAMINOPHEN 500 MG TAB PO ONE (08:15)
[2022-01-14] MEDS: PRAVASTATIN 10 MG TAB PO SCH (08:48)
[2022-01-14] MEDS: VENLAFAXINE 25 MG TAB PO SCH ×2 (08:48→21:45)
[2022-01-14] MEDS: busPIRone 5 MG TAB PO SCH ×2 (08:48→21:44)
[2022-01-14] MEDS: SENOKOT S TAB PO SCH ×2 (09:00→21:00)
[2022-01-14] MEDS ORDERED: MOM 30ML SUSPENSION UDC PO ONE (09:00)
[2022-01-14] MEDS ORDERED: ONDANSETRON 4MG TAB PO ONE (09:45)
[2022-01-14 14:00] VITALS: BP 118/91
[2022-01-14 14:28] LABS: VENOUS BASE EXCESS 1.6 (-2.0-2.0); VENOUS HCO3 29.7 MEQ/L (23.0-27.0); VENOUS PARTIAL PRESSURE CO2 62.7 mmHg (38.0-50.0); VENOUS PARTIAL PRESSURE O2 50.3 mmHg (30.0-50.0); VENOUS PH 7.294 UNITS (7.330-7.430); VENOUS STANDARD HCO3 25.5 MEQ/L; VENOUS TOTAL CO2 31.7 MEQ/L (24.0-28.0)
[2022-01-14] MEDS: CYCLOBENZAPRINE 10MG TABLET PO PRN (17:23)
[2022-01-14] MEDS: IPRATROPIUM 0.5MG/ALBUTEROL 2.5MG INH SOL UD 3ML (DUONEB) NEB PRN (21:45)
[2022-01-14 22:00] VITALS: BP 133/93
[2022-01-15] MEDS: IPRATROPIUM 0.5MG/ALBUTEROL 2.5MG INH SOL UD 3ML (DUONEB) NEB PRN (04:03)
[2022-01-15] MEDS: MORPHINE 30 MG TAB **MSIR PO PRN ×3 (04:04→12:47)
[2022-01-15 05:34] VITALS: BP 132/93
[2022-01-15 05:46] LABS: VENOUS BASE EXCESS 2.8 (-2.0-2.0); VENOUS HCO3 30.7 MEQ/L (23.0-27.0); VENOUS O2 SATURATION 96.8 % (60.0-80.0); VENOUS PARTIAL PRESSURE CO2 61.9 mmHg (38.0-50.0); VENOUS PARTIAL PRESSURE O2 86.5 mmHg (30.0-50.0); VENOUS PH 7.313 UNITS (7.330-7.430); VENOUS STANDARD HCO3 26.9 MEQ/L; VENOUS TOTAL CO2 32.6 MEQ/L (24.0-28.0)
[2022-01-15 06:05] LABS: INR 0.94
[2022-01-15 06:06] LABS: PARTIAL THROMBOPLASTIN TIME 31.1 SECONDS (25.9-37.0)
[2022-01-15 06:08] LABS: BLOOD UREA NITROGEN 18 MG/DL (7-18); CALCIUM LEVEL 9.1 MG/DL (8.5-10.1); CARBON DIOXIDE LEVEL 33 MEQ/L (21-32); CHLORIDE LEVEL 99 MEQ/L (98-107); CREATININE FOR GFR 1.01 MG/DL (0.70-1.30); D-DIMER QUANT 778.32 ng/ml (<500); GLOMERULAR FILTRATION RATE > 60.0 (>60); GLUCOSE, FASTING 214 MG/DL (70-100); MAGNESIUM LEVEL 2.2 MG/DL (1.8-2.4); PHOSPHORUS LEVEL 2.8 MG/DL (2.5-4.9); POTASSIUM SERUM 3.7 MEQ/L (3.5-5.1); SODIUM LEVEL 134 MEQ/L (136-145)
[2022-01-15] MEDS: busPIRone 5 MG TAB PO SCH (08:25)
[2022-01-15] MEDS: FERROUS SULFATE 325MG TAB PO SCH (08:25)
[2022-01-15] MEDS: ASCORBIC ACID 500 MG TAB PO SCH (08:25)
[2022-01-15] MEDS: PREGABALIN 75 MG CAP(LYRICA) PO SCH (08:25)
[2022-01-15] MEDS: ASPIRIN 81MG ENTERIC TABLET PO SCH (08:25)
[2022-01-15] MEDS: buPROPion **XL** TABLET 150MG (WELLBUTRIN XL) PO SCH (08:25)
[2022-01-15] MEDS: VENLAFAXINE 25 MG TAB PO SCH (08:26)
[2022-01-15] MEDS: ENOXAPARIN 40MG/0.4ML SYRINGE (J1650 PER 10MG) SC SCH (08:26)
[2022-01-15] MEDS: PRAVASTATIN 10 MG TAB PO SCH (08:26)
[2022-01-15] MEDS: HumaLOG INSULIN (NovoLOG) PER UNIT SC SCH ×2 (08:26→12:47)
[2022-01-15] MEDS: VITAMIN D 1,000 INTERNATIONAL UNITS TABLET PO SCH (08:26)
[2022-01-15] MEDS: SENOKOT S TAB PO SCH (08:28)
[2022-01-15] MEDS ORDERED: APIXABAN 5 MG TAB (ELIQUIS) PO SCH (09:00)
[2022-01-15] MEDS: CYCLOBENZAPRINE 10MG TABLET PO PRN (10:18)
[2022-01-15] MEDS ORDERED: ELIQ5TAB4 PO (10:25)
[2022-01-15 11:50] VITALS: BP 121/69
[2022-01-15 14:00] VITALS: BP 141/76
== END 2022-01-15 16:24 | disposition home or self-care (01) | DRG 312 ==
LOC: EDBD 14:34 → M ED 14:34 → M ED INP 17:03 → M MSPAV 22:16
PROVIDERS: ADMIT Internal Medicine; ATTEND Internal Medicine
DX: R55 Syncope and collapse (principal); Z68.42 Body mass index [BMI] 45.0-49.9, adult; E66.2 Morbid (severe) obesity with alveolar hypoventilation; J96.10 Chronic respiratory failure, unspecified whether with hypoxia or hypercapnia; I10 Essential (primary) hypertension; Z86.74 Personal history of sudden cardiac arrest; Q07.00 Arnold-Chiari syndrome without spina bifida or hydrocephalus; E11.9 Type 2 diabetes mellitus without complications; E78.5 Hyperlipidemia, unspecified; F17.210 Nicotine dependence, cigarettes, uncomplicated; R07.89 Other chest pain; F43.10 Post-traumatic stress disorder, unspecified; Z66 Do not resuscitate; Z20.822 Contact with and (suspected) exposure to COVID-19; Z79.82 Long term (current) use of aspirin; Z79.84 Long term (current) use of oral hypoglycemic drugs; Z79.899 Other long term (current) drug therapy; Z88.1 Allergy status to other antibiotic agents; Z88.2 Allergy status to sulfonamides; Z88.8 Allergy status to other drugs, medicaments and biological substances; Z91.041 Radiographic dye allergy status; Z99.81 Dependence on supplemental oxygen; J44.9 Chronic obstructive pulmonary disease, unspecified; I95.9 Hypotension, unspecified

== ENCOUNTER 2022-01-23 14:16 | Emergency (ER) | payer MEDICARE, MEDICAID ==
[~2022-01-23] VITALS: Ht 185.4 cm; Wt 159.1 kg
[~2022-01-23 14:16] MED LIST changes: +ASCO500T PO; +CVS1CRE56 TOP; +ELIQ5TAB4 PO; +FERR325T19 PO; +VITA100093 PO
[2022-01-23] MEDS ORDERED: NS 1,000 ML IV ONE (15:50)
[2022-01-23] MEDS ORDERED: METOCLOPRAMIDE INJ 10MG/2ML VIAL (J2765 PER 1) IV ONE (15:55)
[2022-01-23 16:23] LABS: BASO % 0.2 % (0.0-1.0); EOS # 0.1 10^3/uL (0.0-0.5); EOS % 0.4 % (0.0-3.0); HEMATOCRIT 45.4 % (42.0-52.0); HEMOGLOBIN 14.8 g/dl (13.5-17.5); LYMPH # 1.5 10^3/uL (1.5-5.0); LYMPH % 13.2 % (24.0-44.0); MEAN CORPUSCULAR HEMOGLOBIN 28.4 pg (27.0-33.0); MEAN CORPUSCULAR HGB CONC 32.6 g/dl (32.0-36.5); MONO # 0.9 10^3/uL (0.0-0.8); MONO % 7.6 % (2.0-8.0); NEUTROPHILS % 78.1 % (36.0-66.0); PLATELET COUNT, AUTOMATED 190 10^3/uL (150-450); RED BLOOD COUNT 5.22 10^6/uL (4.30-6.10); WHITE BLOOD COUNT 11.6 10^3/uL (4.0-10.0)
[2022-01-23 16:57] LABS: ALBUMIN 3.3 GM/DL (3.2-5.2); ALT/SGPT 26 U/L (12-78); BILIRUBIN,DIRECT 0.3 MG/DL (0.0-0.2); BILIRUBIN,TOTAL 0.5 MG/DL (0.2-1.0); BLOOD UREA NITROGEN 15 MG/DL (7-18); CALCIUM LEVEL 8.9 MG/DL (8.5-10.1); CARBON DIOXIDE LEVEL 26 MEQ/L (21-32); CHLORIDE LEVEL 104 MEQ/L (98-107); CREATININE FOR GFR 0.98 MG/DL (0.70-1.30); GLOMERULAR FILTRATION RATE > 60.0 (>60); GLUCOSE, FASTING 195 MG/DL (70-100); LIPASE 81 U/L (73-393); SODIUM LEVEL 138 MEQ/L (136-145); TOTAL PROTEIN 6.6 GM/DL (6.4-8.2)
[2022-01-23 20:03] VITALS: BP 145/60
== END 2022-01-23 20:01 | disposition home or self-care (01) ==
LOC: EDBD 14:16 → EDUNIT# 14:16 → M ED 14:16
DX: R11.2 Nausea with vomiting, unspecified (principal); R94.31 Abnormal electrocardiogram [ECG] [EKG]; K57.30 Diverticulosis of large intestine without perforation or abscess without bleeding; E11.9 Type 2 diabetes mellitus without complications; I10 Essential (primary) hypertension; E78.5 Hyperlipidemia, unspecified; Z86.74 Personal history of sudden cardiac arrest; G47.33 Obstructive sleep apnea (adult) (pediatric); R56.9 Unspecified convulsions; J44.9 Chronic obstructive pulmonary disease, unspecified; F31.9 Bipolar disorder, unspecified; F43.10 Post-traumatic stress disorder, unspecified; F17.200 Nicotine dependence, unspecified, uncomplicated; Z88.2 Allergy status to sulfonamides; Z88.6 Allergy status to analgesic agent; Z91.041 Radiographic dye allergy status; Z79.899 Other long term (current) drug therapy; Z79.01 Long term (current) use of anticoagulants; Z79.82 Long term (current) use of aspirin
CPT/HCPCS: 74176; 80048; 80076; 83690; 85025; 93005; 96361; 96374; 99284; J2765

== ENCOUNTER 2022-01-30 00:24 | Emergency (ER) | payer MEDICARE, MEDICAID ==
[~2022-01-30] VITALS: Ht 185.4 cm; Wt 159.1 kg
[2022-01-30] MEDS ORDERED: MORPHINE 2 MG/ML 1ML VIAL IV ONE (02:20)
[2022-01-30 02:35] VITALS: BP 132/72
[2022-01-30] MEDS ORDERED: MORPHINE 4 MG/ML 1ML VIAL/SYRINGE IV ONE (02:35)
[2022-01-30 02:53] LABS: BASO # 0.1 10^3/uL (0.0-0.2); BASO % 0.4 % (0.0-1.0); EOS # 0.3 10^3/uL (0.0-0.5); EOS % 2.2 % (0.0-3.0); HEMOGLOBIN 13.4 g/dl (13.5-17.5); LYMPH # 2.4 10^3/uL (1.5-5.0); LYMPH % 19.7 % (24.0-44.0); MEAN CORPUSCULAR HEMOGLOBIN 28.6 pg (27.0-33.0); MEAN CORPUSCULAR HGB CONC 32.7 g/dl (32.0-36.5); MEAN CORPUSCULAR VOLUME 87.4 fl (80.0-96.0); MONO % 7.8 % (2.0-8.0); NEUTROPHILS # 8.6 10^3/uL (1.5-8.5); NEUTROPHILS % 69.1 % (36.0-66.0); PLATELET COUNT, AUTOMATED 211 10^3/uL (150-450); RED BLOOD COUNT 4.69 10^6/uL (4.30-6.10); WHITE BLOOD COUNT 12.4 10^3/uL (4.0-10.0)
[2022-01-30 03:22] LABS: BLOOD UREA NITROGEN 13 MG/DL (7-18); CALCIUM LEVEL 9.1 MG/DL (8.5-10.1); CARBON DIOXIDE LEVEL 30 MEQ/L (21-32); CHLORIDE LEVEL 103 MEQ/L (98-107); CREATININE FOR GFR 0.86 MG/DL (0.70-1.30); GLOMERULAR FILTRATION RATE > 60.0 (>60); GLUCOSE, FASTING 174 MG/DL (70-100); MAGNESIUM LEVEL 2.2 MG/DL (1.8-2.4); POTASSIUM SERUM 3.9 MEQ/L (3.5-5.1); SODIUM LEVEL 139 MEQ/L (136-145)
[2022-01-30] MEDS ORDERED: HALOPERIDOL 5MG/ML VIAL (J1630 PER 1) IV ONE (03:35)
[2022-01-30] MEDS ORDERED: OXYCODONE/APAP 5MG/325MG(BULK FOR ED) 1 TABLET PO ONE (03:50)
== END 2022-01-30 04:17 | disposition home or self-care (01) ==
LOC: M ED 00:24 → EDBD 00:24 → M ED 04:17
DX: Z76.0 Encounter for issue of repeat prescription (principal); F11.13 Opioid abuse with withdrawal; Z79.82 Long term (current) use of aspirin; Z79.899 Other long term (current) drug therapy; Z91.041 Radiographic dye allergy status; Z88.2 Allergy status to sulfonamides; Z88.1 Allergy status to other antibiotic agents; Z88.5 Allergy status to narcotic agent; Z91.89 Other specified personal risk factors, not elsewhere classified; Z88.8 Allergy status to other drugs, medicaments and biological substances
CPT/HCPCS: 80048; 83735; 84443; 85025; 87486; 87581; 87633; 87798; 96374; 99284; J2270

== ENCOUNTER 2022-03-23 00:52 | Emergency (ER) | payer MEDICARE, MEDICAID ==
[~2022-03-23] VITALS: Ht 188 cm; Wt 142.1 kg
[2022-03-23 01:02] VITALS: BP 131/63
== END 2022-03-23 01:22 | disposition left against medical advice (07) ==
LOC: M ED 00:52 → EDBD 00:52 → M ED 01:22
DX: Z53.21 Procedure and treatment not carried out due to patient leaving prior to being seen by health care provider (principal)

== ENCOUNTER → 2022-04-27 | Outpatient (CLI) | payer MEDICARE | LOC: M RAD 08:06 | PROVIDERS: ATTEND Internal Medicine Medical Oncology | DX: R16.1 Splenomegaly, not elsewhere classified (principal) ==

== ENCOUNTER → 2022-06-15 | Outpatient (CLI) | payer MEDICARE | LOC: M WHC 11:57 | PROVIDERS: ATTEND Internal Medicine Pulmonary Disease | DX: I26.99 Other pulmonary embolism without acute cor pulmonale (principal) ==

== ENCOUNTER 2022-07-15 04:38 | Emergency (ER) | payer MEDICAID, MEDICARE, OTHER ==
[~2022-07-15] VITALS: Ht 185.4 cm; Wt 136.4 kg
[2022-07-15 05:15] LABS: VENOUS BASE EXCESS 0.4 (-2.0-2.0); VENOUS HCO3 26.5 MEQ/L (23.0-27.0); VENOUS O2 SATURATION 83.2 % (60.0-80.0); VENOUS PARTIAL PRESSURE O2 46.1 mmHg (30.0-50.0); VENOUS STANDARD HCO3 24.4 MEQ/L
[2022-07-15 05:25] LABS: BASO % 0.5 % (0.0-1.0); EOS # 0.2 10^3/uL (0.0-0.5); EOS % 2.2 % (0.0-3.0); HEMATOCRIT 44.5 % (42.0-52.0); HEMOGLOBIN 14.7 g/dl (13.5-17.5); LYMPH # 1.9 10^3/uL (1.5-5.0); LYMPH % 24.5 % (24.0-44.0); MEAN CORPUSCULAR HEMOGLOBIN 27.8 pg (27.0-33.0); MEAN CORPUSCULAR VOLUME 84.1 fl (80.0-96.0); MONO # 0.7 10^3/uL (0.0-0.8); MONO % 8.5 % (2.0-8.0); NEUTROPHILS # 5.1 10^3/uL (1.5-8.5); NEUTROPHILS % 63.9 % (36.0-66.0); PLATELET COUNT, AUTOMATED 181 10^3/uL (150-450); RED BLOOD COUNT 5.29 10^6/uL (4.30-6.10); WHITE BLOOD COUNT 7.9 10^3/uL (4.0-10.0)
[2022-07-15 05:33] LABS: INR 0.89; PROTHROMBIN TIME 12.2 SECONDS (12.5-14.5)
[2022-07-15] MEDS ORDERED: dexameTHASONE 20MG/5ML VIAL (J1100 PER 1MG) IV ONE (05:40)
[2022-07-15] MEDS: COMBIVENT RESPIMAT 100-20MCG INHALER 4GM INH SCH ×3 (05:49→06:15)
[2022-07-15 06:05] LABS: CK-MB VALUE MASS < 1.0 NG/ML (<3.6); CPK CREATINE PHOSPHOKINASE 99 U/L (39-308); MB/CK RELATIVE INDEX 1.01 (< OR =4)
[2022-07-15 06:11] LABS: ALBUMIN 3.6 GM/DL (3.2-5.2); ALT/SGPT 16 U/L (12-78); BILIRUBIN,DIRECT 0.3 MG/DL (0.0-0.2); BILIRUBIN,TOTAL 0.6 MG/DL (0.2-1.0); BLOOD UREA NITROGEN 10 MG/DL (7-18); CALCIUM LEVEL 8.9 MG/DL (8.5-10.1); CARBON DIOXIDE LEVEL 29 MEQ/L (21-32); CHLORIDE LEVEL 97 MEQ/L (98-107); CREATININE FOR GFR 1.02 MG/DL (0.70-1.30); GLOMERULAR FILTRATION RATE > 60.0 (>60); GLUCOSE, FASTING 366 MG/DL (70-100); NT-PRO BNP 11 PG/ML (<125); POTASSIUM SERUM 3.7 MEQ/L (3.5-5.1); SODIUM LEVEL 133 MEQ/L (136-145); TOTAL PROTEIN 6.6 GM/DL (6.4-8.2)
[2022-07-15 07:00] VITALS: BP 124/61
[2022-07-15 07:01] LABS: CK-MB VALUE MASS < 1.0 NG/ML (<3.6); CPK CREATINE PHOSPHOKINASE 76 U/L (39-308); MB/CK RELATIVE INDEX 1.32 (< OR =4)
[2022-07-15] MEDS ORDERED: PRED20TA PO (07:45)
== END 2022-07-15 08:16 | disposition home or self-care (01) ==
LOC: M ED 04:38
DX: J44.1 Chronic obstructive pulmonary disease with (acute) exacerbation (principal); J06.9 Acute upper respiratory infection, unspecified; I45.10 Unspecified right bundle-branch block; E11.9 Type 2 diabetes mellitus without complications; F17.200 Nicotine dependence, unspecified, uncomplicated
CPT/HCPCS: 71045; 80048; 80076; 82550; 82553; 82803; 83605; 83880; 84443; 84484; 85025; 85610; 87040; 87486; 87581; 87633; 87798; 93005; 93041; 94640; 94760; 96374; 99285; J1100

== ENCOUNTER 2022-08-13 17:09 | Emergency (ER) | payer MEDICARE ==
[~2022-08-13] VITALS: Ht 185.4 cm; Wt 136.4 kg
[2022-08-13 17:09] VITALS: BP 130/78
== END 2022-08-14 00:15 | disposition left against medical advice (07) ==
LOC: M ED 17:09
DX: Z53.21 Procedure and treatment not carried out due to patient leaving prior to being seen by health care provider (principal)

== ENCOUNTER 2022-08-14 10:51 | Emergency (ER) | payer MEDICARE ==
[~2022-08-14] VITALS: Ht 185.4 cm; Wt 131.8 kg
[2022-08-14 10:52] VITALS: BP 126/70
== END 2022-08-14 15:37 | disposition left against medical advice (07) ==
LOC: M ED 10:51
DX: Z53.21 Procedure and treatment not carried out due to patient leaving prior to being seen by health care provider (principal)

== ENCOUNTER → 2022-08-29 | Outpatient (CLI) | payer MEDICARE | LOC: M SOG 14:55 | PROVIDERS: ATTEND Orthopaedic Surgery Adult Reconstructive Orthopaedic Surgery | DX: M47.27 Other spondylosis with radiculopathy, lumbosacral region (principal) ==

== ENCOUNTER → 2022-11-07 | Outpatient (CLI) | payer MEDICARE | LOC: M PLAIMG 09:38 | PROVIDERS: ATTEND Orthopaedic Surgery Adult Reconstructive Orthopaedic Surgery | DX: M51.17 Intervertebral disc disorders with radiculopathy, lumbosacral region (principal); M47.816 Spondylosis without myelopathy or radiculopathy, lumbar region ==

== ENCOUNTER 2022-11-28 07:16 | Outpatient (RCR) | payer MEDICAID, MEDICARE | END 2022-12-23 | LOC: M PT 07:16 | PROVIDERS: ATTEND Orthopaedic Surgery Adult Reconstructive Orthopaedic Surgery | DX: M54.17 Radiculopathy, lumbosacral region (principal) ==

== ENCOUNTER 2023-02-07 12:16 | Emergency (ER) | payer MEDICAID, MEDICARE, OTHER ==
[~2023-02-07] VITALS: Ht 188 cm; Wt 125.9 kg
[~2023-02-07 12:16] MED LIST changes: +DILT120C41 PO; +DILT120C42 PO; -DILT1CAP PO; -DILT1CAP2 PO
[2023-02-07] MEDS ORDERED: MULT1TAB8 PO (12:35)
[2023-02-07] MEDS ORDERED: BUPR15TASR (12:35)
[2023-02-07] MEDS ORDERED: GLIP10TA18 (12:35)
[2023-02-07] MEDS ORDERED: FARX1TAB3 (12:35)
[2023-02-07] MEDS ORDERED: DOXY100T (12:35)
[2023-02-07] MEDS ORDERED: RANO500T2 (12:35)
[2023-02-07] MEDS ORDERED: IPRATROPIUM 0.5MG/ALBUTEROL 2.5MG INH SOL UD 3ML (DUONEB) NEB ONE (13:00)
[2023-02-07] MEDS ORDERED: ALBUTEROL SULFATE 2.5MG/0.5ML INH NEB SOLN INH ONE (13:00)
[2023-02-07 13:01] LABS: BASO # 0.1 10^3/uL (0.0-0.2); BASO % 0.6 % (0.0-1.0); EOS # 0.2 10^3/uL (0.0-0.5); EOS % 1.8 % (0.0-3.0); HEMATOCRIT 50.3 % (42.0-52.0); HEMOGLOBIN 15.8 g/dl (13.5-17.5); LYMPH # 2.2 10^3/uL (1.5-5.0); LYMPH % 22.5 % (24.0-44.0); MEAN CORPUSCULAR HEMOGLOBIN 26.8 pg (27.0-33.0); MEAN CORPUSCULAR HGB CONC 31.4 g/dl (32.0-36.5); MEAN CORPUSCULAR VOLUME 85.4 fl (80.0-96.0); MONO # 0.7 10^3/uL (0.0-0.8); MONO % 7.3 % (2.0-8.0); NEUTROPHILS # 6.6 10^3/uL (1.5-8.5); NEUTROPHILS % 67.3 % (36.0-66.0); PLATELET COUNT, AUTOMATED 201 10^3/uL (150-450); RED BLOOD COUNT 5.89 10^6/uL (4.30-6.10); WHITE BLOOD COUNT 9.8 10^3/uL (4.0-10.0)
[2023-02-07 13:32] LABS: CK-MB VALUE MASS < 1.0 NG/ML (<3.6)
[2023-02-07 13:34] LABS: CPK CREATINE PHOSPHOKINASE 99 U/L (46-171); MB/CK RELATIVE INDEX 1.01 (< OR =4)
[2023-02-07 13:35] LABS: ALBUMIN 3.5 G/DL (3.2-5.2); ALKALINE PHOSPHATASE 89 U/L (46-116); ALT/SGPT 12 U/L (7.0-40); AST/SGOT 12 U/L (<34); BILIRUBIN,DIRECT 0.1 MG/DL (<0.4); BILIRUBIN,TOTAL 0.3 MG/DL (0.3-1.2); BLOOD UREA NITROGEN 27 MG/DL (9-23); CALCIUM LEVEL 9.5 MG/DL (8.5-10.1); CARBON DIOXIDE LEVEL 23 MMOL/L (20-31); CHLORIDE LEVEL 102 MMOL/L (98-107); CREATININE FOR GFR 0.87 MG/DL (0.70-1.30); GLOMERULAR FILTRATION RATE > 60.0 (>60); GLUCOSE, FASTING 256 MG/DL (60-100); POTASSIUM SERUM 3.9 MMOL/L (3.5-5.1); SODIUM LEVEL 138 MMOL/L (136-145); TOTAL PROTEIN 6.6 G/DL (5.7-8.2)
[2023-02-07 13:36] LABS: THYROID STIMULATING HORMONE 2.182 uIU/ML (0.55-4.78)
[2023-02-07] MEDS ORDERED: KETOROLAC 30 MG/ML 1ML VIAL IV ONE (13:40)
[2023-02-07 14:23] LABS: CK-MB VALUE MASS < 1.0 NG/ML (<3.6)
[2023-02-07 14:24] LABS: CPK CREATINE PHOSPHOKINASE 98 U/L (46-171); MB/CK RELATIVE INDEX 1.02 (< OR =4)
[2023-02-07] MEDS ORDERED: NS 1,000 ML IV ONE (15:35)
[2023-02-07 16:55] LABS: CK-MB VALUE MASS < 1.0 NG/ML (<3.6)
[2023-02-07 17:05] LABS: CPK CREATINE PHOSPHOKINASE 97 U/L (46-171); MB/CK RELATIVE INDEX 1.03 (< OR =4)
[2023-02-07] MEDS ORDERED: PERCOCET 5MG/325MG TAB PO ONE (17:20)
[2023-02-07] MEDS ORDERED: NICOTINE 21MG/24HR 1 EA TRANSDERMAL TD ONE (17:20)
[2023-02-07] MEDS ORDERED: PROHANCE 279.3MG/ML 15ML VIAL As Ordered ONE (18:05)
[2023-02-07 21:35] VITALS: BP 124/67
[2023-02-07] MEDS ORDERED: PERC5TAB12 PO (21:47)
[2023-02-07] MEDS ORDERED: PROA1AER2 INH (21:47)
[2023-02-07] MEDS ORDERED: PRED20TA PO (21:47)
== END 2023-02-07 22:30 | disposition home or self-care (01) ==
LOC: EDBD 12:16 → M ED 12:16
DX: J45.998 Other asthma (principal); R07.89 Other chest pain; E11.9 Type 2 diabetes mellitus without complications; I10 Essential (primary) hypertension; F17.200 Nicotine dependence, unspecified, uncomplicated; Z88.2 Allergy status to sulfonamides; Z88.5 Allergy status to narcotic agent; Z88.3 Allergy status to other anti-infective agents; Z88.8 Allergy status to other drugs, medicaments and biological substances; Z88.0 Allergy status to penicillin; Z91.02 Food additives allergy status; Z91.041 Radiographic dye allergy status
CPT/HCPCS: 71045; 80048; 80076; 82550; 82553; 83880; 84443; 84484; 85025; 87486; 87581; 87633; 87798; 90791; 93005; 93041; 94640; 94760; 96374; 96375; 99285; A9576; C8911; J1100; J1885

== ENCOUNTER 2023-02-23 14:05 | Emergency (ER) | payer MEDICAID, MEDICARE, OTHER ==
[~2023-02-23] VITALS: Ht 188 cm; Wt 125.9 kg
[~2023-02-23 14:05] MED LIST changes: +BUPR15TASR; +DOXY100T; +FARX1TAB3; +GLIP10TA18; +MULT1TAB8 PO; +PERC5TAB12 PO; +PROA1AER2 INH; +RANO500T2
[2023-02-23] MEDS ORDERED: MORPHINE 4 MG/ML 1ML VIAL IV ONE (15:20)
[2023-02-23] MEDS ORDERED: PERCOCET 5MG/325MG TAB PO ONE (15:30)
[2023-02-23] MEDS ORDERED: KETOROLAC 30 MG/ML 1ML VIAL IV ONE (16:55)
[2023-02-23] MEDS ORDERED: METH-1164 PO (17:12)
[2023-02-23] MEDS ORDERED: IBUP-1022 PO (17:12)
[2023-02-23 17:32] VITALS: BP 149/85
== END 2023-02-23 17:35 | disposition home or self-care (01) ==
LOC: M ED 14:05 → EDBD 14:05 → M ED 17:35
DX: Z04.1 Encounter for examination and observation following transport accident (principal); M47.816 Spondylosis without myelopathy or radiculopathy, lumbar region; I25.10 Atherosclerotic heart disease of native coronary artery without angina pectoris; I25.2 Old myocardial infarction; E11.9 Type 2 diabetes mellitus without complications; J44.9 Chronic obstructive pulmonary disease, unspecified; G47.33 Obstructive sleep apnea (adult) (pediatric); F17.200 Nicotine dependence, unspecified, uncomplicated; Z79.899 Other long term (current) drug therapy; Z88.2 Allergy status to sulfonamides; Z88.1 Allergy status to other antibiotic agents; Z88.5 Allergy status to narcotic agent; Z88.3 Allergy status to other anti-infective agents; Z88.8 Allergy status to other drugs, medicaments and biological substances; Z91.02 Food additives allergy status; Z91.041 Radiographic dye allergy status
CPT/HCPCS: 70450; 72125; 72128; 72131; 73030; 73060; 96374; 99284; J1885

== ENCOUNTER → 2023-04-10 | Outpatient (CLI) | payer OTHER ==
[~2023-04-10] MED LIST changes: +METH-1164 PO
== END ==
LOC: M PLAIMG 07:21
PROVIDERS: ATTEND Physician Assistant
DX: M54.2 Cervicalgia (principal)

== ENCOUNTER → 2023-06-29 | Outpatient (CLI) | payer OTHER ==
[~2023-06-29] MED LIST changes: +MECL-209 PO; -MECL1TAB31 PO; -PREG75CA2; +PREG75CA3
== END ==
LOC: M SOG 10:09
PROVIDERS: ATTEND Orthopaedic Surgery
DX: M54.2 Cervicalgia (principal); M25.511 Pain in right shoulder; M47.812 Spondylosis without myelopathy or radiculopathy, cervical region

== ENCOUNTER → 2023-07-06 | Outpatient (CLI) | payer OTHER ==
[~2023-07-06] MED LIST changes: -LUNE2TAB23 PO; +LUNE2TAB28 PO
== END ==
LOC: M PLAIMG 15:15
PROVIDERS: ATTEND Orthopaedic Surgery
DX: Z53.9 Procedure and treatment not carried out, unspecified reason (principal)

== ENCOUNTER → 2023-12-04 | Outpatient (CLI) | payer OTHER ==
[~2023-12-04] MED LIST changes: -KLON0.5T PO; +KLON0.5T8 PO; +RISP-105 PO; -RISP-8 PO
== END ==
LOC: M RAD 16:00
PROVIDERS: ATTEND Physician Assistant
DX: S72.301D Unspecified fracture of shaft of right femur, subsequent encounter for closed fracture with routine healing (principal)

== ENCOUNTER → 2024-01-12 | Outpatient (CLI) | payer MEDICARE, OTHER | LOC: M SOG 10:36 | PROVIDERS: ATTEND Orthopaedic Surgery | DX: S72.91XK Unspecified fracture of right femur, subsequent encounter for closed fracture with nonunion (principal); Z53.9 Procedure and treatment not carried out, unspecified reason ==

== ENCOUNTER → 2024-01-25 | Outpatient (CLI) | payer MEDICARE, OTHER ==
[~2024-01-25] MED LIST changes: -ETOD-173 PO; +ETOD-234 PO
== END ==
LOC: M SOG 12:32
PROVIDERS: ATTEND Physician Assistant
DX: M54.2 Cervicalgia (principal); M47.812 Spondylosis without myelopathy or radiculopathy, cervical region

== ENCOUNTER → 2024-03-06 | Outpatient (REF) | payer MEDICARE, OTHER, MEDICAID ==
[~2024-03-06] MED LIST changes: +ONDA-282 PO; -ONDA4TAB6 PO
[2024-03-06 20:04] LABS: HEMOGLOBIN A1c > 14.0 % (4.0-6.0)
[2024-03-06 20:20] LABS: ALBUMIN 3.8 G/DL (3.2-5.2); ALKALINE PHOSPHATASE 116 U/L (46-116); ALT/SGPT 15 U/L (7.0-40); AST/SGOT 9 U/L (<34); BILIRUBIN,TOTAL 0.6 MG/DL (0.3-1.2); BLOOD UREA NITROGEN 10 MG/DL (9-23); CALCIUM LEVEL 9.9 MG/DL (8.5-10.1); CARBON DIOXIDE LEVEL 26 MMOL/L (20-31); CHLORIDE LEVEL 93 MMOL/L (98-107); CHOLESTEROL LEVEL 157 MG/DL (<200); CHOLESTEROL RISK RATIO 5.21 (<5); CREATININE FOR GFR 0.72 MG/DL (0.70-1.30); GLOMERULAR FILTRATION RATE > 60.0 (>60); GLUCOSE, FASTING 510 MG/DL (60-100); HDL CHOLESTEROL 30.1 MG/DL (>40); LDL CHOLESTEROL 49.7 MG/DL (<100); NON-HDL-C 126.9 MG/DL; POTASSIUM SERUM 4.4 MMOL/L (3.5-5.1); SODIUM LEVEL 129 MMOL/L (136-145); THYROID STIMULATING HORMONE 2.505 uIU/ML (0.55-4.78); TRIGLYCERIDES LEVEL 386 MG/DL (<150)
== END ==
LOC: M LAB REF 17:10
PROVIDERS: ATTEND Physician Assistant
DX: E66.9 Obesity, unspecified (principal); E55.9 Vitamin D deficiency, unspecified; E11.9 Type 2 diabetes mellitus without complications

== ENCOUNTER → 2024-03-27 | Outpatient (REF) | payer MEDICARE, OTHER, MEDICAID ==
[~2024-03-27] MED LIST changes: -OLAN20TA14 PO; +OLAN20TA53 PO
[2024-03-27 11:57] LABS: APPEARANCE, URINE CLEAR (CLEAR); BACTERIA, URINE AUTO NEGATIVE (NEGATIVE); BILIRUBIN, URINE AUTO NEGATIVE (NEGATIVE); BLOOD, URINE BLOOD NEGATIVE (NEGATIVE); COLOR, URINE YELLOW (YELLOW); GLUCOSE, URINE (UA) AUTO 3+ mg/dL (NEGATIVE); KETONE, URINE AUTO NEGATIVE (NEGATIVE); LEUKOCYTE ESTERASE, URINE AUTO NEGATIVE (NEGATIVE); NITRITE, URINE AUTO NEGATIVE (NEGATIVE); PROTEIN, URINE AUTO NEGATIVE (NEGATIVE); RBC, URINE AUTO 0 /HPF (0-3); SPECIFIC GRAVITY URINE AUTO 1.031 (1.002-1.035); SQUAMOUS EPITHELIAL CELL UR AU 2 /HPF (0-6); UROBILINOGEN, URINE AUTO 0.2 mg/dL (0.0-2.0); WBC, URINE AUTO 0 /HPF (0-3)
== END ==
LOC: M LAB REF 10:01
PROVIDERS: ATTEND Physician Assistant
DX: R35.89 Other polyuria (principal)

== ENCOUNTER 2024-04-26 02:29 | Emergency (ER) | payer MEDICARE, MEDICAID ==
[~2024-04-26] VITALS: Ht 185.4 cm; Wt 122.7 kg
[2024-04-26 02:55] VITALS: BP 103/67; TEMP 97.4; O2SAT 96
== END 2024-04-26 05:16 | disposition left against medical advice (07) ==
LOC: EDBD 02:29 → M ED 02:29
DX: Z53.21 Procedure and treatment not carried out due to patient leaving prior to being seen by health care provider (principal)

== ENCOUNTER 2024-05-03 16:17 | Emergency (ER) | payer OTHER, MEDICARE, MEDICAID ==
[~2024-05-03] VITALS: Ht 185.4 cm; Wt 119.9 kg
[2024-05-03 16:33] VITALS: TEMP 97.5
[2024-05-03] MEDS: fentaNYL 100 MCG/2 ML INJECTION IV ONE (17:16)
[2024-05-03] MEDS: BOOSTRIX VACCINE (TETANUS/DIPHTH/ACEL. PERTUSSIS) 0.5ML SYR IM.IMMUN ONE (17:17)
[2024-05-03 17:19] LABS: BASO # 0.1 10^3/uL (0.0-0.2); BASO % 0.5 % (0.0-1.0); EOS # 0.1 10^3/uL (0.0-0.5); EOS % 0.9 % (0.0-3.0); HEMATOCRIT 49.1 % (42.0-52.0); HEMOGLOBIN 16.5 g/dl (13.5-17.5); LYMPH # 1.8 10^3/uL (1.5-5.0); LYMPH % 18.2 % (24.0-44.0); MEAN CORPUSCULAR HEMOGLOBIN 28.4 pg (27.0-33.0); MEAN CORPUSCULAR HGB CONC 33.6 g/dl (32.0-36.5); MEAN CORPUSCULAR VOLUME 84.7 fl (80.0-96.0); MONO # 0.7 10^3/uL (0.0-0.8); MONO % 7.3 % (2.0-8.0); NEUTROPHILS # 7.2 10^3/uL (1.5-8.5); NEUTROPHILS % 72.7 % (36.0-66.0); PLATELET COUNT, AUTOMATED 181 10^3/uL (150-450)
[2024-05-03 17:27] LABS: ETHYL ALCOHOL (ETHANOL) < 0.003 % (0.000-0.010); LIPASE 68 U/L (12-53)
[2024-05-03 17:28] LABS: AMYLASE 54 U/L (30-118)
[2024-05-03 17:29] LABS: ALBUMIN 3.6 G/DL (3.2-5.2); ALKALINE PHOSPHATASE 88 U/L (46-116); ALT/SGPT 17 U/L (7.0-40); AST/SGOT 16 U/L (<34); BILIRUBIN,DIRECT 0.2 MG/DL (<0.4); BILIRUBIN,TOTAL 0.5 MG/DL (0.3-1.2); BLOOD UREA NITROGEN 18 MG/DL (9-23); CALCIUM LEVEL 9.4 MG/DL (8.5-10.1); CARBON DIOXIDE LEVEL 29 MMOL/L (20-31); CHLORIDE LEVEL 100 MMOL/L (98-107); CREATININE FOR GFR 0.76 MG/DL (0.70-1.30); GLOMERULAR FILTRATION RATE > 60.0 (>60); GLUCOSE, FASTING 333 MG/DL (60-100); POTASSIUM SERUM 4.1 MMOL/L (3.5-5.1); SODIUM LEVEL 135 MMOL/L (136-145); TOTAL PROTEIN 6.9 G/DL (5.7-8.2)
[2024-05-03] MEDS ORDERED: BACIOIN5 OP ×2 (18:03→19:39)
[2024-05-03] MEDS: traMADol 50 MG TAB PO ONE (18:07)
[2024-05-03 18:15] VITALS: BP 103/56; O2SAT 95
[2024-05-03 18:31] LABS: AMPHETAMINES LEVEL URINE NEGATIVE (NEGATIVE)
[2024-05-03 18:32] LABS: BARBITURATES URINE NEGATIVE (NEGATIVE); BENZODIAZEPINES URINE NEGATIVE (NEGATIVE); CANNABINOIDS URINE NEGATIVE (NEGATIVE); COCAINE METABOLITE URINE NEGATIVE (NEGATIVE); METHADONE URINE NEGATIVE (NEGATIVE); OPIATES URINE NEGATIVE (NEGATIVE); PHENCYCLIDINE URINE NEGATIVE (NEGATIVE)
[2024-05-03] MEDS ORDERED: ACET325C5 PO (19:39)
== END 2024-05-03 19:49 | disposition home or self-care (01) ==
LOC: EDBD 16:17 → M ED 16:17
DX: S00.81XA Abrasion of other part of head, initial encounter (principal); S20.419A Abrasion of unspecified back wall of thorax, initial encounter; S80.211A Abrasion, right knee, initial encounter; T14.8XXA Other injury of unspecified body region, initial encounter; V89.2XXA Person injured in unspecified motor-vehicle accident, traffic, initial encounter; Y92.9 Unspecified place or not applicable; Y93.89 Activity, other specified; Y99.9 Unspecified external cause status; R16.0 Hepatomegaly, not elsewhere classified; K57.30 Diverticulosis of large intestine without perforation or abscess without bleeding; E11.9 Type 2 diabetes mellitus without complications; I10 Essential (primary) hypertension; J44.9 Chronic obstructive pulmonary disease, unspecified; G47.33 Obstructive sleep apnea (adult) (pediatric); F41.9 Anxiety disorder, unspecified; F32.A Depression, unspecified; F17.200 Nicotine dependence, unspecified, uncomplicated
CPT/HCPCS: 70450; 70486; 71250; 72125; 72128; 73030; 74176; 80048; 80076; 80307; 82077; 82150; 83605; 83690; 85025; 90471; 90715; 93005; 93041; 94760; 96374; 99285; J3010

== ENCOUNTER → 2024-05-08 | Outpatient (CLI) | payer MEDICARE, MEDICAID ==
[~2024-05-08] MED LIST changes: +ACET325C5 PO; +BACIOIN5 OP
== END ==
LOC: M RAD 12:56
PROVIDERS: ATTEND Physician Assistant
DX: I86.1 Scrotal varices (principal); N50.3 Cyst of epididymis; N43.3 Hydrocele, unspecified; N50.811 Right testicular pain

== ENCOUNTER 2024-08-13 14:58 | Emergency (ER) | payer MEDICARE, MEDICAID ==
[~2024-08-13] VITALS: Ht 185.4 cm; Wt 122.7 kg
[~2024-08-13 14:58] MED LIST changes: +GABA-1172 PO; +GABA-1490 PO; -GABA-282 PO; -GABA600T4 PO; -OLAN15TA13 PO; +OLAN15TA69 PO
[2024-08-13 15:42] LABS: BASO # 0.1 10^3/uL (0.0-0.2); BASO % 0.5 % (0.0-1.0); EOS # 0.1 10^3/uL (0.0-0.5); EOS % 1.1 % (0.0-3.0); HEMATOCRIT 51.2 % (42.0-52.0); HEMOGLOBIN 16.9 g/dl (13.5-17.5); LYMPH # 2.2 10^3/uL (1.5-5.0); LYMPH % 19.5 % (24.0-44.0); MEAN CORPUSCULAR VOLUME 84.8 fl (80.0-96.0); MONO # 0.8 10^3/uL (0.0-0.8); MONO % 7.3 % (2.0-8.0); NEUTROPHILS # 7.9 10^3/uL (1.5-8.5); NEUTROPHILS % 71.3 % (36.0-66.0); PLATELET COUNT, AUTOMATED 184 10^3/uL (150-450); RED BLOOD COUNT 6.04 10^6/uL (4.30-6.10)
[2024-08-13 15:56] LABS: LIPASE 49 U/L (12-53)
[2024-08-13 15:57] LABS: CK-MB VALUE MASS < 1.0 NG/ML (<3.6)
[2024-08-13 15:58] LABS: ALKALINE PHOSPHATASE 98 U/L (40-129); ALT/SGPT 17 U/L (7.0-40); AST/SGOT 14 U/L (<34); BILIRUBIN,DIRECT 0.3 MG/DL (<0.4); BILIRUBIN,TOTAL 0.7 MG/DL (0.3-1.2); BLOOD UREA NITROGEN 14 MG/DL (9-23); CALCIUM LEVEL 10.1 MG/DL (8.5-10.1); CARBON DIOXIDE LEVEL 29 MMOL/L (20-31); CHLORIDE LEVEL 103 MMOL/L (98-107); CREATININE FOR GFR 0.86 MG/DL (0.70-1.30); GLOMERULAR FILTRATION RATE > 60.0 (>60); GLUCOSE, FASTING 163 MG/DL (60-100); POTASSIUM SERUM 4.2 MMOL/L (3.5-5.1); SODIUM LEVEL 139 MMOL/L (136-145); TOTAL PROTEIN 7.3 G/DL (5.7-8.2)
[2024-08-13 16:05] LABS: CPK CREATINE PHOSPHOKINASE 144 U/L (46-171); MB/CK RELATIVE INDEX 0.69 (< OR =4)
[2024-08-13] MEDS: KETOROLAC 30 MG/ML 1ML VIAL IV ONE (16:21)
[2024-08-13 16:45] VITALS: BP 127/72; TEMP 97.9; O2SAT 96
== END 2024-08-13 16:48 | disposition home or self-care (01) ==
LOC: EDBD 14:58 → M ED 14:58
DX: G89.29 Other chronic pain (principal); R07.89 Other chest pain; E11.9 Type 2 diabetes mellitus without complications; J44.9 Chronic obstructive pulmonary disease, unspecified; F17.200 Nicotine dependence, unspecified, uncomplicated; F31.9 Bipolar disorder, unspecified; R94.31 Abnormal electrocardiogram [ECG] [EKG]; Z88.2 Allergy status to sulfonamides; Z88.1 Allergy status to other antibiotic agents; Z88.8 Allergy status to other drugs, medicaments and biological substances; Z91.041 Radiographic dye allergy status
CPT/HCPCS: 71045; 80048; 80076; 82550; 82553; 83690; 84484; 85025; 93005; 93041; 94760; 96374; 99285; J1885

== ENCOUNTER → 2024-08-28 | Outpatient (REF) | payer MEDICARE, MEDICAID ==
[2024-08-28 17:16] LABS: CREATININE, URINE 53.8 MG/DL
[2024-08-28 17:17] LABS: MAU/CREAT RATIO 18.5 MCG/MG (0.0-30.0)
[2024-08-28 18:07] LABS: CHOLESTEROL LEVEL 191 MG/DL (<200); CHOLESTEROL RISK RATIO 5.89 (<5); HDL CHOLESTEROL 32.4 MG/DL (>40); NON-HDL-C 158.6 MG/DL; TRIGLYCERIDES LEVEL 489 MG/DL (<150)
[2024-08-28 18:33] LABS: HEMOGLOBIN A1c 9.5 % (4.0-6.0)
== END ==
LOC: M LAB REF 16:23
PROVIDERS: ATTEND Nurse Practitioner Family
DX: E11.9 Type 2 diabetes mellitus without complications (principal); Z11.3 Encounter for screening for infections with a predominantly sexual mode of transmission; Z72.89 Other problems related to lifestyle

== ENCOUNTER 2024-10-16 08:53 | Emergency (ER) | payer MEDICARE, MEDICAID ==
[~2024-10-16] VITALS: Ht 185.4 cm; Wt 130.7 kg
[2024-10-16 13:06] VITALS: BP 137/87; TEMP 97.1; O2SAT 96
== END 2024-10-16 13:09 | disposition home or self-care (01) ==
LOC: M ED 08:53
DX: M62.838 Other muscle spasm (principal); R42 Dizziness and giddiness; E11.9 Type 2 diabetes mellitus without complications; F17.200 Nicotine dependence, unspecified, uncomplicated; Z91.041 Radiographic dye allergy status; Z88.2 Allergy status to sulfonamides; Z88.1 Allergy status to other antibiotic agents; Z88.5 Allergy status to narcotic agent; Z88.3 Allergy status to other anti-infective agents; Z88.8 Allergy status to other drugs, medicaments and biological substances; Z91.02 Food additives allergy status

== ENCOUNTER → 2025-01-10 | Outpatient (REF) | payer MEDICARE, MEDICAID ==
[~2025-01-10] MED LIST changes: +CLOT15CR4 TOP; -CVS1CRE56 TOP; +GLIP-320; -GLIP10TA18; +GLIP2.5T46; +GLIP2.5T46 PO; -GLIP2.5T6; -GLIP2.5T6 PO
[2025-01-10 13:59] LABS: ALBUMIN 3.5 G/DL (3.2-5.2); ALKALINE PHOSPHATASE 88 U/L (40-129); ALT/SGPT 20 U/L (7.0-40); AST/SGOT 14 U/L (<34); BILIRUBIN,TOTAL 0.5 MG/DL (0.3-1.2); BLOOD UREA NITROGEN 14 MG/DL (9-23); CARBON DIOXIDE LEVEL 26 MMOL/L (20-31); CHLORIDE LEVEL 98 MMOL/L (98-107); CHOLESTEROL LEVEL 146 MG/DL (<200); CHOLESTEROL RISK RATIO 5.42 (<5); CREATININE FOR GFR 0.79 MG/DL (0.70-1.30); GLOMERULAR FILTRATION RATE > 90.0 (>60); GLUCOSE, FASTING 370 MG/DL (60-100); HDL CHOLESTEROL 26.9 MG/DL (>40); LDL CHOLESTEROL 59.3 MG/DL (<100); NON-HDL-C 119.1 MG/DL; SODIUM LEVEL 132 MMOL/L (136-145); TOTAL PROTEIN 6.6 G/DL (5.7-8.2); TRIGLYCERIDES LEVEL 299 MG/DL (<150)
[2025-01-10 14:00] LABS: THYROID STIMULATING HORMONE 1.548 uIU/ML (0.55-4.78)
[2025-01-10 14:16] LABS: HEMOGLOBIN A1c 11.5 % (4.0-6.0)
== END ==
LOC: M LAB REF 13:18
PROVIDERS: ATTEND Family Medicine Addiction Medicine
DX: E11.9 Type 2 diabetes mellitus without complications (principal)

== ENCOUNTER 2025-01-28 03:33 | Emergency (ER) | payer MEDICARE, MEDICAID ==
[~2025-01-28] VITALS: Ht 185.4 cm; Wt 127.3 kg
[~2025-01-28 03:33] MED LIST changes: +MORP-137; +MORP-137 PO; -MSIR30TA; -MSIR30TA PO
[2025-01-28] MEDS ORDERED: CYCL-707 PO (03:45)
[2025-01-28 03:59] LABS: BASO # 0.1 10^3/uL (0.0-0.2); BASO % 0.8 % (0.0-1.0); EOS # 0.2 10^3/uL (0.0-0.5); EOS % 1.9 % (0.0-3.0); HEMATOCRIT 49.9 % (42.0-52.0); HEMOGLOBIN 16.8 g/dl (13.5-17.5); LYMPH # 2.7 10^3/uL (1.5-5.0); LYMPH % 32.8 % (24.0-44.0); MEAN CORPUSCULAR HEMOGLOBIN 28.1 pg (27.0-33.0); MEAN CORPUSCULAR HGB CONC 33.7 g/dl (32.0-36.5); MEAN CORPUSCULAR VOLUME 83.4 fl (80.0-96.0); MONO # 0.7 10^3/uL (0.0-0.8); MONO % 8.6 % (2.0-8.0); NEUTROPHILS # 4.6 10^3/uL (1.5-8.5); NEUTROPHILS % 55.5 % (36.0-66.0); PLATELET COUNT, AUTOMATED 171 10^3/uL (150-450); RED BLOOD COUNT 5.98 10^6/uL (4.30-6.10); WHITE BLOOD COUNT 8.3 10^3/uL (4.0-10.0)
[2025-01-28 04:29] LABS: BLOOD UREA NITROGEN 15 MG/DL (9-23); CALCIUM LEVEL 8.7 MG/DL (8.5-10.1); CARBON DIOXIDE LEVEL 29 MMOL/L (20-31); CHLORIDE LEVEL 96 MMOL/L (98-107); CK-MB VALUE MASS < 1.0 NG/ML (<3.6); CREATININE FOR GFR 0.72 MG/DL (0.70-1.30); GLOMERULAR FILTRATION RATE > 90.0 (>60); GLUCOSE, FASTING 350 MG/DL (60-100); SODIUM LEVEL 134 MMOL/L (136-145)
[2025-01-28 04:31] LABS: INR 0.9; PARTIAL THROMBOPLASTIN TIME 25.7 SECONDS (24.8-34.2); PROTHROMBIN TIME 12.5 SECONDS (12.5-14.5)
[2025-01-28 04:33] LABS: CPK CREATINE PHOSPHOKINASE 90 U/L (46-171); MB/CK RELATIVE INDEX 1.11 (< OR =4)
[2025-01-28 05:31] LABS: CK-MB VALUE MASS < 1.0 NG/ML (<3.6)
[2025-01-28 05:33] LABS: CPK CREATINE PHOSPHOKINASE 89 U/L (46-171); MB/CK RELATIVE INDEX 1.12 (< OR =4)
[2025-01-28] MEDS: NICOTINE 14 MG/24 HR TRANSDERMAL TD ONE (08:05)
[2025-01-28] MEDS: MECLIZINE 25 MG TABLET PO ONE (08:21)
[2025-01-28] MEDS: NS (Normal Saline) 0.9% 1,000 ML IV ONE (08:21)
[2025-01-28] MEDS: HumuLIN R (REGULAR) INSULIN (NovoLIN R) **100U/ML** PER UNIT IV ONE (08:21)
[2025-01-28] MEDS ORDERED: ACET-910 PO (11:18)
[2025-01-28] MEDS ORDERED: VENTAER INH (11:18)
[2025-01-28] MEDS ORDERED: HOME MED LIST COMPLETE! XX SCH (11:20)
[2025-01-28 14:45] VITALS: BP 132/63
[2025-01-28] MEDS ORDERED: MECL-86 PO (14:54)
[2025-01-28 15:00] VITALS: O2SAT 91
[2025-01-28 15:06] VITALS: TEMP 97.2
[2025-01-28 15:16] LABS: HEMOGLOBIN A1c 13.2 % (4.0-6.0)
== END 2025-01-28 15:07 | disposition home or self-care (01) ==
LOC: EDBD 03:33 → M ED 03:33
DX: R07.89 Other chest pain (principal); H81.10 Benign paroxysmal vertigo, unspecified ear; E11.65 Type 2 diabetes mellitus with hyperglycemia; I10 Essential (primary) hypertension; E78.5 Hyperlipidemia, unspecified; J44.9 Chronic obstructive pulmonary disease, unspecified; G47.33 Obstructive sleep apnea (adult) (pediatric); R94.31 Abnormal electrocardiogram [ECG] [EKG]; Z88.1 Allergy status to other antibiotic agents; Z88.2 Allergy status to sulfonamides; Z88.5 Allergy status to narcotic agent; Z88.8 Allergy status to other drugs, medicaments and biological substances; Z91.041 Radiographic dye allergy status; F17.200 Nicotine dependence, unspecified, uncomplicated
CPT/HCPCS: 70450; 70544; 70547; 70551; 71045; 80048; 82375; 82550; 82553; 83036; 84484; 85025; 85610; 85730; 87486; 87581; 87633; 87798; 93005; 93041; 93970; 94760; 96361; 96374; 99285; J1815

== ENCOUNTER 2025-05-25 11:29 | Emergency (ER) | payer MEDICARE, MEDICAID ==
[~2025-05-25] VITALS: Ht 185.4 cm; Wt 127.3 kg
[~2025-05-25 11:29] MED LIST changes: +ACET-910 PO; -IBUP-1022 PO; +IBUP600T42 PO; +MECL-86 PO; -PRAV10TA3 PO; +PRAV10TA43 PO
[2025-05-25 11:51] VITALS: TEMP 97.9
[2025-05-25 11:58] LABS: BASO # 0.1 10^3/uL (0.0-0.2); BASO % 1.0 % (0.0-1.0); EOS # 0.2 10^3/uL (0.0-0.5); EOS % 2.7 % (0.0-3.0); LYMPH # 2.3 10^3/uL (1.5-5.0); LYMPH % 32.8 % (24.0-44.0); MONO # 0.6 10^3/uL (0.0-0.8); MONO % 8.7 % (2.0-8.0); NEUTROPHILS # 3.9 10^3/uL (1.5-8.5); NEUTROPHILS % 54.7 % (36.0-66.0); PLATELET COUNT, AUTOMATED 155 10^3/uL (150-450)
[2025-05-25 12:10] LABS: INR 0.94
[2025-05-25 12:21] LABS: CK-MB VALUE MASS 1.7 NG/ML (<3.6)
[2025-05-25 12:24] LABS: ALT/SGPT 20 U/L (7.0-40); AST/SGOT 18 U/L (<34)
[2025-05-25 12:25] LABS: FREE T4 1.16 NG/DL (0.89-1.76)
[2025-05-25 12:26] LABS: CPK CREATINE PHOSPHOKINASE 142 U/L (46-171); MB/CK RELATIVE INDEX 1.19 (< OR =4)
[2025-05-25 12:45] VITALS: BP 140/78; O2SAT 95
== END 2025-05-25 12:58 | disposition home or self-care (01) ==
LOC: M ED 11:29 → EDBD 11:29 → M ED 12:58
DX: R07.89 Other chest pain (principal); E11.9 Type 2 diabetes mellitus without complications; J44.9 Chronic obstructive pulmonary disease, unspecified; F31.9 Bipolar disorder, unspecified; G47.33 Obstructive sleep apnea (adult) (pediatric); K57.92 Diverticulitis of intestine, part unspecified, without perforation or abscess without bleeding; Q07.00 Arnold-Chiari syndrome without spina bifida or hydrocephalus; I25.10 Atherosclerotic heart disease of native coronary artery without angina pectoris; Z95.5 Presence of coronary angioplasty implant and graft; F17.200 Nicotine dependence, unspecified, uncomplicated; Z79.899 Other long term (current) drug therapy; Z88.2 Allergy status to sulfonamides; Z88.1 Allergy status to other antibiotic agents; Z88.5 Allergy status to narcotic agent; Z88.3 Allergy status to other anti-infective agents; Z88.8 Allergy status to other drugs, medicaments and biological substances; Z91.040 Latex allergy status; Z91.02 Food additives allergy status

== ENCOUNTER → 2025-06-03 | Outpatient (CLI) | payer MEDICARE, MEDICAID | LOC: M RAD 14:19 | PROVIDERS: ATTEND Internal Medicine Interventional Cardiology | DX: I77.89 Other specified disorders of arteries and arterioles (principal); M47.814 Spondylosis without myelopathy or radiculopathy, thoracic region ==

== ENCOUNTER → 2025-06-25 | Outpatient (REF) | payer MEDICARE, MEDICAID ==
[2025-06-25 12:48] LABS: ALT/SGPT 24 U/L (7.0-40); AST/SGOT 23 U/L (<34); CALCIUM LEVEL 9.8 MG/DL (8.5-10.1); CARBON DIOXIDE LEVEL 28 MMOL/L (20-31); CHLORIDE LEVEL 99 MMOL/L (98-107); CHOLESTEROL LEVEL 185 MG/DL (<200); CHOLESTEROL RISK RATIO 5.78 (<5); CREATININE FOR GFR 0.76 MG/DL (0.70-1.30); GLOMERULAR FILTRATION RATE > 90.0 (>60); LDL CHOLESTEROL 77.4 MG/DL (<100); NON-HDL-C 153.0 MG/DL; POTASSIUM SERUM 4.3 MMOL/L (3.5-5.1); SODIUM LEVEL 134 MMOL/L (136-145); TRIGLYCERIDES LEVEL 378 MG/DL (<150)
[2025-06-25 12:49] LABS: FREE T4 1.19 NG/DL (0.89-1.76)
[2025-06-25 12:59] LABS: ESTIMATED AVERAGE GLUCOSE 220.0 MG/DL (60-110)
== END ==
LOC: M LAB REF 11:41
PROVIDERS: ATTEND Family Medicine Addiction Medicine
DX: E11.9 Type 2 diabetes mellitus without complications (principal)

== ENCOUNTER 2025-07-12 18:28 | Emergency (ER) | payer MEDICARE, MEDICAID ==
[~2025-07-12] VITALS: Ht 185.4 cm; Wt 134.7 kg
[2025-07-12 19:12] LABS: BASO # 0.1 10^3/uL (0.0-0.2); BASO % 0.7 % (0.0-1.0); EOS # 0.2 10^3/uL (0.0-0.5); EOS % 1.8 % (0.0-3.0); LYMPH # 3.1 10^3/uL (1.5-5.0); LYMPH % 32.9 % (24.0-44.0); MONO # 0.8 10^3/uL (0.0-0.8); MONO % 8.8 % (2.0-8.0); NEUTROPHILS # 5.2 10^3/uL (1.5-8.5); NEUTROPHILS % 55.6 % (36.0-66.0); PLATELET COUNT, AUTOMATED 186 10^3/uL (150-450)
[2025-07-12] MEDS: NITROGLYCERIN 0.4 MG SUBL TABLET SL PRN (19:18)
[2025-07-12 19:26] LABS: D-DIMER QUANT 0.29 ug/mL (<0.5); INR 0.92
[2025-07-12 19:46] LABS: ALT/SGPT 24 U/L (7.0-40); AST/SGOT 24 U/L (<34); CALCIUM LEVEL 9.1 MG/DL (8.5-10.1); CARBON DIOXIDE LEVEL 26 MMOL/L (20-31); CHLORIDE LEVEL 98 MMOL/L (98-107); CK-MB VALUE MASS 1.7 NG/ML (<3.6); CREATININE FOR GFR 0.99 MG/DL (0.70-1.30); GLOMERULAR FILTRATION RATE > 90.0 (>60); POTASSIUM SERUM 4.2 MMOL/L (3.5-5.1); SODIUM LEVEL 137 MMOL/L (136-145)
[2025-07-12 19:48] LABS: FREE T4 1.22 NG/DL (0.89-1.76)
[2025-07-12] MEDS: PANTOPRAZOLE 40MG VIAL IV ONE (19:49)
[2025-07-12 19:50] LABS: CPK CREATINE PHOSPHOKINASE 206 U/L (46-171); MB/CK RELATIVE INDEX 0.82 (< OR =4)
[2025-07-12] MEDS: NS 500 ML IV ONE (20:19)
[2025-07-12] MEDS: HumuLIN R (REGULAR) INSULIN (NovoLIN R) **100 U/ML** PER UNIT IV ONE (20:19)
[2025-07-12 20:46] LABS: CK-MB VALUE MASS 1.6 NG/ML (<3.6)
[2025-07-12 20:51] LABS: CPK CREATINE PHOSPHOKINASE 190 U/L (46-171); MB/CK RELATIVE INDEX 0.84 (< OR =4)
[2025-07-12 21:27] VITALS: O2SAT 96
[2025-07-12 22:30] VITALS: BP 130/67; TEMP 97.9; O2SAT 94
== END 2025-07-12 22:35 | disposition home or self-care (01) ==
LOC: M ED 18:28
DX: R07.9 Chest pain, unspecified (principal); K76.0 Fatty (change of) liver, not elsewhere classified; E11.9 Type 2 diabetes mellitus without complications; I10 Essential (primary) hypertension; E78.5 Hyperlipidemia, unspecified; J44.9 Chronic obstructive pulmonary disease, unspecified; R56.9 Unspecified convulsions; F31.9 Bipolar disorder, unspecified; G47.33 Obstructive sleep apnea (adult) (pediatric); F41.9 Anxiety disorder, unspecified; Z98.61 Coronary angioplasty status; F17.200 Nicotine dependence, unspecified, uncomplicated
CPT/HCPCS: 71046; 71250; 80048; 80076; 82550; 82553; 84439; 84443; 84484; 85025; 85379; 85610; 85730; 93005; 93041; 94760; 96361; 96374; 96375; 99285; J1815; J2470